=== PATIENT | female | born 1955 | race Caucasian/White ===

== ENCOUNTER 2017-07-08 12:52 | Inpatient (IN) | END 2017-07-20 14:38 | disposition home health service (06) | DRG 270 ==

== ENCOUNTER 2017-09-06 03:42 | Inpatient (IN) | END 2017-09-17 14:55 | disposition home health service (06) | DRG 981 ==

== ENCOUNTER 2017-10-08 02:29 | Inpatient (IN) | END 2017-10-17 16:20 | disposition home health service (06) | DRG 981 ==

== ENCOUNTER 2017-10-24 08:46 | Day surgery (SDC) | END 2017-10-24 15:50 | disposition home or self-care (01) ==

== ENCOUNTER 2017-11-09 16:53 | Inpatient (IN) | END 2017-11-16 14:40 | DRG 64 ==

== ENCOUNTER 2017-11-16 16:50 | Inpatient (IN) | END 2017-11-21 17:45 | DRG 56 ==

== ENCOUNTER 2018-02-03 01:41 | Inpatient (IN) | END 2018-02-22 16:10 | DRG 981 ==

== ENCOUNTER 2018-03-29 16:20 | Inpatient (IN) | payer MEDICARE, MEDICAID ==
[~2018-03-29] VITALS: Ht 154.9 cm; Wt 56.0 kg
[~2018-03-29 16:20] MED LIST: ISOT30CA PO; LANT3I SC; LOSA50TA2 PO; METO-336 PO; NOVO3I SC; SEVE0.8P PO; ZOLP5TAB PO
[2018-03-29] MEDS ORDERED: PIPER-TAZO 3.375 GM IV (PMX) 100 ML IVPB STA (16:53)
[2018-03-29] MEDS ORDERED: CLINDAMYCIN 900 MG/D5W (PMX) 50 ML IVPB STA (16:53)
--- NOTE | 2018-03-29 17:16 | ERD ---
ER Documentation Chief Complaint Chief Complaint BIB [facility]from [facility] for LLE cellulitis, ulceration HPI This is a 62-year-old female who resides at [facility] and has a known history of diabetes and hypertension. Patient is also on hemodialysis every Monday and Monday. She is a full run of dialysis yesterday. The patient presents to the emergency department after being seen and evaluated earlier by her primary care physician Dr. Henderson for an infected foot ulcer on her left heel. The patient indicates for several months she has been experiencing a painful ulcer on her left heel that has progressively worsened. She had no fevers or shaking or chills. She was seen today at the wound clinic and was instructed that she would require admission for IV antibiotics. The patient has an allergy to vancomycin. She denies any swelling of her lower extremities nor does she have any calf tenderness or shortness of breath. ROS All systems reviewed and are negative except as per history of present illness. Medications Home Meds Reported Medications Vits A & D/White Pet/Lanolin (Vitamin A & D Ointment) 56.7 Gm Oint...g., GM TP DAILY APPLY RIGHT HEEL TOPICALLY 03/29/18 Ondansetron Hcl* (Zofran*) 4 Mg Tab, 4 MG PO Q6H PRN for NAUSEA AND OR VOMITING, TAB 03/29/18 Metoprolol Succinate* (Toprol XL*) 200 Mg Tab.sr.24h, 200 MG PO BID, #60 TAB QTUE, ROCHELLE, SAT, SUN. HOLD FOR SBP<110 OR AR<60 03/29/18 Metoprolol Succinate* (Toprol XL*) 200 Mg Tab.sr.24h, 200 MG PO DAILY, #30 TAB Q MON, MON, MON.HOLD FOR SBP<110 OR AR<60 03/29/18 Pantoprazole* (Pantoprazole*) 40 Mg Tablet.dr, 40 MG PO AC BREAKFAST, TAB 03/29/18 Clopidogrel Bisulfate (Clopidogrel) 75 Mg Tablet, 75 MG PO DAILY, #30 TAB 03/29/18 Morphine Sulfate* (Morphine* Liq) 10 Mg/5 Ml Solution, 1 ML PO Q3H PRN for PAIN LEVEL 6-10, ML 03/29/18 Dronabinol* (Marinol*) 2.5 Mg Capsule, 2.5 MG PO DAILY, CAP 03/29/18 Atorvastatin* (Atorvastatin*) 40 Mg Tablet, 40 MG PO QHS, #30 TAB 03/29/18 Lactulose* (Lactulose*) 10 Gm/15 Ml Solution, 30 GM PO Q6, ML 03/29/18 Iodine/Potassium Iodide (Iodine Strong Solution) 100 Ml Solution, ML TP DAILY APPLY TO LEFT HEEL TOPICALLY 03/29/18 Heparin Sodium,Porcine/Pf (HEPARIN SOD 5,000 UNIT/ 0.5 ML) 5,000 Unit/0.5 Ml Vial, 5000 UNIT IJ BID, VIAL 03/29/18 Epoetin Olayinka (Epogen) 10,000 Units/Ml Soln, 07472 UNITS SC DAILY, VIAL Q MON, MON, MON FOR ESRD 03/29/18 Losartan Potassium* (Losartan Potassium*) 50 Mg Tablet, 50 MG PO DAILY, TAB Q MON, MON, MON. HOLD FOR SBP<110 OR AR<60 03/29/18 Losartan Potassium* (Losartan Potassium*) 50 Mg Tablet, 50 MG PO BID, TAB Q MON, ROCHELLE, SAT, SUN. HOLD FOR SBP<110 OR AR<60 03/29/18 Diphenhydramine Hcl* (Benadryl*) 50 Mg Cap, 50 MG PO Q3H PRN for ITCHING, CAP 03/29/18 Insulin Glargine,Hum.rec.anlog (Basaglar Kwikpen U-100) 100 Unit/1 Ml Insuln.pen , 5 UNIT SC QHS, EA 03/29/18 Acetaminophen* (Acetaminophen*) 325 Mg Tablet, 650 MG PO Q6H PRN for PAIN LEVEL 1-5, #30 TAB 03/29/18 Sevelamer Carbonate* (Renvela*) 0.8 Gm Powd.pack, 1.6 GM PO WITH MEALS, PACKET 07/08/17 Insulin Aspart* (Novolog Insulin Pen*) 100 Unit/Ml Soln, 2 UNIT SC WITH MEALS, EA HOLD IF BS<150 07/08/17 Discontinued Reported Medications Isotretinoin (Myorisan) 30 Mg Capsule, 30 MG PO BID, CAP 09/06/17 Insulin Glargine* (Lantus*) 100 Unit/Ml Soln, 5 UNIT SC QHS, #1 VIAL 08/22/17 Zolpidem Tartrate* (Ambien*) 5 Mg Tablet, 5 MG PO QHS PRN for INSOMNIA, #30 TAB 07/08/17 Discontinued Scripts Metoprolol Succinate* (Toprol XL*) 100 Mg Tab.sr.24h, 200 MG PO BID for 90 Days Prov:GAGE WOOTEN MD 09/16/17 Losartan Potassium* (Cozaar*) 50 Mg Tablet, 50 MG PO BID for 90 Days, TAB Prov:GAGE WOOTEN MD 09/16/17 Allergies Allergies: Coded Allergies: aspirin (Unverified Allergy, Severe, 03/29/18) codeine (Unverified Allergy, Severe, 03/29/18) vancomycin (Unverified Allergy, Severe, 03/29/18) PMhx/Soc History of Surgery: No Anesthesia Reaction: No Hx Neurological Disorder: Yes (01/20 stroke) Hx Respiratory Disorders: No Hx Cardiac Disorders: No Hx Psychiatric Problems: No Hx Miscellaneous Medical Probl: Yes (pls see EMR) Hx Alcohol Use: No Hx Substance Use: No Hx Tobacco Use: No Physical Exam Vitals Vital Signs Date Temp Pulse Resp B/P (MAP) Pulse Ox O2 O2 Flow FiO2 Time Delivery Rate 03/29/18 93 16 140/79 95 Nasal 4.0 18:36 (99) Cannula 03/29/18 98.1 97 20 133/76 100 16:41 (95) Physical Exam Constitutional:Well-developed. Well-nourished. HEENT:Normocephalic. Atraumatic.Pupils were equal round reactive to light. Moist mucous membranes.No tonsillar exudates. Neck: No nuchal rigidity. No lymphadenopathy. No posterior cervical spine tenderness or step-offs. Respiratory: Not using accessory muscles of respiration.Lungs were clear to auscultation bilaterally. No rhonchi. No rales. No wheezing. Cardiovascular: Regular rate regular rhythm.No murmurs. No rubs were appreciated.S1, S2 normal. Left lower extremity palpable femoral pulse but nonpalpable pedal pulse. GI: Abdomen was soft. Nontender. Non Distended. No pulsatile abdominal masses or bruits. No rebound. No guarding. Bowel sounds were present and normal. Muscle skeletal: Full range of motion of both the upper and lower extremities bilaterally.Normal muscle tone.No assymetrical calf tenderness or swelling. Positive thrill and bruit of the left upper extremity AV fistula Skin: No petechia, no purpura. No lesions on the palms or the soles of the feet. No maculopapular rash. Left heel ulcer with gangrene, granulation tissue and eschar formation. Left calf ulcer with subcutaneous tissue and granulation tissue present. Dressing was removed in order to perform physical exam and replaced by nursing staff. NEURO: Patient was alert, awake, orientated x3.No facial droop. Gait observed and normal with no ataxia.Speech had regular rate and rhythm. No focal neurological deficits. Result Diagram: 03/29/182 03/29/181811 Results 24 hrs Laboratory Tests Test 03/29/18 18:12 03/29/18 18:13 White Blood Count 6.4 10^3/ul Red Blood Count 3.21 10^6/ul Hemoglobin 11.0 g/dl Hematocrit 35.0 % Mean Corpuscular Volume 109.0 fl Mean Corpuscular Hemoglobin 34.3 pg Mean Corpuscular Hemoglobin Concent 31.4 g/dl Red Cell Distribution Width 16.5 % Platelet Count 204 10^3/UL Mean Platelet Volume 11.4 fl Immature Granulocytes % 0.500 % Neutrophils % 78.7 % Lymphocytes % 9.2 % Monocytes % 10.6 % Eosinophils % 0.5 % Basophils % 0.5 % Nucleated Red Blood Cells % 0.0 /100WBC Immature Granulocytes # 0.030 10^3/ul Neutrophils # 5.1 10^3/ul Lymphocytes # 0.6 10^3/ul Monocytes # 0.7 10^3/ul Eosinophils # 0.0 10^3/ul Basophils # 0.0 10^3/ul Nucleated Red Blood Cells # 0.0 10^3/ul Prothrombin Time 14.4 Sec Prothrombin Time Ratio 1.1 INR International Normalized Ratio 1.10 Activated Partial Thromboplast Time 30.4 Sec Sodium Level 138 mmol/L Potassium Level 5.1 mmol/L Chloride Level 94 mmol/L Carbon Dioxide Level 29 mmol/L Anion Gap 15 Blood Urea Nitrogen 30 mg/dl Creatinine 3.88 mg/dl Est Glomerular Filtrat Rate mL/min 14 mL/min Glucose Level 282 mg/dl Hemoglobin A1c 6.2 % Calcium Level 9.2 mg/dl Total Bilirubin 0.8 mg/dl Direct Bilirubin 0.30 mg/dl Indirect Bilirubin 0.5 mg/dl Aspartate Amino Transf (AST/SGOT) 30 IU/L Alanine Aminotransferase (ALT/SGPT) 9 IU/L Alkaline Phosphatase 228 IU/L Troponin I < 0.012 ng/ml C-Reactive Protein 5.1 mg/dl Total Protein 9.6 g/dl Albumin 3.7 g/dl Globulin 5.90 g/dl Albumin/Globulin Ratio 0.62 POC Venous Lactate 2.4 mmol/L Current Medications Medications Dose Sig/Mango Start Time Status Last (Trade) Ordered Route PRN Stop Time Admin Dose Reason Admin Clindamycin 50 ml @ 50 ONCE STAT 03/29/18 DC HCl/ mls/hr IVPB 16:53 Dextrose 03/29/18 17:52 Piperacillin 100 ml @ ONCE STAT 03/29/18 DC Sod/ 200 mls/hr IVPB 16:53 Tazobactam 03/29/18 Sod 17:22 Morphine 4 mg ONCE STAT 03/29/18 DC 03/29/18 Sulfate IV 17:18 19:12 (morphine) 03/29/18 17:19 Ondansetron 4 mg ONCE STAT 03/29/18 DC 03/29/18 HCl (Zofran IV 17:18 19:11 Inj) 03/29/18 17:19 Ondansetron 4 mg BRIDGE ORDER 03/29/18 HCl (Zofran PRN IV 18:00 Inj) NAUSEA AND/OR 03/30/18 VOMITING 17:59 650 mg ER BRIDGE 03/29/18 Acetaminophen PRN PO MILD 18:00 (Tylenol PAIN(1-3)OR 03/30/18 Tab) ELEVATED TEMP 17:59 Procedures/MDM The patient presented to the emergency department with a spreading erythematous superficial infection of the skin and subcutaneous tissues. My differential diagnosis included but was not limited to necrotizing fasciitis, lymphangitis, thrombophlebitis, deep vein thrombosis, allergic reaction, neoplasm, gout or abscess. Predisposing factors of the progressive spread of erythema, warmth, pain and tenderness was considered such as lymphedema, tinea pedis, open wounds, prior trauma or surgery, pre-existing skin lesion (furuncle), retained foreign body, injection drug use or vascular or immune compromise. The patient was placed on antibiotics to cover Staphylococcus aureus, including resistant strains such as community-acquired methicillin-resistant S. aureus. Radiographic imaging 3 views of the left foot and ankle reviewed by myself the radiologist indicated the following: Soft tissue wound/ulcer of the heel with possible early erosive changes of the calcaneal tuberosity which may represent early osteomyelitis. Interval development of tibiotalar joint effusion with erosive changes of the talus, navicular, and distal fibula concerning for possible infectious arthropathy. 12 Lead EKG tracing ordered and reviewed by myself showed: Normal sinus rhythm of 99 bpm and no arrhythmia. AR interval normal. QRS duration normal. No ST segment elevation No ST segment depression. No changes consistent with acute ischemia. Patient has allergy to vancomycin. Therefore she was given clindamycin and Zosyn. Dr. Henderson will be the admitting physician. Please note that the patient had been waiting a bed and continued to be monitored in the emergency department. Lactic acid which had not been ordered by myself at 1813 and back positive at 2.4. The patient initially arrived she did not have Sirs criteria. She did have blood cultures obtained and has been ordered Zosyn and clindamycin. However the patient was very reluctant to take any antibiotics and refused the antibiotic treatment in the emergency room. She stated she has allergies to every antibiotic except for 1 despite medical documentation that the patient has an allergy to vancomycin only. Therefore the patient kept refusing the antibiotics. We phoned dialysis Center [facility] for unable to get hold of them as she states they know the antibiotic she can take. We also placed a call to her daughter who she also stated is aware of the antibiotic she can take but we were unable to get hold of her. The patient did not receive a 30 cc/kg bolus of normal saline given that she is a dialysis patient and this would result in fluid overload. Again please note that there was a delay in antibiotics not due to nursing staff or myself them being ordered but that the patient was refusing the antibiotics. I felt the lactic acidosis was not a result of sepsis. Departure Diagnosis: Primary Impression: Osteomyelitis of foot, left, acute Additional Impression: Lactic acidosis Condition: Serious JORDYN HENDRICKS MD Mar 29, 2018 17:16
[2018-03-29] MEDS ORDERED: morphine 4 MG/ML VIAL IV STA (17:18)
[2018-03-29] MEDS ORDERED: ONDANSETRON 4 MG INJ IV STA (17:18)
[2018-03-29] MEDS ORDERED: ACET325T45 PO (17:41)
[2018-03-29] MEDS ORDERED: INSU100I33 SC (17:47)
[2018-03-29] MEDS ORDERED: BEN50 PO (17:48)
[2018-03-29] MEDS ORDERED: LOSA50TA14 PO ×2 (17:51)
[2018-03-29] MEDS ORDERED: EPO10ESRD SC (17:52)
[2018-03-29] MEDS ORDERED: HEPA500021 IJ (17:52)
[2018-03-29] MEDS ORDERED: [UNRECOGNIZED DRUG - CODE] TP (17:55)
[2018-03-29] MEDS ORDERED: LACT10SO5 PO (17:55)
[2018-03-29] MEDS ORDERED: ATOR40TA68 PO (17:56)
[2018-03-29] MEDS ORDERED: DRON2.5C10 PO (17:56)
[2018-03-29] MEDS ORDERED: MORP10SO PO (17:58)
[2018-03-29] MEDS ORDERED: CLOP75TA27 PO (17:58)
[2018-03-29] MEDS ORDERED: PANT40TA4 PO (17:59)
[2018-03-29] MEDS ORDERED: ACETAMINOPHEN 325 MG TAB PO PRN (18:00)
[2018-03-29] MEDS ORDERED: ONDANSETRON 4 MG INJ IV PRN (18:00)
[2018-03-29] MEDS ORDERED: METO200T49 PO ×2 (18:01)
[2018-03-29] MEDS ORDERED: ONDA4TAB13 PO (18:02)
[2018-03-29] MEDS ORDERED: VITA56.7 TP (18:04)
[2018-03-29] MEDS ORDERED: GENTAMICIN 120 MG/NS (PMX) 100 ML IVPB ONE (20:30)
[2018-03-30] VITALS (17 sets, daily range): BP systolic 127–167; BP diastolic 61–93; PULSE 88–105; RESP 19–20; Ht 154.9 cm; Wt 56.0 kg
[2018-03-30] MEDS ORDERED: ACETAMINOPHEN 325 MG TAB PO PRN (01:30)
[2018-03-30] MEDS ORDERED: DIPHENHYDRAMINE 50 MG CAP PO PRN (01:30)
[2018-03-30] MEDS: ACCU-CHEK XX SCH (02:00)
[2018-03-30] MEDS ORDERED: GLUCOSE GEL 15 GRAM TUBE BUCCAL PRN (02:00)
[2018-03-30] MEDS: LACTULOSE 30ML CUP PO SCH ×3 (05:34→17:50)
[2018-03-30] MEDS ORDERED: PIPER-TAZO 3.375 GM IV (PMX) 100 ML IVPB SCH (06:00)
[2018-03-30] MEDS ORDERED: PIPER-TAZO 2.25 GM (PMX) 50 ML IVPB SCH (06:00)
[2018-03-30] MEDS ORDERED: DIPHENHYDRAMINE 50 MG INJ IV ONE (07:00)
[2018-03-30] MEDS ORDERED: HEPARIN 5,000 UNIT/0.5 ML VIAL SC SCH (09:00)
[2018-03-30] MEDS ORDERED: METOPROLOL (XL) 100 MG TAB PO SCH (09:00)
[2018-03-30] MEDS ORDERED: CLINDAMYCIN 600 MG/D5W (PMX) 50 ML IVPB SCH (09:00)
[2018-03-30] MEDS: CLOPIDOGREL 75 MG TAB PO SCH (09:18)
[2018-03-30] MEDS: METOPROLOL (XL) 100 MG TAB PO SCH (09:19)
[2018-03-30] MEDS: LOSARTAN 50 MG TAB PO SCH (09:19)
[2018-03-30] MEDS: SEVELAMER CARBONATE 0.8 GM PKT PO SCH ×3 (09:20→17:51)
[2018-03-30] MEDS: PANTOPRAZOLE (EC) 40 MG TAB PO SCH (09:20)
[2018-03-30] MEDS: DRONABINOL 2.5 MG CAP PO SCH (09:23)
[2018-03-30] MEDS: INSULIN ASPART [NOVOLOG] 3 ML PEN SC SCH ×7 (09:27→20:45)
[2018-03-30] MEDS: morphine LIQ (10 MG/5 ML) CUP PO PRN ×2 (09:37→21:04)
[2018-03-30] MEDS: HEPARIN 5,000 UNIT/1 ML VIAL SC SCH ×2 (12:00→20:52)
[2018-03-30] MEDS ORDERED: LEVOFLOXACIN 500 MG TAB PO ONE (12:30)
[2018-03-30] MEDS: ONDANSETRON 4 MG TAB PO PRN ×2 (14:23→21:04)
[2018-03-30] MEDS: CLINDAMYCIN 900 MG/D5W (PMX) 50 ML IVPB SCH ×2 (15:12→22:29)
--- NOTE | 2018-03-30 15:48 | CONS ---
Date/Time of Note Date/Time of Note DATE: 03/30/18 TIME: 15:48 Assessment/Plan Assessment/Plan Additional Assessment/Plan 1) Left heel unstageable decubitus ulcer 2) Left heel dry gangrene 3) Left lateral leg diabetic ulcer 4) Cellulitis LLE 5) Suspicion for osteomyelitis 6) PAD 7) ESRD on HD 8) DM1 with peripheral neuropathy 9) Hx of CVA Plan: X-rays reviewed and showing signs of early osteomyelitis. No sign of soft tissue emphysena. MRI ordered. PAD being followed in outpatient setting with Dr. Valdovinos. Wound cultures obtained currently on IV abx. Patient will likely need IV PICC line abx. Recommend offloading with pillows and heel protectors. Recommend daily irrigation with dakins to wound sites. Left lateral leg with xeroform, left heel with 4x4 betadine gauze and kerlix wrap. Medical decisions, treatment, and plan coordinated with Dr. Gomez. Consultation Date/Type/Reason Admit Date/Time Mar 29, 2018 at 17:36 Hx of Present Illness 62 y/o F with hx of HLD, DM1 with PN, HTN, PAD, CVA, ESRD on HD presents to the floor with chronic left lower extremity ulceration. Patient was seen in wound care clinic and had reported increased swelling and pain to the left lower extremity ulcer sites. There was concern for worsening infection due the symptoms she exhibited during clinic. Patient was amenable for admission for closer monitoring. ROS: negative except for HPI Past Medical History HLD, DM1 with PN, osteomyelitis, HTN, PAD, CVA, ESRD on HD Medications Current Medications Acetaminophen (Tylenol Tab) 650 mg Q6H PRN PO PAIN LEVEL 1-5; Start 03/30/18 at 01:30 Atorvastatin Calcium (Lipitor) 40 mg QHS PO ; Start 03/30/18 at 21:00 Clopidogrel Bisulfate (plaVIX) 75 mg DAILY PO Last administered on 03/30/18at 09:18; Admin Dose 75 MG; Start 03/30/18 at 09:00 Dronabinol (Marinol) 2.5 mg DAILY PO Last administered on 03/30/18at 09:23; Admin Dose 2.5 MG; Start 03/30/18 at 09:00 Epoetin Olayinka (Epogen (Esrd)) 10,000 units DAILY@1700 SC ; Start 03/30/18 at 17:00 Insulin Aspart (Novolog Insulin Pen) 2 unit WITH MEALS SC Last administered on 03/30/18at 11:40; Admin Dose 2 UNIT; Start 03/30/18 at 07:50 Insulin Glargine (Lantus) 5 units QHS SC ; Start 03/30/18 at 21:00 Lactulose (Enulose) 30 gm Q6 PO ; Start 03/30/18 at 06:00 Losartan Potassium (Cozaar) 50 mg SuTuThSa@0900,2100 PO ; Start 03/31/18 at 09: 00 Losartan Potassium (Cozaar) 50 mg MoWeFr@0900 PO Last administered on 03/30/18at 09:19; Admin Dose 50 MG; Start 03/30/18 at 09:00 Morphine Sulfate (morphine) 2 mg Q3H PRN PO PAIN LEVEL 6-10 Last administered on 03/30/18at 09:37; Admin Dose 2 MG; Start 03/30/18 at 01:30 Ondansetron HCl (Zofran Tab) 4 mg Q6H PRN PO NAUSEA AND/OR VOMITING Last administered on 03/30/18at 14:23; Admin Dose 4 MG; Start 03/30/18 at 01:30 Pantoprazole (Protonix Tab) 40 mg AC BREAKFAST PO Last administered on 03/30/18at 09:20; Admin Dose 40 MG; Start 03/30/18 at 07:20 Sevelamer Carbonate (Renvela) 1.6 gm WITH MEALS PO Last administered on 03/30at 13:21; Admin Dose 1.6 GM; Start 03/30/18 at 07:50 Diagnostic Test (Pha) (Accu-Chek) 1 ea 02 XX ; Start 03/30/18 at 02:00 Insulin Aspart (Novolog Insulin Pen) NOVOLOG *MILD* ALGORITHM WITH MEALS BEDTIME SC Last administered on 03/30/18at 13:37; Admin Dose 3 UNIT; Start 03/30/18 at 07:50 Miscellaneous Information 1 ea NOTE XX ; Start 03/30/18 at 02:00 Glucose (Glutose) 15 gm Q15M PRN PO DECREASED GLUCOSE; Start 03/30/18 at 02:00 Glucose (Glutose) 22.5 gm Q15M PRN PO DECREASED GLUCOSE; Start 03/30/18 at 02:00 Dextrose (D50w Syringe) 25 ml Q15M PRN IV DECREASED GLUCOSE; Start 03/30/18 at 02:00 Dextrose (D50w Syringe) 50 ml Q15M PRN IV DECREASED GLUCOSE; Start 03/30/18 at 02:00 Glucagon (Glucagen) 1 mg Q15M PRN IM DECREASED GLUCOSE; Start 03/30/18 at 02:00 Glucose (Glutose) 15 gm Q15M PRN BUCCAL DECREASED GLUCOSE; Start 03/30/18 at 02:00 Metoprolol Succinate (Toprol Xl) 200 mg MoWeFr@0900 PO Last administered on 03/30/18at 09:19; Admin Dose 200 MG; Start 03/30/18 at 09:00 Metoprolol Succinate (Toprol Xl) 50 mg SuTuThSa@0900,2100 PO ; Start 03/31/18 at 09:00 Diphenhydramine HCl (Benadryl) 50 mg Q4H PRN IV pruritis; Start 03/30/18 at 09:00 Heparin Sodium (Porcine) (Heparin (5000 Units/1ml)) 5,000 unit BID SC Last administered on 03/30/18at 12:00; Admin Dose 5,000 UNIT; Start 03/30/18 at 12:00 Clindamycin HCl/ Dextrose 50 ml @ 50 mls/hr Q8 IVPB Last administered on 03/30/18at 15:12; Admin Dose 50 MLS/HR; Start 03/30/18 at 14:00 Levofloxacin (Levaquin) 250 mg Q2D@0600 PO ; Start 04/01/18 at 06:00 Allergies: Coded Allergies: aspirin (Unverified Allergy, Severe, 03/29/18) codeine (Unverified Allergy, Severe, 03/29/18) vancomycin (Unverified Allergy, Severe, 03/29/18) Past Surgical History AVF Past Surgical Hx: other Family History Significant Family History: no pertinent family hx Social History Alcohol Use: none Smoking Status: Never smoker Drug Use: none Exam/Review of Systems Vital Signs Vitals Vital Signs Date Temp Pulse Resp B/P (MAP) Pulse Ox O2 O2 Flow FiO2 Time Delivery Rate 03/30/18 97.8 105 19 130/81 99 Nasal 08:30 (97) Cannula 03/30/18 2.0 01:59 Exam Non palpable pedal pulses Muscle atrophy to the lower extremity Left heel ulcer 3.1 x 2.8cm indeterminate depth mild erythema to the surrounding aspect of the wound. No purulence expressed Left lateral leg ulcer 3.3 x 1.8 x 0.2cm dry fibrogranular wound base. No proximal streaking no purulence expressed. Absent protectives sensations to the feet There is pain to palpation of the heel wound site. X-ray Soft tissue wound/ulcer of the heel with possible early erosive changes of the calcaneal tuberosity which may represent early osteomyelitis. Interval development of tibiotalar joint effusion with erosive changes of the talus, navicular, and distal fibula concerning for possible infectious arthropathy. FELTON ACOSTA DPM Mar 30, 2018 15:48
[2018-03-30] MEDS ORDERED: DIPHENHYDRAMINE 50 MG CAP PO ONE (16:00)
--- NOTE | 2018-03-30 17:00 | HP ---
DATE OF ADMISSION: 03/29/2018 CHIEF COMPLAINT: Cellulitis, ulceration. HISTORY OF PRESENT ILLNESS: This is a 62-year-old female with a past medical history of end-stage re nal disease, history of anemia, history of mineral bone disorder, history of third-degree grijalva, stat us post skin graft, history of type 1 diabetes, history of pruritus, who was brought into [facility] from her [facility] facility due to infected left heel ulcer. The patient scott t to the [facility], was seen by her surgeon, Dr. Valdovinos, who recommended arminda romero to come to the emergency room for further evaluation of her left heel ulcer. The patient states th at she has been having pain in the ulcer of the left heel, which has progressively worsened. As a re sult, the patient was brought into the emergency room. The patient was started on IV antibiotics, mcpherson d laboratory data drawn, and was admitted to med/surg for further evaluation. Upon my evaluation of the patient at this time, she is complaining of pruritus, which she states has worsened over the last 24 hours. The patient is also complaining about pain in her left heel. She o therwise denies any fevers, chills, nausea, or vomiting. PAST MEDICAL HISTORY: History of end-stage renal disease, history of third-degree grijalva, history of CVA, history of diabetes type 1, history of peptic ulcer disease, history of GI bleed, history of min eral bone disorder. PAST SURGICAL HISTORY: Status post PermCath placement, status post AV fistula placement, status post hysterectomy, status post skin graft. ALLERGIES: MULTIPLE, PLEASE SEE LIST. FAMILY HISTORY: No family history of kidney disease. SOCIAL HISTORY: She does not drink, smoke, or do drugs. MEDICATIONS: The patient's medications have been reviewed. REVIEW OF SYSTEMS: Fourteen-point review of systems was conducted. Pertinent positives stated in HP I, otherwise, negative. PHYSICAL EXAMINATION: VITAL SIGNS: Blood pressure is 117/62, respirations 16, pulse 70, temperature 98.6. HEENT: Head is normocephalic. NECK: Supple. HEART: Regular rate. LUNGS: Show diminished breath sounds at the base. ABDOMEN: Soft, nontender to palpation, no rebound or guarding. EXTREMITIES: Negative for clubbing and cyanosis, no edema, positive wound noted on patient's heel. DERMATOLOGIC: The patient has noted skin graft. NEUROLOGIC: No change in exam, no focal deficits. MUSCULOSKELETAL: No joint effusions. LABORATORY DATA: Shows a white count of 5.5, hemoglobin 9.7, platelet count 176. Sodium 140, BUN 37 , creatinine 4.28, lactic acid level 2.2, calcium 8.7. ASSESSMENT AND PLAN: 1. Left foot diabetic foot ulcer with underlying cellulitis. Plan is to start the patient on antibi otic therapy. We will place an ID consult for antibiotic regimen. Imaging studies and x-rays of the ankle were reviewed. It shows evidence of erosive changes, possible early osteomyelitis. We will p lace a vascular surgery consult with Dr. Valdovinos for further recommendations and monitor closely. 2. End-stage renal disease. The patient is on dialysis Monday, Monday, Monday. Plan for hemodia lysis today. We will dialyze 3 hours on 3K bath, calcium 2.5, ultrafiltrate as tolerated. 3. Anemia. Monitor hemoglobin and hematocrit levels. We will give Epogen as needed. 4. Mineral bone disorder. Monitor calcium and phosphorus levels. 5. Chronic pruritus. Etiology is secondary to history of third-degree grijalva. We will continue yrn ent on Benadryl. We will attempt dermatology consult if available. 6. Diabetes. Continue current insulin regimen. 7. Peptic ulcer disease. Continue proton pump inhibitor. 8. History of CVA. Continue medical management. 9. Chronic pain syndrome. Continue current pain regimen. 10. Hypertension. Continue current blood pressure regimen. 11. Gastrointestinal and deep venous thrombosis prophylaxis. 12. Coronary artery disease. Continue current treatment plan. Dictated By: KG SANTANA/NASH Conf#: [id number] DID#: [id number]
[2018-03-30] MEDS: EPOETIN 10000 UNITS/1 ML INJ (ESRD) SC SCH (17:52)
--- NOTE | 2018-03-30 20:12 | CONS ---
DATE OF ADMISSION: 03/29/2018 DATE OF CONSULTATION: 03/30/2018 TYPE OF CONSULTATION: Infectious Disease REASON FOR CONSULTATION: Antibiotic management. HISTORY OF PRESENT ILLNESS: Henna Quinn is a 62-year-old female who was brought in from a skilled [facility] facility with left lower extremity cellulitis. Her past problems include: 1. Adult-onset diabetes. 2. Hypertension. 3. End-stage renal disease on hemodialysis Monday, Monday and Monday. The patient presented to the emergency room after being seen by Dr. Henderson for an infected foot ulce r on her left heel. The patient notes that she has had this for several months and has been experien cing a painful ulcer on the left heel that has progressively worsened. She denies fever or chills. The patient has an ALLERGY TO VANCOMYCIN. She denies any swelling of her lower extremities nor did s he have any calf tenderness or shortness of breath. On admission, her white count was 6.4, H and H o f 11 and 35, platelet count of 204,000. BUN and creatinine 30/3.88. Blood sugar of 282. PAST MEDICAL HISTORY: As outlined. The patient also is on insulin. She is on blood pressure medica tions and she is hyperlipidemic as well. ALLERGIES: 1. ASPIRIN. 2. CODEINE. 3. VANCOMYCIN. PAST SURGICAL HISTORY: She has a history of a stroke on 01/20/2018. SOCIAL HISTORY: She does not smoke, drink or abuse drugs. PHYSICAL EXAMINATION: GENERAL: The patient is well-developed, well-nourished female, alert and responsive. VITAL SIGNS: Afebrile, pulse of 97, blood pressure 135/75. SKIN: Without generalized rash. HEENT: Within normal limits. NECK: Supple. LYMPH NODES: None palpable. CHEST: Decreased breath sounds at the bases. HEART: Without murmur or gallop. ABDOMEN: Soft, nontender, without organosplenomegaly or masses. EXTREMITIES: Without cyanosis, clubbing, or edema. She has an AV fistula in the left upper extremit y with a positive thrill and bruit. She has a left heel ulcer which is gangrenous with granulation t issue and eschar formation. She has left calf ulcer with subcutaneous tissue and granulation tissue present. RECTAL AND GENITAL: Deferred. NEUROLOGIC: No focal neurological abnormalities. Patient was begun on Zosyn. She received clindamycin and she also received Zosyn, though the clindam ycin now has been stopped. I will continue clindamycin unless there is a reason why she should not b e on this. We could put her on daptomycin as well. Blood cultures are pending. I will dictate my f indings to the hospitalist. Dictated By: SUGAR GREENE MD, JD/NASH Conf#: [id number] DID#: [id number] CC: KG HENDERSON DO;*End*
[2018-03-30] MEDS: ATORVASTATIN 40 MG TAB PO SCH (20:48)
[2018-03-30] MEDS ORDERED: INSULIN GLARGINE [LANTus] (100 UNITS/ML) SYG SC SCH (21:00)
[2018-03-30] MEDS: DIPHENHYDRAMINE 50 MG INJ IV PRN (21:04)
[2018-03-31] MEDS: ACCU-CHEK XX SCH (02:00)
[2018-03-31 03:00] VITALS: BP 131/72; PULSE 90; RESP 18
[2018-03-31] MEDS: GLUCOSE GEL 15 GRAM TUBE PO PRN (06:00)
[2018-03-31] MEDS: DEXTROSE 50% 50 ML SYRINGE IV PRN (06:12)
[2018-03-31] MEDS: PANTOPRAZOLE (EC) 40 MG TAB PO SCH ×2 (06:17→09:00)
[2018-03-31] MEDS: LACTULOSE 30ML CUP PO SCH ×4 (06:18→18:00)
[2018-03-31 06:30] VITALS: BP 133/68
[2018-03-31] MEDS: CLINDAMYCIN 900 MG/D5W (PMX) 50 ML IVPB SCH ×3 (07:15→22:00)
[2018-03-31 07:25] VITALS: BP 138/68; PULSE 80; RESP 18
[2018-03-31] MEDS: SODIUM HYPOCHLORITE (1/40) 1 APPLIC BTL IRR SCH (08:59)
[2018-03-31] MEDS: CLOPIDOGREL 75 MG TAB PO SCH (09:00)
[2018-03-31] MEDS: DRONABINOL 2.5 MG CAP PO SCH (09:01)
[2018-03-31] MEDS: METOPROLOL (XL) 50 MG TAB PO SCH ×2 (09:01→20:05)
[2018-03-31] MEDS: SEVELAMER CARBONATE 0.8 GM PKT PO SCH ×3 (09:01→18:15)
[2018-03-31] MEDS: LOSARTAN 50 MG TAB PO SCH ×2 (09:01→20:05)
[2018-03-31] MEDS: HEPARIN 5,000 UNIT/1 ML VIAL SC SCH ×2 (09:02→20:22)
[2018-03-31] MEDS: INSULIN ASPART [NOVOLOG] 3 ML PEN SC SCH ×7 (09:03→20:26)
--- NOTE | 2018-03-31 13:14 | PN ---
DATE: 03/31/2018 SUBJECTIVE: This morning, the patient noted to be hypoglycemic with sugars in the 50s. The patient had hemodialysis yesterday, tolerated well. The patient was symptomatic, but was given D50 with impr ovement in glucose levels. No other events noted. OBJECTIVE: VITAL SIGNS: Blood pressure is 138/68, pulse is 60, respirations 18, temperature 97.2. HEENT: Head is normocephalic. NECK: Supple. HEART: Regular rate. LUNGS: Show diminished breath sounds at the base. ABDOMEN: Soft, nontender to palpation. No rebound or guarding. EXTREMITIES: Negative for clubbing, cyanosis. No edema. DERMATOLOGIC: No rashes. MUSCULOSKELETAL: No joint effusions. NEUROLOGIC: No change in exam. MEDICATIONS: Reviewed. LABORATORY DATA: Shows a white count 5.5, hemoglobin 9.9, platelet count is 185. Sodium 142, potass ium 3.4, chloride 98, BUN 26, creatinine 3.34, phosphorus 5.0. ASSESSMENT AND PLAN: 1. Left foot diabetic foot ulcer with underlying cellulitis. Continue current antibiotic regimen. Appreciate infectious disease's evaluation. Follow up with wound care. Follow up with podiatry. 2. End-stage renal disease. The patient had hemodialysis yesterday, tolerated well. Anticipate nex t dialysis on Monday. 3. Diabetes type 1 with episode of hypoglycemia. Will decrease the patient's long-acting Lantus. I f blood glucose level should continue to fluctuate, will place an endocrinology consult for evaluatio n. Continue mealtime insulin. 4. Anemia. Monitor hemoglobin and hematocrit levels. Will give Epogen as needed. 5. Mineral bone disorder. Monitor calcium and phosphorus levels. 6. 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 Continue Benadryl. 7. Peptic ulcer disease. Continue proton pump inhibitor. 8. History of cerebrovascular accident. Continue medical management. 9. Chronic pain syndrome. Continue current pain regimen. 10. Hypertension. Continue current blood pressure regimen. 11. Gastrointestinal and deep vein thrombosis prophylaxis. 12. Coronary artery disease. Continue current treatment plan. Dictated By: KG FELIX DO NR/NTS Conf#: [id number] DID#: [id number] CC: KG FELIX DO;*EndCC*
[2018-03-31 14:18] VITALS: BP 118/58; PULSE 93; RESP 18
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
--- NOTE | 2018-03-31 16:42 | CONS ---
Date/Time of Note Date/Time of Note DATE: 03/31/18 TIME: 16:41 Assessment/Plan Assessment/Plan Chief Complaint/Hosp Course SUBJECTIVE: Alert, looks comfortable, no fevers INDWELLINGS: She has AV fistula. Antimicrobials: Clindamycin, Levaquin PHYSICAL EXAMINATION: GENERAL: Chronically ill-appearing, wasted, elderly woman who is awake, in no distress. HEENT: Head is atraumatic, normocephalic. NECK: Supple. CHEST: Rise symmetrical. Breath sounds diminished to bases. HEART: S1, S2. ABDOMEN: Soft. Bowel tones are present. EXTREMITIES: With left lower extremity dressing intact. ASSESSMENT: 1. Left lower extremity nonhealing necrotic wound. 2. Severe peripheral arterial disease, status post balloon angioplasty 02/13/18. 3. End-stage renal disease, hemodialysis dependent. 4. ALLERGIES TO VANCOMYCIN. 5. Diabetes and anemia. PLAN: The patient remains stable. Continue present care, wound management per vascular surgery and podiatry Consultation Date/Type/Reason Admit Date/Time Mar 29, 2018 at 17:36 Initial Consult Date Type of Consult ID Exam/Review of Systems Vital Signs Vitals Vital Signs Date Temp Pulse Resp B/P (MAP) Pulse Ox O2 O2 Flow FiO2 Time Delivery Rate 03/31/18 97.4 93 18 118/58 100 Room Air 14:18 (78) 03/30/18 2.0 01:59 Intake and Output 03/30/18 03/30/18 03/31/18 1515:00 23:00 07:00 IntakeIntake Total 290 ml 600 ml OutputOutput Total 2700 ml BalanceBalance 290 ml -2100 ml KRISHNA BURTON NP Mar 31, 2018 16:42
[2018-03-31] MEDS: EPOETIN 10000 UNITS/1 ML INJ (ESRD) SC SCH (18:16)
[2018-03-31 19:59] VITALS: BP 133/65; PULSE 102; RESP 18
[2018-03-31] MEDS: DIPHENHYDRAMINE 50 MG INJ IV PRN (20:00)
[2018-03-31] MEDS: INSULIN GLARGINE [LANTus] (100 UNITS/ML) SYG SC SCH (20:26)
[2018-03-31] MEDS: ATORVASTATIN 40 MG TAB PO SCH (20:26)
[2018-03-31] MEDS: ONDANSETRON 4 MG TAB PO PRN (22:02)
[2018-03-31] MEDS: morphine LIQ (10 MG/5 ML) CUP PO PRN (22:03)
[2018-04-01] VITALS (18 sets, daily range): BP systolic 101–130; BP diastolic 55–79; PULSE 85–100; RESP 16–18
[2018-04-01] MEDS: DIPHENHYDRAMINE 50 MG INJ IV PRN ×2 (00:53→21:28)
[2018-04-01] MEDS: ACCU-CHEK XX SCH (02:00)
[2018-04-01] MEDS: morphine LIQ (10 MG/5 ML) CUP PO PRN ×2 (02:29→21:28)
[2018-04-01] MEDS: GLUCOSE GEL 15 GRAM TUBE PO PRN (04:33)
[2018-04-01] MEDS: DEXTROSE 50% 50 ML SYRINGE IV PRN (04:34)
[2018-04-01] MEDS ORDERED: VITAMIN A & D 5 GM OINT PACKET TOP ONE (04:44)
[2018-04-01] MEDS: LACTULOSE 30ML CUP PO SCH ×5 (06:00→23:45)
[2018-04-01] MEDS: CLINDAMYCIN 900 MG/D5W (PMX) 50 ML IVPB SCH ×3 (06:05→21:13)
[2018-04-01] MEDS: LEVOFLOXACIN 250 MG TAB PO SCH (06:06)
[2018-04-01] MEDS: PANTOPRAZOLE (EC) 40 MG TAB PO SCH (06:06)
[2018-04-01] MEDS: INSULIN ASPART [NOVOLOG] 3 ML PEN SC SCH ×8 (08:50→21:58)
[2018-04-01] MEDS: SEVELAMER CARBONATE 0.8 GM PKT PO SCH ×3 (09:01→17:50)
[2018-04-01] MEDS: CLOPIDOGREL 75 MG TAB PO SCH (09:01)
[2018-04-01] MEDS: ONDANSETRON 4 MG TAB PO PRN ×2 (09:02→21:28)
[2018-04-01] MEDS: LOSARTAN 50 MG TAB PO SCH ×2 (09:02→21:12)
[2018-04-01] MEDS: SODIUM HYPOCHLORITE (1/40) 1 APPLIC BTL IRR SCH (09:05)
[2018-04-01] MEDS: HEPARIN 5,000 UNIT/1 ML VIAL SC SCH ×2 (09:09→21:19)
[2018-04-01] MEDS: METOPROLOL (XL) 50 MG TAB PO SCH ×2 (09:12→21:12)
[2018-04-01] MEDS: DRONABINOL 2.5 MG CAP PO SCH (09:17)
--- NOTE | 2018-04-01 12:56 | PN ---
DATE: 04/01/2018 SUBJECTIVE: The patient overnight was stable. No other events noted. The patient continues to have pruritus. I described in detail with the patient about intensifying her hemodialysis which may be u nderlying cause of her pruritus. The patient is hesitant to increase and do more dialysis. No other events noted. OBJECTIVE: VITAL SIGNS: Blood pressure is 115/55, pulse is 100, temperature 98.1, respiration 18. HEENT: Head is normocephalic. NECK: Supple. HEART: Regular rate. LUNGS: Show diminished breath sounds at base. ABDOMEN: Soft, nontender to palpation. No rebound or guarding. EXTREMITIES: Negative for clubbing, cyanosis. No edema. DERMATOLOGIC: No rashes. MUSCULOSKELETAL: No joint effusions. NEUROLOGIC: No change in exam. MEDICATIONS: Have been reviewed. LABORATORY DATA: Show white count 5.4, hemoglobin 9.9, platelet count is 185. ASSESSMENT AND PLAN: 1. Left foot diabetic foot ulcer with underlying cellulitis. Continue current antibiotic therapy. I appreciate infectious disease evaluation. Continue wound care. Follow up with vascular surgery, p odiatry. The patient's MRI is reviewed. 2. End-stage renal disease. Plan for hemodialysis today. 3. Diabetes type 1. Continue current insulin regimen, adjust as needed. 4. Anemia. Monitor hemoglobin and hematocrit levels. Continue Epogen. 5. Mineral bone disorder. Monitor calcium and phosphorus levels. 6. Chronic pruritus. Etiology may be in part due to underlying uremia. I discussed in detail with the patient about intensifying her dialysis. The patient is reticent. We will attempt dialysis agai n today. 7. Peptic ulcer disease. Continue proton pump inhibitor. 8. Cerebrovascular accident. Continue medical management. 9. Chronic pain syndrome. Continue current pain regimen. 10. Hypertension. Continue current blood pressure regimen. 11. Gastrointestinal and deep venous thrombosis prophylaxis. 12. Coronary artery disease. Continue current treatment plan. Dictated By: KG SANTANA/NASH Conf#: [id number] DID#: [id number]
--- NOTE | 2018-04-01 14:09 | CONS ---
Date/Time of Note Date/Time of Note DATE: 04/01/18 TIME: 14:07 Assessment/Plan Assessment/Plan Chief Complaint/Hosp Course SUBJECTIVE:No acute changes overnight patient is awake looks comfortable no fevers overnight no labs this morning Microbiology: Cultures are negative MRI of the ankle revealed soft tissue ulceration of the posterior is calcaneusc, no findings to support osteomyelitis INDWELLINGS: She has AV fistula. Allergy: Vancomycin Antimicrobials: Clindamycin, Levaquin PHYSICAL EXAMINATION: GENERAL: Chronically ill-appearing, wasted, elderly woman who is awake, in no distress. HEENT: Head is atraumatic, normocephalic. NECK: Supple. CHEST: Rise symmetrical. Breath sounds diminished to bases. HEART: S1, S2. ABDOMEN: Soft. Bowel tones are present. EXTREMITIES: With left lower extremity dressing intact. ASSESSMENT: 1. Left lower extremity nonhealing necrotic wound. 2. Severe peripheral arterial disease, status post balloon angioplasty 02/13/18. 3. End-stage renal disease, hemodialysis dependent. 4. ALLERGIES TO VANCOMYCIN. 5. Diabetes and anemia. PLAN: The patient remains stable. Continue present care, wound management per podiatry, await for final wound culture, vascular surgery recommendations noted Consultation Date/Type/Reason Admit Date/Time Mar 29, 2018 at 17:36 Initial Consult Date Type of Consult ID Exam/Review of Systems Vital Signs Vitals Vital Signs Date Temp Pulse Resp B/P (MAP) Pulse Ox O2 O2 Flow FiO2 Time Delivery Rate 04/01/18 98.1 100 18 115/55 100 Room Air 08:28 (75) 03/30/18 2.0 01:59 Intake and Output 03/31/18 03/31/18 04/01/18 1515:00 23:00 07:00 IntakeIntake Total 100 ml 430 ml 50 ml OutputOutput Total 1 ml BalanceBalance 100 ml 429 ml 50 ml KRISHNA BURTON NP Apr 01, 2018 14:09
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
[2018-04-01] MEDS: EPOETIN 10000 UNITS/1 ML INJ (ESRD) SC SCH (18:04)
[2018-04-01] MEDS: ATORVASTATIN 40 MG TAB PO SCH (21:11)
[2018-04-01] MEDS: INSULIN GLARGINE [LANTus] (100 UNITS/ML) SYG SC SCH (21:17)
[2018-04-02 01:30] VITALS: BP 108/59; PULSE 83; RESP 16
[2018-04-02] MEDS: ACCU-CHEK XX SCH (02:13)
[2018-04-02] MEDS: CLINDAMYCIN 900 MG/D5W (PMX) 50 ML IVPB SCH ×3 (05:44→22:18)
[2018-04-02] MEDS: PANTOPRAZOLE (EC) 40 MG TAB PO SCH (05:44)
[2018-04-02] MEDS: LACTULOSE 30ML CUP PO SCH ×4 (05:44→18:00)
[2018-04-02 07:56] VITALS: BP 116/59; PULSE 79; RESP 18
[2018-04-02] MEDS: DRONABINOL 2.5 MG CAP PO SCH (09:00)
[2018-04-02] MEDS: INSULIN ASPART [NOVOLOG] 3 ML PEN SC SCH ×7 (09:21→21:00)
[2018-04-02] MEDS: CLOPIDOGREL 75 MG TAB PO SCH (09:22)
[2018-04-02] MEDS: SEVELAMER CARBONATE 0.8 GM PKT PO SCH ×3 (09:22→18:30)
[2018-04-02] MEDS: LOSARTAN 50 MG TAB PO SCH (09:35)
[2018-04-02] MEDS: HEPARIN 5,000 UNIT/1 ML VIAL SC SCH ×2 (09:38→21:55)
[2018-04-02] MEDS: SODIUM HYPOCHLORITE (1/40) 1 APPLIC BTL IRR SCH (12:46)
[2018-04-02] MEDS: METOPROLOL (XL) 100 MG TAB PO SCH (12:46)
--- NOTE | 2018-04-02 12:57 | PN ---
DATE: 04/02/2018 SUBJECTIVE: The patient had hemodialysis yesterday, tolerated well. No other events noted. The pat ient continues to have pruritus, no significant change. OBJECTIVE: VITAL SIGNS: Blood pressure is 116/59, pulse 79, respiration 18, temperature 99.1. HEENT: Head is normocephalic. NECK: Supple. HEART: Regular rate. LUNGS: Show diminished breath sounds at the base. ABDOMEN: Soft, nontender to palpation without rebound or guarding. EXTREMITIES: Negative for clubbing, cyanosis, no edema. Noted wound on patient's left lower extremi ty. DERMATOLOGIC: No rashes. MUSCULOSKELETAL: No joint effusions. NEUROLOGIC: No change in exam. MEDICATIONS: Reviewed. LABORATORY DATA: Pending. ASSESSMENT AND PLAN: 1. Left foot diabetic ulcer with underlying cellulitis. Continue current antibiotic therapy. Susi nue wound care. Appreciate podiatry and vascular surgery evaluation. 2. End stage renal disease. The patient had hemodialysis yesterday. Plan for dialysis tomorrow. 3. Diabetes type 1. Continue current insulin regimen, adjust as needed. 4. Anemia. Monitor hemoglobin and hematocrit levels. Continue Epogen. 5. Mineral bone disorder, monitor calcium and phosphorus levels. 6. Chronic pruritus. Etiology in part may be due to underlying uremia. Will intensify dialysis and monitor. Will attempt a dermatology consult if possible. 7. Peptic ulcer disease. Continue proton pump inhibitor. 8. Cerebrovascular accident. Continue medical management. 9. Chronic pain syndrome. Continue current pain regimen. 10. Hypertension. Continue current blood pressure regimen. 11. Gastrointestinal and deep vein thrombosis prophylaxis. 12. Coronary artery disease. DISPOSITION: Will place a Loza evaluation. Dictated By: KG SANTANA/NASH Conf#: [id number] DID#: [id number]
--- NOTE | 2018-04-02 15:06 | CONS ---
Date/Time of Note Date/Time of Note DATE: 04/02/18 TIME: 15:05 Assessment/Plan Assessment/Plan Chief Complaint/Hosp Course SUBJECTIVE: No acute changes overnight patient is sleeping, looks comfortable no fevers Microbiology: Cultures are negative MRI of the ankle revealed soft tissue ulceration of the posterior is calcaneusc, no findings to support osteomyelitis INDWELLINGS: AV fistula. Allergy: Vancomycin Antimicrobials: Clindamycin, Levaquin PHYSICAL EXAMINATION: GENERAL: Chronically ill-appearing, wasted, elderly woman who is awake, in no distress. HEENT: Head is atraumatic, normocephalic. NECK: Supple. CHEST: Rise symmetrical. Breath sounds diminished to bases. HEART: S1, S2. ABDOMEN: Soft. Bowel tones are present. EXTREMITIES: With left lower extremity dressing intact. ASSESSMENT: 1. Left lower extremity nonhealing necrotic wound. 2. Severe peripheral arterial disease, status post balloon angioplasty 02/13/18. 3. End-stage renal disease, hemodialysis dependent. 4. ALLERGIES TO VANCOMYCIN. 5. Diabetes and anemia. PLAN: The patient remains stable. Continue present care, wound management per podiatry Consultation Date/Type/Reason Admit Date/Time Mar 29, 2018 at 17:36 Initial Consult Date Type of Consult ID Exam/Review of Systems Vital Signs Vitals Vital Signs Date Temp Pulse Resp B/P (MAP) Pulse Ox O2 O2 Flow FiO2 Time Delivery Rate 04/02/18 99.1 79 18 116/59 99 Room Air 07:56 (78) 03/30/18 2.0 01:59 Intake and Output 04/01/18 04/01/18 04/02/18 1515:00 23:00 07:00 IntakeIntake Total 800 ml 580 ml 50 ml OutputOutput Total 1800 ml BalanceBalance 800 ml -1220 ml 50 ml Medications Medications Current Medications Acetaminophen (Tylenol Tab) 650 mg Q6H PRN PO PAIN LEVEL 1-5; Start 03/30/18 at 01:30 Atorvastatin Calcium (Lipitor) 40 mg QHS PO Last administered on 04/01/18at 21:11; Admin Dose 40 MG; Start 03/30/18 at 21:00 Clopidogrel Bisulfate (plaVIX) 75 mg DAILY PO Last administered on 04/02/18at 09:22; Admin Dose 75 MG; Start 03/30/18 at 09:00 Dronabinol (Marinol) 2.5 mg DAILY PO Last administered on 04/01/18 09:17; Admin Dose 2.5 MG; Start 03/30/18 at 09:00 Epoetin Olayinka (Epogen (Esrd)) 10,000 units DAILY@1700 SC Last administered on 04/01/18 18:04; Admin Dose 10,000 UNITS; Start 03/30/18 at 17:00 Insulin Aspart (Novolog Insulin Pen) 2 unit WITH MEALS SC Last administered on 04/02/18 12:48; Admin Dose 2 UNIT; Start 03/30/18 at 07:50 Lactulose (Enulose) 30 gm Q6 PO Last administered on 03/31/18 06:18; Admin Dose 30 GM; Start 03/30/18 at 06:00 Losartan Potassium (Cozaar) 50 mg SuTuThSa@0900,2100 PO Last administered on 04/01/18 21:12; Admin Dose 50 MG; Start 03/31/18 at 09:00 Losartan Potassium (Cozaar) 50 mg MoWeFr@0900 PO Last administered on 04/02/18 09:35; Admin Dose 50 MG; Start 03/30/18 at 09:00 Morphine Sulfate (morphine) 2 mg Q3H PRN PO PAIN LEVEL 6-10 Last administered on 04/01/18 21:28; Admin Dose 2 MG; Start 03/30/18 at 01:30 Ondansetron HCl (Zofran Tab) 4 mg Q6H PRN PO NAUSEA AND/OR VOMITING Last administered on 04/01/18 21:28; Admin Dose 4 MG; Start 03/30/18 at 01:30 Pantoprazole (Protonix Tab) 40 mg AC BREAKFAST PO Last administered on 04/02/18 05:44; Admin Dose 40 MG; Start 03/30/18 at 07:20 Sevelamer Carbonate (Renvela) 1.6 gm WITH MEALS PO Last administered on 04/02/18 12:43; Admin Dose 1.6 GM; Start 03/30/18 at 07:50 Diagnostic Test (Pha) (Accu-Chek) 1 ea 02 XX Last administered on 04/02/18 02:13; Admin Dose 1 EA; Start 03/30/18 at 02:00 Insulin Aspart (Novolog Insulin Pen) NOVOLOG *MILD* ALGORITHM WITH MEALS BEDTIME SC Last administered on 04/01/18 21:58; Admin Dose 1 UNIT; Start 03/30/18 at 07:50 Miscellaneous Information 1 ea NOTE XX ; Start 03/30/18 at 02:00 Glucose (Glutose) 15 gm Q15M PRN PO DECREASED GLUCOSE Last administered on 04/01/18 04:33; Admin Dose 15 GM; Start 03/30/18 at 02:00 Glucose (Glutose) 22.5 gm Q15M PRN PO DECREASED GLUCOSE Last administered on 03/31/18at 06:00; Admin Dose 22.5 GM; Start 03/30/18 at 02:00 Dextrose (D50w Syringe) 25 ml Q15M PRN IV DECREASED GLUCOSE Last administered on 04/01/18 04:34; Admin Dose 25 ML; Start 03/30/18 at 02:00 Dextrose (D50w Syringe) 50 ml Q15M PRN IV DECREASED GLUCOSE Last administered on 03/31/18at 06:12; Admin Dose 50 ML; Start 03/30/18 at 02:00 Glucagon (Glucagen) 1 mg Q15M PRN IM DECREASED GLUCOSE; Start 03/30/18 at 02:00 Glucose (Glutose) 15 gm Q15M PRN BUCCAL DECREASED GLUCOSE; Start 03/30/18 at 02:00 Metoprolol Succinate (Toprol Xl) 200 mg MoWeFr@0900 PO Last administered on 03/30/18at 09:19; Admin Dose 200 MG; Start 03/30/18 at 09:00 Metoprolol Succinate (Toprol Xl) 50 mg SuTuThSa@0900,2100 PO Last administered on 04/01/18at 21:12; Admin Dose 50 MG; Start 03/31/18 at 09:00 Diphenhydramine HCl (Benadryl) 50 mg Q4H PRN IV pruritis Last administered on 04/01/18 21:28; Admin Dose 50 MG; Start 03/30/18 at 09:00 Heparin Sodium (Porcine) (Heparin (5000 Units/1ml)) 5,000 unit BID SC Last administered on 04/02/18 09:38; Admin Dose 5,000 UNIT; Start 03/30/18 at 12:00 Clindamycin HCl/ Dextrose 50 ml @ 50 mls/hr Q8 IVPB Last administered on 04/02/18 14:56; Admin Dose 50 MLS/HR; Start 03/30/18 at 14:00 Levofloxacin (Levaquin) 250 mg Q2D@0600 PO Last administered on 04/01/18 06:06; Admin Dose 250 MG; Start 04/01/18 at 06:00 Sodium Hypochlorite (Dakin'S (Dilute )) 1 applic DAILY IRR Last administered on 04/02/18 12:46; Admin Dose 1 APPLIC; Start 03/31/18 at 09:00 Insulin Glargine (Lantus) 3 units QHS SC Last administered on 04/01/18 21:17; Admin Dose 3 UNITS; Start 03/31/18 at 21:00 KRISHNA BURTON NP Apr 02, 2018 15:06
[2018-04-02 15:15] VITALS: BP 108/58; PULSE 80; RESP 18
[2018-04-02] MEDS ORDERED: LIDOCAINE 1% (MPF) 30 ML INJ INJ PRN (16:00)
[2018-04-02] MEDS: morphine LIQ (10 MG/5 ML) CUP PO PRN ×2 (16:03→23:11)
--- NOTE | 2018-04-02 16:52 | PN ---
Date/Time of Note Date/Time of Note DATE: 04/02/18 TIME: 16:52 Assessment/Plan VTE Prophylaxis Risk score (from Nsg)>0 risk: 2 Pharmacological prophylaxis: heparin Lines/Catheters IV Catheter Type (from Nrsg): Saline Lock Assessment/Plan Hospital Course 62 y/o F with hx of HLD, DM1 with PN, HTN, PAD, CVA, ESRD on HD presents to the floor with chronic left lower extremity ulceration. Patient was seen in wound care clinic and had reported increased swelling and pain to the left lower extremity ulcer sites. There was concern for worsening infection due the symptoms she exhibited during clinic. Patient was amenable for admission for closer monitoring. Assessment/Plan 1) Left heel decubitus ulcer 2) Left heel dry gangrene 3) Left lateral leg diabetic ulcer 4) Cellulitis LLE 5) Suspicion for osteomyelitis 6) PAD 7) ESRD on HD 8) DM1 with peripheral neuropathy 9) Hx of CVA Plan: Consent obtained and performed excisional debridement of skin/subQ/fascia tissue. Adipose tissue and fascia still intact to the posterior heel wound and no purulence was expressed with no proximal streaking. Copious irrigation and dressed with betadine 4x4 gauze and kerlix. Less than 20cm2 of area debrided. X-rays reviewed and showing signs of early osteomyelitis. No sign of soft tissue emphysena. MRI reviewed and stated bone marrow edema more likely compared to active osteomyelitis with no connecting fistula to calcaneus. PAD being followed in outpatient setting with Dr. Valdovinos. Wound cultures obtained currently on IV abx. Recommend offloading with pillows and heel protectors. Recommend daily irrigation with dakins to wound sites. Left lateral leg with xeroform, left heel with 4x4 betadine gauze and kerlix wrap. Medical decisions, treatment, and plan coordinated with Dr. Gomez. Result Diagram: 03/31/18 0454 03/31/18 0454 Results 24hrs Laboratory Tests Test 04/01/18 17:45 04/01/18 18:27 04/01/18 21:11 04/02/18 01:47 Bedside Glucose 67 L 85 219 119 Test 04/02/18 08:49 04/02/18 09:34 04/02/18 12:35 Bedside Glucose 72 103 106 Subjective 24 Hr Interval Summary Free Text/Dictation No acute events overnight Exam/Review of Systems Vital Signs Vitals Vital Signs Date Temp Pulse Resp B/P (MAP) Pulse Ox O2 O2 Flow FiO2 Time Delivery Rate 04/02/18 98.0 80 18 108/58 96 Room Air 15:15 (75) 03/30/18 2.0 01:59 Intake and Output 04/01/18 04/01/18 04/02/18 1515:00 23:00 07:00 IntakeIntake Total 800 ml 580 ml 50 ml OutputOutput Total 1800 ml BalanceBalance 800 ml -1220 ml 50 ml Exam Non palpable pedal pulses Muscle atrophy to the lower extremity Left heel ulcer 3.1 x 2.8cm indeterminate depth mild erythema to the surrounding aspect of the wound. No purulence expressed. Left lateral leg ulcer 3.3 x 1.8 x 0.2cm dry fibrogranular wound base. No proximal streaking no purulence expressed. Showing signs of epithelialization Absent protectives sensations to the feet There is pain to palpation of the heel wound site. Medications Medications Current Medications Acetaminophen (Tylenol Tab) 650 mg Q6H PRN PO PAIN LEVEL 1-5; Start 03/30/18 at 01:30 Atorvastatin Calcium (Lipitor) 40 mg QHS PO Last administered on 04/01/18at 21:11; Admin Dose 40 MG; Start 03/30/18 at 21:00 Clopidogrel Bisulfate (plaVIX) 75 mg DAILY PO Last administered on 04/02/18at 09:22; Admin Dose 75 MG; Start 03/30/18 at 09:00 Dronabinol (Marinol) 2.5 mg DAILY PO Last administered on 04/01/18at 09:17; Admin Dose 2.5 MG; Start 03/30/18 at 09:00 Epoetin Olayinka (Epogen (Esrd)) 10,000 units DAILY@1700 SC Last administered on 04/01/18at 18:04; Admin Dose 10,000 UNITS; Start 03/30/18 at 17:00 Insulin Aspart (Novolog Insulin Pen) 2 unit WITH MEALS SC Last administered on 04/02/18at 12:48; Admin Dose 2 UNIT; Start 03/30/18 at 07:50 Lactulose (Enulose) 30 gm Q6 PO Last administered on 03/31/18at 06:18; Admin Dose 30 GM; Start 03/30/18 at 06:00 Losartan Potassium (Cozaar) 50 mg SuTuThSa@0900,2100 PO Last administered on 04/01/18 21:12; Admin Dose 50 MG; Start 03/31/18 at 09:00 Losartan Potassium (Cozaar) 50 mg MoWeFr@0900 PO Last administered on 04/02/18 09:35; Admin Dose 50 MG; Start 03/30/18 at 09:00 Morphine Sulfate (morphine) 2 mg Q3H PRN PO PAIN LEVEL 6-10 Last administered on 04/02/18 16:03; Admin Dose 2 MG; Start 03/30/18 at 01:30 Ondansetron HCl (Zofran Tab) 4 mg Q6H PRN PO NAUSEA AND/OR VOMITING Last administered on 04/01/18 21:28; Admin Dose 4 MG; Start 03/30/18 at 01:30 Pantoprazole (Protonix Tab) 40 mg AC BREAKFAST PO Last administered on 04/02/18 05:44; Admin Dose 40 MG; Start 03/30/18 at 07:20 Sevelamer Carbonate (Renvela) 1.6 gm WITH MEALS PO Last administered on 04/02/18 12:43; Admin Dose 1.6 GM; Start 03/30/18 at 07:50 Diagnostic Test (Pha) (Accu-Chek) 1 ea 02 XX Last administered on 04/02/18 02:13; Admin Dose 1 EA; Start 03/30/18 at 02:00 Insulin Aspart (Novolog Insulin Pen) NOVOLOG *MILD* ALGORITHM WITH MEALS BE DTIME SC Last administered on 04/01/18 21:58; Admin Dose 1 UNIT; Start 03/30/18 at 07:50 Miscellaneous Information 1 ea NOTE XX ; Start 03/30/18 at 02:00 Glucose (Glutose) 15 gm Q15M PRN PO DECREASED GLUCOSE Last administered on 04/01/18 04:33; Admin Dose 15 GM; Start 03/30/18 at 02:00 Glucose (Glutose) 22.5 gm Q15M PRN PO DECREASED GLUCOSE Last administered on 03/31/18 06:00; Admin Dose 22.5 GM; Start 03/30/18 at 02:00 Dextrose (D50w Syringe) 25 ml Q15M PRN IV DECREASED GLUCOSE Last administered on 12/23/18at 04:34; Admin Dose 25 ML; Start 03/30/18 at 02:00 Dextrose (D50w Syringe) 50 ml Q15M PRN IV DECREASED GLUCOSE Last administered on 03/31/18at 06:12; Admin Dose 50 ML; Start 03/30/18 at 02:00 Glucagon (Glucagen) 1 mg Q15M PRN IM DECREASED GLUCOSE; Start 03/30/18 at 0 2:00 Glucose (Glutose) 15 gm Q15M PRN BUCCAL DECREASED GLUCOSE; Start 03/30/18 at 02:00 Metoprolol Succinate (Toprol Xl) 200 mg MoWeFr@0900 PO Last administered on 03/30/18 09:19; Admin Dose 200 MG; Start 03/30/18 at 09:00 Metoprolol Succinate (Toprol Xl) 50 mg SuTuThSa@0900,2100 PO Last administered on 04/01/18at 21:12; Admin Dose 50 MG; Start 03/31/18 at 09:00 Diphenhydramine HCl (Benadryl) 50 mg Q4H PRN IV pruritis Last administered on 04/01/18 21:28; Admin Dose 50 MG; Start 03/30/18 at 09:00 Heparin Sodium (Porcine) (Heparin (5000 Units/1ml)) 5,000 unit BID SC Last administered on 04/02/18 09:38; Admin Dose 5,000 UNIT; Start 03/30/18 at 12:00 Clindamycin HCl/ Dextrose 50 ml @ 50 mls/hr Q8 IVPB Last administered on 04/02/18 14:56; Admin Dose 50 MLS/HR; Start 03/30/18 at 14:00 Levofloxacin (Levaquin) 250 mg Q2D@0600 PO Last administered on 04/01/18 06:06; Admin Dose 250 MG; Start 04/01/18 at 06:00 Sodium Hypochlorite (Dakin'S (Dilute 140)) 1 applic DAILY IRR Last administered on 04/02/18 12:46; Admin Dose 1 APPLIC; Start 03/31/18 at 09:00 Insulin Glargine (Lantus) 3 units QHS SC Last administered on 04/01/18 21:17; Admin Dose 3 UNITS; Start 03/31/18 at 21:00 Lidocaine (Xylocaine 1% (Mpf)) 30 ml ONCE PRN INJ PAIN; Start 04/02/18 at 16:00; Stop 04/02/18 at 23:00 Ondansetron HCl (Zofran Inj) 4 mg Q4H PRN IV NAUSEA AND/OR VOMITING; Start 04/02/18 at 16:30 FELTON ACOSTA DPM Apr 02, 2018 16:52
[2018-04-02] MEDS: EPOETIN 10000 UNITS/1 ML INJ (ESRD) SC SCH (17:53)
[2018-04-02] MEDS: HYDROmorphONE 0.5 MG/0.5 ML SYG IV STA ×2 (18:36→19:45)
[2018-04-02 20:51] VITALS: BP 110/55; PULSE 76; RESP 16
[2018-04-02] MEDS: ATORVASTATIN 40 MG TAB PO SCH (21:25)
[2018-04-02] MEDS: INSULIN GLARGINE [LANTus] (100 UNITS/ML) SYG SC SCH (21:55)
[2018-04-02] MEDS: DIPHENHYDRAMINE 50 MG INJ IV PRN (23:10)
[2018-04-02] MEDS ORDERED: LOPERAMIDE 2 MG CAP PO ONE (23:30)
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
[2018-04-02] MEDS: ONDANSETRON 4 MG TAB PO PRN (23:57)
[2018-04-03] VITALS (17 sets, daily range): BP systolic 105–139; BP diastolic 59–84; PULSE 80–92; RESP 18–19
[2018-04-03] MEDS: ACCU-CHEK XX SCH (02:00)
[2018-04-03] MEDS: LACTULOSE 30ML CUP PO SCH ×2 (05:46)
[2018-04-03] MEDS: LEVOFLOXACIN 250 MG TAB PO SCH (05:47)
[2018-04-03] MEDS: PANTOPRAZOLE (EC) 40 MG TAB PO SCH (05:47)
[2018-04-03] MEDS: CLINDAMYCIN 900 MG/D5W (PMX) 50 ML IVPB SCH ×3 (05:47→20:53)
[2018-04-03] MEDS: ONDANSETRON 4 MG TAB PO PRN (07:06)
[2018-04-03] MEDS: LOSARTAN 50 MG TAB PO SCH ×2 (09:00→20:33)
[2018-04-03] MEDS: METOPROLOL (XL) 50 MG TAB PO SCH ×2 (09:00→20:33)
[2018-04-03] MEDS: SEVELAMER CARBONATE 0.8 GM PKT PO SCH ×3 (09:16→18:00)
[2018-04-03] MEDS: INSULIN ASPART [NOVOLOG] 3 ML PEN SC SCH ×7 (09:17→20:37)
[2018-04-03] MEDS: CLOPIDOGREL 75 MG TAB PO SCH (09:18)
[2018-04-03] MEDS: HEPARIN 5,000 UNIT/1 ML VIAL SC SCH ×2 (09:19→20:36)
[2018-04-03] MEDS: SODIUM HYPOCHLORITE (1/40) 1 APPLIC BTL IRR SCH (09:20)
[2018-04-03] MEDS: DRONABINOL 2.5 MG CAP PO SCH (09:23)
[2018-04-03] MEDS: DIPHENHYDRAMINE 50 MG INJ IV PRN ×2 (12:09→20:48)
--- NOTE | 2018-04-03 12:19 | PN ---
DATE: 04/03/2018 SUBJECTIVE: The patient had no acute events overnight, is scheduled for dialysis today. OBJECTIVE: VITAL SIGNS: Blood pressure is 113/59, respiration 18, pulse 84, temperature 97.7. HEENT: Head is normocephalic. NECK: Supple. HEART: Regular rate. LUNGS: Show diminished at the base. ABDOMEN: Soft, nontender to palpation without rebound or guarding. EXTREMITIES: Negative for clubbing, cyanosis, no edema. DERMATOLOGIC: No new rashes. MUSCULOSKELETAL: No joint effusion. NEUROLOGIC: No change in exam. MEDICATIONS: Reviewed. LABORATORY DATA: Has been reviewed. ASSESSMENT AND PLAN: 1. Left foot diabetic ulcer with underlying cellulitis. Continue current antibiotic therapy. Susi nue wound care. Follow up with podiatry and vascular surgery. 2. End-stage renal disease. Plan for hemodialysis today. 3. Diabetes type 1. Continue current insulin regimen, adjust as needed. 4. Anemia. Monitor hemoglobin and hematocrit levels. Continue Epogen. 5. Mineral bone disorder. Monitor calcium and phosphatase. 6. Chronic pruritus, possibly due to underlying uremia. Continue to intensify hemodialysis. 7. Peptic ulcer disease. Continue proton pump inhibitor. 8. Cerebrovascular accident. Continue medical management. 9. Chronic pain syndrome. Continue current pain regimen. 10. Hypertension. Continue current blood pressure regimen. 11. GI and DVT prophylaxis. 12. Coronary artery disease. DISPOSITION: The patient is pending Loza evaluation. Dictated By: KG SANTANA/NASH Conf#: [id number] DID#: [id number]
--- NOTE | 2018-04-03 14:40 | CONS ---
Date/Time of Note Date/Time of Note DATE: 04/03/18 TIME: 14:38 Assessment/Plan Assessment/Plan Chief Complaint/Hosp Course SUBJECTIVE: lactic patient is alert and looks comfortable denies pain no fevers overnight no labs today Microbiology: Cultures are negative MRI of the ankle revealed soft tissue ulceration of the posterior is calcaneusc, no findings to support osteomyelitis INDWELLINGS: AV fistula. Allergy: Vancomycin Antimicrobials: Clindamycin, Levaquin PHYSICAL EXAMINATION: GENERAL: Chronically ill-appearing, wasted, elderly woman who is awake, in no distress. HEENT: Head is atraumatic, normocephalic. NECK: Supple. CHEST: Rise symmetrical. Breath sounds diminished to bases. HEART: S1, S2. ABDOMEN: Soft. Bowel tones are present. EXTREMITIES: With left lower extremity dressing intact. ASSESSMENT: 1. Left lower extremity nonhealing necrotic wound with suspicion for osteomyelitis per podiatry. 2. Severe peripheral arterial disease, status post balloon angioplasty 02/13/18. 3. End-stage renal disease, hemodialysis dependent. 4. ALLERGIES TO VANCOMYCIN. 5. Diabetes and anemia. PLAN: The patient remains stable. Continue present care, wound management per podiatry, she will require long-term IV antibiotics Consultation Date/Type/Reason Admit Date/Time Mar 29, 2018 at 17:36 Initial Consult Date Type of Consult ID Exam/Review of Systems Vital Signs Vitals Vital Signs Date Temp Pulse Resp B/P (MAP) Pulse Ox O2 O2 Flow FiO2 Time Delivery Rate 04/03/18 86 10:55 04/03/18 18 113/59 100 Room Air 07:55 (77) 04/03/18 97.7 07:40 Intake and Output 04/02/18 04/02/18 04/03/18 1414:59 22:59 06:59 IntakeIntake Total 290 ml 450 ml OutputOutput Total 200 ml BalanceBalance 290 ml 250 ml Medications Medications Current Medications Acetaminophen (Tylenol Tab) 650 mg Q6H PRN PO PAIN LEVEL 1-5; Start 03/30/18 at 01:30 Atorvastatin Calcium (Lipitor) 40 mg QHS PO Last administered on 04/02/18at 21:25; Admin Dose 40 MG; Start 03/30/18 at 21:00 Clopidogrel Bisulfate (plaVIX) 75 mg DAILY PO Last administered on 04/03/18at 09:18; Admin Dose 75 MG; Start 03/30/18 at 09:00 Dronabinol (Marinol) 2.5 mg DAILY PO Last administered on 04/03/18 09:23; Admin Dose 2.5 MG; Start 03/30/18 at 09:00 Epoetin Olayinka (Epogen (Esrd)) 10,000 units DAILY@1700 SC Last administered on 04/02/18 17:53; Admin Dose 10,000 UNITS; Start 03/30/18 at 17:00 Insulin Aspart (Novolog Insulin Pen) 2 unit WITH MEALS SC Last administered on 04/03/18 13:09; Admin Dose 2 UNIT; Start 03/30/18 at 07:50 Losartan Potassium (Cozaar) 50 mg SuTuThSa@0900,2100 PO Last administered on 04/01/18 21:12; Admin Dose 50 MG; Start 03/31/18 at 09:00 Losartan Potassium (Cozaar) 50 mg MoWeFr@0900 PO Last administered on 04/02/18 09:35; Admin Dose 50 MG; Start 03/30/18 at 09:00 Morphine Sulfate (morphine) 2 mg Q3H PRN PO PAIN LEVEL 6-10 Last administered on 04/02/18 23:11; Admin Dose 2 MG; Start 03/30/18 at 01:30 Ondansetron HCl (Zofran Tab) 4 mg Q6H PRN PO NAUSEA AND/OR VOMITING Last administered on 04/03/18 07:06; Admin Dose 4 MG; Start 03/30/18 at 01:30 Pantoprazole (Protonix Tab) 40 mg AC BREAKFAST PO Last administered on 04/03/18 05:47; Admin Dose 40 MG; Start 03/30/18 at 07:20 Sevelamer Carbonate (Renvela) 1.6 gm WITH MEALS PO Last administered on 04/03/18 13:09; Admin Dose 1.6 GM; Start 03/30/18 at 07:50 Diagnostic Test (Pha) (Accu-Chek) 1 ea 02 XX Last administered on 04/02/18 02:13; Admin Dose 1 EA; Start 03/30/18 at 02:00 Insulin Aspart (Novolog Insulin Pen) NOVOLOG *MILD* ALGORITHM WITH MEALS BEDTIME SC Last administered on 04/03/18 09:18; Admin Dose 1 UNIT; Start 03/30/18 at 07:50 Miscellaneous Information 1 ea NOTE XX ; Start 03/30/18 at 02:00 Glucose (Glutose) 15 gm Q15M PRN PO DECREASED GLUCOSE Last administered on 04/01/18at 04:33; Admin Dose 15 GM; Start 03/30/18 at 02:00 Glucose (Glutose) 22.5 gm Q15M PRN PO DECREASED GLUCOSE Last administered on 03/31/18at 06:00; Admin Dose 22.5 GM; Start 03/30/18 at 02:00 Dextrose (D50w Syringe) 25 ml Q15M PRN IV DECREASED GLUCOSE Last administered on 04/01/18at 04:34; Admin Dose 25 ML; Start 03/30/18 at 02:00 Dextrose (D50w Syringe) 50 ml Q15M PRN IV DECREASED GLUCOSE Last administered on 03/31/18at 06:12; Admin Dose 50 ML; Start 03/30/18 at 02:00 Glucagon (Glucagen) 1 mg Q15M PRN IM DECREASED GLUCOSE; Start 03/30/18 at 02:00 Glucose (Glutose) 15 gm Q15M PRN BUCCAL DECREASED GLUCOSE; Start 03/30/18 at 02:00 Metoprolol Succinate (Toprol Xl) 200 mg MoWeFr@0900 PO Last administered on 03/30/18at 09:19; Admin Dose 200 MG; Start 03/30/18 at 09:00 Metoprolol Succinate (Toprol Xl) 50 mg SuTuThSa@0900,2100 PO Last administered on 04/01/18at 21:12; Admin Dose 50 MG; Start 03/31/18 at 09:00 Diphenhydramine HCl (Benadryl) 50 mg Q4H PRN IV pruritis Last administered on 04/03/18at 12:09; Admin Dose 50 MG; Start 03/30/18 at 09:00 Heparin Sodium (Porcine) (Heparin (5000 Units/1ml)) 5,000 unit BID SC Last administered on 04/03/18at 09:19; Admin Dose 5,000 UNIT; Start 03/30/18 at 12:00 Clindamycin HCl/ Dextrose 50 ml @ 50 mls/hr Q8 IVPB Last administered on 04/03/18at 13:07; Admin Dose 50 MLS/HR; Start 03/30/18 at 14:00 Levofloxacin (Levaquin) 250 mg Q2D@0600 PO Last administered on 04/03/18at 05:47; Admin Dose 250 MG; Start 04/01/18 at 06:00 Sodium Hypochlorite (Dakin'S (Dilute )) 1 applic DAILY IRR Last administered on 04/03/18at 09:20; Admin Dose 1 APPLIC; Start 03/31/18 at 09:00 Insulin Glargine (Lantus) 3 units QHS SC Last administered on 04/02/18at 21:55; Admin Dose 3 UNITS; Start 03/31/18 at 21:00 Ondansetron HCl (Zofran Inj) 4 mg Q4H PRN IV NAUSEA AND/OR VOMITING; Start 04/02/18 at 16:30 KRISHNA BURTON NP Apr 03, 2018 14:40
[2018-04-03] MEDS: EPOETIN 10000 UNITS/1 ML INJ (ESRD) SC SCH (18:01)
[2018-04-03] MEDS: ATORVASTATIN 40 MG TAB PO SCH (20:32)
[2018-04-03] MEDS: INSULIN GLARGINE [LANTus] (100 UNITS/ML) SYG SC SCH (20:36)
[2018-04-04] MEDS: ACCU-CHEK XX SCH (02:00)
[2018-04-04 02:48] VITALS: BP 118/66; PULSE 83; RESP 20
[2018-04-04] MEDS: CLINDAMYCIN 900 MG/D5W (PMX) 50 ML IVPB SCH ×3 (05:39→21:58)
[2018-04-04] MEDS: PANTOPRAZOLE (EC) 40 MG TAB PO SCH (05:41)
[2018-04-04] MEDS: INSULIN ASPART [NOVOLOG] 3 ML PEN SC SCH ×7 (07:50→21:00)
[2018-04-04 07:56] VITALS: BP 118/71; PULSE 87; RESP 18
[2018-04-04] MEDS: DRONABINOL 2.5 MG CAP PO SCH (09:00)
[2018-04-04] MEDS: CLOPIDOGREL 75 MG TAB PO SCH (09:11)
[2018-04-04] MEDS: SEVELAMER CARBONATE 0.8 GM PKT PO SCH ×3 (09:11→17:55)
[2018-04-04] MEDS: SODIUM HYPOCHLORITE (1/40) 1 APPLIC BTL IRR SCH (09:14)
[2018-04-04] MEDS: HEPARIN 5,000 UNIT/1 ML VIAL SC SCH ×2 (09:15→21:51)
[2018-04-04] MEDS: METOPROLOL (XL) 100 MG TAB PO SCH (09:20)
[2018-04-04] MEDS: LOSARTAN 50 MG TAB PO SCH (09:20)
[2018-04-04] MEDS: ONDANSETRON 4 MG TAB PO PRN (09:21)
--- NOTE | 2018-04-04 12:02 | PN ---
DATE: 04/04/2018 SUBJECTIVE: The patient is stable, no events overnight. The patient had hemodialysis yesterday, hodan erated well. OBJECTIVE: VITAL SIGNS: Blood pressure is 118/71, pulse 87, respiration 18, temperature 98.7. HEENT: Head is normocephalic. NECK: Supple. HEART: Regular rate. LUNGS: Show diminished breath sounds at base. ABDOMEN: Soft, nontender to palpation without rebound or guarding. EXTREMITIES: Negative for clubbing, cyanosis, no edema. DERMATOLOGIC: No rashes. MUSCULOSKELETAL: No joint effusion. NEUROLOGIC: No change in exam. MEDICATIONS: The patient's medications have been reviewed. LABORATORY DATA: Shows sodium 140, potassium 4.7, chloride 100, BUN 20, creatinine 2.80, phosphorus 5.5. White count 5.2, hemoglobin 11.1, platelet count is 202. ASSESSMENT AND PLAN: 1. Left foot diabetic ulcer with underlying cellulitis. Continue current antibiotic regimen. Susi nue wound care. Follow podiatry and vascular surgery. 2. End-stage renal disease. The patient had hemodialysis yesterday, tolerated well. Plan for dialy sis tomorrow. 3. Diabetes type 1. Continue current insulin regimen, adjust as needed. 4. Anemia. Monitor hemoglobin and hematocrit levels. 5. Mineral bone disorder, monitor calcium and phosphatase levels. 6. Chronic pruritus, possibly due to underlying uremia. Continue to intensify hemodialysis. Contin ue Benadryl. Consider dermatologic evaluation. 7. History of peptic ulcer disease. Continue proton pump inhibitor. 8. Cerebrovascular accident. Continue medical management. 9. Chronic pain syndrome. Continue current pain regimen. 10. Hypertension. Continue current blood pressure regimen. 11. Gastrointestinal and deep venous thrombosis prophylaxis. 12. Coronary artery disease. DISPOSITION: The patient is pending [facility] evaluation. Dictated By: KG FELIX DO NR/NTS Conf#: [id number] DID#: [id number] CC: KG FELIX DO;*EndCC*
[2018-04-04] MEDS: DIPHENHYDRAMINE 50 MG INJ IV PRN ×2 (13:39→21:14)
--- NOTE | 2018-04-04 13:41 | CONS ---
Date/Time of Note Date/Time of Note DATE: 04/04/18 TIME: 13:41 Assessment/Plan Assessment/Plan Hospital Course SUBJECTIVE:No acute events, awake, looks comfortable, no fevers INDWELLINGS: AV fistula. Allergy: Vancomycin Antimicrobials: Clindamycin, Levaquin PHYSICAL EXAMINATION: GENERAL: Chronically ill-appearing, wasted, elderly woman who is awake, in no distress. HEENT: Head is atraumatic, normocephalic. NECK: Supple. CHEST: Rise symmetrical. Breath sounds diminished to bases. HEART: S1, S2. ABDOMEN: Soft. Bowel tones are present. EXTREMITIES: With left lower extremity dressing intact. ASSESSMENT: 1. Left lower extremity nonhealing necrotic wound with suspicion for osteomyeli tis per podiatry. 2. Severe peripheral arterial disease, status post balloon angioplasty 02/13/18. 3. End-stage renal disease, hemodialysis dependent. 4. ALLERGIES TO VANCOMYCIN. 5. Diabetes and anemia. PLAN: The patient remains stable. Continue present care, wound management per podiatry, she will require long-term IV antibiotics Result Diagram: 04/04/18 0443 04/04/18 0443 Results 24hrs Laboratory Tests Test 04/03/18 17:29 04/03/18 20:30 04/04/18 04:43 04/04/18 08:23 Bedside Glucose 80 93 84 White Blood 5.2 Count Red Blood Count 3.22 L Hemoglobin 11.1 L Hematocrit 34.8 L Mean Corpuscular 108.1 H Volume Mean Corpuscular 34.5 H Hemoglobin Mean Corpuscular 31.9 L Hemoglobin Heidi nt Red Cell 16.5 H Distribution Width Platelet Count 202 Mean Platelet 11.3 H Volume Immature 0.600 H Granulocytes % Neutrophils % 64.1 Lymphocytes % 13.1 L Monocytes % 20.2 H Eosinophils % 1.2 Basophils % 0.8 Nucleated Red 0.0 Blood Cells % Immature 0.030 Granulocytes # Neutrophils # 3.3 Lymphocytes # 0.7 L Monocytes # 1.1 H Eosinophils # 0.1 Basophils # 0.0 Nucleated Red 0.0 Blood Cells # Sodium Level 140 Potassium Level 4.7 Chloride Level 100 Carbon Dioxide 27 Level Anion Gap 13 Blood Urea 20 Nitrogen Creatinine 2.80 H Est Glomerular 21 L Filtrat Rate mL/min Glucose Level 97 Calcium Level 8.4 Phosphorus Level 5.5 H Magnesium Level 2.0 Test 04/04/18 12:52 Bedside Glucose 145 Consultation Date/Type/Reason Admit Date/Time Mar 29, 2018 at 17:36 Initial Consult Date Type of Consult ID Exam/Review of Systems Vital Signs Vitals Vital Signs Date Temp Pulse Resp B/P (MAP) Pulse Ox O2 O2 Flow FiO2 Time Delivery Rate 04/04/18 98.7 87 18 118/71 100 07:56 (87) 04/03/18 Room Air 14:00 Intake and Output 04/03/18 04/03/18 04/04/18 1515:00 23:00 07:00 IntakeIntake Total 300 ml 350 ml 50 ml OutputOutput Total 1400 ml BalanceBalance -1100 ml 350 ml 50 ml Medications Medications Current Medications Acetaminophen (Tylenol Tab) 650 mg Q6H PRN PO PAIN LEVEL 1-5; Start 03/30/18 at 01:30 Atorvastatin Calcium (Lipitor) 40 mg QHS PO Last administered on 04/03/18at 20:32; Admin Dose 40 MG; Start 03/30/18 at 21:00 Clopidogrel Bisulfate (plaVIX) 75 mg DAILY PO Last administered on 04/04/18at 09:11; Admin Dose 75 MG; Start 03/30/18 at 09:00 Dronabinol (Marinol) 2.5 mg DAILY PO Last administered on 04/03/18at 09:23; Admin Dose 2.5 MG; Start 03/30/18 at 09:00 Epoetin Olayinka (Epogen (Esrd)) 10,000 units DAILY@1700 SC Last administered on 04/03/18at 18:01; Admin Dose 10,000 UNITS; Start 03/30/18 at 17:00; Status Hold Insulin Aspart (Novolog Insulin Pen) 2 unit WITH MEALS SC Last administered on 04/04/18 13:16; Admin Dose 2 UNIT; Start 03/30/18 at 07:50 Losartan Potassium (Cozaar) 50 mg SuTuThSa@0900,2100 PO Last administered on 04/03/18at 20:33; Admin Dose 50 MG; Start 03/31/18 at 09:00 Losartan Potassium (Cozaar) 50 mg MoWeFr@0900 PO Last administered on 04/04/18 09:20; Admin Dose 50 MG; Start 03/30/18 at 09:00 Morphine Sulfate (morphine) 2 mg Q3H PRN PO PAIN LEVEL 6-10 Last administered on 04/02/18 23:11; Admin Dose 2 MG; Start 03/30/18 at 01:30 Ondansetron HCl (Zofran Tab) 4 mg Q6H PRN PO NAUSEA AND/OR VOMITING Last administered on 04/04/18 09:21; Admin Dose 4 MG; Start 03/30/18 at 01:30 Pantoprazole (Protonix Tab) 40 mg AC BREAKFAST PO Last administered on 04/04/18 05:41; Admin Dose 40 MG; Start 03/30/18 at 07:20 Sevelamer Carbonate (Renvela) 1.6 gm WITH MEALS PO Last administered on 04/04/18 13:13; Admin Dose 1.6 GM; Start 03/30/18 at 07:50 Diagnostic Test (Pha) (Accu-Chek) 1 ea 02 XX Last administered on 04/02/18 02:13; Admin Dose 1 EA; Start 03/30/18 at 02:00 Insulin Aspart (Novolog Insulin Pen) NOVOLOG *MILD* ALGORITHM WITH MEALS BEDTIME SC Last administered on 04/04/18 13:17; Admin Dose 1 UNIT; Start 03/30/18 at 07:50 Miscellaneous Information 1 ea NOTE XX ; Start 03/30/18 at 02:00 Glucose (Glutose) 15 gm Q15M PRN PO DECREASED GLUCOSE Last administered on 04/01/18 04:33; Admin Dose 15 GM; Start 03/30/18 at 02:00 Glucose (Glutose) 22.5 gm Q15M PRN PO DECREASED GLUCOSE Last administered on 03/31/18at 06:00; Admin Dose 22.5 GM; Start 03/30/18 at 02:00 Dextrose (D50w Syringe) 25 ml Q15M PRN IV DECREASED GLUCOSE Last administered on 04/01/18 04:34; Admin Dose 25 ML; Start 03/30/18 at 02:00 Dextrose (D50w Syringe) 50 ml Q15M PRN IV DECREASED GLUCOSE Last administered on 03/31/18at 06:12; Admin Dose 50 ML; Start 03/30/18 at 02:00 Glucagon (Glucagen) 1 mg Q15M PRN IM DECREASED GLUCOSE; Start 03/30/18 at 02:00 Glucose (Glutose) 15 gm Q15M PRN BUCCAL DECREASED GLUCOSE; Start 03/30/18 at 02:00 Metoprolol Succinate (Toprol Xl) 200 mg MoWeFr@0900 PO Last administered on 04/04/18 09:20; Admin Dose 200 MG; Start 03/30/18 at 09:00 Metoprolol Succinate (Toprol Xl) 50 mg SuTuThSa@0900,2100 PO Last administered on 04/03/18 20:33; Admin Dose 50 MG; Start 03/31/18 at 09:00 Diphenhydramine HCl (Benadryl) 50 mg Q4H PRN IV pruritis Last administered on 04/04/18 13:39; Admin Dose 50 MG; Start 03/30/18 at 09:00 Heparin Sodium (Porcine) (Heparin (5000 Units/1ml)) 5,000 unit BID SC Last administered on 04/04/18 09:15; Admin Dose 5,000 UNIT; Start 03/30/18 at 12:00 Clindamycin HCl/ Dextrose 50 ml @ 50 mls/hr Q8 IVPB Last administered on 04/04/18 13:13; Admin Dose 50 MLS/HR; Start 03/30/18 at 14:00 Levofloxacin (Levaquin) 250 mg Q2D@0600 PO Last administered on 04/03/18 05:47; Admin Dose 250 MG; Start 04/01/18 at 06:00 Sodium Hypochlorite (Dakin'S (Dilute 1/40)) 1 applic DAILY IRR Last administered on 04/04/18 09:14; Admin Dose 1 APPLIC; Start 03/31/18 at 09:00 Insulin Glargine (Lantus) 3 units QHS SC Last administered on 04/03/18 20:36; Admin Dose 3 UNITS; Start 03/31/18 at 21:00 Ondansetron HCl (Zofran Inj) 4 mg Q4H PRN IV NAUSEA AND/OR VOMITING; Start 04/02/18 at 16:30 KRISHNA BURTON NP Apr 04, 2018 13:41
[2018-04-04 14:36] VITALS: BP 117/77; PULSE 71; RESP 16
[2018-04-04] MEDS: DEXTROSE 50% 50 ML SYRINGE IV PRN (18:12)
[2018-04-04 19:50] VITALS: BP 119/67; PULSE 74; RESP 16
--- NOTE | 2018-04-04 20:53 | PN ---
Date/Time of Note Date/Time of Note DATE: 04/04/18 TIME: 20:53 Assessment/Plan VTE Prophylaxis Risk score (from Nsg)>0 risk: 3 SCD applied (from Nsg): Yes Pharmacological prophylaxis: heparin Lines/Catheters IV Catheter Type (from Nrsg): Mid Line Urinary Cath still in place: No Assessment/Plan Hospital Course 62 y/o F with hx of HLD, DM1 with PN, HTN, PAD, CVA, ESRD on HD presents to the floor with chronic left lower extremity ulceration. Patient was seen in wound care clinic and had reported increased swelling and pain to the left lower extremity ulcer sites. There was concern for worsening infection due the symptoms she exhibited during clinic. Patient was amenable for admission for closer monitoring. Assessment/Plan 1) Left heel decubitus ulcer 2) Left heel dry gangrene 3) Left lateral leg diabetic ulcer 4) Cellulitis LLE 5) Suspicion for osteomyelitis 6) PAD 7) ESRD on HD 8) DM1 with peripheral neuropathy 9) Hx of CVA Plan: Adipose tissue and fascia still intact to the posterior heel wound and no purulence was expressed with no proximal streaking. X-rays reviewed and showing signs of early osteomyelitis. No sign of soft tissue emphysena. MRI reviewed and stated bone marrow edema more likely compared to active osteomyelitis with no connecting fistula to calcaneus. PAD being followed in outpatient setting with Dr. Valdovinos. Wound cultures pending currently on IV abx. Recommend offloading with pillows and heel protectors. Recommend daily irrigation with dakins to wound sites. Left lateral leg with xeroform, left heel with 4x4 betadine gauze and kerlix wrap. Medical decisions, treatment, and plan coordinated with Dr. Gomze. Result Diagram: 04/04/18 0443 04/04/18 1810 Results 24hrs Laboratory Tests Test 04/04/18 04:43 04/04/18 08:23 04/04/18 12:52 04/04/18 17:44 White Blood 5.2 Count Red Blood Count 3.22 L Hemoglobin 11.1 L Hematocrit 34.8 L Mean Corpuscular 108.1 H Volume Mean Corpuscular 34.5 H Hemoglobin Mean Corpuscular 31.9 L Hemoglobin Heidi nt Red Cell 16.5 H Distribution Width Platelet Count 202 Mean Platelet 11.3 H Volume Immature 0.600 H Granulocytes % Neutrophils % 64.1 Lymphocytes % 13.1 L Monocytes % 20.2 H Eosinophils % 1.2 Basophils % 0.8 Nucleated Red 0.0 Blood Cells % Immature 0.030 Granulocytes # Neutrophils # 3.3 Lymphocytes # 0.7 L Monocytes # 1.1 H Eosinophils # 0.1 Basophils # 0.0 Nucleated Red 0.0 Blood Cells # Sodium Level 140 Potassium Level 4.7 Chloride Level 100 Carbon Dioxide 27 Level Anion Gap 13 Blood Urea 20 Nitrogen Creatinine 2.80 H Est Glomerular 21 L Filtrat Rate mL/min Glucose Level 97 Calcium Level 8.4 Phosphorus Level 5.5 H Magnesium Level 2.0 Bedside Glucose 84 145 69 L Test 04/04/18 18:04 04/04/18 18:10 04/04/18 18:18 04/04/18 18:35 Bedside Glucose 56 L 104 114 Glucose Level 66 #L Subjective 24 Hr Interval Summary Free Text/Dictation No acute events overnight. Exam/Review of Systems Vital Signs Vitals Vital Signs Date Temp Pulse Resp B/P (MAP) Pulse Ox O2 O2 Flow FiO2 Time Delivery Rate 04/04/18 98.0 74 16 119/67 93 Room Air 19:50 (84) Intake and Output 04/03/18 04/03/18 04/04/18 1515:00 23:00 07:00 IntakeIntake Total 300 ml 350 ml 50 ml OutputOutput Total 1400 ml BalanceBalance -1100 ml 350 ml 50 ml Exam Non palpable pedal pulses Muscle atrophy to the lower extremity Left heel ulcer 3.1 x 2.8cm x 0.3cm fibro granular wound bed with adipose tissue noted. No probing to bone, no purulence expressed, no proximal streaking. Left lateral leg ulcer 3.3 x 1.8 x 0.2cm dry fibrogranular wound base. No proximal streaking no purulence expressed. Showing signs of epithelialization Absent protectives sensations to the feet There is pain to palpation of the heel wound site. Medications Medications Current Medications Acetaminophen (Tylenol Tab) 650 mg Q6H PRN PO PAIN LEVEL 1-5; Start 03/30/18 at 01:30 Atorvastatin Calcium (Lipitor) 40 mg QHS PO Last administered on 04/03/18at 20:32; Admin Dose 40 MG; Start 03/30/18 at 21:00 Clopidogrel Bisulfate (plaVIX) 75 mg DAILY PO Last administered on 04/04/18 09:11; Admin Dose 75 MG; Start 03/30/18 at 09:00 Dronabinol (Marinol) 2.5 mg DAILY PO Last administered on 04/03/18 09:23; Admin Dose 2.5 MG; Start 03/30/18 at 09:00 Epoetin Olayinka (Epogen (Esrd)) 10,000 units DAILY@1700 SC Last administered on 04/03/18 18:01; Admin Dose 10,000 UNITS; Start 03/30/18 at 17:00; Status Hold Insulin Aspart (Novolog Insulin Pen) 2 unit WITH MEALS SC Last administered on 04/04/18 13:16; Admin Dose 2 UNIT; Start 03/30/18 at 07:50 Losartan Potassium (Cozaar) 50 mg SuTuThSa@0900,2100 PO Last administered on 04/03/18 20:33; Admin Dose 50 MG; Start 03/31/18 at 09:00 Losartan Potassium (Cozaar) 50 mg MoWeFr@0900 PO Last administered on 04/04/18 09:20; Admin Dose 50 MG; Start 03/30/18 at 09:00 Morphine Sulfate (morphine) 2 mg Q3H PRN PO PAIN LEVEL 6-10 Last administered on 04/02/18 23:11; Admin Dose 2 MG; Start 03/30/18 at 01:30 Ondansetron HCl (Zofran Tab) 4 mg Q6H PRN PO NAUSEA AND/OR VOMITING Last administered on 04/04/18 09:21; Admin Dose 4 MG; Start 03/30/18 at 01:30 Pantoprazole (Protonix Tab) 40 mg AC BREAKFAST PO Last administered on 04/04/18 05:41; Admin Dose 40 MG; Start 03/30/18 at 07:20 Sevelamer Carbonate (Renvela) 1.6 gm WITH MEALS PO Last administered on 04/04/18 13:13; Admin Dose 1.6 GM; Start 03/30/18 at 07:50 Diagnostic Test (Pha) (Accu-Chek) 1 ea 02 XX Last administered on 04/02/18 02:13; Admin Dose 1 EA; Start 03/30/18 at 02:00 Insulin Aspart (Novolog Insulin Pen) NOVOLOG *MILD* ALGORITHM WITH MEALS BEDTIME SC Last administered on 04/04/18 13:17; Admin Dose 1 UNIT; Start 03/30/18 at 07:50 Miscellaneous Information 1 ea NOTE XX ; Start 03/30/18 at 02:00 Glucose (Glutose) 15 gm Q15M PRN PO DECREASED GLUCOSE Last administered on 04/01/18at 04:33; Admin Dose 15 GM; Start 03/30/18 at 02:00 Glucose (Glutose) 22.5 gm Q15M PRN PO DECREASED GLUCOSE Last administered on 03/31/18at 06:00; Admin Dose 22.5 GM; Start 03/30/18 at 02:00 Dextrose (D50w Syringe) 25 ml Q15M PRN IV DECREASED GLUCOSE Last administered on 04/04/18at 18:12; Admin Dose 25 ML; Start 03/30/18 at 02:00 Dextrose (D50w Syringe) 50 ml Q15M PRN IV DECREASED GLUCOSE Last administered on 03/31/18at 06:12; Admin Dose 50 ML; Start 03/30/18 at 02:00 Glucagon (Glucagen) 1 mg Q15M PRN IM DECREASED GLUCOSE; Start 03/30/18 at 02:00 Glucose (Glutose) 15 gm Q15M PRN BUCCAL DECREASED GLUCOSE Last administered on 04/04/18at 17:57; Admin Dose 15 GM; Start 03/30/18 at 02:00 Metoprolol Succinate (Toprol Xl) 200 mg MoWeFr@0900 PO Last administered on 04/04/18 09:20; Admin Dose 200 MG; Start 03/30/18 at 09:00 Metoprolol Succinate (Toprol Xl) 50 mg SuTuThSa@0900,2100 PO Last administered on 04/03/18at 20:33; Admin Dose 50 MG; Start 03/31/18 at 09:00 Diphenhydramine HCl (Benadryl) 50 mg Q4H PRN IV pruritis Last administered on 04/04/18at 13:39; Admin Dose 50 MG; Start 03/30/18 at 09:00 Heparin Sodium (Porcine) (Heparin (5000 Units/1ml)) 5,000 unit BID SC Last administered on 04/04/18at 09:15; Admin Dose 5,000 UNIT; Start 03/30/18 at 12:00 Clindamycin HCl/ Dextrose 50 ml @ 50 mls/hr Q8 IVPB Last administered on 04/04/18 13:13; Admin Dose 50 MLS/HR; Start 03/30/18 at 14:00 Levofloxacin (Levaquin) 250 mg Q2D@0600 PO Last administered on 04/03/18 05:47; Admin Dose 250 MG; Start 04/01/18 at 06:00 Sodium Hypochlorite (Dakin'S (Dilute )) 1 applic DAILY IRR Last adminis tered on 04/04/18at 09:14; Admin Dose 1 APPLIC; Start 03/31/18 at 09:00 Insulin Glargine (Lantus) 3 units QHS SC Last administered on 04/03/18at 20:36; Admin Dose 3 UNITS; Start 03/31/18 at 21:00 Ondansetron HCl (Zofran Inj) 4 mg Q4H PRN IV NAUSEA AND/OR VOMITING; Start 04/02/18 at 16:30 FELTON ACOSTA DPM Apr 04, 2018 20:53
[2018-04-04] MEDS: ATORVASTATIN 40 MG TAB PO SCH (21:21)
[2018-04-04] MEDS: INSULIN GLARGINE [LANTus] (100 UNITS/ML) SYG SC SCH (21:51)
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
[2018-04-05 01:27] VITALS: BP 116/66; PULSE 73; RESP 14
[2018-04-05] MEDS: ACCU-CHEK XX SCH (02:00)
[2018-04-05] MEDS: PANTOPRAZOLE (EC) 40 MG TAB PO SCH (06:40)
[2018-04-05] MEDS: CLINDAMYCIN 900 MG/D5W (PMX) 50 ML IVPB SCH ×3 (06:40→21:59)
[2018-04-05] MEDS: INSULIN ASPART [NOVOLOG] 3 ML PEN SC SCH ×6 (07:50→21:00)
[2018-04-05 08:04] VITALS: BP 142/60; PULSE 60; RESP 18
[2018-04-05] MEDS: DEXTROSE 50% 50 ML SYRINGE IV PRN ×2 (08:26→19:49)
[2018-04-05] MEDS: CLOPIDOGREL 75 MG TAB PO SCH (08:55)
[2018-04-05] MEDS: SEVELAMER CARBONATE 0.8 GM PKT PO SCH ×3 (08:56→17:55)
[2018-04-05] MEDS: METOPROLOL (XL) 50 MG TAB PO SCH ×2 (08:56→21:00)
[2018-04-05] MEDS: LEVOFLOXACIN 250 MG TAB PO SCH (08:58)
[2018-04-05] MEDS: LOSARTAN 50 MG TAB PO SCH ×2 (08:58→21:00)
[2018-04-05] MEDS: DRONABINOL 2.5 MG CAP PO SCH (09:00)
[2018-04-05] MEDS: SODIUM HYPOCHLORITE (1/40) 1 APPLIC BTL IRR SCH (09:01)
[2018-04-05] MEDS: HEPARIN 5,000 UNIT/1 ML VIAL SC SCH ×2 (09:14→21:00)
--- NOTE | 2018-04-05 09:44 | PN ---
DATE: 04/05/2018 SUBJECTIVE: The patient is stable, no events overnight. OBJECTIVE: VITAL SIGNS: Blood pressure is 142/60, pulse 60, respiration 18, temperature 97.8. HEENT: Head is normocephalic. NECK: Supple. HEART: Regular rate. LUNGS: Show diminished breath sounds at the base. ABDOMEN: Soft, nontender to palpation without rebound or guarding. EXTREMITIES: Negative for clubbing, cyanosis, no edema. DERMATOLOGIC: No rashes. MUSCULOSKELETAL: No joint effusions. NEUROLOGIC: No change in exam. MEDICATIONS: The patient's medications have been reviewed. LABORATORY DATA: Shows a glucose level of 41. ASSESSMENT AND PLAN: 1. Left foot diabetic ulcer with underlying cellulitis. Continue current antibiotic regimen. Susi nue wound care. Follow up with podiatry and vascular surgery. 2. End-stage renal disease. The patient is scheduled for dialysis today. We will dialyze 3 hours 3 k bath, calcium 2.5. 3. Diabetes type 1. The patient is hypoglycemic. We will place an endocrinology consult to help wi insulin management. 4. Anemia. Continue to monitor hemoglobin and hematocrit levels. 5. Mineral bone disorder, monitor calcium and phosphatase levels. 6. Chronic pruritus, possibly due to underlying uremia. Continue more intensified hemodialysis. Pr uritus has been improving. Continue Benadryl. 7. History of peptic ulcer disease. Continue proton pump inhibitor. 8. Cerebrovascular accident. Continue medical management. 9. Chronic pain syndrome. Continue current pain regimen. 10. Hypertension. Blood pressure controlled. Continue current regimen. 11. Gastrointestinal and deep vein thrombosis prophylaxis. 12. Coronary artery disease. Continue medical management. DISPOSITION: The patient was unable to be accepted in [place]. Case management is working on [facility] nt to a senior care facility. Dictated By: KG FELIX DO NR/NTS Conf#: [id number] DID#: [id number] CC: KG FELIX DO;*EndCC*
[2018-04-05] MEDS ORDERED: INSULIN ASPART [NOVOLOG] 3 ML PEN SC SCH (11:40)
--- NOTE | 2018-04-05 13:08 | CONS ---
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 We will adjust the regimen to try and work within these constraints. Please note she is extremely sensitive to the action of insulin (2) Type 1 diabetes mellitus with end-stage renal disease (ESRD) Onset Date: ~ 07/1968 Status: Chronic Comment: As above. Nephrology will manage the dialysis (3) Essential hypertension Status: Chronic Comment: As per primary team (4) Secondary hyperparathyroidism (of renal origin) Status: Chronic Comment: Noted. (5) Anemia in chronic kidney disease (CKD) Status: Chronic Comment: As per primary team Qualifiers: Qualified Codes: N18.6 - End stage renal disease; D63.1 - Anemia in chronic kidney disease; Z99.2 - Dependence on renal dialysis (6) Hyperlipidemia Status: Chronic Comment: Recommend continuation of statin therapy Qualifiers: Qualified Codes: E78.00 - Pure hypercholesterolemia, unspecified Result Diagram: 04/04/18 0443 04/05/18 1043 Results 24hrs Laboratory Tests Test 04/04/18 17:44 04/04/18 18:04 04/04/18 18:10 04/04/18 18:18 Bedside Glucose 69 L 56 L 104 Glucose Level 66 #L Test 04/04/18 18:35 04/04/18 21:47 04/05/18 08:19 04/05/18 08:52 Bedside Glucose 114 95 41 *L 106 Test 04/05/18 09:13 04/05/18 10:43 04/05/18 12:36 Bedside Glucose 108 124 Glucose Level 160 Consultation Date/Type/Reason Admit Date/Time Mar 29, 2018 at 17:36 Date of Consultation: Apr 05, 2018 Type of Consult Endocrinology Reason for Consultation Diabetes mellitus type 1 with end-stage renal disease and exquisite insulin sensitivity as opposed to resistance Requesting Provider: KG FELIX DO Hx of Present Illness Charming 8-year-old -[place] female who I have seen twice before in consultation both of the times as an inpatient. She had moved here from [place] but has a history of complications of diabetes including end-stage renal disease. She has had some skin wound infections that have required hospitalization. She is extremely insulin sensitive and requires very small dosages of insulin. In addition she may have delayed gastric emptying which may alter how she absorbs the glucose from a meal. Constitutional: no complaints Eyes: no complaints (No acute changes) ENT: no complaints Respiratory: no complaints Cardiovascular: no complaints Gastrointestinal: no complaints Genitourinary: no complaints Endocrine: other (Hypoglycemic episodes in the hospital) Past Medical History Medical History: diabetes (Diabetes mellitus type 1 complicated by end-stage renal disease; peripheral vascular disease; peripheral neuropathy; autonomic neuropathy, proliferative diabetic retinopathy), high cholesterol, hypertension, peptic ulcer disease (History of peptic ulcer diseasegastric ulcer), renal disease (End-stage renal disease) Medications Current Medications Acetaminophen (Tylenol Tab) 650 mg Q6H PRN PO PAIN LEVEL 1-5; Start 03/30/18 at 01:30 Atorvastatin Calcium (Lipitor) 40 mg QHS PO Last administered on 04/04/18at 21:21; Admin Dose 40 MG; Start 03/30/18 at 21:00 Clopidogrel Bisulfate (plaVIX) 75 mg DAILY PO Last administered on 04/05/18at 08:55; Admin Dose 75 MG; Start 03/30/18 at 09:00 Dronabinol (Marinol) 2.5 mg DAILY PO Last administered on 04/03/18 09:23; Admin Dose 2.5 MG; Start 03/30/18 at 09:00 Epoetin Olayinka (Epogen (Esrd)) 10,000 units DAILY@1700 SC Last administered on 04/03/18at 18:01; Admin Dose 10,000 UNITS; Start 03/30/18 at 17:00; Status Hold Losartan Potassium (Cozaar) 50 mg SuTuThSa@0900,2100 PO Last administered on 04/05/18at 08:58; Admin Dose 50 MG; Start 03/31/18 at 09:00 Losartan Potassium (Cozaar) 50 mg MoWeFr@0900 PO Last administered on 04/04/18at 09:20; Admin Dose 50 MG; Start 03/30/18 at 09:00 Morphine Sulfate (morphine) 2 mg Q3H PRN PO PAIN LEVEL 6-10 Last administered on 04/02/18at 23:11; Admin Dose 2 MG; Start 03/30/18 at 01:30 Ondansetron HCl (Zofran Tab) 4 mg Q6H PRN PO NAUSEA AND/OR VOMITING Last administered on 04/04/18at 09:21; Admin Dose 4 MG; Start 03/30/18 at 01:30 Pantoprazole (Protonix Tab) 40 mg AC BREAKFAST PO Last administered on 04/05/18at 06:40; Admin Dose 40 MG; Start 03/30/18 at 07:20 Sevelamer Carbonate (Renvela) 1.6 gm WITH MEALS PO Last administered on 04/05/18at 08:56; Admin Dose 1.6 GM; Start 03/30/18 at 07:50 Diagnostic Test (Pha) (Accu-Chek) 1 ea 02 XX Last administered on 04/02/18at 02:13; Admin Dose 1 EA; Start 03/30/18 at 02:00 Insulin Aspart (Novolog Insulin Pen) NOVOLOG *MILD* ALGORITHM WITH MEALS BEDTIME SC Last administered on 04/04/18 13:17; Admin Dose 1 UNIT; Start 03/30/18 at 07:50 Miscellaneous Information 1 ea NOTE XX ; Start 03/30/18 at 02:00 Glucose (Glutose) 15 gm Q15M PRN PO DECREASED GLUCOSE Last administered on 04/01/18at 04:33; Admin Dose 15 GM; Start 03/30/18 at 02:00 Glucose (Glutose) 22.5 gm Q15M PRN PO DECREASED GLUCOSE Last administered on 03/31/18at 06:00; Admin Dose 22.5 GM; Start 03/30/18 at 02:00 Dextrose (D50w Syringe) 25 ml Q15M PRN IV DECREASED GLUCOSE Last administered on 04/04/18at 18:12; Admin Dose 25 ML; Start 03/30/18 at 02:00 Dextrose (D50w Syringe) 50 ml Q15M PRN IV DECREASED GLUCOSE Last administered on 04/05/18at 08:26; Admin Dose 50 ML; Start 03/30/18 at 02:00 Glucagon (Glucagen) 1 mg Q15M PRN IM DECREASED GLUCOSE; Start 03/30/18 at 02:00 Glucose (Glutose) 15 gm Q15M PRN BUCCAL DECREASED GLUCOSE Last administered on 04/04/18at 17:57; Admin Dose 15 GM; Start 03/30/18 at 02:00 Metoprolol Succinate (Toprol Xl) 200 mg MoWeFr@0900 PO Last administered on 04/04/18at 09:20; Admin Dose 200 MG; Start 03/30/18 at 09:00 Metoprolol Succinate (Toprol Xl) 50 mg SuTuThSa@0900,2100 PO Last administered on 04/05/18at 08:56; Admin Dose 50 MG; Start 03/31/18 at 09:00 Diphenhydramine HCl (Benadryl) 50 mg Q4H PRN IV pruritis Last administered on 04/04/18at 21:14; Admin Dose 50 MG; Start 03/30/18 at 09:00 Heparin Sodium (Porcine) (Heparin (5000 Units/1ml)) 5,000 unit BID SC Last administered on 04/05/18at 09:14; Admin Dose 5,000 UNIT; Start 03/30/18 at 12:00 Clindamycin HCl/ Dextrose 50 ml @ 50 mls/hr Q8 IVPB Last administered on 04/05/18at 06:40; Admin Dose 50 MLS/HR; Start 03/30/18 at 14:00 Levofloxacin (Levaquin) 250 mg Q2D@0600 PO Last administered on 04/05/18at 08:58; Admin Dose 250 MG; Start 04/01/18 at 06:00 Sodium Hypochlorite (Dakin'S (Dilute )) 1 applic DAILY IRR Last administered on 04/05/18at 09:01; Admin Dose 1 APPLIC; Start 03/31/18 at 09:00 Ondansetron HCl (Zofran Inj) 4 mg Q4H PRN IV NAUSEA AND/OR VOMITING; Start 04/02/18 at 16:30 Insulin Glargine (Lantus) 2 units QHS SC ; Start 04/05/18 at 21:00 Insulin Aspart (Novolog Insulin Pen) 1 unit WITH MEALS SC ; Start 04/05/18 at 11:40 Allergies: Coded Allergies: aspirin (Unverified Allergy, Severe, 03/29/18) codeine (Unverified Allergy, Severe, 03/29/18) vancomycin (Unverified Allergy, Severe, 03/29/18) Past Surgical History Past Surgical Hx: noncontributory, other Family History Significant Family History: no pertinent family hx Social History Alcohol Use: none Smoking Status: Never smoker Drug Use: none Exam/Review of Systems Vital Signs Vitals Vital Signs Date Temp Pulse Resp B/P (MAP) Pulse Ox O2 O2 Flow FiO2 Time Delivery Rate 04/05/18 97.8 60 18 142/60 92 Room Air 08:04 (87) Intake and Output 04/04/18 04/04/18 04/05/18 1414:59 22:59 06:59 IntakeIntake Total 410 ml 290 ml 480 ml BalanceBalance 410 ml 290 ml 480 ml Exam Constitutional: alert, oriented Respiratory: clear to auscultation, normal air movement Cardiovascular: regular rate and rhythm, nl pulses Gastrointestinal: soft, nl liver, spleen, non-tender Medications Medications Current Medications Acetaminophen (Tylenol Tab) 650 mg Q6H PRN PO PAIN LEVEL 1-5; Start 03/30/18 at 01:30 Atorvastatin Calcium (Lipitor) 40 mg QHS PO Last administered on 04/04/18at 21:21; Admin Dose 40 MG; Start 03/30/18 at 21:00 Clopidogrel Bisulfate (plaVIX) 75 mg DAILY PO Last administered on 04/05/18at 08:55; Admin Dose 75 MG; Start 03/30/18 at 09:00 Dronabinol (Marinol) 2.5 mg DAILY PO Last administered on 04/03/18at 09:23; Admin Dose 2.5 MG; Start 03/30/18 at 09:00 Epoetin Olayinka (Epogen (Esrd)) 10,000 units DAILY@1700 SC Last administered on 04/03/18at 18:01; Admin Dose 10,000 UNITS; Start 03/30/18 at 17:00; Status Hold Losartan Potassium (Cozaar) 50 mg SuTuThSa@0900,2100 PO Last administered on 04/05/18at 08:58; Admin Dose 50 MG; Start 03/31/18 at 09:00 Losartan Potassium (Cozaar) 50 mg MoWeFr@0900 PO Last administered on 04/04/18at 09:20; Admin Dose 50 MG; Start 03/30/18 at 09:00 Morphine Sulfate (morphine) 2 mg Q3H PRN PO PAIN LEVEL 6-10 Last administered on 04/02/18at 23:11; Admin Dose 2 MG; Start 03/30/18 at 01:30 Ondansetron HCl (Zofran Tab) 4 mg Q6H PRN PO NAUSEA AND/OR VOMITING Last administered on 04/04/18at 09:21; Admin Dose 4 MG; Start 03/30/18 at 01:30 Pantoprazole (Protonix Tab) 40 mg AC BREAKFAST PO Last administered on 04/05/18at 06:40; Admin Dose 40 MG; Start 03/30/18 at 07:20 Sevelamer Carbonate (Renvela) 1.6 gm WITH MEALS PO Last administered on 04/05/18at 08:56; Admin Dose 1.6 GM; Start 03/30/18 at 07:50 Diagnostic Test (Pha) (Accu-Chek) 1 ea 02 XX Last administered on 04/02/18at 02:13; Admin Dose 1 EA; Start 03/30/18 at 02:00 Insulin Aspart (Novolog Insulin Pen) NOVOLOG *MILD* ALGORITHM WITH MEALS BEDTIME SC Last administered on 04/04/18 13:17; Admin Dose 1 UNIT; Start 03/30/18 at 07:50 Miscellaneous Information 1 ea NOTE XX ; Start 03/30/18 at 02:00 Glucose (Glutose) 15 gm Q15M PRN PO DECREASED GLUCOSE Last administered on 04/01/18at 04:33; Admin Dose 15 GM; Start 03/30/18 at 02:00 Glucose (Glutose) 22.5 gm Q15M PRN PO DECREASED GLUCOSE Last administered on 03/31/18at 06:00; Admin Dose 22.5 GM; Start 03/30/18 at 02:00 Dextrose (D50w Syringe) 25 ml Q15M PRN IV DECREASED GLUCOSE Last administered on 04/04/18at 18:12; Admin Dose 25 ML; Start 03/30/18 at 02:00 Dextrose (D50w Syringe) 50 ml Q15M PRN IV DECREASED GLUCOSE Last administered on 04/05/18at 08:26; Admin Dose 50 ML; Start 03/30/18 at 02:00 Glucagon (Glucagen) 1 mg Q15M PRN IM DECREASED GLUCOSE; Start 03/30/18 at 02:00 Glucose (Glutose) 15 gm Q15M PRN BUCCAL DECREASED GLUCOSE Last administered on 04/04/18at 17:57; Admin Dose 15 GM; Start 03/30/18 at 02:00 Metoprolol Succinate (Toprol Xl) 200 mg MoWeFr@0900 PO Last administered on 04/04/18 09:20; Admin Dose 200 MG; Start 03/30/18 at 09:00 Metoprolol Succinate (Toprol Xl) 50 mg SuTuThSa@0900,2100 PO Last administered on 04/05/18 08:56; Admin Dose 50 MG; Start 03/31/18 at 09:00 Diphenhydramine HCl (Benadryl) 50 mg Q4H PRN IV pruritis Last administered on 04/04/18 21:14; Admin Dose 50 MG; Start 03/30/18 at 09:00 Heparin Sodium (Porcine) (Heparin (5000 Units/1ml)) 5,000 unit BID SC Last administered on 04/05/18 09:14; Admin Dose 5,000 UNIT; Start 03/30/18 at 12:00 Clindamycin HCl/ Dextrose 50 ml @ 50 mls/hr Q8 IVPB Last administered on 04/05/18 06:40; Admin Dose 50 MLS/HR; Start 03/30/18 at 14:00 Levofloxacin (Levaquin) 250 mg Q2D@0600 PO Last administered on 04/05/18 08:58; Admin Dose 250 MG; Start 04/01/18 at 06:00 Sodium Hypochlorite (Dakin'S (Dilute )) 1 applic DAILY IRR Last admini stered on 04/05/18 09:01; Admin Dose 1 APPLIC; Start 03/31/18 at 09:00 Ondansetron HCl (Zofran Inj) 4 mg Q4H PRN IV NAUSEA AND/OR VOMITING; Start 04/02/18 at 16:30 Insulin Glargine (Lantus) 2 units QHS SC ; Start 04/05/18 at 21:00 Insulin Aspart (Novolog Insulin Pen) 1 unit WITH MEALS SC ; Start 04/05/18 at 11:40 LILIAN IBRAHIM MD Apr 05, 2018 13:08
--- NOTE | 2018-04-05 14:15 | CONS ---
Date/Time of Note Date/Time of Note DATE: 04/05/18 TIME: 14:14 Assessment/Plan Assessment/Plan Hospital Course SUBJECTIVE: Awake, looks comfortable, no fevers INDWELLINGS: AV fistula. Allergy: Vancomycin Antimicrobials: Clindamycin, Levaquin PHYSICAL EXAMINATION: GENERAL: Chronically ill-appearing, wasted, elderly woman who is awake, in no distress. HEENT: Head is atraumatic, normocephalic. NECK: Supple. CHEST: Rise symmetrical. Breath sounds diminished to bases. HEART: S1, S2. ABDOMEN: Soft. Bowel tones are present. EXTREMITIES: With left lower extremity dressing intact. ASSESSMENT: 1. Left lower extremity nonhealing necrotic wound with suspicion for osteomyelitis per podiatry. 2. Severe peripheral arterial disease, status post balloon angioplasty 02/13/18. 3. End-stage renal disease, hemodialysis dependent. 4. ALLERGIES TO VANCOMYCIN. 5. Diabetes and anemia. PLAN: The patient remains stable. Continue present care, wound management per podiatry, discharge planning on long-term IV antibiotics Result Diagram: 04/04/18 0443 04/05/18 1043 Results 24hrs Laboratory Tests Test 04/04/18 17:44 04/04/18 18:04 04/04/18 18:10 04/04/18 18:18 Bedside Glucose 69 L 56 L 104 Glucose Level 66 #L Test 04/04/18 18:35 04/04/18 21:47 04/05/18 08:19 04/05/18 08:52 Bedside Glucose 114 95 41 *L 106 Test 04/05/18 09:13 04/05/18 10:43 04/05/18 12:36 Bedside Glucose 108 124 Glucose Level 160 Consultation Date/Type/Reason Admit Date/Time Mar 29, 2018 at 17:36 Initial Consult Date Type of Consult ID Requesting Provider: KG FELIX DO Exam/Review of Systems Vital Signs Vitals Vital Signs Date Temp Pulse Resp B/P (MAP) Pulse Ox O2 O2 Flow FiO2 Time Delivery Rate 04/05/18 97.8 60 18 142/60 92 Room Air 08:04 (87) Intake and Output 04/04/18 04/04/18 04/05/18 1515:00 23:00 07:00 IntakeIntake Total 410 ml 290 ml 530 ml BalanceBalance 410 ml 290 ml 530 ml Medications Medications Current Medications Acetaminophen (Tylenol Tab) 650 mg Q6H PRN PO PAIN LEVEL 1-5; Start 03/30/18 at 01:30 Atorvastatin Calcium (Lipitor) 40 mg QHS PO Last administered on 04/04/18 21:21; Admin Dose 40 MG; Start 03/30/18 at 21:00 Clopidogrel Bisulfate (plaVIX) 75 mg DAILY PO Last administered on 04/05/18 08:55; Admin Dose 75 MG; Start 03/30/18 at 09:00 Dronabinol (Marinol) 2.5 mg DAILY PO Last administered on 04/03/18 09:23; Adm in Dose 2.5 MG; Start 03/30/18 at 09:00 Epoetin Olayinka (Epogen (Esrd)) 10,000 units DAILY@1700 SC Last administered on 04/03/18 18:01; Admin Dose 10,000 UNITS; Start 03/30/18 at 17:00; Status Hold Losartan Potassium (Cozaar) 50 mg SuTuThSa@0900,2100 PO Last administered on 04/05/18 08:58; Admin Dose 50 MG; Start 03/31/18 at 09:00 Losartan Potassium (Cozaar) 50 mg MoWeFr@0900 PO Last administered on 04/04/18 09:20; Admin Dose 50 MG; Start 03/30/18 at 09:00 Morphine Sulfate (morphine) 2 mg Q3H PRN PO PAIN LEVEL 6-10 Last administered on 04/02/18 23:11; Admin Dose 2 MG; Start 03/30/18 at 01:30 Ondansetron HCl (Zofran Tab) 4 mg Q6H PRN PO NAUSEA AND/OR VOMITING Last administered on 04/04/18 09:21; Admin Dose 4 MG; Start 03/30/18 at 01:30 Pantoprazole (Protonix Tab) 40 mg AC BREAKFAST PO Last administered on 04/05/18 06:40; Admin Dose 40 MG; Start 03/30/18 at 07:20 Sevelamer Carbonate (Renvela) 1.6 gm WITH MEALS PO Last administered on 04/05/18 08:56; Admin Dose 1.6 GM; Start 03/30/18 at 07:50 Diagnostic Test (Pha) (Accu-Chek) 1 ea 02 XX Last administered on 12/24/18at 02:13; Admin Dose 1 EA; Start 03/30/18 at 02:00 Insulin Aspart (Novolog Insulin Pen) NOVOLOG *MILD* ALGORITHM WITH MEALS BEDTIME SC Last administered on 04/04/18at 13:17; Admin Dose 1 UNIT; Start 03/30/18 at 07:50 Miscellaneous Information 1 ea NOTE XX ; Start 03/30/18 at 02:00 Glucose (Glutose) 15 gm Q15M PRN PO DECREASED GLUCOSE Last administered on 04/01/18at 04:33; Admin Dose 15 GM; Start 03/30/18 at 02:00 Glucose (Glutose) 22.5 gm Q15M PRN PO DECREASED GLUCOSE Last administered on 03/31/18at 06:00; Admin Dose 22.5 GM; Start 03/30/18 at 02:00 Dextrose (D50w Syringe) 25 ml Q15M PRN IV DECREASED GLUCOSE Last administered on 04/04/18at 18:12; Admin Dose 25 ML; Start 03/30/18 at 02:00 Dextrose (D50w Syringe) 50 ml Q15M PRN IV DECREASED GLUCOSE Last administered on 04/05/18at 08:26; Admin Dose 50 ML; Start 03/30/18 at 02:00 Glucagon (Glucagen) 1 mg Q15M PRN IM DECREASED GLUCOSE; Start 03/30/18 at 02:00 Glucose (Glutose) 15 gm Q15M PRN BUCCAL DECREASED GLUCOSE Last administered on 04/04/18at 17:57; Admin Dose 15 GM; Start 03/30/18 at 02:00 Metoprolol Succinate (Toprol Xl) 200 mg MoWeFr@0900 PO Last administered on 04/04/18at 09:20; Admin Dose 200 MG; Start 03/30/18 at 09:00 Metoprolol Succinate (Toprol Xl) 50 mg SuTuThSa@0900,2100 PO Last administered on 04/05/18at 08:56; Admin Dose 50 MG; Start 03/31/18 at 09:00 Diphenhydramine HCl (Benadryl) 50 mg Q4H PRN IV pruritis Last administered on 04/04/18at 21:14; Admin Dose 50 MG; Start 03/30/18 at 09:00 Heparin Sodium (Porcine) (Heparin (5000 Units/1ml)) 5,000 unit BID SC Last administered on 04/05/18at 09:14; Admin Dose 5,000 UNIT; Start 03/30/18 at 12:00 Clindamycin HCl/ Dextrose 50 ml @ 50 mls/hr Q8 IVPB Last administered on 04/05/18at 06:40; Admin Dose 50 MLS/HR; Start 03/30/18 at 14:00 Levofloxacin (Levaquin) 250 mg Q2D@0600 PO Last administered on 04/05/18at 08:58; Admin Dose 250 MG; Start 04/01/18 at 06:00 Sodium Hypochlorite (Dakin'S (Dilute )) 1 applic DAILY IRR Last administered on 04/05/18at 09:01; Admin Dose 1 APPLIC; Start 03/31/18 at 09:00 Ondansetron HCl (Zofran Inj) 4 mg Q4H PRN IV NAUSEA AND/OR VOMITING; Start 04/02/18 at 16:30 Insulin Aspart (Novolog Insulin Pen) 2 unit PC MEALS SC ; Start 04/05/18 at 18:55 Insulin Glargine (Lantus) 3 units QAM SC ; Start 04/05/18 at 21:00 KRISHNA BURTON NP Apr 05, 2018 14:15
[2018-04-05] MEDS: DIPHENHYDRAMINE 50 MG INJ IV PRN ×2 (15:26→21:08)
[2018-04-05] MEDS: morphine LIQ (10 MG/5 ML) CUP PO PRN (15:26)
[2018-04-05 15:53] VITALS: BP 112/59; PULSE 64; RESP 18
[2018-04-05] MEDS: COLLAGENASE 5 GM (UD JAR) TOP SCH (18:28)
[2018-04-05] MEDS: GLUCOSE GEL 15 GRAM TUBE PO PRN (19:02)
[2018-04-05 19:55] VITALS: BP 101/55; PULSE 63; RESP 18
[2018-04-05] MEDS ORDERED: INSULIN GLARGINE [LANTus] (100 UNITS/ML) SYG SC SCH ×2 (21:00)
[2018-04-05] MEDS: ATORVASTATIN 40 MG TAB PO SCH (21:59)
[2018-04-06] VITALS (18 sets, daily range): BP systolic 100–158; BP diastolic 40–100; PULSE 66–79; RESP 17–18
[2018-04-06] MEDS: DIPHENHYDRAMINE 50 MG INJ IV PRN ×2 (01:03→21:49)
[2018-04-06] MEDS: DEXTROSE 50% 50 ML SYRINGE IV PRN ×2 (01:17→09:22)
[2018-04-06] MEDS: ACCU-CHEK XX SCH (01:24)
[2018-04-06] MEDS: CLINDAMYCIN 900 MG/D5W (PMX) 50 ML IVPB SCH ×3 (05:17→21:49)
[2018-04-06] MEDS: SEVELAMER CARBONATE 0.8 GM PKT PO SCH ×4 (07:50→17:55)
[2018-04-06] MEDS: INSULIN ASPART [NOVOLOG] 3 ML PEN SC SCH ×7 (07:50→21:00)
[2018-04-06] MEDS: DRONABINOL 2.5 MG CAP PO SCH (09:04)
[2018-04-06] MEDS: PANTOPRAZOLE (EC) 40 MG TAB PO SCH (09:04)
--- NOTE | 2018-04-06 11:20 | CONS ---
Date/Time of Note Date/Time of Note DATE: 04/06/18 TIME: 11:19 Assessment/Plan Assessment/Plan Hospital Course SUBJECTIVE: Awake, looks comfortable, no fevers INDWELLINGS: AV fistula. Allergy: Vancomycin Antimicrobials: Clindamycin, Levaquin PHYSICAL EXAMINATION: GENERAL: Chronically ill-appearing, wasted, elderly woman who is awake, in no distress. HEENT: Head is atraumatic, normocephalic. NECK: Supple. CHEST: Rise symmetrical. Breath sounds diminished to bases. HEART: S1, S2. ABDOMEN: Soft. Bowel tones are present. EXTREMITIES: With left lower extremity dressing intact. ASSESSMENT: 1. Left lower extremity nonhealing necrotic wound with suspicion for osteomyelitis per podiatry. 2. Severe peripheral arterial disease, status post balloon angioplasty 02/13/18. 3. End-stage renal disease, hemodialysis dependent. 4. ALLERGIES TO VANCOMYCIN. 5. Diabetes and anemia. PLAN: The patient remains stable. Continue present care, wound management per podiatry, discharge planning on long-term IV antibiotics, pending placement Result Diagram: 04/04/18 0443 04/05/18 1043 Results 24hrs Laboratory Tests Test 04/05/18 12:36 04/05/18 17:50 04/05/18 17:57 04/05/18 18:30 Bedside Glucose 124 61 L 65 L 54 L Test 04/05/18 18:57 04/05/18 19:38 04/05/18 20:14 04/05/18 20:33 Bedside Glucose 50 L 60 L 152 101 Test 04/05/18 22:03 04/06/18 01:42 04/06/18 02:04 04/06/18 08:40 Bedside Glucose 119 125 109 Erythrocyte 30 Sedimentation Rate C-Reactive 4.7 H Protein Test 04/06/18 08:52 04/06/18 09:20 04/06/18 09:45 04/06/18 10:12 Bedside Glucose 52 L 62 L 93 85 Consultation Date/Type/Reason Admit Date/Time Mar 29, 2018 at 17:36 Initial Consult Date Type of Consult ID Requesting Provider: KG FELIX DO Exam/Review of Systems Vital Signs Vitals Vital Signs Date Temp Pulse Resp B/P (MAP) Pulse Ox O2 O2 Flow FiO2 Time Delivery Rate 04/06/18 77 11:05 04/06/18 17 105/47 97 Room Air 10:02 (66) 04/06/18 98.3 08:22 Intake and Output 04/05/18 04/05/18 04/06/18 1515:00 23:00 07:00 IntakeIntake Total 300 ml 50 ml OutputOutput Total 1 ml BalanceBalance 299 ml 50 ml Medications Medications Current Medications Acetaminophen (Tylenol Tab) 650 mg Q6H PRN PO PAIN LEVEL 1-5; Start 03/30/18 at 01:30 Atorvastatin Calcium (Lipitor) 40 mg QHS PO Last administered on 04/05/18at 21:59; Admin Dose 40 MG; Start 03/30/18 at 21:00 Clopidogrel Bisulfate (plaVIX) 75 mg DAILY PO Last administered on 04/05/18at 0 8:55; Admin Dose 75 MG; Start 03/30/18 at 09:00 Dronabinol (Marinol) 2.5 mg DAILY PO Last administered on 04/06/18at 09:04; Admin Dose 2.5 MG; Start 03/30/18 at 09:00 Epoetin Olayinka (Epogen (Esrd)) 10,000 units DAILY@1700 SC Last administered on 04/03/18at 18:01; Admin Dose 10,000 UNITS; Start 03/30/18 at 17:00; Status Hold Losartan Potassium (Cozaar) 50 mg SuTuThSa@0900,2100 PO Last administered on 04/05/18 08:58; Admin Dose 50 MG; Start 03/31/18 at 09:00 Losartan Potassium (Cozaar) 50 mg MoWeFr@0900 PO Last administered on 04/04/18 09:20; Admin Dose 50 MG; Start 03/30/18 at 09:00 Morphine Sulfate (morphine) 2 mg Q3H PRN PO PAIN LEVEL 6-10 Last administered on 04/05/18 15:26; Admin Dose 2 MG; Start 03/30/18 at 01:30 Ondansetron HCl (Zofran Tab) 4 mg Q6H PRN PO NAUSEA AND/OR VOMITING Last administered on 04/04/18 09:21; Admin Dose 4 MG; Start 03/30/18 at 01:30 Pantoprazole (Protonix Tab) 40 mg AC BREAKFAST PO Last administered on 04/06/18 09:04; Admin Dose 40 MG; Start 03/30/18 at 07:20 Sevelamer Carbonate (Renvela) 1.6 gm WITH MEALS PO Last administered on 04/06/18at 09:05; Admin Dose 1.6 GM; Start 03/30/18 at 07:50 Diagnostic Test (Pha) (Accu-Chek) 1 ea 02 XX Last administered on 04/02/18at 02:13; Admin Dose 1 EA; Start 03/30/18 at 02:00 Insulin Aspart (Novolog Insulin Pen) NOVOLOG *MILD* ALGORITHM WITH MEALS BEDTIME SC Last administered on 04/04/18 13:17; Admin Dose 1 UNIT; Start 03/30/18 at 07:50 Miscellaneous Information 1 ea NOTE XX ; Start 03/30/18 at 02:00 Glucose (Glutose) 15 gm Q15M PRN PO DECREASED GLUCOSE Last administered on 04/01/18 04:33; Admin Dose 15 GM; Start 03/30/18 at 02:00 Glucose (Glutose) 22.5 gm Q15M PRN PO DECREASED GLUCOSE Last administered on 04/05/18 19:02; Admin Dose 22.5 GM; Start 03/30/18 at 02:00 Dextrose (D50w Syringe) 25 ml Q15M PRN IV DECREASED GLUCOSE Last administered on 04/06/18 09:22; Admin Dose 25 ML; Start 03/30/18 at 02:00 Dextrose (D50w Syringe) 50 ml Q15M PRN IV DECREASED GLUCOSE Last administered on 04/05/18 08:26; Admin Dose 50 ML; Start 03/30/18 at 02:00 Glucagon (Glucagen) 1 mg Q15M PRN IM DECREASED GLUCOSE; Start 03/30/18 at 02:00 Glucose (Glutose) 15 gm Q15M PRN BUCCAL DECREASED GLUCOSE Last administered on 04/04/18at 17:57; Admin Dose 15 GM; Start 03/30/18 at 02:00 Metoprolol Succinate (Toprol Xl) 200 mg MoWeFr@0900 PO Last administered on 04/04/18at 09:20; Admin Dose 200 MG; Start 03/30/18 at 09:00 Metoprolol Succinate (Toprol Xl) 50 mg SuTuThSa@0900,2100 PO Last administered on 04/05/18at 08:56; Admin Dose 50 MG; Start 03/31/18 at 09:00 Diphenhydramine HCl (Benadryl) 50 mg Q4H PRN IV pruritis Last administered on 04/06/18at 01:03; Admin Dose 50 MG; Start 03/30/18 at 09:00 Heparin Sodium (Porcine) (Heparin (5000 Units/1ml)) 5,000 unit BID SC Last administered on 04/05/18at 09:14; Admin Dose 5,000 UNIT; Start 03/30/18 at 12:00 Clindamycin HCl/ Dextrose 50 ml @ 50 mls/hr Q8 IVPB Last administered on 04/06/18 05:17; Admin Dose 50 MLS/HR; Start 03/30/18 at 14:00 Levofloxacin (Levaquin) 250 mg Q2D@0600 PO Last administered on 04/05/18 08:58; Admin Dose 250 MG; Start 04/01/18 at 06:00 Sodium Hypochlorite (Dakin'S (Dilute 140)) 1 applic DAILY IRR Last administered on 04/05/18at 09:01; Admin Dose 1 APPLIC; Start 03/31/18 at 09:00 Ondansetron HCl (Zofran Inj) 4 mg Q4H PRN IV NAUSEA AND/OR VOMITING; Start 04/02/18 at 16:30 Insulin Aspart (Novolog Insulin Pen) 2 unit PC MEALS SC ; Start 04/05/18 at 18:55 Collagenase (Santyl) 1 applic DAILY TOP Last administered on 04/05/18at 18:28; Admin Dose 1 APPLIC; Start 04/05/18 at 18:00 Insulin Glargine (Lantus) 3 units QAM SC ; Start 04/06/18 at 09:00 KRISHNA BURTON NP Apr 06, 2018 11:20
[2018-04-06] MEDS: METOPROLOL (XL) 100 MG TAB PO SCH (11:30)
[2018-04-06] MEDS: LOSARTAN 50 MG TAB PO SCH (11:30)
--- NOTE | 2018-04-06 11:47 | PN ---
DATE: 04/06/2018 SUBJECTIVE: The patient continued to have episodes of hypoglycemia. The patient is scheduled for di alysis today. No other events noted. OBJECTIVE: VITAL SIGNS: Blood pressure is 105/47, respiration 19, pulse 70, temperature 98.3. HEENT: Head is normocephalic. NECK: Supple. HEART: Regular rate. LUNGS: Show diminished breath sounds at base. ABDOMEN: Soft, nontender to palpation without rebound or guarding. EXTREMITIES: Negative for clubbing, cyanosis. No edema. DERMATOLOGIC: No rashes. MUSCULOSKELETAL: The patient has noted dressing over her left foot clean, dry, intact. DERMATOLOGIC: No rashes. MUSCULOSKELETAL: No joint effusion. NEUROLOGIC: No change in exam. MEDICATIONS: Have been reviewed. LABORATORY DATA: Have been reviewed. ASSESSMENT AND PLAN: 1. Left foot diabetic ulcer with underlying cellulitis, possible osteomyelitis. The patient is curr ently receiving IV antibiotics. Continue wound care with podiatry. I appreciate vascular surgery's evaluation. 2. End-stage renal disease. The patient is scheduled for dialysis today. We will dialyze 3 hours o f 2k bath and calcium 2.5. 3. Diabetes type 1 with episode of hypoglycemia. I greatly appreciate endocrinology's help with man agement. Continue to monitor. 4. Anemia. Monitor hemoglobin and hematocrit levels. We will give Epogen as needed. 5. Mineral bone disorder. Monitor calcium and phosphorus levels. 6. Chronic pruritus, possibly due to underlying uremia. The patient's dialysis has been intensified to every other day. Pruritus has been improving. Continue current treatment plan. Continue Benadr yl. 7. History of peptic ulcer disease. Continue PPI. 8. Cerebrovascular accident. Continue medical management. 9. Chronic pain syndrome. Continue current pain regimen. 10. Hypertension. Continue current blood pressure regimen. 11. Coronary artery disease. Continue current treatment plan. 12. Gastrointestinal and deep venous thrombosis prophylaxis. 13. Disposition: Case management is working on transfer to a skilled nurse facility. Dictated By: KG SANTANA/NASH Conf#: [id number] DID#: [id number]
[2018-04-06] MEDS: CLOPIDOGREL 75 MG TAB PO SCH (12:12)
[2018-04-06] MEDS: HEPARIN 5,000 UNIT/1 ML VIAL SC SCH ×2 (12:13→22:03)
--- NOTE | 2018-04-06 13:31 | CONS ---
Date/Time of Note Date/Time of Note DATE: 04/06/18 TIME: 13:29 Assessment/Plan Assessment/Plan Hospital Course Meena 62 year-old -[place] female who I have seen twice before in consultation both of the times as an inpatient. She had moved here from [place] but has a history of complications of diabetes including end-stage renal disease. She has had some skin wound infections that have required hospitalizat ion, and may have osteomyelitis. She is extremely insulin sensitive and requires very small dosages of insulin. In addition she may have delayed gastric emptying which may alter how she absorbs the glucose from a meal. Problems: (1) Type 1 diabetes mellitus with end-stage renal disease (ESRD) Onset Date: ~ 07/1968 Status: Chronic Comment: I am going to have her get her long-acting insulin and liberalize her diet. To be on the safe side and get a make sure were not dealing with adrenal insufficiency. (2) Type 1 diabetes mellitus with circulatory complication, with long-term c urrent use of insulin Status: Chronic Comment: Peripheral vascular disease as per primary care team. (3) Essential hypertension Status: Chronic Comment: Adequate control (4) Secondary hyperparathyroidism (of renal origin) Status: Chronic Comment: Noted. Result Diagram: 04/04/18 0443 04/05/18 1043 Results 24hrs Laboratory Tests Test 04/05/18 17:50 04/05/18 17:57 04/05/18 18:30 04/05/18 18:57 Bedside Glucose 61 L 65 L 54 L 50 L Test 04/05/18 19:38 04/05/18 20:14 04/05/18 20:33 04/05/18 22:03 Bedside Glucose 60 L 152 101 119 Test 04/06/18 01:42 04/06/18 02:04 04/06/18 08:40 04/06/18 08:52 Bedside Glucose 125 109 52 L Erythrocyte 30 Sedimentation Rate C-Reactive 4.7 H Protein Test 04/06/18 09:20 04/06/18 09:45 04/06/18 10:12 04/06/18 12:43 Bedside Glucose 62 L 93 85 137 Consultation Date/Type/Reason Admit Date/Time Mar 29, 2018 at 17:36 Initial Consult Date 04/05/18 Type of Consult Endocrinology Reason for Consultation Diabetes mellitus type 1 with extreme insulin sensitivity as opposed to resistance Requesting Provider: KG FELIX DO 24 HR Interval Summary Free Text/Dictation Patient is not likely a diet and has not eaten very much. She is had her sugar drift down. Her Lantus has been held and I am speaking to the staff about the Constitutional: no complaints Exam/Review of Systems Vital Signs Vitals Vital Signs Date Temp Pulse Resp B/P (MAP) Pulse Ox O2 O2 Flow FiO2 Time Delivery Rate 04/06/18 78 18 100/86 98 Room Air 12:51 (91) 04/06/18 98.3 08:22 Intake and Output 04/05/18 04/05/18 04/06/18 1515:00 23:00 07:00 IntakeIntake Total 300 ml 50 ml OutputOutput Total 1 ml BalanceBalance 299 ml 50 ml Exam Constitutional: alert Respiratory: clear to auscultation, normal air movement Cardiovascular: regular rate and rhythm, nl pulses Medications Medications Current Medications Acetaminophen (Tylenol Tab) 650 mg Q6H PRN PO PAIN LEVEL 1-5; Start 03/30/18 at 01:30 Atorvastatin Calcium (Lipitor) 40 mg QHS PO Last administered on 04/05/18at 21:59; Admin Dose 40 MG; Start 03/30/18 at 21:00 Clopidogrel Bisulfate (plaVIX) 75 mg DAILY PO Last administered on 04/06/18at 12:12; Admin Dose 75 MG; Start 03/30/18 at 09:00 Dronabinol (Marinol) 2.5 mg DAILY PO Last administered on 04/06/18at 09:04; Admin Dose 2.5 MG; Start 03/30/18 at 09:00 Epoetin Olayinka (Epogen (Esrd)) 10,000 units DAILY@1700 SC Last administered on 04/03/18at 18:01; Admin Dose 10,000 UNITS; Start 03/30/18 at 17:00; Status Hold Losartan Potassium (Cozaar) 50 mg SuTuThSa@0900,2100 PO Last administered on 04/05/18at 08:58; Admin Dose 50 MG; Start 03/31/18 at 09:00 Losartan Potassium (Cozaar) 50 mg MoWeFr@0900 PO Last administered on 04/04/18at 09:20; Admin Dose 50 MG; Start 03/30/18 at 09:00 Morphine Sulfate (morphine) 2 mg Q3H PRN PO PAIN LEVEL 6-10 Last administered on 04/05/18 15:26; Admin Dose 2 MG; Start 03/30/18 at 01:30 Ondansetron HCl (Zofran Tab) 4 mg Q6H PRN PO NAUSEA AND/OR VOMITING Last administered on 04/04/18 09:21; Admin Dose 4 MG; Start 03/30/18 at 01:30 Pantoprazole (Protonix Tab) 40 mg AC BREAKFAST PO Last administered on 04/06/18 09:04; Admin Dose 40 MG; Start 03/30/18 at 07:20 Sevelamer Carbonate (Renvela) 1.6 gm WITH MEALS PO Last administered on 04/05/18 08:56; Admin Dose 1.6 GM; Start 03/30/18 at 07:50 Diagnostic Test (Pha) (Accu-Chek) 1 ea 02 XX Last administered on 04/02/18 02:13; Admin Dose 1 EA; Start 03/30/18 at 02:00 Insulin Aspart (Novolog Insulin Pen) NOVOLOG *MILD* ALGORITHM WITH MEALS BEDTIME SC Last administered on 04/04/18 13:17; Admin Dose 1 UNIT; Start 03/30/18 at 07:50 Miscellaneous Information 1 ea NOTE XX ; Start 03/30/18 at 02:00 Glucose (Glutose) 15 gm Q15M PRN PO DECREASED GLUCOSE Last administered on 04/01/18 04:33; Admin Dose 15 GM; Start 03/30/18 at 02:00 Glucose (Glutose) 22.5 gm Q15M PRN PO DECREASED GLUCOSE Last administered on 04/05/18 19:02; Admin Dose 22.5 GM; Start 03/30/18 at 02:00 Dextrose (D50w Syringe) 25 ml Q15M PRN IV DECREASED GLUCOSE Last administered on 04/06/18 09:22; Admin Dose 25 ML; Start 03/30/18 at 02:00 Dextrose (D50w Syringe) 50 ml Q15M PRN IV DECREASED GLUCOSE Last administered on 04/05/18 08:26; Admin Dose 50 ML; Start 03/30/18 at 02:00 Glucagon (Glucagen) 1 mg Q15M PRN IM DECREASED GLUCOSE; Start 03/30/18 at 02:00 Glucose (Glutose) 15 gm Q15M PRN BUCCAL DECREASED GLUCOSE Last administered on 04/04/18at 17:57; Admin Dose 15 GM; Start 03/30/18 at 02:00 Metoprolol Succinate (Toprol Xl) 200 mg MoWeFr@0900 PO Last administered on 04/04/18at 09:20; Admin Dose 200 MG; Start 03/30/18 at 09:00 Metoprolol Succinate (Toprol Xl) 50 mg SuTuThSa@0900,2100 PO Last administered on 04/05/18at 08:56; Admin Dose 50 MG; Start 03/31/18 at 09:00 Diphenhydramine HCl (Benadryl) 50 mg Q4H PRN IV pruritis Last administered on 04/06/18at 01:03; Admin Dose 50 MG; Start 03/30/18 at 09:00 Heparin Sodium (Porcine) (Heparin (5000 Units/1ml)) 5,000 unit BID SC Last administered on 04/06/18at 12:13; Admin Dose 5,000 UNIT; Start 03/30/18 at 12:00 Clindamycin HCl/ Dextrose 50 ml @ 50 mls/hr Q8 IVPB Last administered on 04/06/18at 05:17; Admin Dose 50 MLS/HR; Start 03/30/18 at 14:00 Levofloxacin (Levaquin) 250 mg Q2D@0600 PO Last administered on 04/05/18at 08:58; Admin Dose 250 MG; Start 04/01/18 at 06:00 Sodium Hypochlorite (Dakin'S (Dilute 1/40)) 1 applic DAILY IRR Last administered on 04/05/18at 09:01; Admin Dose 1 APPLIC; Start 03/31/18 at 09:00 Ondansetron HCl (Zofran Inj) 4 mg Q4H PRN IV NAUSEA AND/OR VOMITING; Start 1 06/03/17 at 16:30 Insulin Aspart (Novolog Insulin Pen) 2 unit PC MEALS SC ; Start 04/05/18 at 18:55 Collagenase (Santyl) 1 applic DAILY TOP Last administered on 04/05/18at 18:28; Admin Dose 1 APPLIC; Start 04/05/18 at 18:00 Insulin Glargine (Lantus) 3 units QAM SC ; Start 12/28/18 at 09:00 LILIAN IBRAHIM MD Apr 06, 2018 13:31
[2018-04-06] MEDS ORDERED: HYDROCORTISONE 100 MG INJ IV ONE (14:00)
[2018-04-06] MEDS: INSULIN GLARGINE [LANTus] (100 UNITS/ML) SYG SC SCH (15:31)
[2018-04-06] MEDS: SODIUM HYPOCHLORITE (1/40) 1 APPLIC BTL IRR SCH (15:59)
[2018-04-06] MEDS: COLLAGENASE 5 GM (UD JAR) TOP SCH (16:00)
--- NOTE | 2018-04-06 17:07 | PN ---
Date/Time of Note Date/Time of Note DATE: 04/06/18 TIME: 17:07 Assessment/Plan VTE Prophylaxis Risk score (from Nsg)>0 risk: 5 Pharmacological prophylaxis: heparin Lines/Catheters IV Catheter Type (from Nrsg): Mid Line Urinary Cath still in place: No Assessment/Plan Hospital Course 62 y/o F with hx of HLD, DM1 with PN, HTN, PAD, CVA, ESRD on HD presents to the floor with chronic left lower extremity ulceration. Patient was seen in wound care clinic and had reported increased swelling and pain to the left lower extremity ulcer sites. There was concern for worsening infection due the symptoms she exhibited during clinic. Patient was amenable for admission for closer monitoring. Assessment/Plan 1) Left heel decubitus ulcer 2) Left heel dry gangrene - improved 3) Left lateral leg diabetic ulcer - resolved 4) Cellulitis LLE 5) Suspicion for osteomyelitis - negative on MRI 6) PAD 7) ESRD on HD 8) DM1 with peripheral neuropathy 9) Hx of CVA Plan: Adipose tissue and fascia still intact to the posterior heel wound and no purulence was expressed with no proximal streaking. X-rays reviewed and showing signs of early osteomyelitis. No sign of soft tissue emphysena. MRI reviewed and stated bone marrow edema more likely compared to active osteomyelitis with no connecting fistula to calcaneus. PAD being followed in outpatient setting with Dr. Valdovinos. Wound cultures pending currently on IV abx. Recommend offloading with pillows and heel protectors. Recommend daily irrigation with dakins to wound site, xeroform, santyl, left heel with 4x4 gauze and kerlix w rap. Medical decisions, treatment, and plan coordinated with Dr. Gomez. Result Diagram: 04/04/18 0443 04/05/18 1043 Results 24hrs Laboratory Tests Test 04/05/18 17:50 04/05/18 17:57 04/05/18 18:30 04/05/18 18:57 Bedside Glucose 61 L 65 L 54 L 50 L Test 04/05/18 19:38 04/05/18 20:14 04/05/18 20:33 04/05/18 22:03 Bedside Glucose 60 L 152 101 119 Test 04/06/18 01:42 04/06/18 02:04 04/06/18 08:40 04/06/18 08:52 Bedside Glucose 125 109 52 L Erythrocyte 30 Sedimentation Rate C-Reactive 4.7 H Protein Test 04/06/18 09:20 04/06/18 09:45 04/06/18 10:12 04/06/18 12:43 Bedside Glucose 62 L 93 85 137 Test 04/06/18 13:48 04/06/18 15:34 Random Cortisol 23.8 Bedside Glucose 79 Subjective 24 Hr Interval Summary Free Text/Dictation No acute events overnight. Exam/Review of Systems Vital Signs Vitals Vital Signs Date Temp Pulse Resp B/P (MAP) Pulse Ox O2 O2 Flow FiO2 Time Delivery Rate 04/06/18 78 18 100/86 98 Room Air 12:51 (91) 04/06/18 98.3 08:22 Intake and Output 04/05/18 04/05/18 04/06/18 1515:00 23:00 07:00 IntakeIntake Total 300 ml 50 ml OutputOutput Total 1 ml BalanceBalance 299 ml 50 ml Exam Non palpable pedal pulses Muscle atrophy to the lower extremity Left heel ulcer 3.1 x 2.8cm x 0.3cm fibrotic wound bed with adipose tissue noted. No probing to bone, no purulence expressed, no proximal streaking. Left lateral leg ulcer 3.3 x 1.8 x 0.2cm dry fibrogranular wound base. No proximal streaking no purulence expressed. Showing signs of epithelialization Absent protectives sensations to the feet There is pain to palpation of the heel wound site. Medications Medications Current Medications Acetaminophen (Tylenol Tab) 650 mg Q6H PRN PO PAIN LEVEL 1-5; Start 03/30/18 at 01:30 Atorvastatin Calcium (Lipitor) 40 mg QHS PO Last administered on 04/05/18at 21:59; Admin Dose 40 MG; Start 03/30/18 at 21:00 Clopidogrel Bisulfate (plaVIX) 75 mg DAILY PO Last administered on 04/06/18at 12:12; Admin Dose 75 MG; Start 03/30/18 at 09:00 Dronabinol (Marinol) 2.5 mg DAILY PO Last administered on 04/06/18at 09:04; Admin Dose 2.5 MG; Start 03/30/18 at 09:00 Epoetin Olayinka (Epogen (Esrd)) 10,000 units DAILY@1700 SC Last administered on 04/03/18at 18:01; Admin Dose 10,000 UNITS; Start 03/30/18 at 17:00; Status Hold Losartan Potassium (Cozaar) 50 mg SuTuThSa@0900,2100 PO Last administered on 04/05/18at 08:58; Admin Dose 50 MG; Start 03/31/18 at 09:00 Losartan Potassium (Cozaar) 50 mg MoWeFr@0900 PO Last administered on 04/04/18 09:20; Admin Dose 50 MG; Start 03/30/18 at 09:00 Morphine Sulfate (morphine) 2 mg Q3H PRN PO PAIN LEVEL 6-10 Last administered on 04/05/18 15:26; Admin Dose 2 MG; Start 03/30/18 at 01:30 Ondansetron HCl (Zofran Tab) 4 mg Q6H PRN PO NAUSEA AND/OR VOMITING Last administered on 04/04/18 09:21; Admin Dose 4 MG; Start 03/30/18 at 01:30 Pantoprazole (Protonix Tab) 40 mg AC BREAKFAST PO Last administered on 04/06/18at 09:04; Admin Dose 40 MG; Start 03/30/18 at 07:20 Sevelamer Carbonate (Renvela) 1.6 gm WITH MEALS PO Last administered on 04/05/18 08:56; Admin Dose 1.6 GM; Start 03/30/18 at 07:50 Diagnostic Test (Pha) (Accu-Chek) 1 ea 02 XX Last administered on 04/02/18at 02:13; Admin Dose 1 EA; Start 03/30/18 at 02:00 Insulin Aspart (Novolog Insulin Pen) NOVOLOG *MILD* ALGORITHM WITH MEALS BEDTIME SC Last administered on 04/04/18at 13:17; Admin Dose 1 UNIT; Start 03/30/18 at 07:50 Miscellaneous Information 1 ea NOTE XX ; Start 03/30/18 at 02:00 Glucose (Glutose) 15 gm Q15M PRN PO DECREASED GLUCOSE Last administered on 04/01/18 04:33; Admin Dose 15 GM; Start 03/30/18 at 02:00 Glucose (Glutose) 22.5 gm Q15M PRN PO DECREASED GLUCOSE Last administered on 04/05/18 19:02; Admin Dose 22.5 GM; Start 03/30/18 at 02:00 Dextrose (D50w Syringe) 25 ml Q15M PRN IV DECREASED GLUCOSE Last administered on 04/06/18 09:22; Admin Dose 25 ML; Start 03/30/18 at 02:00 Dextrose (D50w Syringe) 50 ml Q15M PRN IV DECREASED GLUCOSE Last administered on 04/05/18 08:26; Admin Dose 50 ML; Start 03/30/18 at 02:00 Glucagon (Glucagen) 1 mg Q15M PRN IM DECREASED GLUCOSE; Start 03/30/18 at 02:00 Glucose (Glutose) 15 gm Q15M PRN BUCCAL DECREASED GLUCOSE Last administered on 04/04/18 17:57; Admin Dose 15 GM; Start 03/30/18 at 02:00 Metoprolol Succinate (Toprol Xl) 200 mg MoWeFr@0900 PO Last administered on 04/04/18 09:20; Admin Dose 200 MG; Start 03/30/18 at 09:00 Metoprolol Succinate (Toprol Xl) 50 mg SuTuThSa@0900,2100 PO Last administered on 04/05/18 08:56; Admin Dose 50 MG; Start 03/31/18 at 09:00 Diphenhydramine HCl (Benadryl) 50 mg Q4H PRN IV pruritis Last administered on 04/06/18 01:03; Admin Dose 50 MG; Start 03/30/18 at 09:00 Heparin Sodium (Porcine) (Heparin (5000 Units/1ml)) 5,000 unit BID SC Last administered on 04/06/18at 12:13; Admin Dose 5,000 UNIT; Start 03/30/18 at 12:00 Clindamycin HCl/ Dextrose 50 ml @ 50 mls/hr Q8 IVPB Last administered on 04/06/18 14:02; Admin Dose 50 MLS/HR; Start 03/30/18 at 14:00 Levofloxacin (Levaquin) 250 mg Q2D@0600 PO Last administered on 04/05/18 08:58; Admin Dose 250 MG; Start 04/01/18 at 06:00 Sodium Hypochlorite (Dakin'S (Dilute 1/40)) 1 applic DAILY IRR Last administered on 04/05/18 09:01; Admin Dose 1 APPLIC; Start 03/31/18 at 09:00 Ondansetron HCl (Zofran Inj) 4 mg Q4H PRN IV NAUSEA AND/OR VOMITING; Start 04/02/18 at 16:30 Insulin Aspart (Novolog Insulin Pen) 2 unit PC MEALS SC ; Start 04/05/18 at 18:55 Collagenase (Santyl) 1 applic DAILY TOP Last administered on 04/06/18at 16:00; Admin Dose 1 APPLIC; Start 04/05/18 at 18:00 Insulin Glargine (Lantus) 3 units QAM SC Last administered on 04/06/18at 15:31; Admin Dose 3 UNITS; Start 04/06/18 at 09:00 FELTON ACOSTA DPM Apr 06, 2018 17:07
[2018-04-06] MEDS: ATORVASTATIN 40 MG TAB PO SCH (21:49)
[2018-04-07] MEDS: ACCU-CHEK XX SCH (02:00)
[2018-04-07 02:30] VITALS: BP 145/75; PULSE 71; RESP 18
[2018-04-07] MEDS: morphine LIQ (10 MG/5 ML) CUP PO PRN (03:16)
[2018-04-07] MEDS: ONDANSETRON 4 MG TAB PO PRN (03:16)
[2018-04-07] MEDS: DIPHENHYDRAMINE 50 MG INJ IV PRN ×2 (04:04→10:21)
[2018-04-07] MEDS: CLINDAMYCIN 900 MG/D5W (PMX) 50 ML IVPB SCH ×3 (06:19→22:45)
[2018-04-07] MEDS: PANTOPRAZOLE (EC) 40 MG TAB PO SCH (06:20)
[2018-04-07] MEDS: LEVOFLOXACIN 250 MG TAB PO SCH (06:40)
[2018-04-07] MEDS: SEVELAMER CARBONATE 0.8 GM PKT PO SCH ×3 (07:50→17:55)
[2018-04-07 08:07] VITALS: BP 127/67; PULSE 75; RESP 18
--- NOTE | 2018-04-07 09:02 | PN ---
Date/Time of Note Date/Time of Note DATE: 04/07/18 TIME: 09:01 Assessment/Plan VTE Prophylaxis Risk score (from Nsg)>0 risk: 2 SCD applied (from Nsg): No SCD contraindicated: other Pharmacological prophylaxis: other Lines/Catheters IV Catheter Type (from Nrsg): Mid Line Urinary Cath still in place: No Assessment/Plan Hospital Course SUBJECTIVE: events were reviewed. last hd was yesterday. No other events noted. OBJECTIVE: HEENT: Head is normocephalic. NECK: Supple. HEART: Regular rate. LUNGS: Show diminished breath sounds at base. ABDOMEN: Soft, nontender to palpation without rebound or guarding. EXTREMITIES: Negative for clubbing, cyanosis. No edema. DERMATOLOGIC: No rashes. MUSCULOSKELETAL: The patient has noted dressing over her left foot clean, dry, intact. DERMATOLOGIC: No rashes. MUSCULOSKELETAL: No joint effusion. NEUROLOGIC: No change in exam. MEDICATIONS: Have been reviewed. LABORATORY DATA: Have been reviewed. ASSESSMENT AND PLAN: 1. Left foot diabetic ulcer with underlying cellulitis, possible osteomyelitis. The patient is currently receiving IV antibiotics. Continue wound care with podiatry. 2. End-stage renal disease. will be evaluated for her dialytic needs in am 3. Diabetes type 1 with episodes of hypoglycemia. 4. Anemia. Monitor hemoglobin and hematocrit levels. We will give Epogen as needed. 5. Mineral bone disorder. Monitor calcium and phosphorus levels. 6. Chronic pruritus, possibly due to underlying uremia. Pruritus has been improving. Continue current treatment plan. Continue Benadryl. 7. History of peptic ulcer disease. Continue PPI. 8. Cerebrovascular accident. Continue medical management. 9. Chronic pain syndrome. Continue current pain regimen. 10. Hypertension. Continue current blood pressure regimen. 11. Coronary artery disease. Continue current treatment plan. 12. Gastrointestinal and deep venous thrombosis prophylaxis. 13. Disposition: Case management is working on transfer to a skilled nurse facility. Result Diagram: 04/07/18 0443 04/07/18 0443 Results 24hrs Laboratory Tests Test 04/06/18 09:20 04/06/18 09:45 04/06/18 10:12 04/06/18 12:43 Bedside Glucose 62 L 93 85 137 Test 04/06/18 13:48 04/06/18 15:34 04/06/18 17:54 04/06/18 21:37 Random Cortisol 23.8 Bedside Glucose 79 88 164 Test 04/07/18 02:34 04/07/18 04:43 Bedside Glucose 186 White Blood 5.6 Count Red Blood Count 3.45 L Hemoglobin 12.1 Hematocrit 35.7 L Mean Corpuscular 103.5 H Volume Mean Corpuscular 35.1 H Hemoglobin Mean Corpuscular 33.9 Hemoglobin Heidi nt Red Cell 17.2 H Distribution Width Platelet Count 210 Mean Platelet 11.4 H Volume Immature 0.700 H Granulocytes % Neutrophils % 76.1 Lymphocytes % 8.9 L Monocytes % 14.1 H Eosinophils % 0.0 Basophils % 0.2 Nucleated Red 1.8 H Blood Cells % Immature 0.040 H Granulocytes # Neutrophils # 4.3 Lymphocytes # 0.5 L Monocytes # 0.8 Eosinophils # 0.0 Basophils # 0.0 Nucleated Red 0.1 H Blood Cells # Sodium Level 143 Potassium Level 4.9 Chloride Level 100 Carbon Dioxide 22 Level Anion Gap 21 H Blood Urea 21 H Nitrogen Creatinine 3.69 H Est Glomerular 15 L Filtrat Rate mL/min Glucose Level 230 H Calcium Level 9.0 Phosphorus Level 7.1 H Total Bilirubin 1.4 H Direct Bilirubin 0.80 H Indirect 0.6 Bilirubin Aspartate Amino 41 Transf (AST/SGOT ) Alanine 12 L Aminotransferase (ALT/SGPT) Alkaline 197 H Phosphatase Total Protein 9.0 H Albumin 3.8 Globulin 5.20 H Albumin/Globulin 0.73 Ratio Exam/Review of Systems Vital Signs Vitals Vital Signs Date Temp Pulse Resp B/P (MAP) Pulse Ox O2 O2 Flow FiO2 Time Delivery Rate 04/07/18 98.3 75 18 127/67 96 Room Air 08:07 (87) Intake and Output 04/06/18 04/06/18 04/07/18 1515:00 23:00 07:00 IntakeIntake Total 460 ml OutputOutput Total 1900 ml BalanceBalance -1900 ml 460 ml Medications Medications Current Medications Acetaminophen (Tylenol Tab) 650 mg Q6H PRN PO PAIN LEVEL 1-5; Start 03/30/18 at 01:30 Atorvastatin Calcium (Lipitor) 40 mg QHS PO Last administered on 04/06/18at 21:49; Admin Dose 40 MG; Start 03/30/18 at 21:00 Clopidogrel Bisulfate (plaVIX) 75 mg DAILY PO Last administered on 04/06/18 12:12; Admin Dose 75 MG; Start 03/30/18 at 09:00 Dronabinol (Marinol) 2.5 mg DAILY PO Last administered on 04/06/18 09:04; Admin Dose 2.5 MG; Start 03/30/18 at 09:00 Epoetin Olayinka (Epogen (Esrd)) 10,000 units DAILY@1700 SC Last administered on 04/03/18 18:01; Admin Dose 10,000 UNITS; Start 03/30/18 at 17:00; Status Hold Losartan Potassium (Cozaar) 50 mg SuTuThSa@0900,2100 PO Last administered on 04/05/18 08:58; Admin Dose 50 MG; Start 03/31/18 at 09:00 Losartan Potassium (Cozaar) 50 mg MoWeFr@0900 PO Last administered on 04/04/18 09:20; Admin Dose 50 MG; Start 03/30/18 at 09:00 Morphine Sulfate (morphine) 2 mg Q3H PRN PO PAIN LEVEL 6-10 Last administered on 04/07/18 03:16; Admin Dose 2 MG; Start 03/30/18 at 01:30 Ondansetron HCl (Zofran Tab) 4 mg Q6H PRN PO NAUSEA AND/OR VOMITING Last administered on 04/07/18 03:16; Admin Dose 4 MG; Start 03/30/18 at 01:30 Pantoprazole (Protonix Tab) 40 mg AC BREAKFAST PO Last administered on 04/07/18 06:20; Admin Dose 40 MG; Start 03/30/18 at 07:20 Sevelamer Carbonate (Renvela) 1.6 gm WITH MEALS PO Last administered on 1 06/06/17 08:56; Admin Dose 1.6 GM; Start 03/30/18 at 07:50 Diagnostic Test (Pha) (Accu-Chek) 1 ea 02 XX Last administered on 04/02/18 02:13; Admin Dose 1 EA; Start 03/30/18 at 02:00 Insulin Aspart (Novolog Insulin Pen) NOVOLOG *MILD* ALGORITHM WITH MEALS BEDTIME SC Last administered on 04/04/18 13:17; Admin Dose 1 UNIT; Start 03/30/18 at 07:50 Miscellaneous Information 1 ea NOTE XX ; Start 03/30/18 at 02:00 Glucose (Glutose) 15 gm Q15M PRN PO DECREASED GLUCOSE Last administered on 1 06/02/17at 04:33; Admin Dose 15 GM; Start 03/30/18 at 02:00 Glucose (Glutose) 22.5 gm Q15M PRN PO DECREASED GLUCOSE Last administered on 04/05/18 19:02; Admin Dose 22.5 GM; Start 03/30/18 at 02:00 Dextrose (D50w Syringe) 25 ml Q15M PRN IV DECREASED GLUCOSE Last administered on 04/06/18 09:22; Admin Dose 25 ML; Start 03/30/18 at 02:00 Dextrose (D50w Syringe) 50 ml Q15M PRN IV DECREASED GLUCOSE Last administered on 04/05/18 08:26; Admin Dose 50 ML; Start 03/30/18 at 02:00 Glucagon (Glucagen) 1 mg Q15M PRN IM DECREASED GLUCOSE; Start 03/30/18 at 02:00 Glucose (Glutose) 15 gm Q15M PRN BUCCAL DECREASED GLUCOSE Last administered on 04/04/18 17:57; Admin Dose 15 GM; Start 03/30/18 at 02:00 Metoprolol Succinate (Toprol Xl) 200 mg MoWeFr@0900 PO Last administered on 04/04/18 09:20; Admin Dose 200 MG; Start 03/30/18 at 09:00 Metoprolol Succinate (Toprol Xl) 50 mg SuTuThSa@0900,2100 PO Last administered on 04/05/18 08:56; Admin Dose 50 MG; Start 03/31/18 at 09:00 Diphenhydramine HCl (Benadryl) 50 mg Q4H PRN IV pruritis Last administered on 04/07/18 04:04; Admin Dose 50 MG; Start 03/30/18 at 09:00 Heparin Sodium (Porcine) (Heparin (5000 Units/1ml)) 5,000 unit BID SC Last administered on 04/06/18 22:03; Admin Dose 5,000 UNIT; Start 03/30/18 at 12:00 Clindamycin HCl/ Dextrose 50 ml @ 50 mls/hr Q8 IVPB Last administered on 04/07/18 06:19; Admin Dose 50 MLS/HR; Start 03/30/18 at 14:00 Levofloxacin (Levaquin) 250 mg Q2D@0600 PO Last administered on 04/07/18at 06:40; Admin Dose 250 MG; Start 04/01/18 at 06:00 Sodium Hypochlorite (Dakin'S (Dilute )) 1 applic DAILY IRR Last administered on 04/05/18at 09:01; Admin Dose 1 APPLIC; Start 03/31/18 at 09:00 Ondansetron HCl (Zofran Inj) 4 mg Q4H PRN IV NAUSEA AND/OR VOMITING; Start 04/02/18 at 16:30 Insulin Aspart (Novolog Insulin Pen) 2 unit PC MEALS SC ; Start 04/05/18 at 18:55 Collagenase (Santyl) 1 applic DAILY TOP Last administered on 04/06/18at 16:00; Admin Dose 1 APPLIC; Start 04/05/18 at 18:00 Insulin Glargine (Lantus) 3 units QAM SC Last administered on 04/06/18at 15:31; Admin Dose 3 UNITS; Start 04/06/18 at 09:00 JIMMY QUINTANILLA DO Apr 07, 2018 09:02
[2018-04-07] MEDS: COLLAGENASE 5 GM (UD JAR) TOP SCH (09:32)
[2018-04-07] MEDS: INSULIN ASPART [NOVOLOG] 3 ML PEN SC SCH ×7 (09:39→21:00)
[2018-04-07] MEDS: DRONABINOL 2.5 MG CAP PO SCH (09:41)
[2018-04-07] MEDS: CLOPIDOGREL 75 MG TAB PO SCH (09:41)
[2018-04-07] MEDS: HEPARIN 5,000 UNIT/1 ML VIAL SC SCH ×2 (09:41→21:35)
[2018-04-07] MEDS: METOPROLOL (XL) 50 MG TAB PO SCH ×2 (10:22→21:00)
[2018-04-07] MEDS: SODIUM HYPOCHLORITE (1/40) 1 APPLIC BTL IRR SCH (10:23)
[2018-04-07] MEDS: LOSARTAN 50 MG TAB PO SCH ×2 (10:23→21:00)
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
[2018-04-07] MEDS: INSULIN GLARGINE [LANTus] (100 UNITS/ML) SYG SC SCH (11:56)
--- NOTE | 2018-04-07 12:33 | CONS ---
Date/Time of Note Date/Time of Note DATE: 04/07/18 TIME: 12:32 Assessment/Plan Assessment/Plan Hospital Course Meena 62 year-old -[place] female who I have seen twice before in consultation both of the times as an inpatient. She had moved here from [place] but has a history of complications of diabetes including end-stage renal disease. She has had some skin wound infections that have required hospitalizat ion, and may have osteomyelitis. She is extremely insulin sensitive and requires very small dosages of insulin. In addition she may have delayed gastric emptying which may alter how she absorbs the glucose from a meal. Problems: (1) Type 1 diabetes mellitus with end-stage renal disease (ESRD) Onset Date: ~ 07/1968 Status: Chronic Comment: Sugar control is come into line quite nicely. Continue same treatment Result Diagram: 04/07/18 0443 04/07/18 0443 Results 24hrs Laboratory Tests Test 04/06/18 12:43 04/06/18 13:48 04/06/18 15:34 04/06/18 17:54 Bedside Glucose 137 79 88 Random Cortisol 23.8 Test 04/06/18 21:37 04/07/18 02:34 04/07/18 04:43 Bedside Glucose 164 186 White Blood 5.6 Count Red Blood Count 3.45 L Hemoglobin 12.1 Hematocrit 35.7 L Mean Corpuscular 103.5 H Volume Mean Corpuscular 35.1 H Hemoglobin Mean Corpuscular 33.9 Hemoglobin Heidi nt Red Cell 17.2 H Distribution Width Platelet Count 210 Mean Platelet 11.4 H Volume Immature 0.700 H Granulocytes % Neutrophils % 76.1 Lymphocytes % 8.9 L Monocytes % 14.1 H Eosinophils % 0.0 Basophils % 0.2 Nucleated Red 1.8 H Blood Cells % Immature 0.040 H Granulocytes # Neutrophils # 4.3 Lymphocytes # 0.5 L Monocytes # 0.8 Eosinophils # 0.0 Basophils # 0.0 Nucleated Red 0.1 H Blood Cells # Sodium Level 143 Potassium Level 4.9 Chloride Level 100 Carbon Dioxide 22 Level Anion Gap 21 H Blood Urea 21 H Nitrogen Creatinine 3.69 H Est Glomerular 15 L Filtrat Rate mL/min Glucose Level 230 H Calcium Level 9.0 Phosphorus Level 7.1 H Total Bilirubin 1.4 H Direct Bilirubin 0.80 H Indirect 0.6 Bilirubin Aspartate Amino 41 Transf (AST/SGOT ) Alanine 12 L Aminotransferase (ALT/SGPT) Alkaline 197 H Phosphatase Total Protein 9.0 H Albumin 3.8 Globulin 5.20 H Albumin/Globulin 0.73 Ratio Consultation Date/Type/Reason Admit Date/Time Mar 29, 2018 at 17:36 Initial Consult Date 04/05/18 Type of Consult Endocrinology Reason for Consultation Diabetes mellitus type 1 Requesting Provider: KG FELIX DO 24 HR Interval Summary Free Text/Dictation Patient reports she is a little bit frustrated about how much time she has had to spend in hospitals and extended care facilities. Constitutional: no complaints (No fevers chills or sweats) Detailed Summary Endocrine: no complaints Exam/Review of Systems Vital Signs Vitals Vital Signs Date Temp Pulse Resp B/P (MAP) Pulse Ox O2 O2 Flow FiO2 Time Delivery Rate 04/07/18 98.3 75 18 127/67 96 Room Air 08:07 (87) Intake and Output 04/06/18 04/06/18 04/07/18 1515:00 23:00 07:00 IntakeIntake Total 460 ml OutputOutput Total 1900 ml BalanceBalance -1900 ml 460 ml Exam Constitutional: alert, oriented Respiratory: clear to auscultation, normal air movement Gastrointestinal: soft, nl liver, spleen, non-tender Medications Medications Current Medications Acetaminophen (Tylenol Tab) 650 mg Q6H PRN PO PAIN LEVEL 1-5; Start 03/30/18 at 01:30 Atorvastatin Calcium (Lipitor) 40 mg QHS PO Last administered on 04/06/18at 21:49; Admin Dose 40 MG; Start 03/30/18 at 21:00 Clopidogrel Bisulfate (plaVIX) 75 mg DAILY PO Last administered on 04/07/18at 09:41; Admin Dose 75 MG; Start 03/30/18 at 09:00 Dronabinol (Marinol) 2.5 mg DAILY PO Last administered on 04/07/18at 09:41; Admin Dose 2.5 MG; Start 03/30/18 at 09:00 Epoetin Olayinka (Epogen (Esrd)) 10,000 units DAILY@1700 SC Last administered on 04/03/18at 18:01; Admin Dose 10,000 UNITS; Start 03/30/18 at 17:00; Status Hold Losartan Potassium (Cozaar) 50 mg SuTuThSa@0900,2100 PO Last administered on 04/07/18 10:23; Admin Dose 50 MG; Start 03/31/18 at 09:00 Losartan Potassium (Cozaar) 50 mg MoWeFr@0900 PO Last administered on 04/04/18 09:20; Admin Dose 50 MG; Start 03/30/18 at 09:00 Morphine Sulfate (morphine) 2 mg Q3H PRN PO PAIN LEVEL 6-10 Last administered on 04/07/18 03:16; Admin Dose 2 MG; Start 03/30/18 at 01:30 Ondansetron HCl (Zofran Tab) 4 mg Q6H PRN PO NAUSEA AND/OR VOMITING Last administered on 04/07/18 03:16; Admin Dose 4 MG; Start 03/30/18 at 01:30 Pantoprazole (Protonix Tab) 40 mg AC BREAKFAST PO Last administered on 04/07/18 06:20; Admin Dose 40 MG; Start 03/30/18 at 07:20 Sevelamer Carbonate (Renvela) 1.6 gm WITH MEALS PO Last administered on 04/05/18 08:56; Admin Dose 1.6 GM; Start 03/30/18 at 07:50 Diagnostic Test (Pha) (Accu-Chek) 1 ea 02 XX Last administered on 04/02/18 02:13; Admin Dose 1 EA; Start 03/30/18 at 02:00 Insulin Aspart (Novolog Insulin Pen) NOVOLOG *MILD* ALGORITHM WITH MEALS BEDTIME SC Last administered on 04/07/18 09:39; Admin Dose 2 UNIT; Start 03/30/18 at 07:50 Miscellaneous Information 1 ea NOTE XX ; Start 03/30/18 at 02:00 Glucose (Glutose) 15 gm Q15M PRN PO DECREASED GLUCOSE Last administered on 04/01/18 04:33; Admin Dose 15 GM; Start 03/30/18 at 02:00 Glucose (Glutose) 22.5 gm Q15M PRN PO DECREASED GLUCOSE Last administered on 04/05/18 19:02; Admin Dose 22.5 GM; Start 03/30/18 at 02:00 Dextrose (D50w Syringe) 25 ml Q15M PRN IV DECREASED GLUCOSE Last administered on 04/06/18 09:22; Admin Dose 25 ML; Start 03/30/18 at 02:00 Dextrose (D50w Syringe) 50 ml Q15M PRN IV DECREASED GLUCOSE Last administered on 04/05/18 08:26; Admin Dose 50 ML; Start 03/30/18 at 02:00 Glucagon (Glucagen) 1 mg Q15M PRN IM DECREASED GLUCOSE; Start 03/30/18 at 02:00 Glucose (Glutose) 15 gm Q15M PRN BUCCAL DECREASED GLUCOSE Last administered on 04/04/18 17:57; Admin Dose 15 GM; Start 03/30/18 at 02:00 Metoprolol Succinate (Toprol Xl) 200 mg MoWeFr@0900 PO Last administered on 04/04/18 09:20; Admin Dose 200 MG; Start 03/30/18 at 09:00 Metoprolol Succinate (Toprol Xl) 50 mg SuTuThSa@0900,2100 PO Last administered on 04/07/18 10:22; Admin Dose 50 MG; Start 03/31/18 at 09:00 Diphenhydramine HCl (Benadryl) 50 mg Q4H PRN IV pruritis Last administered on 04/07/18 10:21; Admin Dose 50 MG; Start 03/30/18 at 09:00 Heparin Sodium (Porcine) (Heparin (5000 Units/1ml)) 5,000 unit BID SC Last a dministered on 04/07/18 09:41; Admin Dose 5,000 UNIT; Start 03/30/18 at 12:00 Clindamycin HCl/ Dextrose 50 ml @ 50 mls/hr Q8 IVPB Last administered on 04/07/18 06:19; Admin Dose 50 MLS/HR; Start 03/30/18 at 14:00 Levofloxacin (Levaquin) 250 mg Q2D@0600 PO Last administered on 04/07/18 06:4 0; Admin Dose 250 MG; Start 04/01/18 at 06:00 Sodium Hypochlorite (Dakin'S (Dilute )) 1 applic DAILY IRR Last administered on 04/07/18 10:23; Admin Dose 1 APPLIC; Start 03/31/18 at 09:00 Ondansetron HCl (Zofran Inj) 4 mg Q4H PRN IV NAUSEA AND/OR VOMITING; Start 04/02/18 at 16:30 Insulin Aspart (Novolog Insulin Pen) 2 unit PC MEALS SC Last administered on 04/07/18 09:40; Admin Dose 1 UNIT; Start 04/05/18 at 18:55 Collagenase (Santyl) 1 applic DAILY TOP Last administered on 04/07/18 09:32; Admin Dose 1 APPLIC; Start 04/05/18 at 18:00 Insulin Glargine (Lantus) 3 units QAM SC Last administered on 04/07/18 11:56; Admin Dose 3 UNITS; Start 04/06/18 at 09:00 LILIAN IBRAHIM MD Apr 07, 2018 12:33
[2018-04-07 15:02] VITALS: BP 115/92; PULSE 70; RESP 18
[2018-04-07 20:05] VITALS: BP 104/63; PULSE 67; RESP 18
[2018-04-07] MEDS: ATORVASTATIN 40 MG TAB PO SCH (21:00)
[2018-04-08] VITALS (17 sets, daily range): BP systolic 104–144; BP diastolic 50–73; PULSE 68–84; RESP 17–20
[2018-04-08] MEDS: ACCU-CHEK XX SCH (02:00)
[2018-04-08] MEDS: COLLAGENASE 5 GM (UD JAR) TOP SCH (04:22)
[2018-04-08] MEDS: PANTOPRAZOLE (EC) 40 MG TAB PO SCH (05:47)
[2018-04-08] MEDS: CLINDAMYCIN 900 MG/D5W (PMX) 50 ML IVPB SCH ×3 (05:48→21:59)
[2018-04-08] MEDS: INSULIN ASPART [NOVOLOG] 3 ML PEN SC SCH ×7 (07:50→21:00)
--- NOTE | 2018-04-08 07:58 | PN ---
Date/Time of Note Date/Time of Note DATE: 04/08/18 TIME: 07:55 Assessment/Plan VTE Prophylaxis Risk score (from Nsg)>0 risk: 4 SCD applied (from Nsg): No SCD contraindicated: other Pharmacological prophylaxis: other Lines/Catheters IV Catheter Type (from Nrsg): mid line Urinary Cath still in place: No Assessment/Plan Hospital Course SUBJECTIVE: events were reviewed. last hd was 2 days ago. No other events noted. no longer hypoglycemic OBJECTIVE: HEENT: Head is normocephalic. NECK: Supple. HEART: Regular rate. LUNGS: Show diminished breath sounds at base. ABDOMEN: Soft, nontender to palpation without rebound or guarding. EXTREMITIES: Negative for clubbing, cyanosis. No edema. DERMATOLOGIC: No rashes. MUSCULOSKELETAL: The patient has noted dressing over her left foot clean, dry, intact. DERMATOLOGIC: No rashes. MUSCULOSKELETAL: No joint effusion. NEUROLOGIC: No change in exam. MEDICATIONS: Have been reviewed. LABORATORY DATA: Have been reviewed. ASSESSMENT AND PLAN: 1. Left foot diabetic ulcer with underlying cellulitis, possible osteomyelitis. The patient is currently receiving IV antibiotics. Continue wound care with podiatry. 2. End-stage renal disease. continue hd today. will be evaluated for her dialytic needs in am 3. Diabetes type 1 with episodes of hypoglycemia. 4. Anemia. Monitor hemoglobin and hematocrit levels. We will give Epogen as needed. 5. Mineral bone disorder. Monitor calcium and phosphorus levels. 6. Chronic pruritus, possibly due to underlying uremia. Pruritus has been improving. Continue current treatment plan. Continue Benadryl. 7. History of peptic ulcer disease. Continue PPI. 8. Cerebrovascular accident. Continue medical management. 9. Chronic pain syndrome. Continue current pain regimen. 10. Hypertension. Continue current blood pressure regimen. 11. Coronary artery disease. Continue current treatment plan. 12. Gastrointestinal and deep venous thrombosis prophylaxis. 13. Disposition: Case management is working on transfer to a skilled nurse [facility]. Result Diagram: 04/07/18 0443 04/07/18442 Results 24hrs Laboratory Tests Test 04/07/18 12:32 04/07/18 17:45 04/07/18 21:41 04/08/18 05:52 Bedside Glucose 191 109 87 88 Exam/Review of Systems Vital Signs Vitals Vital Signs Date Temp Pulse Resp B/P (MAP) Pulse Ox O2 O2 Flow FiO2 Time Delivery Rate 04/08/18 98.0 71 17 122/65 98 Room Air 07:10 (84) Intake and Output 04/07/18 04/07/18 04/08/18 1515:00 23:00 07:00 IntakeIntake Total 250 ml 170 ml 350 ml BalanceBalance 250 ml 170 ml 350 ml Medications Medications Current Medications Acetaminophen (Tylenol Tab) 650 mg Q6H PRN PO PAIN LEVEL 1-5; Start 03/30/18 at 01:30 Atorvastatin Calcium (Lipitor) 40 mg QHS PO Last administered on 04/06/18 21:49; Admin Dose 40 MG; Start 03/30/18 at 21:00 Clopidogrel Bisulfate (plaVIX) 75 mg DAILY PO Last administered on 04/07/18 09:41; Admin Dose 75 MG; Start 03/30/18 at 09:00 Dronabinol (Marinol) 2.5 mg DAILY PO Last administered on 04/07/18 09:41; Admin Dose 2.5 MG; Start 03/30/18 at 09:00 Epoetin Olayinka (Epogen (Esrd)) 10,000 units DAILY@1700 SC Last administered on 04/03/18 18:01; Admin Dose 10,000 UNITS; Start 03/30/18 at 17:00; Status Hold Losartan Potassium (Cozaar) 50 mg SuTuThSa@0900,2100 PO Last administered on 04/07/18 10:23; Admin Dose 50 MG; Start 03/31/18 at 09:00 Losartan Potassium (Cozaar) 50 mg MoWeFr@0900 PO Last administered on 04/04/18 09:20; Admin Dose 50 MG; Start 03/30/18 at 09:00 Morphine Sulfate (morphine) 2 mg Q3H PRN PO PAIN LEVEL 6-10 Last administered on 04/07/18 03:16; Admin Dose 2 MG; Start 03/30/18 at 01:30 Ondansetron HCl (Zofran Tab) 4 mg Q6H PRN PO NAUSEA AND/OR VOMITING Last administered on 04/07/18 03:16; Admin Dose 4 MG; Start 03/30/18 at 01:30 Pantoprazole (Protonix Tab) 40 mg AC BREAKFAST PO Last administered on 12/30/18at 05:47; Admin Dose 40 MG; Start 03/30/18 at 07:20 Sevelamer Carbonate (Renvela) 1.6 gm WITH MEALS PO Last administered on 04/05/18at 08:56; Admin Dose 1.6 GM; Start 03/30/18 at 07:50 Diagnostic Test (Pha) (Accu-Chek) 1 ea 02 XX Last administered on 04/02/18at 02:13; Admin Dose 1 EA; Start 03/30/18 at 02:00 Insulin Aspart (Novolog Insulin Pen) NOVOLOG *MILD* ALGORITHM WITH MEALS BEDTIME SC Last administered on 04/07/18at 12:37; Admin Dose 2 UNIT; Start 03/30/18 at 07:50 Miscellaneous Information 1 ea NOTE XX ; Start 03/30/18 at 02:00 Glucose (Glutose) 15 gm Q15M PRN PO DECREASED GLUCOSE Last administered on 04/01/18at 04:33; Admin Dose 15 GM; Start 03/30/18 at 02:00 Glucose (Glutose) 22.5 gm Q15M PRN PO DECREASED GLUCOSE Last administered on 04/05/18at 19:02; Admin Dose 22.5 GM; Start 03/30/18 at 02:00 Dextrose (D50w Syringe) 25 ml Q15M PRN IV DECREASED GLUCOSE Last administered on 04/06/18at 09:22; Admin Dose 25 ML; Start 03/30/18 at 02:00 Dextrose (D50w Syringe) 50 ml Q15M PRN IV DECREASED GLUCOSE Last administered on 04/05/18at 08:26; Admin Dose 50 ML; Start 03/30/18 at 02:00 Glucagon (Glucagen) 1 mg Q15M PRN IM DECREASED GLUCOSE; Start 03/30/18 at 02:00 Glucose (Glutose) 15 gm Q15M PRN BUCCAL DECREASED GLUCOSE Last administered on 04/04/18at 17:57; Admin Dose 15 GM; Start 03/30/18 at 02:00 Metoprolol Succinate (Toprol Xl) 200 mg MoWeFr@0900 PO Last administered on 04/04/18at 09:20; Admin Dose 200 MG; Start 03/30/18 at 09:00 Metoprolol Succinate (Toprol Xl) 50 mg SuTuThSa@0900,2100 PO Last administered on 04/07/18at 10:22; Admin Dose 50 MG; Start 03/31/18 at 09:00 Diphenhydramine HCl (Benadryl) 50 mg Q4H PRN IV pruritis Last administered on 04/07/18 10:21; Admin Dose 50 MG; Start 03/30/18 at 09:00 Heparin Sodium (Porcine) (Heparin (5000 Units/1ml)) 5,000 unit BID SC Last administered on 04/07/18 21:35; Admin Dose 5,000 UNIT; Start 03/30/18 at 12:00 Clindamycin HCl/ Dextrose 50 ml @ 50 mls/hr Q8 IVPB Last administered on 04/08/18 05:48; Admin Dose 50 MLS/HR; Start 03/30/18 at 14:00 Levofloxacin (Levaquin) 250 mg Q2D@0600 PO Last administered on 04/07/18 06:40; Admin Dose 250 MG; Start 04/01/18 at 06:00 Sodium Hypochlorite (Dakin'S (Dilute )) 1 applic DAILY IRR Last administere d on 04/07/18 10:23; Admin Dose 1 APPLIC; Start 03/31/18 at 09:00 Ondansetron HCl (Zofran Inj) 4 mg Q4H PRN IV NAUSEA AND/OR VOMITING; Start 04/02/18 at 16:30 Insulin Aspart (Novolog Insulin Pen) 2 unit PC MEALS SC Last administered on 04/07/18 18:52; Admin Dose 1 UNIT; Start 04/05/18 at 18:55 Insulin Glargine (Lantus) 3 units QAM SC Last administered on 04/07/18at 11:56; Admin Dose 3 UNITS; Start 04/06/18 at 09:00 Collagenase (Santyl) 1 applic DAILY TOP Last administered on 04/08/18 04:22; Admin Dose 1 APPLIC; Start 04/08/18 at 02:53 JIMMY QUINTANILLA DO Apr 08, 2018 07:58
[2018-04-08] MEDS: DRONABINOL 2.5 MG CAP PO SCH ×2 (09:00→09:11)
[2018-04-08] MEDS: SEVELAMER CARBONATE 0.8 GM PKT PO SCH ×3 (09:11→17:55)
[2018-04-08] MEDS: CLOPIDOGREL 75 MG TAB PO SCH (09:11)
[2018-04-08] MEDS: HEPARIN 5,000 UNIT/1 ML VIAL SC SCH ×2 (09:12→21:54)
[2018-04-08] MEDS: INSULIN GLARGINE [LANTus] (100 UNITS/ML) SYG SC SCH (09:14)
[2018-04-08] MEDS: LOSARTAN 50 MG TAB PO SCH ×2 (09:19→21:58)
[2018-04-08] MEDS: METOPROLOL (XL) 50 MG TAB PO SCH ×2 (09:20→21:59)
[2018-04-08] MEDS: SODIUM HYPOCHLORITE (1/40) 1 APPLIC BTL IRR SCH (09:21)
--- NOTE | 2018-04-08 10:48 | CONS ---
Date/Time of Note Date/Time of Note DATE: 04/08/18 TIME: 10:46 Assessment/Plan Assessment/Plan Hospital Course Meena 62 year-old -[place] female who I have seen twice before in consultation both of the times as an inpatient. She had moved here from [place] but has a history of complications of diabetes including end-stage renal disease. She has had some skin wound infections that have required hospitalizat ion, and may have osteomyelitis. She is extremely insulin sensitive and requires very small dosages of insulin. In addition she may have delayed gastric emptying which may alter how she absorbs the glucose from a meal. Problems: (1) Type 1 diabetes mellitus with end-stage renal disease (ESRD) Onset Date: ~ 07/1968 Status: Chronic Comment: Positive response to current treatment. Regarding dialysis nephrology is managing. (2) Type 1 diabetes mellitus with circulatory complication, with long-term current use of insulin Status: Chronic Comment: No flare or worsening of peripheral vascular disease (3) Essential hypertension Status: Chronic Comment: Adequate control Result Diagram: 04/07/18 0443 04/07/18 0443 Results 24hrs Laboratory Tests Test 04/07/18 12:32 04/07/18 17:45 04/07/18 21:41 04/08/18 05:52 Bedside Glucose 191 109 87 88 Test 04/08/18 08:26 Bedside Glucose 77 Consultation Date/Type/Reason Admit Date/Time Mar 29, 2018 at 17:36 Initial Consult Date 04/05/18 Type of Consult Endocrinology Reason for Consultation Diabetes mellitus type 1 with extreme sensitivity to the action of insulin Requesting Provider: KG FELIX DO 24 HR Interval Summary Free Text/Dictation Patient reports no hypoglycemic reactions or hyperglycemia and she is happy with the regimen at this time Constitutional: no complaints Exam/Review of Systems Vital Signs Vitals Vital Signs Date Temp Pulse Resp B/P (MAP) Pulse Ox O2 O2 Flow FiO2 Time Delivery Rate 04/08/18 98.0 71 17 122/65 98 Room Air 07:10 (84) Intake and Output 04/07/18 04/07/18 04/08/18 1515:00 23:00 07:00 IntakeIntake Total 250 ml 170 ml 400 ml BalanceBalance 250 ml 170 ml 400 ml Exam No change in examination Medications Medications Current Medications Acetaminophen (Tylenol Tab) 650 mg Q6H PRN PO PAIN LEVEL 1-5; Start 12/21/18 at 01:30 Atorvastatin Calcium (Lipitor) 40 mg QHS PO Last administered on 04/06/18 21:49; Admin Dose 40 MG; Start 03/30/18 at 21:00 Clopidogrel Bisulfate (plaVIX) 75 mg DAILY PO Last administered on 04/08/18 09:11; Admin Dose 75 MG; Start 03/30/18 at 09:00 Dronabinol (Marinol) 2.5 mg DAILY PO Last administered on 04/07/18 09:41; Admin Dose 2.5 MG; Start 03/30/18 at 09:00 Epoetin Olayinka (Epogen (Esrd)) 10,000 units DAILY@1700 SC Last administered on 04/03/18 18:01; Admin Dose 10,000 UNITS; Start 03/30/18 at 17:00; Status Hold Losartan Potassium (Cozaar) 50 mg SuTuThSa@0900,2100 PO Last administered on 04/08/18 09:19; Admin Dose 50 MG; Start 03/31/18 at 09:00 Losartan Potassium (Cozaar) 50 mg MoWeFr@0900 PO Last administered on 04/04/18 09:20; Admin Dose 50 MG; Start 03/30/18 at 09:00 Morphine Sulfate (morphine) 2 mg Q3H PRN PO PAIN LEVEL 6-10 Last administered on 04/07/18 03:16; Admin Dose 2 MG; Start 03/30/18 at 01:30 Ondansetron HCl (Zofran Tab) 4 mg Q6H PRN PO NAUSEA AND/OR VOMITING Last administered on 04/07/18 03:16; Admin Dose 4 MG; Start 03/30/18 at 01:30 Pantoprazole (Protonix Tab) 40 mg AC BREAKFAST PO Last administered on 04/08/18 05:47; Admin Dose 40 MG; Start 03/30/18 at 07:20 Sevelamer Carbonate (Renvela) 1.6 gm WITH MEALS PO Last administered on 04/08/18 09:11; Admin Dose 1.6 GM; Start 03/30/18 at 07:50 Diagnostic Test (Pha) (Accu-Chek) 1 ea 02 XX Last administered on 04/02/18 02:13; Admin Dose 1 EA; Start 03/30/18 at 02:00 Insulin Aspart (Novolog Insulin Pen) NOVOLOG *MILD* ALGORITHM WITH MEALS BEDTIME SC Last administered on 04/07/18 12:37; Admin Dose 2 UNIT; Start 03/30/18 at 07:50 Miscellaneous Information 1 ea NOTE XX ; Start 03/30/18 at 02:00 Glucose (Glutose) 15 gm Q15M PRN PO DECREASED GLUCOSE Last administered on 04/01/18 04:33; Admin Dose 15 GM; Start 03/30/18 at 02:00 Glucose (Glutose) 22.5 gm Q15M PRN PO DECREASED GLUCOSE Last administered on 04/05/18 19:02; Admin Dose 22.5 GM; Start 03/30/18 at 02:00 Dextrose (D50w Syringe) 25 ml Q15M PRN IV DECREASED GLUCOSE Last administered on 04/06/18 09:22; Admin Dose 25 ML; Start 03/30/18 at 02:00 Dextrose (D50w Syringe) 50 ml Q15M PRN IV DECREASED GLUCOSE Last administered on 04/05/18 08:26; Admin Dose 50 ML; Start 03/30/18 at 02:00 Glucagon (Glucagen) 1 mg Q15M PRN IM DECREASED GLUCOSE; Start 03/30/18 at 02:00 Glucose (Glutose) 15 gm Q15M PRN BUCCAL DECREASED GLUCOSE Last administered on 04/04/18at 17:57; Admin Dose 15 GM; Start 03/30/18 at 02:00 Metoprolol Succinate (Toprol Xl) 200 mg MoWeFr@0900 PO Last administered on 04/04/18 09:20; Admin Dose 200 MG; Start 03/30/18 at 09:00 Metoprolol Succinate (Toprol Xl) 50 mg SuTuThSa@0900,2100 PO Last administered on 04/08/18 09:20; Admin Dose 50 MG; Start 03/31/18 at 09:00 Diphenhydramine HCl (Benadryl) 50 mg Q4H PRN IV pruritis Last administered on 04/07/18 10:21; Admin Dose 50 MG; Start 03/30/18 at 09:00 Heparin Sodium (Porcine) (Heparin (5000 Units/1ml)) 5,000 unit BID SC Last adm inistered on 04/08/18 09:12; Admin Dose 5,000 UNIT; Start 03/30/18 at 12:00 Clindamycin HCl/ Dextrose 50 ml @ 50 mls/hr Q8 IVPB Last administered on 04/08/18 05:48; Admin Dose 50 MLS/HR; Start 03/30/18 at 14:00 Levofloxacin (Levaquin) 250 mg Q2D@0600 PO Last administered on 04/07/18 06:40; Admin Dose 250 MG; Start 04/01/18 at 06:00 Sodium Hypochlorite (Dakin'S (Dilute )) 1 applic DAILY IRR Last administered on 04/08/18 09:21; Admin Dose 1 APPLIC; Start 03/31/18 at 09:00 Ondansetron HCl (Zofran Inj) 4 mg Q4H PRN IV NAUSEA AND/OR VOMITING; Start 04/02/18 at 16:30 Insulin Aspart (Novolog Insulin Pen) 2 unit PC MEALS SC Last administered on 04/08/18 09:13; Admin Dose 2 UNIT; Start 04/05/18 at 18:55 Insulin Glargine (Lantus) 3 units QAM SC Last administered on 04/08/18 09:14; Admin Dose 3 UNITS; Start 04/06/18 at 09:00 Collagenase (Santyl) 1 applic DAILY TOP Last administered on 04/08/18 04:22; Admin Dose 1 APPLIC; Start 04/08/18 at 02:53 LILIAN IBRAHIM MD Apr 08, 2018 10:48
[2018-04-08] MEDS: GLUCOSE GEL 15 GRAM TUBE PO PRN (12:56)
[2018-04-08] MEDS: GLUCAGON 1 MG INJ IM PRN ×3 (13:46→14:37)
[2018-04-08] MEDS: DEXTROSE 50% 50 ML SYRINGE IV PRN (14:54)
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
[2018-04-08] MEDS: ATORVASTATIN 40 MG TAB PO SCH (21:00)
[2018-04-08] MEDS: DIPHENHYDRAMINE 50 MG INJ IV PRN (23:48)
[2018-04-09] MEDS: ACCU-CHEK XX SCH (01:17)
[2018-04-09 02:14] VITALS: BP 117/67; PULSE 78; RESP 18
[2018-04-09] MEDS: CLINDAMYCIN 900 MG/D5W (PMX) 50 ML IVPB SCH ×2 (05:54→13:26)
[2018-04-09] MEDS: PANTOPRAZOLE (EC) 40 MG TAB PO SCH (06:37)
[2018-04-09] MEDS: LEVOFLOXACIN 250 MG TAB PO SCH (06:38)
[2018-04-09 07:25] VITALS: BP 121/62; PULSE 72; RESP 18
[2018-04-09] MEDS: INSULIN ASPART [NOVOLOG] 3 ML PEN SC SCH ×8 (07:50→22:00)
[2018-04-09] MEDS: SEVELAMER CARBONATE 0.8 GM PKT PO SCH ×3 (07:50→17:06)
[2018-04-09] MEDS: COLLAGENASE 5 GM (UD JAR) TOP SCH (08:37)
[2018-04-09] MEDS: SODIUM HYPOCHLORITE (1/40) 1 APPLIC BTL IRR SCH (08:40)
[2018-04-09] MEDS: DRONABINOL 2.5 MG CAP PO SCH (09:53)
[2018-04-09] MEDS: CLOPIDOGREL 75 MG TAB PO SCH (09:53)
[2018-04-09] MEDS: LOSARTAN 50 MG TAB PO SCH (09:54)
[2018-04-09] MEDS: METOPROLOL (XL) 100 MG TAB PO SCH (09:55)
[2018-04-09] MEDS: INSULIN GLARGINE [LANTus] (100 UNITS/ML) SYG SC SCH (09:57)
[2018-04-09] MEDS: HEPARIN 5,000 UNIT/1 ML VIAL SC SCH ×2 (09:57→21:18)
[2018-04-09] MEDS: DIPHENHYDRAMINE 50 MG INJ IV PRN ×2 (10:14→17:06)
--- NOTE | 2018-04-09 13:15 | PN ---
DATE: 04/09/2018 SUBJECTIVE: The patient is stable. No events overnight. No fevers, chills, nausea, vomiting. OBJECTIVE: VITAL SIGNS: Blood pressure is 121/62, respiration 19, pulse 72, temperature 98.2. HEENT: Head is normocephalic. NECK: Supple. HEART: Regular rate. LUNGS: Show diminished breath sounds at base. ABDOMEN: Soft, nontender to palpation. No rebound or guarding. EXTREMITIES: Negative for clubbing, cyanosis. No edema. DERMATOLOGIC: No rashes. MUSCULOSKELETAL: No joint effusions. NEUROLOGIC: No change in exam. MEDICATIONS: Have been reviewed. LABORATORY DATA: Have been reviewed. ASSESSMENT AND PLAN: 1. Left foot diabetic ulcer with underlying cellulitis, possible osteomyelitis. Continue current an tibiotic regimen. Continue wound care. Follow podiatry. 2. End-stage renal disease. The patient had hemodialysis yesterday, tolerated well. Plan for dialy sis tomorrow. 3. Type 1 diabetes with episodes of hypoglycemia. Continue current insulin regimen. Follow up with endocrinology. 4. Anemia. Monitor hemoglobin and hematocrit levels. We will continue Epogen as needed. 5. Mineral bone disorder. Monitor calcium and phosphorus levels. 6. Chronic pruritus, possibly due to underlying uremia. Pruritus has been improving. Continue curr ent treatment plan. Continue Benadryl. Continue more aggressive dialysis. 7. History of peptic ulcer disease. Continue PPI. 8. Cerebrovascular accident. Continue medical management. 9. Hypertension. Continue current blood pressure regimen. 10. Coronary artery disease. Continue current treatment plan. 11. Gastrointestinal and deep venous thrombosis prophylaxis. 12. Disposition. The patient is pending placement at [facility] facility. Dictated By: KG SANTANA/NASH Conf#: [id number] DID#: [id number]
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
--- NOTE | 2018-04-09 13:40 | CONS ---
Date/Time of Note Date/Time of Note DATE: 04/09/18 TIME: 13:39 Assessment/Plan Assessment/Plan Hospital Course Meena 62 year-old -Greek female who I have seen twice before in consultation both of the times as an inpatient. She had moved here from [place] but has a history of complications of diabetes including end-stage renal disease. She has had some skin wound infections that have required hospitalizat ion, and may have osteomyelitis. She is extremely insulin sensitive and requires very small dosages of insulin. In addition she may have delayed gastric emptying which may alter how she absorbs the glucose from a meal. Problems: (1) Type 1 diabetes mellitus with end-stage renal disease (ESRD) Onset Date: ~ 07/1968 Status: Chronic Comment: We had labeled her as a type I diabetic however her C-peptide is come back while her sugars are in a relatively normal range at 5.03. This indicates that her pancreas is manufacturing insulin quite nicely. This does not mean that we have to change her therapeutic regimen around but now we would have more options if we choose to. If you are so inclined to change her medications around one option in her case would be the usage of Tradjenta as a DPP 4 inhibit or drug once a day at 5 mg and stopping her insulin. Result Diagram: 04/07/18 0443 04/07/18 0443 Results 24hrs Laboratory Tests Test 04/08/18 13:51 04/08/18 14:08 04/08/18 14:33 04/08/18 14:49 Bedside Glucose 54 L 68 L 67 L 60 L Test 04/08/18 15:08 04/08/18 15:22 04/08/18 15:34 04/08/18 17:33 Bedside Glucose 168 165 182 187 Test 04/08/18 21:50 04/09/18 08:29 04/09/18 13:20 Bedside Glucose 128 126 114 Consultation Date/Type/Reason Admit Date/Time Mar 29, 2018 at 17:36 Initial Consult Date 04/05/18 Type of Consult Endocrinology Reason for Consultation Diabetes mellitus type 2 with insulin sensitivity. Requesting Provider: KG FELIX DO 24 HR Interval Summary Free Text/Dictation Patient reports her sugars are doing well and she is happy with her current diabetic management. Detailed Summary Cardiovascular: no complaints Gastrointestinal: diarrhea Genitourinary: no complaints Exam/Review of Systems Vital Signs Vitals Vital Signs Date Temp Pulse Resp B/P (MAP) Pulse Ox O2 O2 Flow FiO2 Time Delivery Rate 04/09/18 98.2 72 18 121/62 96 07:25 (81) 04/08/18 Nasal 20:50 Cannula Intake and Output 04/08/18 04/08/18 04/09/18 1414:59 22:59 06:59 IntakeIntake Total 700 ml 100 ml OutputOutput Total 1600 ml BalanceBalance 700 ml -1600 ml 100 ml Exam Constitutional: alert, oriented Respiratory: clear to auscultation, normal air movement Cardiovascular: regular rate and rhythm, nl pulses Medications Medications Current Medications Acetaminophen (Tylenol Tab) 650 mg Q6H PRN PO PAIN LEVEL 1-5; Start 03/30/18 at 01:30 Clopidogrel Bisulfate (plaVIX) 75 mg DAILY PO Last administered on 04/09/18 09:53; Admin Dose 75 MG; Start 03/30/18 at 09:00 Dronabinol (Marinol) 2.5 mg DAILY PO Last administered on 04/09/18 09:53; Admin Dose 2.5 MG; Start 03/30/18 at 09:00 Epoetin Olayinka (Epogen (Esrd)) 10,000 units DAILY@1700 SC Last administered on 04/03/18 18:01; Admin Dose 10,000 UNITS; Start 03/30/18 at 17:00; Status Hold Losartan Potassium (Cozaar) 50 mg SuTuThSa@0900,2100 PO Last administered on 04/08/18at 21:58; Admin Dose 50 MG; Start 03/31/18 at 09:00 Losartan Potassium (Cozaar) 50 mg MoWeFr@0900 PO Last administered on 04/09/18 09:54; Admin Dose 50 MG; Start 03/30/18 at 09:00 Morphine Sulfate (morphine) 2 mg Q3H PRN PO PAIN LEVEL 6-10 Last administered on 04/07/18 03:16; Admin Dose 2 MG; Start 03/30/18 at 01:30 Ondansetron HCl (Zofran Tab) 4 mg Q6H PRN PO NAUSEA AND/OR VOMITING Last admi nistered on 04/07/18 03:16; Admin Dose 4 MG; Start 03/30/18 at 01:30 Pantoprazole (Protonix Tab) 40 mg AC BREAKFAST PO Last administered on 04/09/18 06:37; Admin Dose 40 MG; Start 03/30/18 at 07:20 Sevelamer Carbonate (Renvela) 1.6 gm WITH MEALS PO Last administered on 04/08/18 12:57; Admin Dose 1.6 GM; Start 03/30/18 at 07:50 Diagnostic Test (Pha) (Accu-Chek) 1 ea 02 XX Last administered on 04/02/18at 02:13; Admin Dose 1 EA; Start 03/30/18 at 02:00 Insulin Aspart (Novolog Insulin Pen) NOVOLOG *MILD* ALGORITHM WITH MEALS BEDTIME SC Last administered on 04/07/18 12:37; Admin Dose 2 UNIT; Start 03/30/18 at 07:50 Miscellaneous Information 1 ea NOTE XX ; Start 03/30/18 at 02:00 Glucose (Glutose) 15 gm Q15M PRN PO DECREASED GLUCOSE Last administered on 04/08/18 12:56; Admin Dose 15 GM; Start 03/30/18 at 02:00 Glucose (Glutose) 22.5 gm Q15M PRN PO DECREASED GLUCOSE Last administered on 04/05/18at 19:02; Admin Dose 22.5 GM; Start 03/30/18 at 02:00 Dextrose (D50w Syringe) 25 ml Q15M PRN IV DECREASED GLUCOSE Last administered on 04/06/18 09:22; Admin Dose 25 ML; Start 03/30/18 at 02:00 Dextrose (D50w Syringe) 50 ml Q15M PRN IV DECREASED GLUCOSE Last administered on 04/08/18 14:54; Admin Dose 50 ML; Start 03/30/18 at 02:00 Glucagon (Glucagen) 1 mg Q15M PRN IM DECREASED GLUCOSE Last administered on 04/08/18 14:37; Admin Dose 1 MG; Start 03/30/18 at 02:00 Glucose (Glutose) 15 gm Q15M PRN BUCCAL DECREASED GLUCOSE Last administered on 04/04/18 17:57; Admin Dose 15 GM; Start 03/30/18 at 02:00 Metoprolol Succinate (Toprol Xl) 200 mg MoWeFr@0900 PO Last administered on 04/09/18 09:55; Admin Dose 200 MG; Start 03/30/18 at 09:00 Metoprolol Succinate (Toprol Xl) 50 mg SuTuThSa@0900,2100 PO Last administered on 04/08/18 21:59; Admin Dose 50 MG; Start 03/31/18 at 09:00 Diphenhydramine HCl (Benadryl) 50 mg Q4H PRN IV pruritis Last administered on 04/09/18 10:14; Admin Dose 50 MG; Start 03/30/18 at 09:00 Heparin Sodium (Porcine) (Heparin (5000 Units/1ml)) 5,000 unit BID SC Last administered on 04/09/18 09:57; Admin Dose 5,000 UNIT; Start 03/30/18 at 12:00 Levofloxacin (Levaquin) 250 mg Q2D@0600 PO Last administered on 04/09/18 06:38; Admin Dose 250 MG; Start 04/01/18 at 06:00 Sodium Hypochlorite (Dakin'S (Dilute )) 1 applic DAILY IRR Last administered on 04/09/18 08:40; Admin Dose 1 APPLIC; Start 03/31/18 at 09:00 Ondansetron HCl (Zofran Inj) 4 mg Q4H PRN IV NAUSEA AND/OR VOMITING; Start 04/02/18 at 16:30 Insulin Aspart (Novolog Insulin Pen) 2 unit PC MEALS SC Last administered on 04/09/18 09:58; Admin Dose 1 UNIT; Start 04/05/18 at 18:55 Insulin Glargine (Lantus) 3 units QAM SC Last administered on 04/09/18 09:57; Admin Dose 3 UNITS; Start 04/06/18 at 09:00 Collagenase (Santyl) 1 applic DAILY TOP Last administered on 04/09/18 08:37; Admin Dose 1 APPLIC; Start 04/08/18 at 02:53 Atorvastatin Calcium (Lipitor) 10 mg QHS PO ; Start 04/09/18 at 21:00; Status UNV Daptomycin 335 mg/ Sodium Chloride 100 ml @ 200 mls/hr Q24H IVPB ; Start 04/09/18 at 13:30; Status UNV LILIAN IBRAHIM MD Apr 09, 2018 13:40
[2018-04-09] MEDS ORDERED: DAPTOMYCIN 335 MG in SOD CHLORIDE 0.9% 100 ML IVPB SCH (15:30)
[2018-04-09 19:30] VITALS: BP 125/65; PULSE 75; RESP 16
[2018-04-09] MEDS ORDERED: ATORVASTATIN 10 MG TAB PO SCH (21:00)
[2018-04-10] VITALS (16 sets, daily range): BP systolic 114–148; BP diastolic 58–85; PULSE 70–80; RESP 16–20
[2018-04-10] MEDS: DIPHENHYDRAMINE 50 MG INJ IV PRN ×3 (00:07→23:42)
[2018-04-10] MEDS: ACCU-CHEK XX SCH (01:47)
[2018-04-10] MEDS ORDERED: VITAMIN A & D 5 GM OINT PACKET TOP ONE (04:35)
[2018-04-10] MEDS: INSULIN ASPART [NOVOLOG] 3 ML PEN SC SCH ×7 (07:50→20:32)
[2018-04-10] MEDS: PANTOPRAZOLE (EC) 40 MG TAB PO SCH (08:44)
[2018-04-10] MEDS: SODIUM HYPOCHLORITE (1/40) 1 APPLIC BTL IRR SCH (08:45)
[2018-04-10] MEDS: SEVELAMER CARBONATE 0.8 GM PKT PO SCH ×3 (08:45→18:34)
[2018-04-10] MEDS: LOSARTAN 50 MG TAB PO SCH ×2 (08:46→20:20)
[2018-04-10] MEDS: DRONABINOL 2.5 MG CAP PO SCH (08:46)
[2018-04-10] MEDS: METOPROLOL (XL) 50 MG TAB PO SCH ×2 (08:46→20:20)
[2018-04-10] MEDS: CLOPIDOGREL 75 MG TAB PO SCH (08:46)
[2018-04-10] MEDS: HEPARIN 5,000 UNIT/1 ML VIAL SC SCH ×2 (08:49→20:23)
[2018-04-10] MEDS: INSULIN GLARGINE [LANTus] (100 UNITS/ML) SYG SC SCH (08:50)
[2018-04-10] MEDS: COLLAGENASE 5 GM (UD JAR) TOP SCH (08:52)
[2018-04-10] MEDS ORDERED: EPOETIN 10000 UNITS/1 ML INJ (ESRD) SC ONE ×2 (09:00→17:00)
--- NOTE | 2018-04-10 09:58 | PN ---
DATE: 04/10/2018 SUBJECTIVE: The patient is stable. No events overnight. The patient is scheduled for dialysis toda y. No other events noted. OBJECTIVE: VITAL SIGNS: Blood pressure is 122/71, pulse 70, respirations 17, temperature 98.6. HEENT: Head is normocephalic. NECK: Supple. HEART: Regular rate. LUNGS: Show diminished breath sounds at base. ABDOMEN: Soft, nontender to palpation without rebound or guarding. EXTREMITIES: Negative for clubbing, cyanosis. No edema. DERMATOLOGIC: No rashes. MUSCULOSKELETAL: No joint effusion. NEUROLOGIC: No change in exam. MEDICATIONS: The patient's medications have been reviewed. LABORATORY DATA: From 04/10/2018 has been reviewed. ASSESSMENT AND PLAN: 1. Left foot diabetic ulcer with underlying cellulitis, possible osteomyelitis. The patient is curr ently on IV antibiotics, continue. Continue wound care. Follow up with podiatry, vascular surgery. 2. End-stage renal disease. Plan for hemodialysis today. We will dialyze 3 hours 2k bath, calcium 2.5, ultrafiltrate as tolerated. 3. Type 1 diabetes. Greatly appreciate endocrinology's evaluation. I agree with a trial of Tradmiya ta and possibly stopping her insulin given recent findings of elevated C-peptide which is consistent with pancreas producing insulin. I will defer to endocrinology for further management. 4. Anemia. Monitor H and H levels. Continue Epogen. 5. Mineral bone disorder, monitor calcium and phosphorus levels. 6. Chronic pruritus, likely due to underlying uremia. Continue current treatment plan. Continue Be nadryl. Continue dialysis. 7. Peptic ulcer disease. Continue proton pump inhibitor. 8. History of cerebrovascular accident. Continue current medical management. 9. Hypertension. Blood pressure well controlled. Continue current treatment plan. 10. Coronary artery disease. Continue current treatment plan. 11. Gastrointestinal and deep vein thrombosis prophylaxis. DISPOSITION: The patient is pending stent placement once a bed is available. Dictated By: KG SANTANA/NASH Conf#: [id number] DID#: [id number]
--- NOTE | 2018-04-10 11:48 | CONS ---
Date/Time of Note Date/Time of Note DATE: 04/10/18 TIME: 11:46 Assessment/Plan Assessment/Plan Problems: (1) Type 1 diabetes mellitus with end-stage renal disease (ESRD) Onset Date: ~ 07/1968 Status: Chronic Comment: Adequate glycemic control w/o lows on minimal insulin regimen. Getting "mealtime" insulin post-prandially and very small basal dose. Somehow in her ESRD state it seems to be sufficient for her. Will continue this regimen. Result Diagram: 04/10/18 0601 04/10/18 0711 Results 24hrs Laboratory Tests Test 04/09/18 13:20 04/09/18 17:58 04/09/18 21:09 04/09/18 21:54 Bedside Glucose 114 170 197 198 Test 04/10/18 01:13 04/10/18 06:01 04/10/18 07:11 04/10/18 08:42 Bedside Glucose 172 120 White Blood 4.7 L Count Red Blood Count 2.97 L Hemoglobin 10.6 L Hematocrit 32.4 L Mean Corpuscular 109.1 H Volume Mean Corpuscular 35.7 H Hemoglobin Mean Corpuscular 32.7 Hemoglobin Heidi nt Red Cell 18.7 H Distribution Width Platelet Count 156 # Mean Platelet 11.9 H Volume Immature 1.100 H Granulocytes % Neutrophils % 72.3 Lymphocytes % 13.7 L Monocytes % 11.2 H Eosinophils % 1.1 Basophils % 0.6 Nucleated Red 2.8 H Blood Cells % Immature 0.050 H Granulocytes # Neutrophils # 3.4 Lymphocytes # 0.6 L Monocytes # 0.5 Eosinophils # 0.1 Basophils # 0.0 Nucleated Red 0.1 H Blood Cells # Sodium Level 148 H Potassium Level 4.4 Chloride Level 105 Carbon Dioxide 25 Level Anion Gap 18 H Blood Urea 32 H Nitrogen Creatinine 4.13 H Est Glomerular 13 L Filtrat Rate mL/min Glucose Level 159 Calcium Level 8.8 Total Bilirubin 0.7 Direct Bilirubin 0.20 Indirect 0.5 Bilirubin Aspartate Amino 29 Transf (AST/SGOT ) Alanine 11 L Aminotransferase (ALT/SGPT) Alkaline 171 H Phosphatase Creatine Kinase 43 Creatine Kinase 3.3 Index Creatinine 1.42 Kinase MB (Mass) Troponin I < 0.012 Total Protein 8.2 H Albumin 3.3 Consultation Date/Type/Reason Admit Date/Time Mar 29, 2018 at 17:36 Initial Consult Date 04/05/18 Type of Consult Endocrinology Reason for Consultation T1DM management Requesting Provider: KG FELIX DO 24 HR Interval Summary Constitutional: no complaints Detailed Summary Respiratory: no complaints Cardiovascular: no complaints Gastrointestinal: no complaints Genitourinary: no complaints Musculoskeletal: no complaints Neurologic: no complaints Exam/Review of Systems Vital Signs Vitals VS - Last 72 Hours, by Label Date Temp Pulse Resp B/P (MAP) Pulse Ox O2 O2 Flow FiO2 Time Delivery Rate 04/10/18 98.6 70 17 122/71 96 Room Air 07:48 (88) 04/10/18 98.0 72 16 117/85 92 Room Air 02:00 (96) 04/09/18 97.6 75 16 125/65 90 Room Air 19:30 (85) 04/09/18 98.2 72 18 121/62 96 07:25 (81) 04/09/18 97.9 78 18 117/67 94 02:14 (84) 04/08/18 79 132/65 21:50 (87) 04/08/18 79 20:50 04/08/18 79 20 143/70 96 Nasal 20:50 (94) Cannula 04/08/18 74 20:35 04/08/18 79 20:20 04/08/18 96.9 72 18 131/64 90 20:12 (86) 04/08/18 84 20:05 04/08/18 78 19:50 04/08/18 77 19:35 04/08/18 74 19:20 04/08/18 72 19:05 04/08/18 72 18:50 04/08/18 73 18:35 04/08/18 72 18:20 04/08/18 70 18:05 04/08/18 69 20 112/60 96 Nasal 17:50 (77) Cannula 04/08/18 68 17:50 04/08/18 98.0 71 17 122/65 98 Room Air 07:10 (84) 04/08/18 97.9 68 18 106/73 95 Room Air 02:00 (84) 04/07/18 96 21:00 04/07/18 97.3 67 18 104/63 90 20:05 (77) 04/07/18 98.6 70 18 115/92 96 Room Air 15:02 (100) Vital Signs Date Temp Pulse Resp B/P (MAP) Pulse Ox O2 O2 Flow FiO2 Time Delivery Rate 04/10/18 98.6 70 17 122/71 96 Room Air 07:48 (88) Intake and Output 04/09/18 04/09/18 04/10/18 1515:00 23:00 07:00 IntakeIntake Total 620 ml 200 ml OutputOutput Total 1 ml BalanceBalance 619 ml 200 ml Exam Constitutional: alert, oriented, frail, other (profoundly debilitated lizbet earing) Psych: no complaints, nl mood/affect Respiratory: clear to auscultation, normal air movement Cardiovascular: regular rate and rhythm, nl pulses; No edema, No murmurs/extra sounds, No rub Gastrointestinal: soft, nl liver, spleen, non-tender, bowel sounds; No mass, No rebound or guarding Musculoskeletal: nl extremities to inspection Extremities: normal pulses; No cyanosis, No clubbing, No edema Neurological: TERMINAL GAUGER II-XII intact, nl mental status, nl speech, nl strength Additional Comments Bedside Glucose - 72 Hours Test 04/07/18 12:32 04/07/18 17:45 04/07/18 21:41 04/08/18 05:52 Bedside 191 109 87 88 Glucose mg/dL (70-220) mg/dL (70-220) mg/dL (70-220) mg/dL (70-220) Test 04/08/18 08:26 04/08/18 12:30 04/08/18 12:55 04/08/18 13:24 Bedside 77 58 54 69 Glucose mg/dL (70-220) mg/dL (70-220) mg/dL (70-220) mg/dL (70-220) L L L Test 04/08/18 13:51 04/08/18 14:08 04/08/18 14:33 04/08/18 14:49 Bedside 54 68 67 60 Glucose mg/dL (70-220) mg/dL (70-220) mg/dL (70-220) mg/dL (70-220) L L L L Test 04/08/18 15:08 04/08/18 15:22 04/08/18 15:34 04/08/18 17:33 Bedside 168 165 182 187 Glucose mg/dL (70-220) mg/dL (70-220) mg/dL (70-220) mg/dL (70-220) Test 04/08/18 21:50 04/09/18 08:29 04/09/18 13:20 04/09/18 17:58 Bedside 128 126 114 170 Glucose mg/dL (70-220) mg/dL (70-220) mg/dL (70-220) mg/dL (70-220) Test 04/09/18 21:09 04/09/18 21:54 04/10/18 01:13 04/10/18 08:42 Bedside 197 198 172 120 Glucose mg/dL (70-220) mg/dL (70-220) mg/dL (70-220) mg/dL (70-220) Medications Medications Current Medications Acetaminophen (Tylenol Tab) 650 mg Q6H PRN PO PAIN LEVEL 1-5; Start 03/30/18 at 01:30 Clopidogrel Bisulfate (plaVIX) 75 mg DAILY PO Last administered on 04/10/18 08:46; Admin Dose 75 MG; Start 03/30/18 at 09:00 Dronabinol (Marinol) 2.5 mg DAILY PO Last administered on 04/10/18 08:46; Admin Dose 2.5 MG; Start 03/30/18 at 09:00 Losartan Potassium (Cozaar) 50 mg SuTuThSa@0900,2100 PO Last administered on 04/10/18 08:46; Admin Dose 50 MG; Start 03/31/18 at 09:00 Losartan Potassium (Cozaar) 50 mg MoWeFr@0900 PO Last administered on 04/09/18at 09:54; Admin Dose 50 MG; Start 03/30/18 at 09:00 Morphine Sulfate (morphine) 2 mg Q3H PRN PO PAIN LEVEL 6-10 Last administered on 04/07/18 03:16; Admin Dose 2 MG; Start 03/30/18 at 01:30 Ondansetron HCl (Zofran Tab) 4 mg Q6H PRN PO NAUSEA AND/OR VOMITING Last administered on 04/07/18 03:16; Admin Dose 4 MG; Start 03/30/18 at 01:30 Pantoprazole (Protonix Tab) 40 mg AC BREAKFAST PO Last administered on 04/10/18 08:44; Admin Dose 40 MG; Start 03/30/18 at 07:20 Sevelamer Carbonate (Renvela) 1.6 gm WITH MEALS PO Last administered on 04/10/18 08:45; Admin Dose 1.6 GM; Start 03/30/18 at 07:50 Diagnostic Test (Pha) (Accu-Chek) 1 ea 02 XX Last administered on 04/10/18 01:47; Admin Dose 1 EA; Start 03/30/18 at 02:00 Insulin Aspart (Novolog Insulin Pen) NOVOLOG *MILD* ALGORITHM WITH MEALS BEDTIME SC Last administered on 04/09/18 22:00; Admin Dose 1 UNIT; Start 03/30/18 at 07:50 Miscellaneous Information 1 ea NOTE XX ; Start 03/30/18 at 02:00 Glucose (Glutose) 15 gm Q15M PRN PO DECREASED GLUCOSE Last administered on 04/08/18 12:56; Admin Dose 15 GM; Start 03/30/18 at 02:00 Glucose (Glutose) 22.5 gm Q15M PRN PO DECREASED GLUCOSE Last administered on 04/05/18 19:02; Admin Dose 22.5 GM; Start 03/30/18 at 02:00 Dextrose (D50w Syringe) 25 ml Q15M PRN IV DECREASED GLUCOSE Last administered on 04/06/18 09:22; Admin Dose 25 ML; Start 03/30/18 at 02:00 Dextrose (D50w Syringe) 50 ml Q15M PRN IV DECREASED GLUCOSE Last administered on 04/08/18 14:54; Admin Dose 50 ML; Start 03/30/18 at 02:00 Glucagon (Glucagen) 1 mg Q15M PRN IM DECREASED GLUCOSE Last administered on 04/08/18 14:37; Admin Dose 1 MG; Start 03/30/18 at 02:00 Glucose (Glutose) 15 gm Q15M PRN BUCCAL DECREASED GLUCOSE Last administered on 04/04/18 17:57; Admin Dose 15 GM; Start 03/30/18 at 02:00 Metoprolol Succinate (Toprol Xl) 200 mg MoWeFr@0900 PO Last administered on 04/09/18 09:55; Admin Dose 200 MG; Start 03/30/18 at 09:00 Metoprolol Succinate (Toprol Xl) 50 mg SuTuThSa@0900,2100 PO Last administered on 1/1/19at 08:46; Admin Dose 50 MG; Start 03/31/18 at 09:00 Diphenhydramine HCl (Benadryl) 50 mg Q4H PRN IV pruritis Last administered on 04/10/18 00:07; Admin Dose 50 MG; Start 03/30/18 at 09:00 Heparin Sodium (Porcine) (Heparin (5000 Units/1ml)) 5,000 unit BID SC Last administered on 04/10/18 08:49; Admin Dose 5,000 UNIT; Start 03/30/18 at 12:00 Levofloxacin (Levaquin) 250 mg Q2D@0600 PO Last administered on 04/09/18at 06:38; Admin Dose 250 MG; Start 04/01/18 at 06:00 Sodium Hypochlorite (Dakin'S (Dilute )) 1 applic DAILY IRR Last administered on 04/10/18 08:45; Admin Dose 1 APPLIC; Start 03/31/18 at 09:00 Ondansetron HCl (Zofran Inj) 4 mg Q4H PRN IV NAUSEA AND/OR VOMITING; Start 04/02/18 at 16:30 Insulin Aspart (Novolog Insulin Pen) 2 unit PC MEALS SC Last administered on 04/10/18 08:52; Admin Dose 2 UNIT; Start 04/05/18 at 18:55 Insulin Glargine (Lantus) 3 units QAM SC Last administered on 04/10/18 08:50; Admin Dose 3 UNITS; Start 04/06/18 at 09:00 Collagenase (Santyl) 1 applic DAILY TOP Last administered on 04/10/18 08:52; Admin Dose 1 APPLIC; Start 04/08/18 at 02:53 Atorvastatin Calcium (Lipitor) 10 mg QHS PO ; Start 04/09/18 at 21:00 Daptomycin 335 mg/ Sodium Chloride 100 ml @ 200 mls/hr Q48H IVPB ; Start 04/09/18 at 15:30 Triamcinolone Acetonide (Kenalog 0.5% Cr) 1 applic BID TOP ; Start 04/10/18 at 09:00 DARYA SARABIA MD Apr 10, 2018 11:48
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
[2018-04-10] MEDS: TRIAMCINOLONE ACET 0.5% 15 GM CR TOP SCH ×2 (15:32→20:28)
[2018-04-10] MEDS: ATORVASTATIN 40 MG TAB PO SCH (20:19)
[2018-04-10] MEDS: ONDANSETRON 4 MG TAB PO PRN (23:50)
[2018-04-11] MEDS: morphine LIQ (10 MG/5 ML) CUP PO PRN (00:12)
[2018-04-11 01:27] VITALS: BP 146/72; PULSE 80; RESP 16
[2018-04-11] MEDS: ACCU-CHEK XX SCH (01:53)
[2018-04-11] MEDS: PANTOPRAZOLE (EC) 40 MG TAB PO SCH (06:42)
[2018-04-11] MEDS: LEVOFLOXACIN 250 MG TAB PO SCH (06:42)
[2018-04-11 07:33] VITALS: BP 132/71; PULSE 78; RESP 18
--- NOTE | 2018-04-11 08:37 | PN ---
DATE: 04/11/2018 SUBJECTIVE: The patient is stable, no events overnight. The patient had hemodialysis yesterday, hodan erated well. OBJECTIVE: VITAL SIGNS: Blood pressure is 132/71, respirations 18, pulse 78, temperature 97.6. HEENT: Head is normocephalic. NECK: Supple. HEART: Regular rate. LUNGS: Show diminished breath sounds at the base. ABDOMEN: Soft, nontender to palpation without rebound or guarding. EXTREMITIES: Negative for clubbing, cyanosis, no edema. The patient has noted wound on the right fo ot, dressing is clean, dry, and intact. DERMATOLOGIC: No new rashes. NEUROLOGIC: No focal deficits. LABORATORY DATA: Shows white count 6.0, hemoglobin 9.5, platelet count 159. Sodium 140, potassium 3 .9, BUN 20, creatinine 2.78, glucose level 227. ASSESSMENT AND PLAN: 1. Left diabetic foot ulcer with possible osteomyelitis. The patient currently is receiving antibio tic therapy. Continue wound care. Follow up with podiatry and vascular surgery. 2. End-stage renal disease. The patient had hemodialysis yesterday, tolerated it well. Plan is for dialysis tomorrow. 3. Diabetes. I greatly appreciate endocrinology's evaluation. Per Dr. Ahn's note, the patient jamarcus y not be a type 1 diabetic. Therefore, she may not require insulin for glycemic control. We would a gree with a trial of Tradjenta. We will discuss further with Endocrinology. 4. Anemia. Continue to monitor hemoglobin and hematocrit levels. Continue Epogen as needed. 5. Mineral bone disorder, monitor calcium and phosphorus levels. Continue phosphate binders as need ed. We will check a vitamin D25 level. We will also give vitamin D analogs. 6. Chronic pruritus, likely due to uremia, improving. Continue Benadryl. 7. Peptic ulcer disease. Continue proton pump inhibitor. 8. History of cerebrovascular accident. Continue medical management. 9. Hypertension. Continue current blood pressure regimen. 10. Coronary artery disease. Continue treatment plan. 11. Gastrointestinal and deep vein thrombosis prophylaxis. DISPOSITION: The patient is pending bed placement as soon as is available. Dictated By: KG SANTANA/NASH Conf#: [id number] DID#: [id number] CC: KG FELIX DO;*End*
[2018-04-11] MEDS: CLOPIDOGREL 75 MG TAB PO SCH (09:11)
[2018-04-11] MEDS: SEVELAMER CARBONATE 0.8 GM PKT PO SCH ×3 (09:11→17:55)
[2018-04-11] MEDS: CHOLECALCIFEROL 1,000 UNIT TAB PO SCH (09:11)
[2018-04-11] MEDS: MULTIVIT/CA CARB/B CMPLX/FA TAB PO SCH (09:11)
[2018-04-11] MEDS: INSULIN GLARGINE [LANTus] (100 UNITS/ML) SYG SC SCH (09:13)
[2018-04-11] MEDS: HEPARIN 5,000 UNIT/1 ML VIAL SC SCH ×2 (09:13→21:44)
[2018-04-11] MEDS: INSULIN ASPART [NOVOLOG] 3 ML PEN SC SCH ×5 (09:14→21:00)
[2018-04-11] MEDS: LOSARTAN 50 MG TAB PO SCH (09:20)
[2018-04-11] MEDS: METOPROLOL (XL) 100 MG TAB PO SCH (09:21)
[2018-04-11] MEDS: DRONABINOL 2.5 MG CAP PO SCH (10:42)
[2018-04-11] MEDS: SODIUM HYPOCHLORITE (1/40) 1 APPLIC BTL IRR SCH (12:51)
--- NOTE | 2018-04-11 12:51 | CONS ---
Date/Time of Note Date/Time of Note DATE: 04/11/18 TIME: 12:50 Assessment/Plan Assessment/Plan Hospital Course Meena 62 year-old -[place] female who I have seen twice before in consultation both of the times as an inpatient. She had moved here from [place] but has a history of complications of diabetes including end-stage renal disease. She has had some skin wound infections that have required hospitalization, and may have osteomyelitis. She is extremely insulin sensitive and requires very small dosages of insulin. In addition she may have delayed gastric emptying which may alter how she absorbs the glucose from a meal. Problems: (1) Type 2 diabetes mellitus with hypertension and end stage renal disease on dialysis Status: Chronic Comment: As per discussion with nephrology we will go ahead and make the attempt to transition her from insulin shots over to an oral agent specifically Tradjenta 5 mg a day. Watch carefully for any evidence of the onset of acidosis or DKA. If this works this would simplify her life. This would then mean that her diet could be strictly a renal failure diet. Result Diagram: 04/11/18 0430 04/11/18 0429 Results 24hrs Laboratory Tests Test 04/10/18 18:29 04/10/18 20:24 04/11/18 01:51 04/11/18 04:23 Bedside Glucose 189 224 H 256 H Vitamin D 1,25-Dihydroxy 32.0 Test 04/11/18 04:29 04/11/18 04:30 04/11/18 08:45 04/11/18 12:41 Sodium Level 140 Potassium Level 3.9 Chloride Level 98 Carbon Dioxide Level 31 Anion Gap 11 # Blood Urea Nitrogen 20 # Creatinine 2.78 #H Est Glomerular Filtrat 21 L Rate mL/min Glucose Level 227 H Calcium Level 8.2 L Phosphorus Level 3.9 Magnesium Level 2.0 White Blood Count 6.0 # Red Blood Count 2.72 L Hemoglobin 9.5 L Hematocrit 29.0 L Mean Corpuscular Volume 106.6 H Mean Corpuscular 34.9 H Hemoglobin Mean Corpuscular 32.8 Hemoglobin Concent Red Cell Distribution 18.0 H Width Platelet Count 159 Mean Platelet Volume 11.8 H Immature Granulocytes % 0.700 H Neutrophils % 72.1 Lymphocytes % 12.0 L Monocytes % 14.2 H Eosinophils % 0.7 Basophils % 0.3 Nucleated Red Blood 0.5 H Cells % Immature Granulocytes # 0.040 H Neutrophils # 4.3 Lymphocytes # 0.7 L Monocytes # 0.9 Eosinophils # 0.0 Basophils # 0.0 Nucleated Red Blood 0.0 Cells # Bedside Glucose 182 129 Consultation Date/Type/Reason Admit Date/Time Mar 29, 2018 at 17:36 Initial Consult Date 04/05/18 Type of Consult Endocrinology Reason for Consultation Diabetes mellitus very sensitive to insulin on long-term insulin therapy with elevated C-peptide levels Requesting Provider: KG FELIX DO 24 HR Interval Summary Free Text/Dictation Patient wants to have her diet liberalized Detailed Summary Endocrine: no complaints Exam/Review of Systems Vital Signs Vitals Vital Signs Date Temp Pulse Resp B/P (MAP) Pulse Ox O2 O2 Flow FiO2 Time Delivery Rate 04/11/18 97.6 78 18 132/71 94 Room Air 07:33 (91) Intake and Output 04/10/18 04/10/18 04/11/18 1515:00 23:00 07:00 IntakeIntake Total 700 ml 440 ml OutputOutput Total 1600 ml BalanceBalance -900 ml 440 ml Exam No change in exam Medications Medications Current Medications Acetaminophen (Tylenol Tab) 650 mg Q6H PRN PO PAIN LEVEL 1-5; Start 03/30/18 at 01:30 Clopidogrel Bisulfate (plaVIX) 75 mg DAILY PO Last administered on 04/11/18 09:11; Admin Dose 75 MG; Start 03/30/18 at 09:00 Dronabinol (Marinol) 2.5 mg DAILY PO Last administered on 04/11/18 10:42; Admin Dose 2.5 MG; Start 03/30/18 at 09:00 Losartan Potassium (Cozaar) 50 mg SuTuThSa@0900,2100 PO Last administered on 20:20; Admin Dose 50 MG; Start 03/31/18 at 09:00 Losartan Potassium (Cozaar) 50 mg MoWeFr@0900 PO Last administered on 04/11/18 09:20; Admin Dose 50 MG; Start 03/30/18 at 09:00 Morphine Sulfate (morphine) 2 mg Q3H PRN PO PAIN LEVEL 6-10 Last administered on 04/11/18 00:12; Admin Dose 2 MG; Start 03/30/18 at 01:30 Ondansetron HCl (Zofran Tab) 4 mg Q6H PRN PO NAUSEA AND/OR VOMITING Last administered on 04/10/18 23:50; Admin Dose 4 MG; Start 03/30/18 at 01:30 Pantoprazole (Protonix Tab) 40 mg AC BREAKFAST PO Last administered on 04/11/18 06:42; Admin Dose 40 MG; Start 03/30/18 at 07:20 Sevelamer Carbonate (Renvela) 1.6 gm WITH MEALS PO Last administered on 04/11/18 09:11; Admin Dose 1.6 GM; Start 03/30/18 at 07:50 Diagnostic Test (Pha) (Accu-Chek) 1 ea 02 XX Last administered on 04/11/18 01:53; Admin Dose 1 EA; Start 03/30/18 at 02:00 Insulin Aspart (Novolog Insulin Pen) NOVOLOG *MILD* ALGORITHM WITH MEALS BEDTIME SC Last administered on 04/11/18 09:14; Admin Dose 2 UNIT; Start 03/30/18 at 07:50 Miscellaneous Information 1 ea NOTE XX ; Start 03/30/18 at 02:00 Glucose (Glutose) 15 gm Q15M PRN PO DECREASED GLUCOSE Last administered on 04/08/18 12:56; Admin Dose 15 GM; Start 03/30/18 at 02:00 Glucose (Glutose) 22.5 gm Q15M PRN PO DECREASED GLUCOSE Last administered on 04/05/18 19:02; Admin Dose 22.5 GM; Start 03/30/18 at 02:00 Dextrose (D50w Syringe) 25 ml Q15M PRN IV DECREASED GLUCOSE Last administered on 04/06/18 09:22; Admin Dose 25 ML; Start 03/30/18 at 02:00 Dextrose (D50w Syringe) 50 ml Q15M PRN IV DECREASED GLUCOSE Last administered on 04/08/18 14:54; Admin Dose 50 ML; Start 03/30/18 at 02:00 Glucagon (Glucagen) 1 mg Q15M PRN IM DECREASED GLUCOSE Last administered on 04/08/18 14:37; Admin Dose 1 MG; Start 03/30/18 at 02:00 Glucose (Glutose) 15 gm Q15M PRN BUCCAL DECREASED GLUCOSE Last administered on 04/04/18 17:57; Admin Dose 15 GM; Start 03/30/18 at 02:00 Metoprolol Succinate (Toprol Xl) 200 mg MoWeFr@0900 PO Last administered on 04/11/18 09:21; Admin Dose 200 MG; Start 03/30/18 at 09:00 Metoprolol Succinate (Toprol Xl) 50 mg SuTuThSa@0900,2100 PO Last administered on 04/10/18 20:20; Admin Dose 50 MG; Start 03/31/18 at 09:00 Diphenhydramine HCl (Benadryl) 50 mg Q4H PRN IV pruritis Last administered on 04/10/18 23:42; Admin Dose 50 MG; Start 03/30/18 at 09:00 Heparin Sodium (Porcine) (Heparin (5000 Units/1ml)) 5,000 unit BID SC Last administered on 04/11/18 09:13; Admin Dose 5,000 UNIT; Start 03/30/18 at 12:00 Levofloxacin (Levaquin) 250 mg Q2D@0600 PO Last administered on 04/11/18 06:42; Admin Dose 250 MG; Start 04/01/18 at 06:00 Sodium Hypochlorite (Dakin'S (Dilute )) 1 applic DAILY IRR Last administered on 04/10/18 08:45; Admin Dose 1 APPLIC; Start 03/31/18 at 09:00 Ondansetron HCl (Zofran Inj) 4 mg Q4H PRN IV NAUSEA AND/OR VOMITING; Start 04/02/18 at 16:30 Insulin Aspart (Novolog Insulin Pen) 2 unit PC MEALS SC Last administered on 04/11/18 09:15; Admin Dose 2 UNIT; Start 04/05/18 at 18:55 Insulin Glargine (Lantus) 3 units QAM SC Last administered on 04/11/18 09:13; Admin Dose 3 UNITS; Start 04/06/18 at 09:00 Collagenase (Santyl) 1 applic DAILY TOP Last administered on 04/10/18 08:52; Admin Dose 1 APPLIC; Start 04/08/18 at 02:53 Triamcinolone Acetonide (Kenalog 0.5% Cr) 1 applic BID TOP Last administered on 04/10/18 20:28; Admin Dose 1 APPLIC; Start 1/1/19 at 09:00 Atorvastatin Calcium (Lipitor) 40 mg QHS PO Last administered on 04/10/18at 20:19; Admin Dose 40 MG; Start 04/10/18 at 21:00 Multivit/Ca Carb/ B Cmplx/FA/Prenat (Yuridia-Charito) 1 tab DAILY PO Last administered on 04/11/18at 09:11; Admin Dose 1 TAB; Start 04/11/18 at 09:00 Cholecalciferol (Vitamin D) 1,000 unit DAILY PO Last administered on 04/11/18at 09:11; Admin Dose 1,000 UNIT; Start 04/11/18 at 09:00 LILIAN IBRAHIM MD Apr 11, 2018 12:51
[2018-04-11] MEDS: TRIAMCINOLONE ACET 0.5% 15 GM CR TOP SCH ×2 (12:52→21:42)
[2018-04-11] MEDS: COLLAGENASE 5 GM (UD JAR) TOP SCH (12:52)
[2018-04-11] MEDS: DIPHENHYDRAMINE 50 MG INJ IV PRN (12:53)
--- NOTE | 2018-04-11 13:01 | CONS ---
Date/Time of Note Date/Time of Note DATE: 04/11/18 TIME: 13:00 Assessment/Plan Assessment/Plan Hospital Course SUBJECTIVE: Awake, looks comfortable, no fevers INDWELLINGS: AV fistula. Allergy: Vancomycin Wound culture growing Corynebacterium group JK and Proteus mirabilis intermittently sensitive to gentamicin Antimicrobials: Levofloxacin, status post daptomycin dose yesterday PHYSICAL EXAMINATION: GENERAL: Chronically ill-appearing, wasted, elderly woman who is awake, in no distress. HEENT: Head is atraumatic, normocephalic. NECK: Supple. CHEST: Rise symmetrical. Breath sounds diminished to bases. HEART: S1, S2. ABDOMEN: Soft. Bowel tones are present. EXTREMITIES: With left lower extremity dressing intact. ASSESSMENT: 1. Left lower extremity nonhealing necrotic wound with suspicion for osteomyelitis per podiatry. 2. Severe peripheral arterial disease, status post balloon angioplasty 02/13/18. 3. End-stage renal disease, hemodialysis dependent. 4. ALLERGIES TO VANCOMYCIN. 5. Diabetes and anemia. PLAN: The patient remains stable, she is noncompliant with antibiotics, I explained to her that she needs either daptomycin or oral Zyvox for coverage of Corynebacterium group JK. I will ask nurses to premedicate her with Zofran prior to giving daptomycin Result Diagram: 04/11/18 0430 04/11/18 0429 Results 24hrs Laboratory Tests Test 04/10/18 18:29 04/10/18 20:24 04/11/18 01:51 04/11/18 04:23 Bedside Glucose 189 224 H 256 H Vitamin D 1,25-Dihydroxy 32.0 Test 04/11/18 04:29 04/11/18 04:30 04/11/18 08:45 04/11/18 12:41 Sodium Level 140 Potassium Level 3.9 Chloride Level 98 Carbon Dioxide Level 31 Anion Gap 11 # Blood Urea Nitrogen 20 # Creatinine 2.78 #H Est Glomerular Filtrat 21 L Rate mL/min Glucose Level 227 H Calcium Level 8.2 L Phosphorus Level 3.9 Magnesium Level 2.0 White Blood Count 6.0 # Red Blood Count 2.72 L Hemoglobin 9.5 L Hematocrit 29.0 L Mean Corpuscular Volume 106.6 H Mean Corpuscular 34.9 H Hemoglobin Mean Corpuscular 32.8 Hemoglobin Concent Red Cell Distribution 18.0 H Width Platelet Count 159 Mean Platelet Volume 11.8 H Immature Granulocytes % 0.700 H Neutrophils % 72.1 Lymphocytes % 12.0 L Monocytes % 14.2 H Eosinophils % 0.7 Basophils % 0.3 Nucleated Red Blood 0.5 H Cells % Immature Granulocytes # 0.040 H Neutrophils # 4.3 Lymphocytes # 0.7 L Monocytes # 0.9 Eosinophils # 0.0 Basophils # 0.0 Nucleated Red Blood 0.0 Cells # Bedside Glucose 182 129 Consultation Date/Type/Reason Admit Date/Time Mar 29, 2018 at 17:36 Initial Consult Date Type of Consult ID Requesting Provider: KG FELIX DO Exam/Review of Systems Vital Signs Vitals Vital Signs Date Temp Pulse Resp B/P (MAP) Pulse Ox O2 O2 Flow FiO2 Time Delivery Rate 04/11/18 97.6 78 18 132/71 94 Room Air 07:33 (91) Intake and Output 04/10/18 04/10/18 04/11/18 1515:00 23:00 07:00 IntakeIntake Total 700 ml 440 ml OutputOutput Total 1600 ml BalanceBalance -900 ml 440 ml Medications Medications Current Medications Acetaminophen (Tylenol Tab) 650 mg Q6H PRN PO PAIN LEVEL 1-5; Start 03/30/18 at 01:30 Clopidogrel Bisulfate (plaVIX) 75 mg DAILY PO Last administered on 04/11/18 09:11; Admin Dose 75 MG; Start 03/30/18 at 09:00 Dronabinol (Marinol) 2.5 mg DAILY PO Last administered on 04/11/18 10:42; Admin Dose 2.5 MG; Start 03/30/18 at 09:00 Losartan Potassium (Cozaar) 50 mg SuTuThSa@0900,2100 PO Last administered on 04/10/18 20:20; Admin Dose 50 MG; Start 03/31/18 at 09:00 Losartan Potassium (Cozaar) 50 mg MoWeFr@0900 PO Last administered on 04/11/18 09:20; Admin Dose 50 MG; Start 03/30/18 at 09:00 Morphine Sulfate (morphine) 2 mg Q3H PRN PO PAIN LEVEL 6-10 Last administered on 04/11/18 00:12; Admin Dose 2 MG; Start 03/30/18 at 01:30 Ondansetron HCl (Zofran Tab) 4 mg Q6H PRN PO NAUSEA AND/OR VOMITING Last administered on 04/10/18 23:50; Admin Dose 4 MG; Start 03/30/18 at 01:30 Pantoprazole (Protonix Tab) 40 mg AC BREAKFAST PO Last administered on 04/11/18 06:42; Admin Dose 40 MG; Start 03/30/18 at 07:20 Sevelamer Carbonate (Renvela) 1.6 gm WITH MEALS PO Last administered on 04/11/18 09:11; Admin Dose 1.6 GM; Start 03/30/18 at 07:50 Diagnostic Test (Pha) (Accu-Chek) 1 ea 02 XX Last administered on 04/11/18 01:53; Admin Dose 1 EA; Start 03/30/18 at 02:00 Insulin Aspart (Novolog Insulin Pen) NOVOLOG *MILD* ALGORITHM WITH MEALS BEDTIME SC Last administered on 04/11/18 09:14; Admin Dose 2 UNIT; Start 03/30/18 at 07:50 Miscellaneous Information 1 ea NOTE XX ; Start 03/30/18 at 02:00 Glucose (Glutose) 15 gm Q15M PRN PO DECREASED GLUCOSE Last administered on 04/08/18 12:56; Admin Dose 15 GM; Start 03/30/18 at 02:00 Glucose (Glutose) 22.5 gm Q15M PRN PO DECREASED GLUCOSE Last administered on 04/05/18 19:02; Admin Dose 22.5 GM; Start 03/30/18 at 02:00 Dextrose (D50w Syringe) 25 ml Q15M PRN IV DECREASED GLUCOSE Last administered on 04/06/18 09:22; Admin Dose 25 ML; Start 03/30/18 at 02:00 Dextrose (D50w Syringe) 50 ml Q15M PRN IV DECREASED GLUCOSE Last administered on 04/08/18 14:54; Admin Dose 50 ML; Start 03/30/18 at 02:00 Glucagon (Glucagen) 1 mg Q15M PRN IM DECREASED GLUCOSE Last administered on 04/08/18 14:37; Admin Dose 1 MG; Start 03/30/18 at 02:00 Glucose (Glutose) 15 gm Q15M PRN BUCCAL DECREASED GLUCOSE Last administered on 04/04/18 17:57; Admin Dose 15 GM; Start 03/30/18 at 02:00 Metoprolol Succinate (Toprol Xl) 200 mg MoWeFr@0900 PO Last administered on 04/11/18 09:21; Admin Dose 200 MG; Start 03/30/18 at 09:00 Metoprolol Succinate (Toprol Xl) 50 mg SuTuThSa@0900,2100 PO Last administered on 04/10/18 20:20; Admin Dose 50 MG; Start 03/31/18 at 09:00 Diphenhydramine HCl (Benadryl) 50 mg Q4H PRN IV pruritis Last administered on 04/11/18 12:53; Admin Dose 50 MG; Start 03/30/18 at 09:00 Heparin Sodium (Porcine) (Heparin (5000 Units/1ml)) 5,000 unit BID SC Last administered on 04/11/18 09:13; Admin Dose 5,000 UNIT; Start 03/30/18 at 12:00 Levofloxacin (Levaquin) 250 mg Q2D@0600 PO Last administered on 04/11/18 06:42; Admin Dose 250 MG; Start 04/01/18 at 06:00 Sodium Hypochlorite (Dakin'S (Dilute )) 1 applic DAILY IRR Last administered on 04/11/18 12:51; Admin Dose 1 APPLIC; Start 03/31/18 at 09:00 Ondansetron HCl (Zofran Inj) 4 mg Q4H PRN IV NAUSEA AND/OR VOMITING; Start 04/02/18 at 16:30 Insulin Aspart (Novolog Insulin Pen) 2 unit PC MEALS SC Last administered on 04/11/18 09:15; Admin Dose 2 UNIT; Start 04/05/18 at 18:55; Status Hold Insulin Glargine (Lantus) 3 units QAM SC Last administered on 04/11/18 09:13; Admin Dose 3 UNITS; Start 04/06/18 at 09:00; Status Hold Collagenase (Santyl) 1 applic DAILY TOP Last administered on 04/11/18 12:52; Admin Dose 1 APPLIC; Start 04/08/18 at 02:53 Triamcinolone Acetonide (Kenalog 0.5% Cr) 1 applic BID TOP Last administered on 04/11/18 12:52; Admin Dose 1 APPLIC; Start 04/10/18 at 09:00 Atorvastatin Calcium (Lipitor) 40 mg QHS PO Last administered on 04/10/18at 20:19; Admin Dose 40 MG; Start 04/10/18 at 21:00 Multivit/Ca Carb/ B Cmplx/FA/Prenat (Yuridia-Charito) 1 tab DAILY PO Last administered on 04/11/18at 09:11; Admin Dose 1 TAB; Start 04/11/18 at 09:00 Cholecalciferol (Vitamin D) 1,000 unit DAILY PO Last administered on 04/11/18at 09:11; Admin Dose 1,000 UNIT; Start 04/11/18 at 09:00 Linagliptin (Tradjenta) 5 mg DAILY PO ; Start 04/11/18 at 13:00 KRISHNA BURTON NP Apr 11, 2018 13:01
[2018-04-11 14:00] VITALS: BP 126/70; PULSE 74; RESP 18
--- NOTE | 2018-04-11 14:11 | PN ---
Date/Time of Note Date/Time of Note DATE: 04/11/18 TIME: 14:11 Assessment/Plan VTE Prophylaxis Risk score (from Nsg)>0 risk: 2 Pharmacological prophylaxis: heparin Lines/Catheters IV Catheter Type (from Nrsg): Saline Lock Urinary Cath still in place: No Assessment/Plan Hospital Course 62 y/o F with hx of HLD, DM1 with PN, HTN, PAD, CVA, ESRD on HD presents to the floor with chronic left lower extremity ulceration. Patient was seen in wound care clinic and had reported increased swelling and pain to the left lower extremity ulcer sites. There was concern for worsening infection due the symptoms she exhibited during clinic. Patient was amenable for admission for closer monitoring. Assessment/Plan 1) Left heel decubitus ulcer 2) Left heel dry gangrene - improved 3) Left lateral leg diabetic ulcer - resolved 4) Cellulitis LLE 5) Suspicion for osteomyelitis - negative on MRI 6) PAD 7) ESRD on HD 8) DM1 with peripheral neuropathy 9) Hx of CVA Plan: Adipose tissue and fascia still intact to the posterior heel wound and no purulence was expressed with no proximal streaking. X-rays reviewed and showing signs of early osteomyelitis. No sign of soft tissue emphysena. MRI reviewed and stated bone marrow edema more likely compared to active osteomyelitis with no connecting fistula to calcaneus. PAD being followed in outpatient setting with Dr. Valdovinos. Wound cultures showing corynebacterium jekeium and proteus mirabilis on IV abx. Recommend offloading with pillows and heel protectors. Recommend daily irrigation with dakins to wound site, santyl, left heel with 4x4 betadine gauze and kerlix wrap. Medical decisions, treatment, and plan coordinated with Dr. Gomez. Result Diagram: 04/11/18 0430 04/11/18 0429 Results 24hrs Laboratory Tests Test 04/10/18 18:29 04/10/18 20:24 04/11/18 01:51 04/11/18 04:23 Bedside Glucose 189 224 H 256 H Vitamin D 1,25-Dihydroxy 32.0 Test 04/11/18 04:29 04/11/18 04:30 04/11/18 08:45 04/11/18 12:41 Sodium Level 140 Potassium Level 3.9 Chloride Level 98 Carbon Dioxide Level 31 Anion Gap 11 # Blood Urea Nitrogen 20 # Creatinine 2.78 #H Est Glomerular Filtrat 21 L Rate mL/min Glucose Level 227 H Calcium Level 8.2 L Phosphorus Level 3.9 Magnesium Level 2.0 White Blood Count 6.0 # Red Blood Count 2.72 L Hemoglobin 9.5 L Hematocrit 29.0 L Mean Corpuscular Volume 106.6 H Mean Corpuscular 34.9 H Hemoglobin Mean Corpuscular 32.8 Hemoglobin Concent Red Cell Distribution 18.0 H Width Platelet Count 159 Mean Platelet Volume 11.8 H Immature Granulocytes % 0.700 H Neutrophils % 72.1 Lymphocytes % 12.0 L Monocytes % 14.2 H Eosinophils % 0.7 Basophils % 0.3 Nucleated Red Blood 0.5 H Cells % Immature Granulocytes # 0.040 H Neutrophils # 4.3 Lymphocytes # 0.7 L Monocytes # 0.9 Eosinophils # 0.0 Basophils # 0.0 Nucleated Red Blood 0.0 Cells # Bedside Glucose 182 129 Subjective 24 Hr Interval Summary Free Text/Dictation No acute events overnight. Exam/Review of Systems Vital Signs Vitals Vital Signs Date Temp Pulse Resp B/P (MAP) Pulse Ox O2 O2 Flow FiO2 Time Delivery Rate 04/11/18 97.6 78 18 132/71 94 Room Air 07:33 (91) Intake and Output 04/10/18 04/10/18 04/11/18 1515:00 23:00 07:00 IntakeIntake Total 700 ml 440 ml OutputOutput Total 1600 ml BalanceBalance -900 ml 440 ml Exam Non palpable pedal pulses Muscle atrophy to the lower extremity Left heel ulcer 3.1 x 2.8cm x 0.3cm fibrotic wound bed with adipose tissue noted. No probing to bone, no purulence expressed, no proximal streaking. Left lateral leg ulcer showing signs of epithelialization Absent protectives sensations to the feet There is pain to palpation of the heel wound site. Medications Medications Current Medications Acetaminophen (Tylenol Tab) 650 mg Q6H PRN PO PAIN LEVEL 1-5; Start 03/30/18 at 01:30 Clopidogrel Bisulfate (plaVIX) 75 mg DAILY PO Last administered on 04/11/18at 09:11; Admin Dose 75 MG; Start 03/30/18 at 09:00 Dronabinol (Marinol) 2.5 mg DAILY PO Last administered on 04/11/18at 10:42; Admin Dose 2.5 MG; Start 03/30/18 at 09:00 Losartan Potassium (Cozaar) 50 mg SuTuThSa@0900,2100 PO Last administered on 04/10/18 20:20; Admin Dose 50 MG; Start 03/31/18 at 09:00 Losartan Potassium (Cozaar) 50 mg MoWeFr@0900 PO Last administered on 04/11/18 09:20; Admin Dose 50 MG; Start 03/30/18 at 09:00 Morphine Sulfate (morphine) 2 mg Q3H PRN PO PAIN LEVEL 6-10 Last administered on 04/11/18 00:12; Admin Dose 2 MG; Start 03/30/18 at 01:30 Ondansetron HCl (Zofran Tab) 4 mg Q6H PRN PO NAUSEA AND/OR VOMITING Last administered on 04/10/18 23:50; Admin Dose 4 MG; Start 03/30/18 at 01:30 Pantoprazole (Protonix Tab) 40 mg AC BREAKFAST PO Last administered on 04/11/18 06:42; Admin Dose 40 MG; Start 03/30/18 at 07:20 Sevelamer Carbonate (Renvela) 1.6 gm WITH MEALS PO Last administered on 04/11/18 at 09:11; Admin Dose 1.6 GM; Start 03/30/18 at 07:50 Diagnostic Test (Pha) (Accu-Chek) 1 ea 02 XX Last administered on 04/11/18 01:53; Admin Dose 1 EA; Start 03/30/18 at 02:00 Insulin Aspart (Novolog Insulin Pen) NOVOLOG *MILD* ALGORITHM WITH MEALS BEDTIME SC Last administered on 04/11/18 09:14; Admin Dose 2 UNIT; Start 03/30/18 at 07:50 Miscellaneous Information 1 ea NOTE XX ; Start 03/30/18 at 02:00 Glucose (Glutose) 15 gm Q15M PRN PO DECREASED GLUCOSE Last administered on 04/08/18 12:56; Admin Dose 15 GM; Start 03/30/18 at 02:00 Glucose (Glutose) 22.5 gm Q15M PRN PO DECREASED GLUCOSE Last administered on 04/05/18at 19:02; Admin Dose 22.5 GM; Start 03/30/18 at 02:00 Dextrose (D50w Syringe) 25 ml Q15M PRN IV DECREASED GLUCOSE Last administered on 04/06/18 09:22; Admin Dose 25 ML; Start 03/30/18 at 02:00 Dextrose (D50w Syringe) 50 ml Q15M PRN IV DECREASED GLUCOSE Last administered on 04/08/18 14:54; Admin Dose 50 ML; Start 03/30/18 at 02:00 Glucagon (Glucagen) 1 mg Q15M PRN IM DECREASED GLUCOSE Last administered on 04/08/18 14:37; Admin Dose 1 MG; Start 03/30/18 at 02:00 Glucose (Glutose) 15 gm Q15M PRN BUCCAL DECREASED GLUCOSE Last administered on 04/04/18 17:57; Admin Dose 15 GM; Start 03/30/18 at 02:00 Metoprolol Succinate (Toprol Xl) 200 mg MoWeFr@0900 PO Last administered on 04/11/18 09:21; Admin Dose 200 MG; Start 03/30/18 at 09:00 Metoprolol Succinate (Toprol Xl) 50 mg SuTuThSa@0900,2100 PO Last administered on 04/10/18 20:20; Admin Dose 50 MG; Start 03/31/18 at 09:00 Diphenhydramine HCl (Benadryl) 50 mg Q4H PRN IV pruritis Last administered on 04/11/18 12:53; Admin Dose 50 MG; Start 03/30/18 at 09:00 Heparin Sodium (Porcine) (Heparin (5000 Units/1ml)) 5,000 unit BID SC Last administered on 04/11/18 09:13; Admin Dose 5,000 UNIT; Start 03/30/18 at 12:00 Levofloxacin (Levaquin) 250 mg Q2D@0600 PO Last administered on 04/11/18 06:42; Admin Dose 250 MG; Start 04/01/18 at 06:00 Sodium Hypochlorite (Dakin'S (Dilute )) 1 applic DAILY IRR Last administered on 04/11/18 12:51; Admin Dose 1 APPLIC; Start 03/31/18 at 09:00 Ondansetron HCl (Zofran Inj) 4 mg Q4H PRN IV NAUSEA AND/OR VOMITING; Start 04/02/18 at 16:30 Insulin Aspart (Novolog Insulin Pen) 2 unit PC MEALS SC Last administered on 04/11/18 09:15; Admin Dose 2 UNIT; Start 04/05/18 at 18:55; Status Hold Insulin Glargine (Lantus) 3 units QAM SC Last administered on 04/11/18 09:13; Admin Dose 3 UNITS; Start 04/06/18 at 09:00; Status Hold Collagenase (Santyl) 1 applic DAILY TOP Last administered on 04/11/18 12:52; Admin Dose 1 APPLIC; Start 04/08/18 at 02:53 Triamcinolone Acetonide (Kenalog 0.5% Cr) 1 applic BID TOP Last administered on 04/11/18 12:52; Admin Dose 1 APPLIC; Start 04/10/18 at 09:00 Atorvastatin Calcium (Lipitor) 40 mg QHS PO Last administered on 04/10/18 20:19; Admin Dose 40 MG; Start 04/10/18 at 21:00 Multivit/Ca Carb/ B Cmplx/FA/Prenat (Yuridia-Charito) 1 tab DAILY PO Last administered on 04/11/18 09:11; Admin Dose 1 TAB; Start 04/11/18 at 09:00 Cholecalciferol (Vitamin D) 1,000 unit DAILY PO Last administered on 04/11/18 09:11; Admin Dose 1,000 UNIT; Start 04/11/18 at 09:00 Linagliptin (Tradjenta) 5 mg DAILY PO ; Start 04/11/18 at 13:00 Daptomycin 225 mg/ Sodium Chloride 100 ml @ 200 mls/hr Q48H IVPB ; Start 04/11/18 at 14:30 FELTON ACOSTA DPRazia Apr 11, 2018 14:11
[2018-04-11] MEDS: LINAGLIPTIN 5 MG TABLET PO SCH (14:43)
[2018-04-11] MEDS: ONDANSETRON 4 MG TAB PO PRN (16:42)
[2018-04-11] MEDS: SOD CHLORIDE 0.9% IVPB SCH (16:42)
[2018-04-11] MEDS: DAPTOMYCIN IVPB SCH (16:42)
[2018-04-11 19:56] VITALS: BP 139/67; PULSE 82; RESP 18
[2018-04-11] MEDS: ATORVASTATIN 40 MG TAB PO SCH (21:24)
[2018-04-12] VITALS (17 sets, daily range): BP systolic 106–197; BP diastolic 55–97; PULSE 75–87; RESP 16–20
[2018-04-12] MEDS: ONDANSETRON 4 MG INJ IV PRN (00:19)
[2018-04-12] MEDS: DIPHENHYDRAMINE 50 MG INJ IV PRN ×3 (00:19→14:04)
[2018-04-12] MEDS: morphine LIQ (10 MG/5 ML) CUP PO PRN (00:20)
[2018-04-12] MEDS: ACCU-CHEK XX SCH (02:00)
[2018-04-12] MEDS: PANTOPRAZOLE (EC) 40 MG TAB PO SCH (07:22)
[2018-04-12] MEDS: SEVELAMER CARBONATE 0.8 GM PKT PO SCH ×3 (07:50→18:39)
[2018-04-12] MEDS: CHOLECALCIFEROL 1,000 UNIT TAB PO SCH (08:47)
[2018-04-12] MEDS: LINAGLIPTIN 5 MG TABLET PO SCH (08:47)
[2018-04-12] MEDS: LOSARTAN 50 MG TAB PO SCH ×3 (08:48→20:29)
[2018-04-12] MEDS: MULTIVIT/CA CARB/B CMPLX/FA TAB PO SCH (08:48)
[2018-04-12] MEDS: CLOPIDOGREL 75 MG TAB PO SCH (08:49)
[2018-04-12] MEDS: DRONABINOL 2.5 MG CAP PO SCH (08:49)
[2018-04-12] MEDS: METOPROLOL (XL) 50 MG TAB PO SCH ×3 (08:49→20:29)
[2018-04-12] MEDS: HEPARIN 5,000 UNIT/1 ML VIAL SC SCH ×2 (08:50→20:36)
[2018-04-12] MEDS: INSULIN ASPART [NOVOLOG] 3 ML PEN SC SCH ×4 (08:51→20:36)
--- NOTE | 2018-04-12 08:51 | PN ---
DATE: 04/12/2018 SUBJECTIVE: The patient is stable, no events overnight. No fevers, chills, nausea, vomiting. OBJECTIVE: VITAL SIGNS: Blood pressure is 122/65, pulse 79, respiration 18, temperature 98.3. HEENT: Head is normocephalic. NECK: Supple. HEART: Regular rate. LUNGS: Show diminished breath sounds at the base. ABDOMEN: Soft, nontender to palpation. No rebound or guarding. EXTREMITIES: Negative for clubbing, cyanosis, no edema. DERMATOLOGIC: No rashes. MUSCULOSKELETAL: No joint effusion. NEUROLOGIC: No change in exam. MEDICATIONS: Have been reviewed. LABORATORY DATA: Has been reviewed. Glucose levels have been stable. ASSESSMENT AND PLAN: 1. Left diabetic foot ulcer with possible osteomyelitis. The patient is currently receiving antibio tic therapy. Continue wound care. Appreciate podiatry and vascular surgery. 2. End-stage renal disease. Plan is for hemodialysis today. 3. Diabetes. Greatly appreciate endocrinology's evaluation. Per Dr. Gastelum note, patient may not b e type 1 diabetic. Therefore, may not require insulin for glycemic control. The patient has been pl aced on Tradjenta, will continue to monitor glucose levels closely. Will follow up further recommend ations per endocrinology. 4. Anemia. Continue to monitor hemoglobin and hematocrit levels. Continue Epogen as needed. 6. Mineral bone disorder, monitor calcium and phosphorus levels. Continue phos binders. Continue v itamin D analogs. Follow up vitamin D level. We will follow up the PTH level. 7. 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 Continue Benadryl. Continue dialysis. 8. Peptic ulcer disease. Continue proton pump inhibitor. 9. History of cerebrovascular accident. Continue medical management. 10. Hypertension. Continue current blood pressure regimen. 11. Coronary artery disease. Continue treatment plan. 12. GI and DVT prophylaxis. DISPOSITION: The patient is pending discharge to SNF once a bed is available. Dictated By: KG FELIX DO NR/NTS Conf#: [id number] DID#: [id number] CC: KG FELIX DO;*EndCC*
[2018-04-12] MEDS: TRIAMCINOLONE ACET 0.1% 15 GM OINT TOP SCH ×2 (09:00→20:30)
[2018-04-12] MEDS ORDERED: EPOETIN 10000 UNITS/1 ML INJ (ESRD) SC SCH (10:00)
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
[2018-04-12] MEDS: SODIUM HYPOCHLORITE (1/40) 1 APPLIC BTL IRR SCH (11:39)
[2018-04-12] MEDS: COLLAGENASE 5 GM (UD JAR) TOP SCH (11:40)
--- NOTE | 2018-04-12 12:42 | CONS ---
Date/Time of Note Date/Time of Note DATE: 04/12/18 TIME: 12:41 Assessment/Plan Assessment/Plan Hospital Course Meena 62 year-old -[place] female who I have seen twice before in consultation both of the times as an inpatient. She had moved here from [place] but has a history of complications of diabetes including end-stage renal disease. She has had some skin wound infections that have required hospitalization, and may have osteomyelitis. She is extremely insulin sensitive and requires very small dosages of insulin. In addition she may have delayed gastric emptying which may alter how she absorbs the glucose from a meal. Problems: (1) Type 2 diabetes mellitus with hypertension and end stage renal disease on dialysis Status: Chronic Comment: Incision care over to treating her as a type II diabetic. We will see how she does using a DPP 4 inhibitor drug a single agent therapy. Result Diagram: 04/11/18 0430 04/11/18 0429 Results 24hrs Laboratory Tests Test 04/11/18 14:42 04/11/18 17:37 04/11/18 21:22 04/12/18 08:31 Bedside Glucose 111 115 172 161 Consultation Date/Type/Reason Admit Date/Time Mar 29, 2018 at 17:36 Initial Consult Date 04/05/18 Type of Consult Endocrinology Reason for Consultation Diabetes mellitus with high degree insulin sensitivity; measurable C-peptide Requesting Provider: KG FELIX DO 24 HR Interval Summary Free Text/Dictation Reports she is doing the same somewhat more awake and alert Exam/Review of Systems Vital Signs Vitals Vital Signs Date Temp Pulse Resp B/P (MAP) Pulse Ox O2 O2 Flow FiO2 Time Delivery Rate 04/12/18 98.3 79 18 122/65 98 Room Air 07:46 (84) Intake and Output 04/11/18 04/11/18 04/12/18 1515:00 23:00 07:00 IntakeIntake Total 300 ml 300 ml 300 ml OutputOutput Total 0 ml 0 ml BalanceBalance 300 ml 300 ml 300 ml Exam Constitutional: alert, oriented Respiratory: clear to auscultation, normal air movement Medications Medications Current Medications Acetaminophen (Tylenol Tab) 650 mg Q6H PRN PO PAIN LEVEL 1-5; Start 03/30/18 at 01:30 Clopidogrel Bisulfate (plaVIX) 75 mg DAILY PO Last administered on 04/12/18at 08:49; Admin Dose 75 MG; Start 03/30/18 at 09:00 Dronabinol (Marinol) 2.5 mg DAILY PO Last administered on 04/12/18 08:49; Admin Dose 2.5 MG; Start 03/30/18 at 09:00 Losartan Potassium (Cozaar) 50 mg SuTuThSa@0900,2100 PO Last administered on 04/10/18 20:20; Admin Dose 50 MG; Start 03/31/18 at 09:00 Losartan Potassium (Cozaar) 50 mg MoWeFr@0900 PO Last administered on 04/11/18 09:20; Admin Dose 50 MG; Start 03/30/18 at 09:00 Morphine Sulfate (morphine) 2 mg Q3H PRN PO PAIN LEVEL 6-10 Last administered on 04/12/18 00:20; Admin Dose 2 MG; Start 03/30/18 at 01:30 Ondansetron HCl (Zofran Tab) 4 mg Q6H PRN PO NAUSEA AND/OR VOMITING Last administered on 04/11/18 16:42; Admin Dose 4 MG; Start 03/30/18 at 01:30 Pantoprazole (Protonix Tab) 40 mg AC BREAKFAST PO Last administered on 04/12/18 07:22; Admin Dose 40 MG; Start 03/30/18 at 07:20 Sevelamer Carbonate (Renvela) 1.6 gm WITH MEALS PO Last administered on 04/11/18 09:11; Admin Dose 1.6 GM; Start 03/30/18 at 07:50 Diagnostic Test (Pha) (Accu-Chek) 1 ea 02 XX Last administered on 04/11/18 01:53; Admin Dose 1 EA; Start 03/30/18 at 02:00 Insulin Aspart (Novolog Insulin Pen) NOVOLOG *MILD* ALGORITHM WITH MEALS BEDTIME SC Last administered on 04/12/18 08:51; Admin Dose 1 UNIT; Start 03/30/18 at 07:50 Miscellaneous Information 1 ea NOTE XX ; Start 03/30/18 at 02:00 Glucose (Glutose) 15 gm Q15M PRN PO DECREASED GLUCOSE Last administered on 04/08/18at 12:56; Admin Dose 15 GM; Start 03/30/18 at 02:00 Glucose (Glutose) 22.5 gm Q15M PRN PO DECREASED GLUCOSE Last administered on 04/05/18 19:02; Admin Dose 22.5 GM; Start 03/30/18 at 02:00 Dextrose (D50w Syringe) 25 ml Q15M PRN IV DECREASED GLUCOSE Last administered on 04/06/18 09:22; Admin Dose 25 ML; Start 03/30/18 at 02:00 Dextrose (D50w Syringe) 50 ml Q15M PRN IV DECREASED GLUCOSE Last administered on 04/08/18 14:54; Admin Dose 50 ML; Start 03/30/18 at 02:00 Glucagon (Glucagen) 1 mg Q15M PRN IM DECREASED GLUCOSE Last administered on 04/08/18 14:37; Admin Dose 1 MG; Start 03/30/18 at 02:00 Glucose (Glutose) 15 gm Q15M PRN BUCCAL DECREASED GLUCOSE Last administered on 04/04/18 17:57; Admin Dose 15 GM; Start 03/30/18 at 02:00 Metoprolol Succinate (Toprol Xl) 200 mg MoWeFr@0900 PO Last administered on 04/11/18 09:21; Admin Dose 200 MG; Start 03/30/18 at 09:00 Metoprolol Succinate (Toprol Xl) 50 mg SuTuThSa@0900,2100 PO Last administered on 04/10/18 20:20; Admin Dose 50 MG; Start 03/31/18 at 09:00 Diphenhydramine HCl (Benadryl) 50 mg Q4H PRN IV pruritis Last administered on 04/12/18 07:22; Admin Dose 50 MG; Start 03/30/18 at 09:00 Heparin Sodium (Porcine) (Heparin (5000 Units/1ml)) 5,000 unit BID SC Last administered on 04/12/18 08:50; Admin Dose 5,000 UNIT; Start 03/30/18 at 12:00 Levofloxacin (Levaquin) 250 mg Q2D@0600 PO Last administered on 04/11/18 06:42; Admin Dose 250 MG; Start 04/01/18 at 06:00 Sodium Hypochlorite (Dakin'S (Dilute )) 1 applic DAILY IRR Last administered on 04/12/18 11:39; Admin Dose 1 APPLIC; Start 03/31/18 at 09:00 Ondansetron HCl (Zofran Inj) 4 mg Q4H PRN IV NAUSEA AND/OR VOMITING Last administered on 04/12/18 00:19; Admin Dose 4 MG; Start 04/02/18 at 16:30 Insulin Aspart (Novolog Insulin Pen) 2 unit PC MEALS SC Last administered on 04/11/18 09:15; Admin Dose 2 UNIT; Start 04/05/18 at 18:55; Status Hold Insulin Glargine (Lantus) 3 units QAM SC Last administered on 04/11/18 09:13; Admin Dose 3 UNITS; Start 04/06/18 at 09:00; Status Hold Collagenase (Santyl) 1 applic DAILY TOP Last administered on 04/12/18 11:40; Admin Dose 1 APPLIC; Start 04/08/18 at 02:53 Atorvastatin Calcium (Lipitor) 40 mg QHS PO Last administered on 04/11/18 21:24; Admin Dose 40 MG; Start 04/10/18 at 21:00 Multivit/Ca Carb/ B Cmplx/FA/Prenat (Yuridia-Charito) 1 tab DAILY PO Last administered on 04/12/18 08:48; Admin Dose 1 TAB; Start 04/11/18 at 09:00 Cholecalciferol (Vitamin D) 1,000 unit DAILY PO Last administered on 04/12/18 08:47; Admin Dose 1,000 UNIT; Start 04/11/18 at 09:00 Linagliptin (Tradjenta) 5 mg DAILY PO Last administered on 04/12/18 08:47; Admin Dose 5 MG; Start 04/11/18 at 13:00 Daptomycin 225 mg/ Sodium Chloride 100 ml @ 200 mls/hr Q48H IVPB Last administered on 04/11/18 16:42; Admin Dose 200 MLS/HR; Start 04/11/18 at 14:30 Triamcinolone Acetonide (Kenalog 0.1% Oint) 1 applic BID TOP Last administered on 04/12/18 09:00; Admin Dose 1 APPLIC; Start 04/12/18 at 09:00 LILIAN IBRAHIM MD Apr 12, 2018 12:41
--- NOTE | 2018-04-12 17:03 | CONS ---
Date/Time of Note Date/Time of Note DATE: 04/12/18 TIME: 17:02 Assessment/Plan Assessment/Plan Hospital Course SUBJECTIVE: Awake, looks comfortable, no fevers INDWELLINGS: AV fistula. Allergy: Vancomycin Wound culture growing Corynebacterium group JK and Proteus mirabilis intermittently sensitive to gentamicin Antimicrobials: Levofloxacin, Daptomycin PHYSICAL EXAMINATION: GENERAL: Chronically ill-appearing, wasted, elderly woman who is awake, in no distress. HEENT: Head is atraumatic, normocephalic. NECK: Supple. CHEST: Rise symmetrical. Breath sounds diminished to bases. HEART: S1, S2. ABDOMEN: Soft. Bowel tones are present. EXTREMITIES: With left lower extremity dressing intact. ASSESSMENT: 1. Left lower extremity nonhealing necrotic wound with suspicion for osteomyelitis per podiatry. 2. Severe peripheral arterial disease, status post balloon angioplasty 02/13/18. 3. End-stage renal disease, hemodialysis dependent. 4. ALLERGIES TO VANCOMYCIN. 5. Diabetes and anemia. PLAN: The patient remains stable, on appropriate antibiotics, follow podiatry recommendations Result Diagram: 04/11/18 0430 04/11/18 0429 Results 24hrs Laboratory Tests Test 04/11/18 17:37 04/11/18 21:22 04/12/18 08:31 04/12/18 12:45 Bedside Glucose 115 172 161 232 H Consultation Date/Type/Reason Admit Date/Time Mar 29, 2018 at 17:36 Initial Consult Date Type of Consult ID Requesting Provider: KG FELIX DO Exam/Review of Systems Vital Signs Vitals Vital Signs Date Temp Pulse Resp B/P (MAP) Pulse Ox O2 O2 Flow FiO2 Time Delivery Rate 04/12/18 78 16:45 04/12/18 16 139/67 99 Room Air 14:30 (91) 04/12/18 98.3 07:46 Intake and Output 04/11/18 04/11/18 04/12/18 1515:00 23:00 07:00 IntakeIntake Total 300 ml 300 ml 300 ml OutputOutput Total 0 ml 0 ml BalanceBalance 300 ml 300 ml 300 ml Medications Medications Current Medications Acetaminophen (Tylenol Tab) 650 mg Q6H PRN PO PAIN LEVEL 1-5; Start 03/30/18 at 01:30 Clopidogrel Bisulfate (plaVIX) 75 mg DAILY PO Last administered on 04/12/18 08:49; Admin Dose 75 MG; Start 03/30/18 at 09:00 Dronabinol (Marinol) 2.5 mg DAILY PO Last administered on 04/12/18 08:49; Admin Dose 2.5 MG; Start 03/30/18 at 09:00 Losartan Potassium (Cozaar) 50 mg SuTuThSa@0900,2100 PO Last administered on 04/10/18 20:20; Admin Dose 50 MG; Start 03/31/18 at 09:00 Losartan Potassium (Cozaar) 50 mg MoWeFr@0900 PO Last administered on 04/11/18 09:20; Admin Dose 50 MG; Start 03/30/18 at 09:00 Morphine Sulfate (morphine) 2 mg Q3H PRN PO PAIN LEVEL 6-10 Last administered on 04/12/18 00:20; Admin Dose 2 MG; Start 03/30/18 at 01:30 Ondansetron HCl (Zofran Tab) 4 mg Q6H PRN PO NAUSEA AND/OR VOMITING Last administered on 04/11/18 16:42; Admin Dose 4 MG; Start 03/30/18 at 01:30 Pantoprazole (Protonix Tab) 40 mg AC BREAKFAST PO Last administered on 04/12/18 07:22; Admin Dose 40 MG; Start 03/30/18 at 07:20 Sevelamer Carbonate (Renvela) 1.6 gm WITH MEALS PO Last administered on 04/11/18 09:11; Admin Dose 1.6 GM; Start 03/30/18 at 07:50 Diagnostic Test (Pha) (Accu-Chek) 1 ea 02 XX Last administered on 04/11/18 01:53; Admin Dose 1 EA; Start 03/30/18 at 02:00 Insulin Aspart (Novolog Insulin Pen) NOVOLOG *MILD* ALGORITHM WITH MEALS BEDTIME SC Last administered on 04/12/18 12:47; Admin Dose 3 UNIT; Start 03/30/18 at 07:50 Miscellaneous Information 1 ea NOTE XX ; Start 03/30/18 at 02:00 Glucose (Glutose) 15 gm Q15M PRN PO DECREASED GLUCOSE Last administered on 04/08/18 12:56; Admin Dose 15 GM; Start 03/30/18 at 02:00 Glucose (Glutose) 22.5 gm Q15M PRN PO DECREASED GLUCOSE Last administered on 04/05/18 19:02; Admin Dose 22.5 GM; Start 03/30/18 at 02:00 Dextrose (D50w Syringe) 25 ml Q15M PRN IV DECREASED GLUCOSE Last administered on 04/06/18 09:22; Admin Dose 25 ML; Start 03/30/18 at 02:00 Dextrose (D50w Syringe) 50 ml Q15M PRN IV DECREASED GLUCOSE Last administered on 04/08/18 14:54; Admin Dose 50 ML; Start 03/30/18 at 02:00 Glucagon (Glucagen) 1 mg Q15M PRN IM DECREASED GLUCOSE Last administered on 04/08/18 14:37; Admin Dose 1 MG; Start 03/30/18 at 02:00 Glucose (Glutose) 15 gm Q15M PRN BUCCAL DECREASED GLUCOSE Last administered on 04/04/18 17:57; Admin Dose 15 GM; Start 03/30/18 at 02:00 Metoprolol Succinate (Toprol Xl) 200 mg MoWeFr@0900 PO Last administered on 04/11/18 09:21; Admin Dose 200 MG; Start 03/30/18 at 09:00 Metoprolol Succinate (Toprol Xl) 50 mg SuTuThSa@0900,2100 PO Last administered on 04/10/18 20:20; Admin Dose 50 MG; Start 03/31/18 at 09:00 Diphenhydramine HCl (Benadryl) 50 mg Q4H PRN IV pruritis Last administered on 04/12/18 14:04; Admin Dose 50 MG; Start 03/30/18 at 09:00 Heparin Sodium (Porcine) (Heparin (5000 Units/1ml)) 5,000 unit BID SC Last administered on 04/12/18 08:50; Admin Dose 5,000 UNIT; Start 03/30/18 at 12:00 Levofloxacin (Levaquin) 250 mg Q2D@0600 PO Last administered on 04/11/18 06:42; Admin Dose 250 MG; Start 04/01/18 at 06:00 Sodium Hypochlorite (Dakin'S (Dilute )) 1 applic DAILY IRR Last administered on 04/12/18 11:39; Admin Dose 1 APPLIC; Start 03/31/18 at 09:00 Ondansetron HCl (Zofran Inj) 4 mg Q4H PRN IV NAUSEA AND/OR VOMITING Last administered on 04/12/18 00:19; Admin Dose 4 MG; Start 04/02/18 at 16:30 Insulin Aspart (Novolog Insulin Pen) 2 unit PC MEALS SC Last administered on 04/11/18 09:15; Admin Dose 2 UNIT; Start 04/05/18 at 18:55; Status Hold Insulin Glargine (Lantus) 3 units QAM SC Last administered on 04/11/18 09:13; Admin Dose 3 UNITS; Start 04/06/18 at 09:00; Status Hold Collagenase (Santyl) 1 applic DAILY TOP Last administered on 04/12/18 11:40; Admin Dose 1 APPLIC; Start 04/08/18 at 02:53 Atorvastatin Calcium (Lipitor) 40 mg QHS PO Last administered on 04/11/18 21:24; Admin Dose 40 MG; Start 04/10/18 at 21:00 Multivit/Ca Carb/ B Cmplx/FA/Prenat (Yuridia-Charito) 1 tab DAILY PO Last administered on 04/12/18 08:48; Admin Dose 1 TAB; Start 04/11/18 at 09:00 Cholecalciferol (Vitamin D) 1,000 unit DAILY PO Last administered on 04/12/18 08:47; Admin Dose 1,000 UNIT; Start 04/11/18 at 09:00 Linagliptin (Tradjenta) 5 mg DAILY PO Last administered on 04/12/18 08:47; Admin Dose 5 MG; Start 04/11/18 at 13:00 Daptomycin 225 mg/ Sodium Chloride 100 ml @ 200 mls/hr Q48H IVPB Last administered on 04/11/18 16:42; Admin Dose 200 MLS/HR; Start 04/11/18 at 14:30 Triamcinolone Acetonide (Kenalog 0.1% Oint) 1 applic BID TOP Last administered on 04/12/18 09:00; Admin Dose 1 APPLIC; Start 04/12/18 at 09:00 KRISHNA BURTON NP Apr 12, 2018 17:03
[2018-04-12] MEDS: ATORVASTATIN 40 MG TAB PO SCH (20:29)
[2018-04-13] MEDS: DIPHENHYDRAMINE 50 MG INJ IV PRN ×2 (00:29→20:50)
[2018-04-13] MEDS: morphine LIQ (10 MG/5 ML) CUP PO PRN (00:29)
[2018-04-13] MEDS: ONDANSETRON 4 MG INJ IV PRN ×2 (00:29→20:49)
[2018-04-13] MEDS: ACCU-CHEK XX SCH (01:29)
[2018-04-13] MEDS ORDERED: VITAMIN A & D 5 GM OINT PACKET TOP ONE (02:56)
[2018-04-13 02:57] VITALS: BP 136/62; PULSE 77; RESP 18
[2018-04-13] MEDS: PANTOPRAZOLE (EC) 40 MG TAB PO SCH (07:26)
[2018-04-13] MEDS: SEVELAMER CARBONATE 0.8 GM PKT PO SCH ×3 (08:53→17:53)
[2018-04-13] MEDS: MULTIVIT/CA CARB/B CMPLX/FA TAB PO SCH (08:53)
[2018-04-13] MEDS: CLOPIDOGREL 75 MG TAB PO SCH (08:54)
[2018-04-13] MEDS: CHOLECALCIFEROL 1,000 UNIT TAB PO SCH (08:54)
[2018-04-13] MEDS: LINAGLIPTIN 5 MG TABLET PO SCH (08:54)
[2018-04-13] MEDS: DRONABINOL 2.5 MG CAP PO SCH (08:55)
[2018-04-13] MEDS: INSULIN ASPART [NOVOLOG] 3 ML PEN SC SCH ×4 (08:56→20:44)
[2018-04-13] MEDS: HEPARIN 5,000 UNIT/1 ML VIAL SC SCH ×2 (08:56→20:45)
[2018-04-13] MEDS: COLLAGENASE 5 GM (UD JAR) TOP SCH (08:57)
[2018-04-13] MEDS: TRIAMCINOLONE ACET 0.1% 15 GM OINT TOP SCH ×2 (08:57→20:47)
[2018-04-13] MEDS: SODIUM HYPOCHLORITE (1/40) 1 APPLIC BTL IRR SCH (08:57)
--- NOTE | 2018-04-13 10:41 | PN ---
Date/Time of Note Date/Time of Note DATE: 04/13/18 TIME: 10:41 Assessment/Plan VTE Prophylaxis Risk score (from Nsg)>0 risk: 2 SCD applied (from Nsg): No SCD contraindicated: other Pharmacological prophylaxis: other Lines/Catheters IV Catheter Type (from Nrs): Saline Lock Urinary Cath still in place: No Assessment/Plan Hospital Course SUBJECTIVE: The patient is stable, no events overnight. No fevers, chills, nausea, vomiting. last hd was yesterday OBJECTIVE: HEENT: Head is normocephalic. NECK: Supple. HEART: Regular rate. LUNGS: Show diminished breath sounds at the base. ABDOMEN: Soft, nontender to palpation. No rebound or guarding. EXTREMITIES: Negative for clubbing, cyanosis, no edema. DERMATOLOGIC: No rashes. MUSCULOSKELETAL: No joint effusion. NEUROLOGIC: No change in exam. MEDICATIONS: Have been reviewed. LABORATORY DATA: Has been reviewed. Glucose levels have been stable. ASSESSMENT AND PLAN: 1. Left diabetic foot ulcer with possible osteomyelitis. The patient is currently receiving antibiotic therapy. Continue wound care. Appreciate podiatry and vascular surgery. 2. End-stage renal disease. Plan is for hemodialysis in 1-2 days 3. Diabetes. Greatly appreciate endocrinology's evaluation. Per Dr. Gastelum note, patient may not be type 1 diabetic. Therefore, may not require insulin for glycemic control. The patient has been placed on Tradjenta, will continue to monitor glucose levels closely. Will follow up further recommendations per endocrinology. 4. Anemia. Continue to monitor hemoglobin and hematocrit levels. Continue Epogen as needed. 6. Mineral bone disorder, monitor calcium and phosphorus levels. Continue phos binders. Continue vitamin D analogs. Follow up vitamin D level. We will fo llow up the PTH level. 7. 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 Continue Benadryl. Continue mauricio lysis. 8. Peptic ulcer disease. Continue proton pump inhibitor. 9. History of cerebrovascular accident. Continue medical management. 10. Hypertension. Continue current blood pressure regimen. 11. Coronary artery disease. Continue treatment plan. 12. GI and DVT prophylaxis. DISPOSITION: The patient is pending discharge to SNF once a bed is available. Result Diagram: 04/11/18 5570 04/13/18 0451 Results 24hrs Laboratory Tests Test 04/12/18 12:45 04/12/18 17:49 04/12/18 20:33 04/13/18 01:25 Bedside Glucose 232 H 135 185 231 H Test 04/13/18 04:51 04/13/18 08:49 Sodium Level 142 Potassium Level 4.4 Chloride Level 99 Carbon Dioxide Level 29 Anion Gap 14 H Blood Urea Nitrogen 23 H Creatinine 3.15 H Est Glomerular Filtrat 18 L Rate mL/min Glucose Level 272 H Calcium Level 8.6 Total Bilirubin 0.6 Direct Bilirubin 0.10 Indirect Bilirubin 0.5 Aspartate Amino 28 Transf (AST/SGOT) Alanine 7 L Aminotransferase (ALT/SG PT) Alkaline Phosphatase 214 H Total Protein 9.0 H Albumin 3.5 Globulin 5.50 H Albumin/Globulin Ratio 0.63 Bedside Glucose 187 Exam/Review of Systems Vital Signs Vitals Vital Signs Date Temp Pulse Resp B/P (MAP) Pulse Ox O2 O2 Flow FiO2 Time Delivery Rate 04/13/18 98.2 77 18 136/62 96 Room Air 02:57 (86) Intake and Output 04/12/18 04/12/18 04/13/18 1515:00 23:00 07:00 IntakeIntake Total 200 ml 300 ml 630 ml OutputOutput Total 1400 ml 75 ml BalanceBalance 200 ml -1100 ml 555 ml Medications Medications Current Medications Acetaminophen (Tylenol Tab) 650 mg Q6H PRN PO PAIN LEVEL 1-5; Start 03/30/18 at 01:30 Clopidogrel Bisulfate (plaVIX) 75 mg DAILY PO Last administered on 04/13/18 08:54; Admin Dose 75 MG; Start 03/30/18 at 09:00 Dronabinol (Marinol) 2.5 mg DAILY PO Last administered on 04/13/18 08:55; Admin Dose 2.5 MG; Start 03/30/18 at 09:00 Losartan Potassium (Cozaar) 50 mg SuTuThSa@0900,2100 PO Last administered on 04/12/18 20:29; Admin Dose 50 MG; Start 03/31/18 at 09:00 Losartan Potassium (Cozaar) 50 mg MoWeFr@0900 PO Last administered on 04/11/18 09:20; Admin Dose 50 MG; Start 03/30/18 at 09:00 Morphine Sulfate (morphine) 2 mg Q3H PRN PO PAIN LEVEL 6-10 Last administered on 04/13/18 00:29; Admin Dose 2 MG; Start 03/30/18 at 01:30 Ondansetron HCl (Zofran Tab) 4 mg Q6H PRN PO NAUSEA AND/OR VOMITING Last administered on 04/11/18 16:42; Admin Dose 4 MG; Start 03/30/18 at 01:30 Pantoprazole (Protonix Tab) 40 mg AC BREAKFAST PO Last administered on 04/13/18 07:26; Admin Dose 40 MG; Start 03/30/18 at 07:20 Sevelamer Carbonate (Renvela) 1.6 gm WITH MEALS PO Last administered on 04/13/18 08:53; Admin Dose 1.6 GM; Start 03/30/18 at 07:50 Diagnostic Test (Pha) (Accu-Chek) 1 ea 02 XX Last administered on 04/11/18 01:53; Admin Dose 1 EA; Start 03/30/18 at 02:00 Insulin Aspart (Novolog Insulin Pen) NOVOLOG *MILD* ALGORITHM WITH MEALS BEDTIME SC Last administered on 04/13/18 08:56; Admin Dose 2 UNIT; Start 03/30/18 at 07:50 Miscellaneous Information 1 ea NOTE XX ; Start 03/30/18 at 02:00 Glucose (Glutose) 15 gm Q15M PRN PO DECREASED GLUCOSE Last administered on 04/08/18 12:56; Admin Dose 15 GM; Start 03/30/18 at 02:00 Glucose (Glutose) 22.5 gm Q15M PRN PO DECREASED GLUCOSE Last administered on 04/05/18 19:02; Admin Dose 22.5 GM; Start 03/30/18 at 02:00 Dextrose (D50w Syringe) 25 ml Q15M PRN IV DECREASED GLUCOSE Last administered on 04/06/18 09:22; Admin Dose 25 ML; Start 03/30/18 at 02:00 Dextrose (D50w Syringe) 50 ml Q15M PRN IV DECREASED GLUCOSE Last administered on 04/08/18 14:54; Admin Dose 50 ML; Start 03/30/18 at 02:00 Glucagon (Glucagen) 1 mg Q15M PRN IM DECREASED GLUCOSE Last administered on 04/08/18 14:37; Admin Dose 1 MG; Start 03/30/18 at 02:00 Glucose (Glutose) 15 gm Q15M PRN BUCCAL DECREASED GLUCOSE Last administered on 04/04/18 17:57; Admin Dose 15 GM; Start 03/30/18 at 02:00 Metoprolol Succinate (Toprol Xl) 200 mg MoWeFr@0900 PO Last administered on 04/11/18 09:21; Admin Dose 200 MG; Start 03/30/18 at 09:00 Metoprolol Succinate (Toprol Xl) 50 mg SuTuThSa@0900,2100 PO Last administered on 04/12/18 20:29; Admin Dose 50 MG; Start 03/31/18 at 09:00 Diphenhydramine HCl (Benadryl) 50 mg Q4H PRN IV pruritis Last administered on 04/13/18 00:29; Admin Dose 50 MG; Start 03/30/18 at 09:00 Heparin Sodium (Porcine) (Heparin (5000 Units/1ml)) 5,000 unit BID SC Last administered on 04/13/18 08:56; Admin Dose 5,000 UNIT; Start 03/30/18 at 12:00 Levofloxacin (Levaquin) 250 mg Q2D@0600 PO Last administered on 04/11/18 06:42; Admin Dose 250 MG; Start 04/01/18 at 06:00 Sodium Hypochlorite (Dakin'S (Dilute )) 1 applic DAILY IRR Last administered on 04/13/18 08:57; Admin Dose 1 APPLIC; Start 03/31/18 at 09:00 Ondansetron HCl (Zofran Inj) 4 mg Q4H PRN IV NAUSEA AND/OR VOMITING Last administered on 04/13/18 00:29; Admin Dose 4 MG; Start 04/02/18 at 16:30 Insulin Aspart (Novolog Insulin Pen) 2 unit PC MEALS SC Last administered on 04/11/18 09:15; Admin Dose 2 UNIT; Start 04/05/18 at 18:55; Status Hold Insulin Glargine (Lantus) 3 units QAM SC Last administered on 04/11/18 09:13; Admin Dose 3 UNITS; Start 04/06/18 at 09:00; Status Hold Collagenase (Santyl) 1 applic DAILY TOP Last administered on 04/13/18 08:57; Admin Dose 1 APPLIC; Start 04/08/18 at 02:53 Atorvastatin Calcium (Lipitor) 40 mg QHS PO Last administered on 04/12/18 20:29; Admin Dose 40 MG; Start 04/10/18 at 21:00 Multivit/Ca Carb/ B Cmplx/FA/Prenat (Yuridia-Charito) 1 tab DAILY PO Last administered on 04/13/18 08:53; Admin Dose 1 TAB; Start 04/11/18 at 09:00 Cholecalciferol (Vitamin D) 1,000 unit DAILY PO Last administered on 04/13/18 08:54; Admin Dose 1,000 UNIT; Start 04/11/18 at 09:00 Linagliptin (Tradjenta) 5 mg DAILY PO Last administered on 04/13/18 08:54; Admin Dose 5 MG; Start 04/11/18 at 13:00 Daptomycin 225 mg/ Sodium Chloride 100 ml @ 200 mls/hr Q48H IVPB Last administered on 04/11/18 16:42; Admin Dose 200 MLS/HR; Start 04/11/18 at 14:30 Triamcinolone Acetonide (Kenalog 0.1% Oint) 1 applic BID TOP Last administered on 04/13/18 08:57; Admin Dose 1 APPLIC; Start 04/12/18 at 09:00 JIMMY QUINTANILLA DO Apr 13, 2018 10:41
[2018-04-13 11:25] VITALS: BP 136/67; PULSE 79
[2018-04-13] MEDS: LEVOFLOXACIN 250 MG TAB PO SCH (13:06)
[2018-04-13] MEDS: LOSARTAN 50 MG TAB PO SCH (13:09)
[2018-04-13] MEDS: METOPROLOL (XL) 100 MG TAB PO SCH (13:11)
[2018-04-13 14:00] VITALS: BP 135/78; PULSE 92; RESP 19
--- NOTE | 2018-04-13 14:27 | CONS ---
Date/Time of Note Date/Time of Note DATE: 04/13/18 TIME: 14:20 Assessment/Plan Assessment/Plan Hospital Course Meena 62 year-old -[place] female who I have seen twice before in consultation both of the times as an inpatient. She had moved here from [place] but has a history of complications of diabetes including end-stage renal disease. She has had some skin wound infections that have required hospitalization, and may have osteomyelitis. She is extremely insulin sensitive and requires very small dosages of insulin. In addition she may have delayed gastric emptying which may alter how she absorbs the glucose from a meal. 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 I will add in low-dose bromocriptine to help with the insulin resistance. Please note bromocriptine which is a drug for Parkinson's disease as well as prolactinoma is also marketed under the brand name Cycloset for diabetes Result Diagram: 04/11/18 0430 04/13/18 0451 Results 24hrs Laboratory Tests Test 04/12/18 17:49 04/12/18 20:33 04/13/18 01:25 04/13/18 04:51 Bedside Glucose 135 185 231 H Sodium Level 142 Potassium Level 4.4 Chloride Level 99 Carbon Dioxide Level 29 Anion Gap 14 H Blood Urea Nitrogen 23 H Creatinine 3.15 H Est Glomerular Filtrat 18 L Rate mL/min Glucose Level 272 H Calcium Level 8.6 Total Bilirubin 0.6 Direct Bilirubin 0.10 Indirect Bilirubin 0.5 Aspartate Amino 28 Transf (AST/SGOT) Alanine 7 L Aminotransferase (ALT/SG PT) Alkaline Phosphatase 214 H Total Protein 9.0 H Albumin 3.5 Globulin 5.50 H Albumin/Globulin Ratio 0.63 Test 04/13/18 08:49 04/13/18 13:03 Bedside Glucose 187 165 Consultation Date/Type/Reason Admit Date/Time Mar 29, 2018 at 17:36 Initial Consult Date 04/05/18 Type of Consult Endocrinology Reason for Consultation Diabetes mellitus type 2 with end-stage renal disease; insulin sensitivity; peripheral vascular disease; peripheral neuropathy Requesting Provider: KG FELIX DO 24 HR Interval Summary Free Text/Dictation She reports no negative side effects to the oral agents for diabetes Constitutional: no complaints Detailed Summary Gastrointestinal: no complaints Endocrine: no complaints Exam/Review of Systems Vital Signs Vitals Vital Signs Date Temp Pulse Resp B/P (MAP) Pulse Ox O2 O2 Flow FiO2 Time Delivery Rate 04/13/18 79 136/67 11:25 (90) 04/13/18 98.2 18 96 Room Air 02:57 Intake and Output 04/12/18 04/12/18 04/13/18 1515:00 23:00 07:00 IntakeIntake Total 200 ml 300 ml 630 ml OutputOutput Total 1400 ml 75 ml BalanceBalance 200 ml -1100 ml 555 ml Exam Constitutional: alert, oriented Respiratory: clear to auscultation, normal air movement Cardiovascular: regular rate and rhythm, nl pulses Gastrointestinal: soft, nl liver, spleen, non-tender Medications Medications Current Medications Acetaminophen (Tylenol Tab) 650 mg Q6H PRN PO PAIN LEVEL 1-5; Start 03/30/18 at 01:30 Clopidogrel Bisulfate (plaVIX) 75 mg DAILY PO Last administered on 04/13/18 08:54; Admin Dose 75 MG; Start 03/30/18 at 09:00 Dronabinol (Marinol) 2.5 mg DAILY PO Last administered on 04/13/18 08:55; Admin Dose 2.5 MG; Start 03/30/18 at 09:00 Losartan Potassium (Cozaar) 50 mg SuTuThSa@0900,2100 PO Last administered on 04/12/18 20:29; Admin Dose 50 MG; Start 03/31/18 at 09:00 Losartan Potassium (Cozaar) 50 mg MoWeFr@0900 PO Last administered on 04/11/18 09:20; Admin Dose 50 MG; Start 03/30/18 at 09:00 Morphine Sulfate (morphine) 2 mg Q3H PRN PO PAIN LEVEL 6-10 Last administered on 04/13/18 00:29; Admin Dose 2 MG; Start 03/30/18 at 01:30 Ondansetron HCl (Zofran Tab) 4 mg Q6H PRN PO NAUSEA AND/OR VOMITING Last administered on 04/11/18 16:42; Admin Dose 4 MG; Start 03/30/18 at 01:30 Pantoprazole (Protonix Tab) 40 mg AC BREAKFAST PO Last administered on 07:26; Admin Dose 40 MG; Start 03/30/18 at 07:20 Sevelamer Carbonate (Renvela) 1.6 gm WITH MEALS PO Last administered on 04/13/18 13:07; Admin Dose 1.6 GM; Start 03/30/18 at 07:50 Diagnostic Test (Pha) (Accu-Chek) 1 ea 02 XX Last administered on 04/11/18 01:53; Admin Dose 1 EA; Start 03/30/18 at 02:00 Insulin Aspart (Novolog Insulin Pen) NOVOLOG *MILD* ALGORITHM WITH MEALS BEDTIME SC Last administered on 04/13/18 13:08; Admin Dose 1 UNIT; Start 03/30/18 at 07:50 Miscellaneous Information 1 ea NOTE XX ; Start 03/30/18 at 02:00 Glucose (Glutose) 15 gm Q15M PRN PO DECREASED GLUCOSE Last administered on 04/08/18 12:56; Admin Dose 15 GM; Start 03/30/18 at 02:00 Glucose (Glutose) 22.5 gm Q15M PRN PO DECREASED GLUCOSE Last administered on 04/05/18 19:02; Admin Dose 22.5 GM; Start 03/30/18 at 02:00 Dextrose (D50w Syringe) 25 ml Q15M PRN IV DECREASED GLUCOSE Last administered on 04/06/18 09:22; Admin Dose 25 ML; Start 03/30/18 at 02:00 Dextrose (D50w Syringe) 50 ml Q15M PRN IV DECREASED GLUCOSE Last administered on 04/08/18 14:54; Admin Dose 50 ML; Start 03/30/18 at 02:00 Glucagon (Glucagen) 1 mg Q15M PRN IM DECREASED GLUCOSE Last administered on 04/08/18 14:37; Admin Dose 1 MG; Start 03/30/18 at 02:00 Glucose (Glutose) 15 gm Q15M PRN BUCCAL DECREASED GLUCOSE Last administered on 04/04/18 17:57; Admin Dose 15 GM; Start 03/30/18 at 02:00 Metoprolol Succinate (Toprol Xl) 200 mg MoWeFr@0900 PO Last administered on 04/11/18 09:21; Admin Dose 200 MG; Start 03/30/18 at 09:00 Metoprolol Succinate (Toprol Xl) 50 mg SuTuThSa@0900,2100 PO Last administered on 04/12/18 20:29; Admin Dose 50 MG; Start 03/31/18 at 09:00 Diphenhydramine HCl (Benadryl) 50 mg Q4H PRN IV pruritis Last administered on 04/13/18 00:29; Admin Dose 50 MG; Start 03/30/18 at 09:00 Heparin Sodium (Porcine) (Heparin (5000 Units/1ml)) 5,000 unit BID SC Last administered on 04/13/18 08:56; Admin Dose 5,000 UNIT; Start 03/30/18 at 12:00 Levofloxacin (Levaquin) 250 mg Q2D@0600 PO Last administered on 04/13/18 13:06; Admin Dose 250 MG; Start 04/01/18 at 06:00 Sodium Hypochlorite (Dakin'S (Dilute )) 1 applic DAILY IRR Last administered on 04/13/18 08:57; Admin Dose 1 APPLIC; Start 03/31/18 at 09:00 Ondansetron HCl (Zofran Inj) 4 mg Q4H PRN IV NAUSEA AND/OR VOMITING Last administered on 04/13/18 00:29; Admin Dose 4 MG; Start 04/02/18 at 16:30 Collagenase (Santyl) 1 applic DAILY TOP Last administered on 04/13/18 08:57; Admin Dose 1 APPLIC; Start 04/08/18 at 02:53 Atorvastatin Calcium (Lipitor) 40 mg QHS PO Last administered on 04/12/18 20:29; Admin Dose 40 MG; Start 04/10/18 at 21:00 Multivit/Ca Carb/ B Cmplx/FA/Prenat (Yuridia-Charito) 1 tab DAILY PO Last administered on 04/13/18 08:53; Admin Dose 1 TAB; Start 04/11/18 at 09:00 Cholecalciferol (Vitamin D) 1,000 unit DAILY PO Last administered on 04/13/18 08:54; Admin Dose 1,000 UNIT; Start 04/11/18 at 09:00 Linagliptin (Tradjenta) 5 mg DAILY PO Last administered on 04/13/18 08:54; Admin Dose 5 MG; Start 04/11/18 at 13:00 Daptomycin 225 mg/ Sodium Chloride 100 ml @ 200 mls/hr Q48H IVPB Last admin istered on 04/11/18at 16:42; Admin Dose 200 MLS/HR; Start 04/11/18 at 14:30 Triamcinolone Acetonide (Kenalog 0.1% Oint) 1 applic BID TOP Last administered on 04/13/18at 08:57; Admin Dose 1 APPLIC; Start 04/12/18 at 09:00 LILIAN IBRAHIM MD Apr 13, 2018 14:27
--- NOTE | 2018-04-13 14:38 | CONS ---
Date/Time of Note Date/Time of Note DATE: 04/13/18 TIME: 14:38 Assessment/Plan Assessment/Plan Hospital Course SUBJECTIVE: No acute events overnight patient looks comfortable, sitting in bed and eating, no fevers no labs this morning INDWELLINGS: AV fistula. Allergy: Vancomycin Wound culture growing Corynebacterium group JK and Proteus mirabilis intermittently sensitive to gentamicin Antimicrobials: Levofloxacin, Daptomycin PHYSICAL EXAMINATION: GENERAL: Chronically ill-appearing, wasted, elderly woman who is awake, in no distress. HEENT: Head is atraumatic, normocephalic. NECK: Supple. CHEST: Rise symmetrical. Breath sounds diminished to bases. HEART: S1, S2. ABDOMEN: Soft. Bowel tones are present. EXTREMITIES: With left lower extremity dressing intact. ASSESSMENT: 1. Left lower extremity nonhealing necrotic wound with suspicion for osteomyelitis per podiatry. 2. Severe peripheral arterial disease, status post balloon angioplasty 02/13/18. 3. End-stage renal disease, hemodialysis dependent. 4. ALLERGIES TO VANCOMYCIN. 5. Diabetes and anemia. PLAN: The patient remains stable, on appropriate antibiotics, continue wound care per podiatry Result Diagram: 04/11/18 0430 04/13/18 0451 Results 24hrs Laboratory Tests Test 04/12/18 17:49 04/12/18 20:33 04/13/18 01:25 04/13/18 04:51 Bedside Glucose 135 185 231 H Sodium Level 142 Potassium Level 4.4 Chloride Level 99 Carbon Dioxide Level 29 Anion Gap 14 H Blood Urea Nitrogen 23 H Creatinine 3.15 H Est Glomerular Filtrat 18 L Rate mL/min Glucose Level 272 H Calcium Level 8.6 Total Bilirubin 0.6 Direct Bilirubin 0.10 Indirect Bilirubin 0.5 Aspartate Amino 28 Transf (AST/SGOT) Alanine 7 L Aminotransferase (ALT/SG PT) Alkaline Phosphatase 214 H Total Protein 9.0 H Albumin 3.5 Globulin 5.50 H Albumin/Globulin Ratio 0.63 Test 04/13/18 08:49 04/13/18 13:03 Bedside Glucose 187 165 Consultation Date/Type/Reason Admit Date/Time Mar 29, 2018 at 17:36 Initial Consult Date Type of Consult ID Requesting Provider: KG FELIX DO Exam/Review of Systems Vital Signs Vitals Vital Signs Date Temp Pulse Resp B/P (MAP) Pulse Ox O2 O2 Flow FiO2 Time Delivery Rate 1/4/19 79 136/67 11:25 (90) 04/13/18 98.2 18 96 Room Air 02:57 Intake and Output 04/12/18 04/12/18 04/13/18 1515:00 23:00 07:00 IntakeIntake Total 200 ml 300 ml 630 ml OutputOutput Total 1400 ml 75 ml BalanceBalance 200 ml -1100 ml 555 ml Medications Medications Current Medications Acetaminophen (Tylenol Tab) 650 mg Q6H PRN PO PAIN LEVEL 1-5; Start 03/30/18 at 01:30 Clopidogrel Bisulfate (plaVIX) 75 mg DAILY PO Last administered on 04/13/18 08:54; Admin Dose 75 MG; Start 03/30/18 at 09:00 Dronabinol (Marinol) 2.5 mg DAILY PO Last administered on 04/13/18 08:55; Admin Dose 2.5 MG; Start 03/30/18 at 09:00 Losartan Potassium (Cozaar) 50 mg SuTuThSa@0900,2100 PO Last administered on 04/12/18 20:29; Admin Dose 50 MG; Start 03/31/18 at 09:00 Losartan Potassium (Cozaar) 50 mg MoWeFr@0900 PO Last administered on 04/11/18 09:20; Admin Dose 50 MG; Start 03/30/18 at 09:00 Morphine Sulfate (morphine) 2 mg Q3H PRN PO PAIN LEVEL 6-10 Last administered on 04/13/18 00:29; Admin Dose 2 MG; Start 03/30/18 at 01:30 Ondansetron HCl (Zofran Tab) 4 mg Q6H PRN PO NAUSEA AND/OR VOMITING Last adm inistered on 04/11/18 16:42; Admin Dose 4 MG; Start 03/30/18 at 01:30 Pantoprazole (Protonix Tab) 40 mg AC BREAKFAST PO Last administered on 04/13/18 07:26; Admin Dose 40 MG; Start 03/30/18 at 07:20 Sevelamer Carbonate (Renvela) 1.6 gm WITH MEALS PO Last administered on 04/13/18 13:07; Admin Dose 1.6 GM; Start 03/30/18 at 07:50 Diagnostic Test (Pha) (Accu-Chek) 1 ea 02 XX Last administered on 04/11/18 01:53; Admin Dose 1 EA; Start 03/30/18 at 02:00 Insulin Aspart (Novolog Insulin Pen) NOVOLOG *MILD* ALGORITHM WITH MEALS BEDTIME SC Last administered on 04/13/18 13:08; Admin Dose 1 UNIT; Start 03/30/18 at 07:50 Miscellaneous Information 1 ea NOTE XX ; Start 03/30/18 at 02:00 Glucose (Glutose) 15 gm Q15M PRN PO DECREASED GLUCOSE Last administered on 04/08/18 12:56; Admin Dose 15 GM; Start 03/30/18 at 02:00 Glucose (Glutose) 22.5 gm Q15M PRN PO DECREASED GLUCOSE Last administered on 04/05/18 19:02; Admin Dose 22.5 GM; Start 03/30/18 at 02:00 Dextrose (D50w Syringe) 25 ml Q15M PRN IV DECREASED GLUCOSE Last administered on 04/06/18 09:22; Admin Dose 25 ML; Start 03/30/18 at 02:00 Dextrose (D50w Syringe) 50 ml Q15M PRN IV DECREASED GLUCOSE Last administered on 04/08/18 14:54; Admin Dose 50 ML; Start 03/30/18 at 02:00 Glucagon (Glucagen) 1 mg Q15M PRN IM DECREASED GLUCOSE Last administered on 04/08/18 14:37; Admin Dose 1 MG; Start 03/30/18 at 02:00 Glucose (Glutose) 15 gm Q15M PRN BUCCAL DECREASED GLUCOSE Last administered on 04/04/18 17:57; Admin Dose 15 GM; Start 03/30/18 at 02:00 Metoprolol Succinate (Toprol Xl) 200 mg MoWeFr@0900 PO Last administered on 04/11/18 09:21; Admin Dose 200 MG; Start 03/30/18 at 09:00 Metoprolol Succinate (Toprol Xl) 50 mg SuTuThSa@0900,2100 PO Last administered on 04/12/18 20:29; Admin Dose 50 MG; Start 03/31/18 at 09:00 Diphenhydramine HCl (Benadryl) 50 mg Q4H PRN IV pruritis Last administered on 04/13/18 00:29; Admin Dose 50 MG; Start 03/30/18 at 09:00 Heparin Sodium (Porcine) (Heparin (5000 Units/1ml)) 5,000 unit BID SC Last administered on 04/13/18 08:56; Admin Dose 5,000 UNIT; Start 03/30/18 at 12:00 Levofloxacin (Levaquin) 250 mg Q2D@0600 PO Last administered on 04/13/18 13:06; Admin Dose 250 MG; Start 04/01/18 at 06:00 Sodium Hypochlorite (Dakin'S (Dilute )) 1 applic DAILY IRR Last administered on 04/13/18 08:57; Admin Dose 1 APPLIC; Start 03/31/18 at 09:00 Ondansetron HCl (Zofran Inj) 4 mg Q4H PRN IV NAUSEA AND/OR VOMITING Last administered on 04/13/18 00:29; Admin Dose 4 MG; Start 04/02/18 at 16:30 Collagenase (Santyl) 1 applic DAILY TOP Last administered on 04/13/18 08:57; Admin Dose 1 APPLIC; Start 04/08/18 at 02:53 Atorvastatin Calcium (Lipitor) 40 mg QHS PO Last administered on 04/12/18 20:29; Admin Dose 40 MG; Start 04/10/18 at 21:00 Multivit/Ca Carb/ B Cmplx/FA/Prenat (Yuridia-Charito) 1 tab DAILY PO Last administered on 04/13/18 08:53; Admin Dose 1 TAB; Start 04/11/18 at 09:00 Cholecalciferol (Vitamin D) 1,000 unit DAILY PO Last administered on 04/13/18 0 8:54; Admin Dose 1,000 UNIT; Start 04/11/18 at 09:00 Linagliptin (Tradjenta) 5 mg DAILY PO Last administered on 04/13/18 08:54; Admin Dose 5 MG; Start 04/11/18 at 13:00 Daptomycin 225 mg/ Sodium Chloride 100 ml @ 200 mls/hr Q48H IVPB Last administered on 04/11/18 16:42; Admin Dose 200 MLS/HR; Start 04/11/18 at 14:30 Triamcinolone Acetonide (Kenalog 0.1% Oint) 1 applic BID TOP Last administered on 04/13/18 08:57; Admin Dose 1 APPLIC; Start 04/12/18 at 09:00 Bromocriptine Mesylate (Parlodel) 1.25 mg DAILY PO ; Start 04/13/18 at 14:30 KRISHNA BURTON NP Apr 13, 2018 14:38
[2018-04-13] MEDS: DAPTOMYCIN IVPB SCH (15:16)
[2018-04-13] MEDS: SOD CHLORIDE 0.9% IVPB SCH (15:16)
[2018-04-13] MEDS: BROMOCRIPTINE 2.5 MG TAB PO SCH (16:42)
[2018-04-13 20:04] VITALS: BP 110/62; PULSE 88; RESP 20
[2018-04-13] MEDS: ATORVASTATIN 40 MG TAB PO SCH (20:43)
[2018-04-14] VITALS (18 sets, daily range): BP systolic 108–148; BP diastolic 60–88; PULSE 73–98; RESP 16–18
[2018-04-14] MEDS: ONDANSETRON 4 MG INJ IV PRN (01:49)
[2018-04-14] MEDS: DIPHENHYDRAMINE 50 MG INJ IV PRN ×3 (01:49→17:43)
[2018-04-14] MEDS: ACCU-CHEK XX SCH ×2 (02:00→22:34)
[2018-04-14] MEDS: PANTOPRAZOLE (EC) 40 MG TAB PO SCH (06:24)
[2018-04-14] MEDS: CLOPIDOGREL 75 MG TAB PO SCH (08:24)
[2018-04-14] MEDS: DRONABINOL 2.5 MG CAP PO SCH (08:25)
[2018-04-14] MEDS: BROMOCRIPTINE 2.5 MG TAB PO SCH (08:25)
[2018-04-14] MEDS: LOSARTAN 50 MG TAB PO SCH ×2 (08:26→22:21)
[2018-04-14] MEDS: CHOLECALCIFEROL 1,000 UNIT TAB PO SCH (08:26)
[2018-04-14] MEDS: INSULIN ASPART [NOVOLOG] 3 ML PEN SC SCH ×4 (09:00→21:00)
[2018-04-14] MEDS: SEVELAMER CARBONATE 0.8 GM PKT PO SCH ×3 (09:12→17:46)
[2018-04-14] MEDS: SODIUM HYPOCHLORITE (1/40) 1 APPLIC BTL IRR SCH (09:13)
[2018-04-14] MEDS: LINAGLIPTIN 5 MG TABLET PO SCH (09:14)
[2018-04-14] MEDS: HEPARIN 5,000 UNIT/1 ML VIAL SC SCH ×2 (09:16→22:18)
[2018-04-14] MEDS: TRIAMCINOLONE ACET 0.1% 15 GM OINT TOP SCH ×2 (09:19→21:00)
[2018-04-14] MEDS: COLLAGENASE 5 GM (UD JAR) TOP SCH (09:19)
[2018-04-14] MEDS: METOPROLOL (XL) 50 MG TAB PO SCH ×2 (09:21→22:22)
[2018-04-14] MEDS: MULTIVIT/CA CARB/B CMPLX/FA TAB PO SCH (09:21)
--- NOTE | 2018-04-14 10:12 | CONS ---
Date/Time of Note Date/Time of Note DATE: 04/14/18 TIME: 10:11 Consult Date/Type/Reason Admit Date/Time Mar 29, 2018 at 17:36 Initial Consult Date 04/05/18 Requesting Provider: KG FELIX DO Objective Vital Signs Date Temp Pulse Resp B/P (MAP) Pulse Ox O2 O2 Flow FiO2 Time Delivery Rate 04/14/18 98.0 73 18 133/75 92 Room Air 08:31 (94) Intake and Output 04/13/18 04/13/18 04/14/18 1515:00 23:00 07:00 IntakeIntake Total 400 ml 420 ml 280 ml OutputOutput Total 60 ml BalanceBalance 400 ml 420 ml 220 ml Results/Medications Result Diagram: 04/11/18 0430 04/13/18 0451 Results 24 hrs Laboratory Tests Test 04/13/18 13:03 04/13/18 17:45 04/13/18 20:39 04/14/18 01:58 Bedside Glucose 165 203 189 101 Test 04/14/18 08:54 Bedside Glucose 133 Medications Current Medications Acetaminophen (Tylenol Tab) 650 mg Q6H PRN PO PAIN LEVEL 1-5; Start 03/30/18 at 01:30 Clopidogrel Bisulfate (plaVIX) 75 mg DAILY PO Last administered on 04/14/18 08:24; Admin Dose 75 MG; Start 03/30/18 at 09:00 Dronabinol (Marinol) 2.5 mg DAILY PO Last administered on 04/14/18 08:25; Admin Dose 2.5 MG; Start 03/30/18 at 09:00 Losartan Potassium (Cozaar) 50 mg SuTuThSa@0900,2100 PO Last administered on 04/14/18 08:26; Admin Dose 50 MG; Start 03/31/18 at 09:00 Losartan Potassium (Cozaar) 50 mg MoWeFr@0900 PO Last administered on 04/11/18 09:20; Admin Dose 50 MG; Start 03/30/18 at 09:00 Morphine Sulfate (morphine) 2 mg Q3H PRN PO PAIN LEVEL 6-10 Last administered on 04/13/18 00:29; Admin Dose 2 MG; Start 03/30/18 at 01:30 Ondansetron HCl (Zofran Tab) 4 mg Q6H PRN PO NAUSEA AND/OR VOMITING Last administered on 04/11/18 16:42; Admin Dose 4 MG; Start 03/30/18 at 01:30 Pantoprazole (Protonix Tab) 40 mg AC BREAKFAST PO Last administered on 04/14/18 06:24; Admin Dose 40 MG; Start 03/30/18 at 07:20 Sevelamer Carbonate (Renvela) 1.6 gm WITH MEALS PO Last administered on 04/14/18 09:12; Admin Dose 1.6 GM; Start 03/30/18 at 07:50 Diagnostic Test (Pha) (Accu-Chek) 1 ea 02 XX Last administered on 04/11/18 01:53; Admin Dose 1 EA; Start 03/30/18 at 02:00 Insulin Aspart (Novolog Insulin Pen) NOVOLOG *MILD* ALGORITHM WITH MEALS BEDTIME SC Last administered on 04/13/18 20:44; Admin Dose 1 UNIT; Start 03/30/18 at 07:50 Miscellaneous Information 1 ea NOTE XX ; Start 03/30/18 at 02:00 Glucose (Glutose) 15 gm Q15M PRN PO DECREASED GLUCOSE Last administered on 04/08/18 12:56; Admin Dose 15 GM; Start 03/30/18 at 02:00 Glucose (Glutose) 22.5 gm Q15M PRN PO DECREASED GLUCOSE Last administered on 04/05/18 19:02; Admin Dose 22.5 GM; Start 03/30/18 at 02:00 Dextrose (D50w Syringe) 25 ml Q15M PRN IV DECREASED GLUCOSE Last administered on 04/06/18 09:22; Admin Dose 25 ML; Start 03/30/18 at 02:00 Dextrose (D50w Syringe) 50 ml Q15M PRN IV DECREASED GLUCOSE Last administered on 04/08/18 14:54; Admin Dose 50 ML; Start 03/30/18 at 02:00 Glucagon (Glucagen) 1 mg Q15M PRN IM DECREASED GLUCOSE Last administered on 04/08/18 14:37; Admin Dose 1 MG; Start 03/30/18 at 02:00 Glucose (Glutose) 15 gm Q15M PRN BUCCAL DECREASED GLUCOSE Last administered on 04/04/18 17:57; Admin Dose 15 GM; Start 03/30/18 at 02:00 Metoprolol Succinate (Toprol Xl) 200 mg MoWeFr@0900 PO Last administered on 04/11/18 09:21; Admin Dose 200 MG; Start 03/30/18 at 09:00 Metoprolol Succinate (Toprol Xl) 50 mg SuTuThSa@0900,2100 PO Last administered on 04/14/18 09:21; Admin Dose 50 MG; Start 03/31/18 at 09:00 Diphenhydramine HCl (Benadryl) 50 mg Q4H PRN IV pruritis Last administered on 04/14/18 08:18; Admin Dose 50 MG; Start 03/30/18 at 09:00 Heparin Sodium (Porcine) (Heparin (5000 Units/1ml)) 5,000 unit BID SC Last administered on 04/14/18 09:16; Admin Dose 5,000 UNIT; Start 03/30/18 at 12:00 Levofloxacin (Levaquin) 250 mg Q2D@0600 PO Last administered on 04/13/18 13:06; Admin Dose 250 MG; Start 04/01/18 at 06:00 Sodium Hypochlorite (Dakin'S (Dilute )) 1 applic DAILY IRR Last adm inistered on 04/14/18 09:13; Admin Dose 1 APPLIC; Start 03/31/18 at 09:00 Ondansetron HCl (Zofran Inj) 4 mg Q4H PRN IV NAUSEA AND/OR VOMITING Last administered on 04/14/18 01:49; Admin Dose 4 MG; Start 04/02/18 at 16:30 Collagenase (Santyl) 1 applic DAILY TOP Last administered on 04/14/18 09:19; Admin Dose 1 APPLIC; Start 04/08/18 at 02:53 Atorvastatin Calcium (Lipitor) 40 mg QHS PO Last administered on 04/13/18 20:43; Admin Dose 40 MG; Start 04/10/18 at 21:00 Multivit/Ca Carb/ B Cmplx/FA/Prenat (Yuridia-Charito) 1 tab DAILY PO Last administered on 04/14/18 09:21; Admin Dose 1 TAB; Start 04/11/18 at 09:00 Cholecalciferol (Vitamin D) 1,000 unit DAILY PO Last administered on 04/14/18 08:26; Admin Dose 1,000 UNIT; Start 04/11/18 at 09:00 Linagliptin (Tradjenta) 5 mg DAILY PO Last administered on 04/14/18at 09:14; Admin Dose 5 MG; Start 04/11/18 at 13:00 Daptomycin 225 mg/ Sodium Chloride 100 ml @ 200 mls/hr Q48H IVPB Last administered on 04/13/18at 15:16; Admin Dose 200 MLS/HR; Start 04/11/18 at 14:30 Triamcinolone Acetonide (Kenalog 0.1% Oint) 1 applic BID TOP Last administered on 04/14/18at 09:19; Admin Dose 1 APPLIC; Start 04/12/18 at 09:00 Bromocriptine Mesylate (Parlodel) 1.25 mg DAILY PO Last administered on 04/14/18at 08:25; Admin Dose 1.25 MG; Start 04/13/18 at 14:30 Assessment/Plan Chief Complaint/Hosp Course SUBJECTIVE: The patient is stable, no events overnight. No fevers, chills, nausea, vomiting. planned hd today OBJECTIVE: HEENT: Head is normocephalic. NECK: Supple. HEART: Regular rate. LUNGS: Show diminished breath sounds at the base. ABDOMEN: Soft, nontender to palpation. No rebound or guarding. EXTREMITIES: Negative for clubbing, cyanosis, no edema. DERMATOLOGIC: No rashes. MUSCULOSKELETAL: No joint effusion. NEUROLOGIC: No change in exam. MEDICATIONS: Have been reviewed. LABORATORY DATA: Has been reviewed. Glucose levels have been stable. ASSESSMENT AND PLAN: 1. Left diabetic foot ulcer with possible osteomyelitis. The patient is currently receiving antibiotic therapy. Continue wound care. Appreciate podiatry and vascular surgery. 2. End-stage renal disease. Plan is for hemodialysis today, adjust meds, watch volume status and lytes. 3. Diabetes. Greatly appreciate endocrinology's evaluation. Per Dr. Gastelum note, patient may not be type 1 diabetic. Therefore, may not require insulin for glycemic control. The patient has been placed on Tradjenta, will continue to monitor glucose levels closely. Will follow up further recommendations per endocrinology. 4. Anemia. Continue to monitor hemoglobin and hematocrit levels. Continue Epogen as needed. 6. Mineral bone disorder, monitor calcium and phosphorus levels. Continue phos binders. Continue vitamin D analogs. Follow up vitamin D level. We will follow up the PTH level. 7. 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 Continue Benadryl. Continue dialysis. 8. Peptic ulcer disease. Continue proton pump inhibitor. 9. History of cerebrovascular accident. Continue medical management. 10. Hypertension. Continue current blood pressure regimen. 11. Coronary artery disease. Continue treatment plan. 12. GI and DVT prophylaxis. DISPOSITION: The patient is pending discharge to SNF once a bed is available GAGE WOOTEN MD Apr 14, 2018 10:12
--- NOTE | 2018-04-14 13:40 | CONS ---
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 previously thought to be T1DM. However, this has been proven untrue by c-peptide value. Pt. started on linagliptin 5 mg/d per Dr. Ahn. This was inadequate so pt. had bromocriptine added. Now hallucinating. Likely due to bromocriptine. Will d/c this. Will add nateglinide 60 mg qac to improve mealtime control. Monitor BG values. Result Diagram: 04/11/18 0430 04/13/18 0451 Results 24hrs Laboratory Tests Test 04/13/18 17:45 04/13/18 20:39 04/14/18 01:58 04/14/18 08:54 Bedside Glucose 203 189 101 133 Test 04/14/18 12:54 Bedside Glucose 185 Consultation Date/Type/Reason Admit Date/Time Mar 29, 2018 at 17:36 Initial Consult Date 04/05/18 Type of Consult Endocrinology Reason for Consultation DM management Requesting Provider: KG FELIX DO 24 HR Interval Summary Constitutional: no complaints (feels about the same) Detailed Summary Respiratory: no complaints Cardiovascular: no complaints Gastrointestinal: no complaints Genitourinary: no complaints Musculoskeletal: bone/joint pain (BLE feet and ankles) Neurologic: no complaints Psychological: confusion (hallucinating per RN's) Exam/Review of Systems Vital Signs Vitals VS - Last 72 Hours, by Label Date Temp Pulse Resp B/P (MAP) Pulse Ox O2 O2 Flow FiO2 Time Delivery Rate 04/14/18 98.0 73 18 133/75 92 Room Air 08:31 (94) 04/14/18 98.0 82 18 108/60 95 Room Air 02:56 (76) 04/13/18 98.3 88 20 110/62 96 Room Air 20:04 (78) 04/13/18 97.7 92 19 135/78 99 14:00 (97) 04/13/18 79 136/67 11:25 (90) 04/13/18 98.2 77 18 136/62 96 Room Air 02:57 (86) 04/12/18 98.5 78 20 138/62 96 Room Air 20:07 (87) 04/12/18 79 16 167/69 99 Room Air 17:53 (101) 04/12/18 77 17:30 04/12/18 78 17:15 04/12/18 78 17:00 04/12/18 78 16:45 04/12/18 79 16:30 04/12/18 78 16:15 04/12/18 79 16:00 04/12/18 79 15:45 04/12/18 81 15:30 04/12/18 80 15:15 04/12/18 80 15:00 04/12/18 77 14:45 04/12/18 87 16 139/67 99 Room Air 14:30 (91) 04/12/18 79 14:30 04/12/18 98.3 79 18 122/65 98 Room Air 07:46 (84) 04/12/18 98.5 75 18 106/76 94 02:05 (86) 04/11/18 98.1 82 18 139/67 94 19:56 (91) 04/11/18 97.6 74 18 126/70 96 Room Air 14:00 (88) Vital Signs Date Temp Pulse Resp B/P (MAP) Pulse Ox O2 O2 Flow FiO2 Time Delivery Rate 04/14/18 98.0 73 18 133/75 92 Room Air 08:31 (94) Intake and Output 04/13/18 04/13/18 04/14/18 1515:00 23:00 07:00 IntakeIntake Total 400 ml 420 ml 280 ml OutputOutput Total 60 ml BalanceBalance 400 ml 420 ml 220 ml Exam Constitutional: alert, frail; No oriented Psych: confusion Respiratory: clear to auscultation, normal air movement Cardiovascular: regular rate and rhythm, nl pulses, edema (1+ BLE) Gastrointestinal: soft, nl liver, spleen, non-tender, bowel sounds; No mass, No rebound or guarding Musculoskeletal: nl extremities to inspection Extremities: normal pulses, edema (1+ BLE); No cyanosis, No clubbing 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, nl mental status, nl speech, nl strength Additional Comments Bedside Glucose - 72 Hours Test 04/11/18 14:42 04/11/18 17:37 04/11/18 21:22 04/12/18 08:31 Bedside 111 115 172 161 Glucose mg/dL (70-220) mg/dL (70-220) mg/dL (70-220) mg/dL (70-220) Test 04/12/18 12:45 04/12/18 17:49 04/12/18 20:33 04/13/18 01:25 Bedside 232 135 185 231 Glucose mg/dL (70-220) mg/dL (70-220) mg/dL (70-220) mg/dL (70-220) H H Test 04/13/18 08:49 04/13/18 13:03 04/13/18 17:45 04/13/18 20:39 Bedside 187 165 203 189 Glucose mg/dL (70-220) mg/dL (70-220) mg/dL (70-220) mg/dL (70-220) Test 04/14/18 01:58 04/14/18 08:54 04/14/18 12:54 Bedside 101 133 185 Glucose mg/dL (70-220) mg/dL (70-220) mg/dL (70-220) Medications Medications Current Medications Acetaminophen (Tylenol Tab) 650 mg Q6H PRN PO PAIN LEVEL 1-5; Start 03/30/18 at 01:30 Clopidogrel Bisulfate (plaVIX) 75 mg DAILY PO Last administered on 04/14/18 08:24; Admin Dose 75 MG; Start 03/30/18 at 09:00 Dronabinol (Marinol) 2.5 mg DAILY PO Last administered on 04/14/18 08:25; Admin Dose 2.5 MG; Start 03/30/18 at 09:00 Losartan Potassium (Cozaar) 50 mg SuTuThSa@0900,2100 PO Last administered on 04/14/18 08:26; Admin Dose 50 MG; Start 03/31/18 at 09:00 Losartan Potassium (Cozaar) 50 mg MoWeFr@0900 PO Last administered on 04/11/18 09:20; Admin Dose 50 MG; Start 03/30/18 at 09:00 Morphine Sulfate (morphine) 2 mg Q3H PRN PO PAIN LEVEL 6-10 Last administered on 04/13/18 00:29; Admin Dose 2 MG; Start 03/30/18 at 01:30 Ondansetron HCl (Zofran Tab) 4 mg Q6H PRN PO NAUSEA AND/OR VOMITING Last administered on 04/11/18 16:42; Admin Dose 4 MG; Start 03/30/18 at 01:30 Pantoprazole (Protonix Tab) 40 mg AC BREAKFAST PO Last administered on 04/14/18 06:24; Admin Dose 40 MG; Start 03/30/18 at 07:20 Sevelamer Carbonate (Renvela) 1.6 gm WITH MEALS PO Last administered on 04/14/18 12:57; Admin Dose 1.6 GM; Start 03/30/18 at 07:50 Diagnostic Test (Pha) (Accu-Chek) 1 ea 02 XX Last administered on 04/11/18 01:53; Admin Dose 1 EA; Start 03/30/18 at 02:00 Insulin Aspart (Novolog Insulin Pen) NOVOLOG *MILD* ALGORITHM WITH MEALS BEDTIME SC Last administered on 04/14/18 12:58; Admin Dose 2 UNIT; Start 03/30/18 at 07:50 Miscellaneous Information 1 ea NOTE XX ; Start 03/30/18 at 02:00 Glucose (Glutose) 15 gm Q15M PRN PO DECREASED GLUCOSE Last administered on 04/08/18 12:56; Admin Dose 15 GM; Start 03/30/18 at 02:00 Glucose (Glutose) 22.5 gm Q15M PRN PO DECREASED GLUCOSE Last administered on 04/05/18 19:02; Admin Dose 22.5 GM; Start 03/30/18 at 02:00 Dextrose (D50w Syringe) 25 ml Q15M PRN IV DECREASED GLUCOSE Last administered on 04/06/18 09:22; Admin Dose 25 ML; Start 03/30/18 at 02:00 Dextrose (D50w Syringe) 50 ml Q15M PRN IV DECREASED GLUCOSE Last administered on 04/08/18 14:54; Admin Dose 50 ML; Start 03/30/18 at 02:00 Glucagon (Glucagen) 1 mg Q15M PRN IM DECREASED GLUCOSE Last administered on 04/08/18 14:37; Admin Dose 1 MG; Start 03/30/18 at 02:00 Glucose (Glutose) 15 gm Q15M PRN BUCCAL DECREASED GLUCOSE Last administered on 04/04/18 17:57; Admin Dose 15 GM; Start 03/30/18 at 02:00 Metoprolol Succinate (Toprol Xl) 200 mg MoWeFr@0900 PO Last administered on 04/11/18 09:21; Admin Dose 200 MG; Start 03/30/18 at 09:00 Metoprolol Succinate (Toprol Xl) 50 mg SuTuThSa@0900,2100 PO Last administered on 04/14/18 09:21; Admin Dose 50 MG; Start 03/31/18 at 09:00 Diphenhydramine HCl (Benadryl) 50 mg Q4H PRN IV pruritis Last administered on 04/14/18 08:18; Admin Dose 50 MG; Start 03/30/18 at 09:00 Heparin Sodium (Porcine) (Heparin (5000 Units/1ml)) 5,000 unit BID SC Last administered on 04/14/18 09:16; Admin Dose 5,000 UNIT; Start 03/30/18 at 12:00 Levofloxacin (Levaquin) 250 mg Q2D@0600 PO Last administered on 04/13/18 13:06; Admin Dose 250 MG; Start 04/01/18 at 06:00 Sodium Hypochlorite (Dakin'S (Dilute 40)) 1 applic DAILY IRR Last administered on 04/14/18 09:13; Admin Dose 1 APPLIC; Start 03/31/18 at 09:00 Ondansetron HCl (Zofran Inj) 4 mg Q4H PRN IV NAUSEA AND/OR VOMITING Last administered on 04/14/18 01:49; Admin Dose 4 MG; Start 04/02/18 at 16:30 Collagenase (Santyl) 1 applic DAILY TOP Last administered on 04/14/18 09:19; Admin Dose 1 APPLIC; Start 04/08/18 at 02:53 Atorvastatin Calcium (Lipitor) 40 mg QHS PO Last administered on 04/13/18 20:43; Admin Dose 40 MG; Start 04/10/18 at 21:00 Multivit/Ca Carb/ B Cmplx/FA/Prenat (Yuridia-Charito) 1 tab DAILY PO Last administe red on 04/14/18 09:21; Admin Dose 1 TAB; Start 04/11/18 at 09:00 Cholecalciferol (Vitamin D) 1,000 unit DAILY PO Last administered on 04/14/18 08:26; Admin Dose 1,000 UNIT; Start 04/11/18 at 09:00 Linagliptin (Tradjenta) 5 mg DAILY PO Last administered on 04/14/18 09:14; Admin Dose 5 MG; Start 04/11/18 at 13:00 Daptomycin 225 mg/ Sodium Chloride 100 ml @ 200 mls/hr Q48H IVPB Last administered on 04/13/18at 15:16; Admin Dose 200 MLS/HR; Start 04/11/18 at 14:30 Triamcinolone Acetonide (Kenalog 0.1% Oint) 1 applic BID TOP Last administered on 04/14/18at 09:19; Admin Dose 1 APPLIC; Start 04/12/18 at 09:00 Bromocriptine Mesylate (Parlodel) 1.25 mg DAILY PO Last administered on 04/14/18 08:25; Admin Dose 1.25 MG; Start 04/13/18 at 14:30 DARYA SARABIA MD Apr 14, 2018 13:40
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
[2018-04-14] MEDS: CAPSAICIN 0.025% 60 GM CR TOP SCH ×2 (17:00→22:16)
[2018-04-14] MEDS: NATEGLINIDE 60 MG TAB PO SCH ×2 (17:25→22:17)
--- NOTE | 2018-04-14 20:24 | CONS ---
Date/Time of Note Date/Time of Note DATE: 04/14/18 TIME: 20:23 Assessment/Plan Assessment/Plan Hospital Course 1215 SUBJECTIVE: No acute events overnight, afebrile, ambulating with walker accompanied by RN INDWELLINGS: AV fistula. Allergy: Vancomycin Wound culture growing Corynebacterium group JK and Proteus mirabilis intermittently sensitive to gentamicin Antimicrobials: Levofloxacin, Daptomycin PHYSICAL EXAMINATION: GENERAL: Chronically ill-appearing, wasted, elderly woman who is awake, in no distress. HEENT: Head is atraumatic, normocephalic. NECK: Supple. CHEST: Rise symmetrical. Breath sounds diminished to bases. HEART: S1, S2. ABDOMEN: Soft. Bowel tones are present. EXTREMITIES: With left lower extremity dressing intact. ASSESSMENT: 1. Left lower extremity nonhealing necrotic wound with suspicion for osteomyelitis per podiatry. 2. Severe peripheral arterial disease, status post balloon angioplasty 02/13/18. 3. End-stage renal disease, hemodialysis dependent. 4. ALLERGIES TO VANCOMYCIN. 5. Diabetes and anemia. PLAN: The patient remains stable, on appropriate antibiotics, continue wound care per podiatry, needs alf abx Result Diagram: 04/14/18 1519 04/14/18 1519 Results 24hrs Laboratory Tests Test 04/13/18 20:39 04/14/18 01:58 04/14/18 08:54 04/14/18 12:54 Bedside Glucose 189 101 133 185 Test 04/14/18 15:19 04/14/18 17:33 White Blood Count 5.5 Red Blood Count 2.89 L Hemoglobin 10.2 L Hematocrit 32.1 L Mean Corpuscular Volume 111.1 H Mean Corpuscular 35.3 H Hemoglobin Mean Corpuscular 31.8 L Hemoglobin Concent Red Cell Distribution 18.3 H Width Platelet Count 153 Mean Platelet Volume 11.6 H Immature Granulocytes % 0.400 Neutrophils % 73.4 Lymphocytes % 9.4 L Monocytes % 14.3 H Eosinophils % 2.0 Basophils % 0.5 Nucleated Red Blood 0.0 Cells % Immature Granulocytes # 0.020 Neutrophils # 4.0 Lymphocytes # 0.5 L Monocytes # 0.8 Eosinophils # 0.1 Basophils # 0.0 Nucleated Red Blood 0.0 Cells # Sodium Level 141 Potassium Level 4.8 Chloride Level 101 Carbon Dioxide Level 26 Anion Gap 14 H Blood Urea Nitrogen 42 #H Creatinine 4.55 #H Est Glomerular Filtrat 12 L Rate mL/min Glucose Level 214 Calcium Level 9.0 Phosphorus Level 6.7 H Magnesium Level 2.1 Bedside Glucose 163 Consultation Date/Type/Reason Admit Date/Time Mar 29, 2018 at 17:36 Initial Consult Date Type of Consult ID Requesting Provider: KG FELIX DO Exam/Review of Systems Vital Signs Vitals Vital Signs Date Temp Pulse Resp B/P (MAP) Pulse Ox O2 O2 Flow FiO2 Time Delivery Rate 04/14/18 96.5 92 18 138/83 98 19:18 (101) 04/14/18 Room Air 08:31 Intake and Output 04/13/18 04/13/18 04/14/18 1515:00 23:00 07:00 IntakeIntake Total 400 ml 420 ml 280 ml OutputOutput Total 60 ml BalanceBalance 400 ml 420 ml 220 ml Medications Medications Current Medications Acetaminophen (Tylenol Tab) 650 mg Q6H PRN PO PAIN LEVEL 1-5; Start 03/30/18 at 01:30 Clopidogrel Bisulfate (plaVIX) 75 mg DAILY PO Last administered on 04/14/18 08:24; Admin Dose 75 MG; Start 03/30/18 at 09:00 Dronabinol (Marinol) 2.5 mg DAILY PO Last administered on 04/14/18 08:25; Admin Dose 2.5 MG; Start 03/30/18 at 09:00 Losartan Potassium (Cozaar) 50 mg SuTuThSa@0900,2100 PO Last administered on 04/14/18 08:26; Admin Dose 50 MG; Start 03/31/18 at 09:00 Losartan Potassium (Cozaar) 50 mg MoWeFr@0900 PO Last administered on 04/11/18 09:20; Admin Dose 50 MG; Start 03/30/18 at 09:00 Morphine Sulfate (morphine) 2 mg Q3H PRN PO PAIN LEVEL 6-10 Last administered on 04/13/18 00:29; Admin Dose 2 MG; Start 03/30/18 at 01:30 Ondansetron HCl (Zofran Tab) 4 mg Q6H PRN PO NAUSEA AND/OR VOMITING Last administered on 04/11/18 16:42; Admin Dose 4 MG; Start 03/30/18 at 01:30 Pantoprazole (Protonix Tab) 40 mg AC BREAKFAST PO Last administered on 04/14/18 06:24; Admin Dose 40 MG; Start 03/30/18 at 07:20 Sevelamer Carbonate (Renvela) 1.6 gm WITH MEALS PO Last administered on 04/14/18 12:57; Admin Dose 1.6 GM; Start 03/30/18 at 07:50 Diagnostic Test (Pha) (Accu-Chek) 1 ea 02 XX Last administered on 04/11/18 01:53; Admin Dose 1 EA; Start 03/30/18 at 02:00 Insulin Aspart (Novolog Insulin Pen) NOVOLOG *MILD* ALGORITHM WITH MEALS BED TIME SC Last administered on 04/14/18 17:36; Admin Dose 1 UNIT; Start 03/30/18 at 07:50 Miscellaneous Information 1 ea NOTE XX ; Start 03/30/18 at 02:00 Glucose (Glutose) 15 gm Q15M PRN PO DECREASED GLUCOSE Last administered on 04/08/18 12:56; Admin Dose 15 GM; Start 03/30/18 at 02:00 Glucose (Glutose) 22.5 gm Q15M PRN PO DECREASED GLUCOSE Last administered on 04/05/18 19:02; Admin Dose 22.5 GM; Start 03/30/18 at 02:00 Dextrose (D50w Syringe) 25 ml Q15M PRN IV DECREASED GLUCOSE Last administered on 04/06/18 09:22; Admin Dose 25 ML; Start 03/30/18 at 02:00 Dextrose (D50w Syringe) 50 ml Q15M PRN IV DECREASED GLUCOSE Last administered on 04/08/18 14:54; Admin Dose 50 ML; Start 03/30/18 at 02:00 Glucagon (Glucagen) 1 mg Q15M PRN IM DECREASED GLUCOSE Last administered on 14:37; Admin Dose 1 MG; Start 03/30/18 at 02:00 Glucose (Glutose) 15 gm Q15M PRN BUCCAL DECREASED GLUCOSE Last administered on 04/04/18 17:57; Admin Dose 15 GM; Start 03/30/18 at 02:00 Metoprolol Succinate (Toprol Xl) 200 mg MoWeFr@0900 PO Last administered on 04/11/18 09:21; Admin Dose 200 MG; Start 03/30/18 at 09:00 Metoprolol Succinate (Toprol Xl) 50 mg SuTuThSa@0900,2100 PO Last administered on 04/14/18 09:21; Admin Dose 50 MG; Start 03/31/18 at 09:00 Diphenhydramine HCl (Benadryl) 50 mg Q4H PRN IV pruritis Last administered on 04/14/18 17:43; Admin Dose 50 MG; Start 03/30/18 at 09:00 Heparin Sodium (Porcine) (Heparin (5000 Units/1ml)) 5,000 unit BID SC Last administered on 04/14/18 09:16; Admin Dose 5,000 UNIT; Start 03/30/18 at 12:00 Levofloxacin (Levaquin) 250 mg Q2D@0600 PO Last administered on 04/13/18 13:06; Admin Dose 250 MG; Start 04/01/18 at 06:00 Sodium Hypochlorite (Dakin'S (Dilute )) 1 applic DAILY IRR Last administered on 04/14/18 09:13; Admin Dose 1 APPLIC; Start 03/31/18 at 09:00 Ondansetron HCl (Zofran Inj) 4 mg Q4H PRN IV NAUSEA AND/OR VOMITING Last administered on 04/14/18 01:49; Admin Dose 4 MG; Start 04/02/18 at 16:30 Collagenase (Santyl) 1 applic DAILY TOP Last administered on 04/14/18 09:19; Admin Dose 1 APPLIC; Start 04/08/18 at 02:53 Atorvastatin Calcium (Lipitor) 40 mg QHS PO Last administered on 04/13/18 20:43; Admin Dose 40 MG; Start 04/10/18 at 21:00 Multivit/Ca Carb/ B Cmplx/FA/Prenat (Yuridia-Charito) 1 tab DAILY PO Last administered on 04/14/18 09:21; Admin Dose 1 TAB; Start 04/11/18 at 09:00 Cholecalciferol (Vitamin D) 1,000 unit DAILY PO Last administered on 04/14/18 08:26; Admin Dose 1,000 UNIT; Start 04/11/18 at 09:00 Linagliptin (Tradjenta) 5 mg DAILY PO Last administered on 1/5/19at 09:14; Admin Dose 5 MG; Start 04/11/18 at 13:00 Daptomycin 225 mg/ Sodium Chloride 100 ml @ 200 mls/hr Q48H IVPB Last administered on 04/13/18at 15:16; Admin Dose 200 MLS/HR; Start 04/11/18 at 14:30 Triamcinolone Acetonide (Kenalog 0.1% Oint) 1 applic BID TOP Last administered on 04/14/18at 09:19; Admin Dose 1 APPLIC; Start 04/12/18 at 09:00 Capsaicin (Theragen) 1 applic QID TOP ; Start 04/14/18 at 17:00 Nateglinide (Starlix) 60 mg AC MEALS PO ; Start 04/14/18 at 17:25 KRISHNA BURTON NP Apr 14, 2018 20:24
[2018-04-14] MEDS: ATORVASTATIN 40 MG TAB PO SCH (22:16)
[2018-04-15 02:00] VITALS: BP 131/66; PULSE 86; RESP 18
[2018-04-15] MEDS: DIPHENHYDRAMINE 50 MG INJ IV PRN ×2 (05:06→23:41)
[2018-04-15] MEDS: LEVOFLOXACIN 250 MG TAB PO SCH (06:09)
[2018-04-15] MEDS: PANTOPRAZOLE (EC) 40 MG TAB PO SCH (06:09)
[2018-04-15 07:30] VITALS: BP 129/68; PULSE 83; RESP 18
[2018-04-15] MEDS: SEVELAMER CARBONATE 0.8 GM PKT PO SCH ×3 (08:15→17:55)
[2018-04-15] MEDS: INSULIN ASPART [NOVOLOG] 3 ML PEN SC SCH ×4 (08:15→20:38)
[2018-04-15] MEDS: LINAGLIPTIN 5 MG TABLET PO SCH (09:00)
[2018-04-15] MEDS: SODIUM HYPOCHLORITE (1/40) 1 APPLIC BTL IRR SCH (09:07)
[2018-04-15] MEDS: TRIAMCINOLONE ACET 0.1% 15 GM OINT TOP SCH ×2 (09:07→20:41)
[2018-04-15] MEDS: CAPSAICIN 0.025% 60 GM CR TOP SCH ×4 (09:07→20:41)
[2018-04-15] MEDS: MULTIVIT/CA CARB/B CMPLX/FA TAB PO SCH (09:08)
[2018-04-15] MEDS: COLLAGENASE 5 GM (UD JAR) TOP SCH (09:08)
[2018-04-15] MEDS: CLOPIDOGREL 75 MG TAB PO SCH (09:08)
[2018-04-15] MEDS: CHOLECALCIFEROL 1,000 UNIT TAB PO SCH (09:08)
[2018-04-15] MEDS: HEPARIN 5,000 UNIT/1 ML VIAL SC SCH ×2 (09:10→20:30)
[2018-04-15] MEDS: DRONABINOL 2.5 MG CAP PO SCH (09:16)
[2018-04-15] MEDS: LOSARTAN 50 MG TAB PO SCH ×2 (09:16→20:37)
[2018-04-15] MEDS: METOPROLOL (XL) 50 MG TAB PO SCH ×2 (09:17→23:01)
--- NOTE | 2018-04-15 10:57 | CONS ---
Date/Time of Note Date/Time of Note DATE: 04/15/18 TIME: 10:56 Consult Date/Type/Reason Admit Date/Time Mar 29, 2018 at 17:36 Initial Consult Date 04/05/18 Requesting Provider: KG FELIX DO Objective Vital Signs Date Temp Pulse Resp B/P (MAP) Pulse Ox O2 O2 Flow FiO2 Time Delivery Rate 04/15/18 98.2 83 18 129/68 98 Room Air 07:30 (88) 04/14/18 4.0 21:34 Intake and Output 04/14/18 04/14/18 04/15/18 1515:00 23:00 07:00 IntakeIntake Total 280 ml 360 ml OutputOutput Total 2000 ml BalanceBalance 280 ml -1640 ml Results/Medications Result Diagram: 04/14/18 1519 04/15/18 0837 Results 24 hrs Laboratory Tests Test 04/14/18 12:54 04/14/18 15:19 04/14/18 17:33 04/14/18 22:10 Bedside Glucose 185 163 97 White Blood Count 5.5 Red Blood Count 2.89 L Hemoglobin 10.2 L Hematocrit 32.1 L Mean Corpuscular Volume 111.1 H Mean Corpuscular 35.3 H Hemoglobin Mean Corpuscular 31.8 L Hemoglobin Concent Red Cell Distribution 18.3 H Width Platelet Count 153 Mean Platelet Volume 11.6 H Immature Granulocytes % 0.400 Neutrophils % 73.4 Lymphocytes % 9.4 L Monocytes % 14.3 H Eosinophils % 2.0 Basophils % 0.5 Nucleated Red Blood 0.0 Cells % Immature Granulocytes # 0.020 Neutrophils # 4.0 Lymphocytes # 0.5 L Monocytes # 0.8 Eosinophils # 0.1 Basophils # 0.0 Nucleated Red Blood 0.0 Cells # Sodium Level 141 Potassium Level 4.8 Chloride Level 101 Carbon Dioxide Level 26 Anion Gap 14 H Blood Urea Nitrogen 42 #H Creatinine 4.55 #H Est Glomerular Filtrat 12 L Rate mL/min Glucose Level 214 Calcium Level 9.0 Phosphorus Level 6.7 H Magnesium Level 2.1 Test 04/15/18 08:18 04/15/18 08:31 04/15/18 08:37 04/15/18 08:53 Bedside Glucose 45 *L 56 L 84 Glucose Level 67 #L Test 04/15/18 09:23 Bedside Glucose 81 Medications Current Medications Acetaminophen (Tylenol Tab) 650 mg Q6H PRN PO PAIN LEVEL 1-5; Start 03/30/18 at 01:30 Clopidogrel Bisulfate (plaVIX) 75 mg DAILY PO Last administered on 04/15/18 09:08; Admin Dose 75 MG; Start 03/30/18 at 09:00 Dronabinol (Marinol) 2.5 mg DAILY PO Last administered on 04/15/18 09:16; Admin Dose 2.5 MG; Start 03/30/18 at 09:00 Losartan Potassium (Cozaar) 50 mg SuTuThSa@0900,2100 PO Last administered on 04/15/18 09:16; Admin Dose 50 MG; Start 03/31/18 at 09:00 Losartan Potassium (Cozaar) 50 mg MoWeFr@0900 PO Last administered on 04/11/18 09:20; Admin Dose 50 MG; Start 03/30/18 at 09:00 Morphine Sulfate (morphine) 2 mg Q3H PRN PO PAIN LEVEL 6-10 Last administered on 04/13/18 00:29; Admin Dose 2 MG; Start 03/30/18 at 01:30 Ondansetron HCl (Zofran Tab) 4 mg Q6H PRN PO NAUSEA AND/OR VOMITING Last administered on 04/11/18 16:42; Admin Dose 4 MG; Start 03/30/18 at 01:30 Pantoprazole (Protonix Tab) 40 mg AC BREAKFAST PO Last administered on 04/15/18 06:09; Admin Dose 40 MG; Start 03/30/18 at 07:20 Sevelamer Carbonate (Renvela) 1.6 gm WITH MEALS PO Last administered on 04/14/18 12:57; Admin Dose 1.6 GM; Start 03/30/18 at 07:50 Diagnostic Test (Pha) (Accu-Chek) 1 ea 02 XX Last administered on 04/11/18 01:53; Admin Dose 1 EA; Start 03/30/18 at 02:00 Insulin Aspart (Novolog Insulin Pen) NOVOLOG *MILD* ALGORITHM WITH MEALS BEDTIME SC Last administered on 04/14/18 17:36; Admin Dose 1 UNIT; Start 03/30/18 at 07:50 Miscellaneous Information 1 ea NOTE XX ; Start 03/30/18 at 02:00 Glucose (Glutose) 15 gm Q15M PRN PO DECREASED GLUCOSE Last administered on 04/08/18 12:56; Admin Dose 15 GM; Start 03/30/18 at 02:00 Glucose (Glutose) 22.5 gm Q15M PRN PO DECREASED GLUCOSE Last administered on 04/05/18 19:02; Admin Dose 22.5 GM; Start 03/30/18 at 02:00 Dextrose (D50w Syringe) 25 ml Q15M PRN IV DECREASED GLUCOSE Last administered on 04/06/18 09:22; Admin Dose 25 ML; Start 03/30/18 at 02:00 Dextrose (D50w Syringe) 50 ml Q15M PRN IV DECREASED GLUCOSE Last administered on 04/08/18 14:54; Admin Dose 50 ML; Start 03/30/18 at 02:00 Glucagon (Glucagen) 1 mg Q15M PRN IM DECREASED GLUCOSE Last administered on 04/08/18 14:37; Admin Dose 1 MG; Start 03/30/18 at 02:00 Glucose (Glutose) 15 gm Q15M PRN BUCCAL DECREASED GLUCOSE Last administered on 04/04/18 17:57; Admin Dose 15 GM; Start 03/30/18 at 02:00 Metoprolol Succinate (Toprol Xl) 200 mg MoWeFr@0900 PO Last administered on 04/11/18 09:21; Admin Dose 200 MG; Start 03/30/18 at 09:00 Metoprolol Succinate (Toprol Xl) 50 mg SuTuThSa@0900,2100 PO Last administered on 04/15/18 09:17; Admin Dose 50 MG; Start 03/31/18 at 09:00 Diphenhydramine HCl (Benadryl) 50 mg Q4H PRN IV pruritis Last administered on 04/15/18 05:06; Admin Dose 50 MG; Start 03/30/18 at 09:00 Heparin Sodium (Porcine) (Heparin (5000 Units/1ml)) 5,000 unit BID SC Last administered on 04/15/18 09:10; Admin Dose 5,000 UNIT; Start 03/30/18 at 12:00 Levofloxacin (Levaquin) 250 mg Q2D@0600 PO Last administered on 04/15/18 06:09; Admin Dose 250 MG; Start 04/01/18 at 06:00 Sodium Hypochlorite (Dakin'S (Dilute )) 1 applic DAILY IRR Last administered on 04/15/18 09:07; Admin Dose 1 APPLIC; Start 03/31/18 at 09:00 Ondansetron HCl (Zofran Inj) 4 mg Q4H PRN IV NAUSEA AND/OR VOMITING Last administered on 04/14/18 01:49; Admin Dose 4 MG; Start 04/02/18 at 16:30 Collagenase (Santyl) 1 applic DAILY TOP Last administered on 04/15/18 09:08; Admin Dose 1 APPLIC; Start 04/08/18 at 02:53 Atorvastatin Calcium (Lipitor) 40 mg QHS PO Last administered on 04/14/18 22:16; Admin Dose 40 MG; Start 04/10/18 at 21:00 Multivit/Ca Carb/ B Cmplx/FA/Prenat (Yuridia-Charito) 1 tab DAILY PO Last administered on 04/15/18 09:08; Admin Dose 1 TAB; Start 04/11/18 at 09:00 Cholecalciferol (Vitamin D) 1,000 unit DAILY PO Last administered on 04/15/18 09:08; Admin Dose 1,000 UNIT; Start 04/11/18 at 09:00 Linagliptin (Tradjenta) 5 mg DAILY PO Last administered on 04/14/18 09:14; Admin Dose 5 MG; Start 04/11/18 at 13:00 Daptomycin 225 mg/ Sodium Chloride 100 ml @ 200 mls/hr Q48H IVPB Last administered on 04/13/18 15:16; Admin Dose 200 MLS/HR; Start 04/11/18 at 14:30 Triamcinolone Acetonide (Kenalog 0.1% Oint) 1 applic BID TOP Last administered on 04/15/18 09:07; Admin Dose 1 APPLIC; Start 04/12/18 at 09:00 Capsaicin (Theragen) 1 applic QID TOP Last administered on 04/15/18 09:07; Admin Dose 1 APPLIC; Start 04/14/18 at 17:00 Nateglinide (Starlix) 60 mg AC MEALS PO Last administered on 04/14/18 22:17; Admin Dose 60 MG; Start 04/14/18 at 17:25 Assessment/Plan Chief Complaint/Hosp Course The patient is stable, no events overnight. No fevers, chills, nausea, vomiting. s/p hd OBJECTIVE: HEENT: Head is normocephalic. NECK: Supple. HEART: Regular rate. LUNGS: Show diminished breath sounds at the base. ABDOMEN: Soft, nontender to palpation. No rebound or guarding. EXTREMITIES: Negative for clubbing, cyanosis, no edema. DERMATOLOGIC: No rashes. MUSCULOSKELETAL: No joint effusion. NEUROLOGIC: No change in exam. MEDICATIONS: Have been reviewed. LABORATORY DATA: Has been reviewed. Glucose levels have been stable. ASSESSMENT AND PLAN: 1. Left diabetic foot ulcer with possible osteomyelitis. The patient is currently receiving antibiotic therapy. Continue wound care. Appreciate podiatry and vascular surgery. 2. End-stage renal disease. Plan is for hemodialysis today, adjust meds, watch volume status and lytes. 3. Diabetes. Greatly appreciate endocrinology's evaluation. Per Dr. Gastelum note, patient may not be type 1 diabetic. Therefore, may not require insulin for glycemic control. The patient has been placed on Tradjenta, will continue to monitor glucose levels closely. Will follow up further recommendations per endocrinology. 4. Anemia. Continue to monitor hemoglobin and hematocrit levels. Continue Epogen as needed. 6. Mineral bone disorder, monitor calcium and phosphorus levels. Continue phos binders. Continue vitamin D analogs. Follow up vitamin D level. We will follow up the PTH level. 7. 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 Continue Benadryl. Continue dialysis. 8. Peptic ulcer disease. Continue proton pump inhibitor. 9. History of cerebrovascular accident. Continue medical management. 10. Hypertension. Continue current blood pressure regimen. 11. Coronary artery disease. Continue treatment plan. 12. GI and DVT prophylaxis. DISPOSITION: The patient is pending discharge to SNF once a bed is available GAGE WOOTEN MD Apr 15, 2018 10:57
--- NOTE | 2018-04-15 12:10 | CONS ---
Date/Time of Note Date/Time of Note DATE: 04/15/18 TIME: 12:07 Assessment/Plan Assessment/Plan Problems: (1) Type 2 diabetes mellitus with hypertension and end stage renal disease on dialysis Status: Chronic Comment: For unclear reasons, nateglinide was given at hs last night resulting in josy hypoglycemia this am. Linagliptin has been held so next BG values remain to be seen. Hallucinations resolved w/ discontinuation of bromocriptine. Would resume linagliptin and nateglinide should only be pre-meals. Consider giving nateglinide half tab of only 30 mg if hypoglycemia occurs again. Result Diagram: 04/14/18 1519 04/15/18 0837 Results 24hrs Laboratory Tests Test 04/14/18 12:54 04/14/18 15:19 04/14/18 17:33 04/14/18 22:10 Bedside Glucose 185 163 97 White Blood Count 5.5 Red Blood Count 2.89 L Hemoglobin 10.2 L Hematocrit 32.1 L Mean Corpuscular Volume 111.1 H Mean Corpuscular 35.3 H Hemoglobin Mean Corpuscular 31.8 L Hemoglobin Concent Red Cell Distribution 18.3 H Width Platelet Count 153 Mean Platelet Volume 11.6 H Immature Granulocytes % 0.400 Neutrophils % 73.4 Lymphocytes % 9.4 L Monocytes % 14.3 H Eosinophils % 2.0 Basophils % 0.5 Nucleated Red Blood 0.0 Cells % Immature Granulocytes # 0.020 Neutrophils # 4.0 Lymphocytes # 0.5 L Monocytes # 0.8 Eosinophils # 0.1 Basophils # 0.0 Nucleated Red Blood 0.0 Cells # Sodium Level 141 Potassium Level 4.8 Chloride Level 101 Carbon Dioxide Level 26 Anion Gap 14 H Blood Urea Nitrogen 42 #H Creatinine 4.55 #H Est Glomerular Filtrat 12 L Rate mL/min Glucose Level 214 Calcium Level 9.0 Phosphorus Level 6.7 H Magnesium Level 2.1 Test 04/15/18 08:18 04/15/18 08:31 04/15/18 08:37 04/15/18 08:53 Bedside Glucose 45 *L 56 L 84 Glucose Level 67 #L Test 04/15/18 09:23 Bedside Glucose 81 Consultation Date/Type/Reason Admit Date/Time Mar 29, 2018 at 17:36 Initial Consult Date 04/05/18 Type of Consult Endocrinology Reason for Consultation DM management Requesting Provider: ISIDRO,KG DO 24 HR Interval Summary Subjective hx not possible: pt non-verbal (asleep but per RN, hallucinations have resolved. ) Exam/Review of Systems Vital Signs Vitals VS - Last 72 Hours, by Label Date Temp Pulse Resp B/P (MAP) Pulse Ox O2 O2 Flow FiO2 Time Delivery Rate 04/15/18 98.2 83 18 129/68 98 Room Air 07:30 (88) 04/15/18 98.7 86 18 131/66 98 02:00 (87) 04/14/18 97.2 93 18 142/73 95 22:59 (96) 04/14/18 95 21:34 04/14/18 94 16 131/81 97 Nasal 4.0 21:34 (98) Cannula 04/14/18 96 21:30 04/14/18 98 21:15 04/14/18 95 21:00 04/14/18 92 20:45 04/14/18 91 20:30 04/14/18 91 20:15 04/14/18 93 20:00 04/14/18 92 19:45 04/14/18 93 19:30 04/14/18 96.5 92 18 138/83 98 19:18 (101) 04/14/18 92 19:15 04/14/18 92 19:00 04/14/18 90 18:45 04/14/18 91 18:28 04/14/18 84 18 111/75 96 Nasal 4.0 18:28 (87) Cannula 04/14/18 98.0 73 18 133/75 92 Room Air 08:31 (94) 04/14/18 98.0 82 18 108/60 95 Room Air 02:56 (76) 04/13/18 98.3 88 20 110/62 96 Room Air 20:04 (78) 04/13/18 97.7 92 19 135/78 99 14:00 (97) 04/13/18 79 136/67 11:25 (90) 04/13/18 98.2 77 18 136/62 96 Room Air 02:57 (86) 04/12/18 98.5 78 20 138/62 96 Room Air 20:07 (87) 04/12/18 79 16 167/69 99 Room Air 17:53 (101) 04/12/18 77 17:30 04/12/18 78 17:15 04/12/18 78 17:00 04/12/18 78 16:45 04/12/18 79 16:30 04/12/18 78 16:15 04/12/18 79 16:00 04/12/18 79 15:45 04/12/18 81 15:30 04/12/18 80 15:15 04/12/18 80 15:00 04/12/18 77 14:45 04/12/18 87 16 139/67 99 Room Air 14:30 (91) 04/12/18 79 14:30 Vital Signs Date Temp Pulse Resp B/P (MAP) Pulse Ox O2 O2 Flow FiO2 Time Delivery Rate 04/15/18 98.2 83 18 129/68 98 Room Air 07:30 (88) 04/14/18 4.0 21:34 Intake and Output 04/14/18 04/14/18 04/15/18 1515:00 23:00 07:00 IntakeIntake Total 280 ml 360 ml OutputOutput Total 2000 ml BalanceBalance 280 ml -1640 ml Exam Constitutional: frail; No alert (asleep) Respiratory: clear to auscultation, normal air movement Cardiovascular: regular rate and rhythm, edema (1+ BLE); No murmurs/extra sounds, No rub Gastrointestinal: soft, nl liver, spleen, non-tender, bowel sounds; No mass, No rebound or guarding Musculoskeletal: nl extremities to inspection Extremities: edema (1+ BLE); No cyanosis, No clubbing Neurological: other (asleep) Additional Comments Bedside Glucose - 72 Hours Test 04/12/18 12:45 04/12/18 17:49 04/12/18 20:33 04/13/18 01:25 Bedside 232 135 185 231 Glucose mg/dL (70-220) mg/dL (70-220) mg/dL (70-220) mg/dL (70-220) H H Test 04/13/18 08:49 04/13/18 13:03 04/13/18 17:45 04/13/18 20:39 Bedside 187 165 203 189 Glucose mg/dL (70-220) mg/dL (70-220) mg/dL (70-220) mg/dL (70-220) Test 04/14/18 01:58 04/14/18 08:54 04/14/18 12:54 1/5/19 17:33 Bedside 101 133 185 163 Glucose mg/dL (70-220) mg/dL (70-220) mg/dL (70-220) mg/dL (70-220) Test 04/14/18 22:10 04/15/18 08:18 04/15/18 08:31 04/15/18 08:53 Bedside 97 45 56 84 Glucose mg/dL (70-220) mg/dL (70-220) mg/dL (70-220) mg/dL (70-220) *L L Test 04/15/18 09:23 Bedside 81 Glucose mg/dL (70-220) Medications Medications Current Medications Acetaminophen (Tylenol Tab) 650 mg Q6H PRN PO PAIN LEVEL 1-5; Start 03/30/18 at 01:30 Clopidogrel Bisulfate (plaVIX) 75 mg DAILY PO Last administered on 04/15/18 09:08; Admin Dose 75 MG; Start 03/30/18 at 09:00 Dronabinol (Marinol) 2.5 mg DAILY PO Last administered on 04/15/18 09:16; Admin Dose 2.5 MG; Start 03/30/18 at 09:00 Losartan Potassium (Cozaar) 50 mg SuTuThSa@0900,2100 PO Last administered on 04/15/18 09:16; Admin Dose 50 MG; Start 03/31/18 at 09:00 Losartan Potassium (Cozaar) 50 mg MoWeFr@0900 PO Last administered on 04/11/18 09:20; Admin Dose 50 MG; Start 03/30/18 at 09:00 Morphine Sulfate (morphine) 2 mg Q3H PRN PO PAIN LEVEL 6-10 Last administered on 04/13/18 00:29; Admin Dose 2 MG; Start 03/30/18 at 01:30 Ondansetron HCl (Zofran Tab) 4 mg Q6H PRN PO NAUSEA AND/OR VOMITING Last administered on 04/11/18 16:42; Admin Dose 4 MG; Start 03/30/18 at 01:30 Pantoprazole (Protonix Tab) 40 mg AC BREAKFAST PO Last administered on 04/15/18 06:09; Admin Dose 40 MG; Start 03/30/18 at 07:20 Sevelamer Carbonate (Renvela) 1.6 gm WITH MEALS PO Last administered on 04/14/18 12:57; Admin Dose 1.6 GM; Start 03/30/18 at 07:50 Diagnostic Test (Pha) (Accu-Chek) 1 ea 02 XX Last administered on 04/11/18 01:53; Admin Dose 1 EA; Start 03/30/18 at 02:00 Insulin Aspart (Novolog Insulin Pen) NOVOLOG *MILD* ALGORITHM WITH MEALS BEDTIME SC Last administered on 04/14/18 17:36; Admin Dose 1 UNIT; Start 03/30/18 at 07:50 Miscellaneous Information 1 ea NOTE XX ; Start 03/30/18 at 02:00 Glucose (Glutose) 15 gm Q15M PRN PO DECREASED GLUCOSE Last administered on 04/08/18 12:56; Admin Dose 15 GM; Start 03/30/18 at 02:00 Glucose (Glutose) 22.5 gm Q15M PRN PO DECREASED GLUCOSE Last administered on 04/05/18 19:02; Admin Dose 22.5 GM; Start 03/30/18 at 02:00 Dextrose (D50w Syringe) 25 ml Q15M PRN IV DECREASED GLUCOSE Last administered on 04/06/18 09:22; Admin Dose 25 ML; Start 03/30/18 at 02:00 Dextrose (D50w Syringe) 50 ml Q15M PRN IV DECREASED GLUCOSE Last administered on 04/08/18 14:54; Admin Dose 50 ML; Start 03/30/18 at 02:00 Glucagon (Glucagen) 1 mg Q15M PRN IM DECREASED GLUCOSE Last administered on 04/08/18 14:37; Admin Dose 1 MG; Start 03/30/18 at 02:00 Glucose (Glutose) 15 gm Q15M PRN BUCCAL DECREASED GLUCOSE Last administered on 04/04/18 17:57; Admin Dose 15 GM; Start 03/30/18 at 02:00 Metoprolol Succinate (Toprol Xl) 200 mg MoWeFr@0900 PO Last administered on 04/11/18 09:21; Admin Dose 200 MG; Start 03/30/18 at 09:00 Metoprolol Succinate (Toprol Xl) 50 mg SuTuThSa@0900,2100 PO Last administered on 04/15/18 09:17; Admin Dose 50 MG; Start 03/31/18 at 09:00 Diphenhydramine HCl (Benadryl) 50 mg Q4H PRN IV pruritis Last administered on 04/15/18 05:06; Admin Dose 50 MG; Start 03/30/18 at 09:00 Heparin Sodium (Porcine) (Heparin (5000 Units/1ml)) 5,000 unit BID SC Last administered on 04/15/18 09:10; Admin Dose 5,000 UNIT; Start 03/30/18 at 12:00 Levofloxacin (Levaquin) 250 mg Q2D@0600 PO Last administered on 04/15/18 06:09; Admin Dose 250 MG; Start 04/01/18 at 06:00 Sodium Hypochlorite (Dakin'S (Dilute )) 1 applic DAILY IRR Last administered on 04/15/18 09:07; Admin Dose 1 APPLIC; Start 03/31/18 at 09:00 Ondansetron HCl (Zofran Inj) 4 mg Q4H PRN IV NAUSEA AND/OR VOMITING Last administered on 04/14/18 01:49; Admin Dose 4 MG; Start 04/02/18 at 16:30 Collagenase (Santyl) 1 applic DAILY TOP Last administered on 04/15/18 09:08; Admin Dose 1 APPLIC; Start 04/08/18 at 02:53 Atorvastatin Calcium (Lipitor) 40 mg QHS PO Last administered on 04/14/18 22:16; Admin Dose 40 MG; Start 04/10/18 at 21:00 Multivit/Ca Carb/ B Cmplx/FA/Prenat (Yuridia-Charito) 1 tab DAILY PO Last administered on 04/15/18 09:08; Admin Dose 1 TAB; Start 04/11/18 at 09:00 Cholecalciferol (Vitamin D) 1,000 unit DAILY PO Last administered on 04/15/18 09:08; Admin Dose 1,000 UNIT; Start 04/11/18 at 09:00 Linagliptin (Tradjenta) 5 mg DAILY PO Last administered on 04/14/18 09:14; Admin Dose 5 MG; Start 04/11/18 at 13:00 Daptomycin 225 mg/ Sodium Chloride 100 ml @ 200 mls/hr Q48H IVPB Last administered on 04/13/18 15:16; Admin Dose 200 MLS/HR; Start 04/11/18 at 14:30 Triamcinolone Acetonide (Kenalog 0.1% Oint) 1 applic BID TOP Last administered on 04/15/18at 09:07; Admin Dose 1 APPLIC; Start 04/12/18 at 09:00 Capsaicin (Theragen) 1 applic QID TOP Last administered on 04/15/18at 09:07; Admin Dose 1 APPLIC; Start 04/14/18 at 17:00 Nateglinide (Starlix) 60 mg AC MEALS PO Last administered on 04/14/18at 22:17; Admin Dose 60 MG; Start 04/14/18 at 17:25 DARYA SARABIA MD Apr 15, 2018 12:10
[2018-04-15] MEDS: NATEGLINIDE 60 MG TAB PO SCH ×2 (12:30→17:54)
--- NOTE | 2018-04-15 12:52 | CONS ---
Date/Time of Note Date/Time of Note DATE: 04/15/18 TIME: 12:51 Assessment/Plan Assessment/Plan Result Diagram: 04/14/18 1519 04/15/18 0837 Results 24hrs Laboratory Tests Test 04/14/18 12:54 04/14/18 15:19 04/14/18 17:33 04/14/18 22:10 Bedside Glucose 185 163 97 White Blood Count 5.5 Red Blood Count 2.89 L Hemoglobin 10.2 L Hematocrit 32.1 L Mean Corpuscular Volume 111.1 H Mean Corpuscular 35.3 H Hemoglobin Mean Corpuscular 31.8 L Hemoglobin Concent Red Cell Distribution 18.3 H Width Platelet Count 153 Mean Platelet Volume 11.6 H Immature Granulocytes % 0.400 Neutrophils % 73.4 Lymphocytes % 9.4 L Monocytes % 14.3 H Eosinophils % 2.0 Basophils % 0.5 Nucleated Red Blood 0.0 Cells % Immature Granulocytes # 0.020 Neutrophils # 4.0 Lymphocytes # 0.5 L Monocytes # 0.8 Eosinophils # 0.1 Basophils # 0.0 Nucleated Red Blood 0.0 Cells # Sodium Level 141 Potassium Level 4.8 Chloride Level 101 Carbon Dioxide Level 26 Anion Gap 14 H Blood Urea Nitrogen 42 #H Creatinine 4.55 #H Est Glomerular Filtrat 12 L Rate mL/min Glucose Level 214 Calcium Level 9.0 Phosphorus Level 6.7 H Magnesium Level 2.1 Test 04/15/18 08:18 04/15/18 08:31 04/15/18 08:37 04/15/18 08:53 Bedside Glucose 45 *L 56 L 84 Glucose Level 67 #L Test 04/15/18 09:23 04/15/18 12:41 Bedside Glucose 81 149 Consultation Date/Type/Reason Admit Date/Time Mar 29, 2018 at 17:36 Initial Consult Date SUBJECTIVE: No acute events overnight, afebrile, ambulating with walker accompanied by RN INDWELLINGS: AV fistula. Allergy: Vancomycin Wound culture growing Corynebacterium group JK and Proteus mirabilis inte rmittently sensitive to gentamicin Antimicrobials: Levofloxacin, Daptomycin PHYSICAL EXAMINATION: GENERAL: Chronically ill-appearing, wasted, elderly woman who is awake, in no distress. HEENT: Head is atraumatic, normocephalic. NECK: Supple. CHEST: Rise symmetrical. Breath sounds diminished to bases. HEART: S1, S2. ABDOMEN: Soft. Bowel tones are present. EXTREMITIES: With left lower extremity dressing intact. ASSESSMENT: 1. Left lower extremity nonhealing necrotic wound with suspicion for osteomyelitis per podiatry. 2. Severe peripheral arterial disease, status post balloon angioplasty 02/13/18. 3. End-stage renal disease, hemodialysis dependent. 4. ALLERGIES TO VANCOMYCIN. 5. Diabetes and anemia. PLAN: The patient is stable. Continue current antbx and wound care per podiatry. Will need terminal system operator abx Requesting Provider: KG FELIX DO Exam/Review of Systems Vital Signs Vitals Vital Signs Date Temp Pulse Resp B/P (MAP) Pulse Ox O2 O2 Flow FiO2 Time Delivery Rate 04/15/18 98.2 83 18 129/68 98 Room Air 07:30 (88) 04/14/18 4.0 21:34 Intake and Output 04/14/18 04/14/18 04/15/18 1515:00 23:00 07:00 IntakeIntake Total 280 ml 360 ml OutputOutput Total 2000 ml BalanceBalance 280 ml -1640 ml Medications Medications Current Medications Acetaminophen (Tylenol Tab) 650 mg Q6H PRN PO PAIN LEVEL 1-5; Start 03/30/18 at 01:30 Clopidogrel Bisulfate (plaVIX) 75 mg DAILY PO Last administered on 04/15/18 09:08; Admin Dose 75 MG; Start 03/30/18 at 09:00 Dronabinol (Marinol) 2.5 mg DAILY PO Last administered on 04/15/18 09:16; Admin Dose 2.5 MG; Start 03/30/18 at 09:00 Losartan Potassium (Cozaar) 50 mg SuTuThSa@0900,2100 PO Last administered on 04/15/18 09:16; Admin Dose 50 MG; Start 03/31/18 at 09:00 Losartan Potassium (Cozaar) 50 mg MoWeFr@0900 PO Last administered on 04/11/18 09:20; Admin Dose 50 MG; Start 03/30/18 at 09:00 Morphine Sulfate (morphine) 2 mg Q3H PRN PO PAIN LEVEL 6-10 Last administered on 04/13/18 00:29; Admin Dose 2 MG; Start 03/30/18 at 01:30 Ondansetron HCl (Zofran Tab) 4 mg Q6H PRN PO NAUSEA AND/OR VOMITING Last administered on 04/11/18 16:42; Admin Dose 4 MG; Start 03/30/18 at 01:30 Pantoprazole (Protonix Tab) 40 mg AC BREAKFAST PO Last administered on 04/15/18 06:09; Admin Dose 40 MG; Start 03/30/18 at 07:20 Sevelamer Carbonate (Renvela) 1.6 gm WITH MEALS PO Last administered on 04/14/18 12:57; Admin Dose 1.6 GM; Start 03/30/18 at 07:50 Diagnostic Test (Pha) (Accu-Chek) 1 ea 02 XX Last administered on 04/11/18 01:53; Admin Dose 1 EA; Start 03/30/18 at 02:00 Insulin Aspart (Novolog Insulin Pen) NOVOLOG *MILD* ALGORITHM WITH MEALS BEDTIME SC Last administered on 04/14/18 17:36; Admin Dose 1 UNIT; Start 03/30/18 at 07:50 Miscellaneous Information 1 ea NOTE XX ; Start 03/30/18 at 02:00 Glucose (Glutose) 15 gm Q15M PRN PO DECREASED GLUCOSE Last administered on 04/08/18 12:56; Admin Dose 15 GM; Start 03/30/18 at 02:00 Glucose (Glutose) 22.5 gm Q15M PRN PO DECREASED GLUCOSE Last administered on 04/05/18 19:02; Admin Dose 22.5 GM; Start 03/30/18 at 02:00 Dextrose (D50w Syringe) 25 ml Q15M PRN IV DECREASED GLUCOSE Last administered on 04/06/18 09:22; Admin Dose 25 ML; Start 03/30/18 at 02:00 Dextrose (D50w Syringe) 50 ml Q15M PRN IV DECREASED GLUCOSE Last administered on 04/08/18 14:54; Admin Dose 50 ML; Start 03/30/18 at 02:00 Glucagon (Glucagen) 1 mg Q15M PRN IM DECREASED GLUCOSE Last administered on 04/08/18 14:37; Admin Dose 1 MG; Start 03/30/18 at 02:00 Glucose (Glutose) 15 gm Q15M PRN BUCCAL DECREASED GLUCOSE Last administered on 04/04/18 17:57; Admin Dose 15 GM; Start 03/30/18 at 02:00 Metoprolol Succinate (Toprol Xl) 200 mg MoWeFr@0900 PO Last administered on 04/11/18 09:21; Admin Dose 200 MG; Start 03/30/18 at 09:00 Metoprolol Succinate (Toprol Xl) 50 mg SuTuThSa@0900,2100 PO Last administered on 04/15/18 09:17; Admin Dose 50 MG; Start 03/31/18 at 09:00 Diphenhydramine HCl (Benadryl) 50 mg Q4H PRN IV pruritis Last administered on 04/15/18 05:06; Admin Dose 50 MG; Start 03/30/18 at 09:00 Heparin Sodium (Porcine) (Heparin (5000 Units/1ml)) 5,000 unit BID SC Last administered on 04/15/18 09:10; Admin Dose 5,000 UNIT; Start 03/30/18 at 12:00 Levofloxacin (Levaquin) 250 mg Q2D@0600 PO Last administered on 04/15/18 06:09; Admin Dose 250 MG; Start 04/01/18 at 06:00 Sodium Hypochlorite (Dakin'S (Dilute 40)) 1 applic DAILY IRR Last administered on 04/15/18 09:07; Admin Dose 1 APPLIC; Start 03/31/18 at 09:00 Ondansetron HCl (Zofran Inj) 4 mg Q4H PRN IV NAUSEA AND/OR VOMITING Last administered on 04/14/18 01:49; Admin Dose 4 MG; Start 04/02/18 at 16:30 Collagenase (Santyl) 1 applic DAILY TOP Last administered on 04/15/18 09:08; Admin Dose 1 APPLIC; Start 04/08/18 at 02:53 Atorvastatin Calcium (Lipitor) 40 mg QHS PO Last administered on 04/14/18 22:16; Admin Dose 40 MG; Start 04/10/18 at 21:00 Multivit/Ca Carb/ B Cmplx/FA/Prenat (Yuridia-Charito) 1 tab DAILY PO Last administered on 04/15/18 09:08; Admin Dose 1 TAB; Start 04/11/18 at 09:00 Cholecalciferol (Vitamin D) 1,000 unit DAILY PO Last administered on 04/15/18 09:08; Admin Dose 1,000 UNIT; Start 04/11/18 at 09:00 Linagliptin (Tradjenta) 5 mg DAILY PO Last administered on 04/14/18 09:14; Admin Dose 5 MG; Start 04/11/18 at 13:00 Daptomycin 225 mg/ Sodium Chloride 100 ml @ 200 mls/hr Q48H IVPB Last administered on 04/13/18 15:16; Admin Dose 200 MLS/HR; Start 04/11/18 at 14:30 Triamcinolone Acetonide (Kenalog 0.1% Oint) 1 applic BID TOP Last administered on 04/15/18 09:07; Admin Dose 1 APPLIC; Start 04/12/18 at 09:00 Capsaicin (Theragen) 1 applic QID TOP Last administered on 04/15/18 09:07; Admin Dose 1 APPLIC; Start 04/14/18 at 17:00 Nateglinide (Starlix) 60 mg AC MEALS PO Last administered on 04/14/18 22:17; Admin Dose 60 MG; Start 04/14/18 at 17:25 ENMANUEL MARSHALL Apr 15, 2018 12:52
[2018-04-15 14:00] VITALS: BP 122/60; PULSE 80; RESP 20
[2018-04-15] MEDS: DAPTOMYCIN IVPB SCH (15:17)
[2018-04-15] MEDS: SOD CHLORIDE 0.9% IVPB SCH (15:17)
[2018-04-15] MEDS: ONDANSETRON 4 MG INJ IV PRN (15:17)
[2018-04-15 19:35] VITALS: BP 127/60; PULSE 93; RESP 18
[2018-04-15] MEDS: ATORVASTATIN 40 MG TAB PO SCH (20:28)
[2018-04-16 01:30] VITALS: BP 132/61; PULSE 76; RESP 18
[2018-04-16] MEDS: ACCU-CHEK XX SCH (02:00)
[2018-04-16] MEDS: PANTOPRAZOLE (EC) 40 MG TAB PO SCH (06:11)
[2018-04-16 07:56] VITALS: BP 117/58; PULSE 82; RESP 18
--- NOTE | 2018-04-16 08:22 | PN ---
DATE: 04/16/2018 SUBJECTIVE: The patient was alert and oriented x4 this morning. No agitation or confusion was noted overnight. The patient's blood glucose levels have improved. OBJECTIVE: VITAL SIGNS: Blood pressure is 132/61, respiration 18, pulse 76, temperature 98.4. HEENT: Head is normocephalic. NECK: Supple. HEART: Regular rate. LUNGS: Show diminished breath sounds at the base. ABDOMEN: Soft, nontender to palpation without rebound or guarding. EXTREMITIES: Negative for clubbing, cyanosis, no edema. DERMATOLOGIC: No rashes. MUSCULOSKELETAL: No joint effusion. The patient has dressing over the left heel that is clean, dry, intact. NEUROLOGIC: No change in exam. MEDICATIONS: Have been reviewed. LABORATORY DATA: Has been reviewed. ASSESSMENT AND PLAN: 1. Left diabetic foot ulcer, possible osteomyelitis. The patient has been seen by podiatry and [facility] ular surgery. Receiving IV antibiotics. Will continue. Continue wound care. 2. End-stage renal disease. Patient scheduled for hemodialysis today. We will dialyze 3 hours 3k b ath, calcium 2.5. 3. Diabetes. Continue current insulin regimen per endocrinology. 4. Anemia. Continue to monitor hemoglobin and hematocrit levels. Continue Epogen as needed. 5. Mineral bone disorder, monitor calcium and phosphorus levels. Patient's vitamin D levels are pen ding. PTH level are pending. Continue vitamin D analogs as needed. 6. Chronic pruritus improving. Continue current medical management. Continue Benadryl. 7. Peptic ulcer disease. Continue proton pump inhibitor. 8. History of cerebrovascular accident. Continue medical management. 9. Hypertension. Continue blood pressure regimen. 10. Coronary artery disease. Continue current treatment plan. 11. Gastrointestinal and deep venous thrombosis prophylaxis. DISPOSITION: The patient is pending discharge to SNF once bed is available. Dictated By: KG FELIX DO NR/NTS Conf#: [id number] DID#: [id number] CC: KG FELIX DO;*EndCC*
[2018-04-16] MEDS: NATEGLINIDE 60 MG TAB PO SCH ×3 (08:39→17:25)
[2018-04-16] MEDS: MULTIVIT/CA CARB/B CMPLX/FA TAB PO SCH (08:39)
[2018-04-16] MEDS: CLOPIDOGREL 75 MG TAB PO SCH (08:39)
[2018-04-16] MEDS: SEVELAMER CARBONATE 0.8 GM PKT PO SCH ×3 (08:40→17:40)
[2018-04-16] MEDS: HEPARIN 5,000 UNIT/1 ML VIAL SC SCH ×2 (08:40→21:00)
[2018-04-16] MEDS: INSULIN ASPART [NOVOLOG] 3 ML PEN SC SCH ×4 (08:41→21:00)
[2018-04-16] MEDS: SODIUM HYPOCHLORITE (1/40) 1 APPLIC BTL IRR SCH (08:42)
[2018-04-16] MEDS: METOPROLOL (XL) 100 MG TAB PO SCH (09:00)
[2018-04-16] MEDS: LOSARTAN 50 MG TAB PO SCH (09:00)
[2018-04-16] MEDS: DRONABINOL 2.5 MG CAP PO SCH (09:00)
[2018-04-16] MEDS: TRIAMCINOLONE ACET 0.1% 15 GM OINT TOP SCH ×2 (09:20→21:00)
[2018-04-16] MEDS: COLLAGENASE 5 GM (UD JAR) TOP SCH (09:21)
[2018-04-16] MEDS: CAPSAICIN 0.025% 60 GM CR TOP SCH ×4 (09:21→21:00)
[2018-04-16] MEDS: CHOLECALCIFEROL 1,000 UNIT TAB PO SCH (09:21)
[2018-04-16] MEDS: LINAGLIPTIN 5 MG TABLET PO SCH (09:21)
--- NOTE | 2018-04-16 13:06 | CONS ---
Date/Time of Note Date/Time of Note DATE: 04/16/18 TIME: 13:03 Assessment/Plan Assessment/Plan Hospital Course Meena 62 year-old -[place] female who I have seen twice before in consultation both of the times as an inpatient. She had moved here from [place] but has a history of complications of diabetes including end-stage renal disease. She has had some skin wound infections that have required hospitalization, and may have osteomyelitis. She is extremely insulin sensitive and requires very small dosages of insulin. In addition she may have delayed gastric emptying which may alter how she absorbs the glucose from a meal. Problems: (1) Type 2 diabetes mellitus with hypertension and end stage renal disease on dialysis Status: Chronic Comment: Adequate drug control off of insulin. Arranging views combination linagliptin with low-dose to take glenoid for managing sugars (2) Intolerance of drug Status: Acute Comment: Intolerant of bromocriptine which induced hallucinations (3) Secondary hyperparathyroidism (of renal origin) Status: Chronic Comment: Noted. (4) Peripheral vascular disease Status: Chronic Comment: Noted. As per primary team Result Diagram: 04/14/18 1519 04/15/18 0837 Results 24hrs Laboratory Tests Test 04/15/18 17:52 04/15/18 20:23 04/16/18 02:44 04/16/18 08:38 Bedside Glucose 138 127 169 179 Test 04/16/18 12:46 Bedside Glucose 195 Consultation Date/Type/Reason Admit Date/Time Mar 29, 2018 at 17:36 Initial Consult Date 04/05/18 Type of Consult Endocrinology Reason for Consultation Diabetes mellitus type 2 complicated by end-stage renal disease, peripheral vascular disease, diabetic peripheral neuropathy; atypical reaction to bromocriptine; hepatic foot ulcer Requesting Provider: KG FELIX DO 24 HR Interval Summary Free Text/Dictation Patient is back to her normal baseline still for clarity Constitutional: no complaints Detailed Summary Endocrine: no complaints (Reports she feels better off of the insulin with the oral agents) Exam/Review of Systems Vital Signs Vitals Vital Signs Date Temp Pulse Resp B/P (MAP) Pulse Ox O2 O2 Flow FiO2 Time Delivery Rate 04/16/18 98.3 82 18 117/58 96 Room Air 07:56 (77) 04/14/18 4.0 21:34 Intake and Output 04/15/18 04/15/18 04/16/18 1515:00 23:00 07:00 IntakeIntake Total 1070 ml 120 ml BalanceBalance 1070 ml 120 ml Exam Constitutional: alert, oriented Respiratory: clear to auscultation, normal air movement Cardiovascular: regular rate and rhythm, nl pulses Gastrointestinal: soft, nl liver, spleen Medications Medications Current Medications Acetaminophen (Tylenol Tab) 650 mg Q6H PRN PO PAIN LEVEL 1-5; Start 03/30/18 at 01:30 Clopidogrel Bisulfate (plaVIX) 75 mg DAILY PO Last administered on 04/16/18 08:39; Admin Dose 75 MG; Start 03/30/18 at 09:00 Dronabinol (Marinol) 2.5 mg DAILY PO Last administered on 04/15/18 09:16; Admin Dose 2.5 MG; Start 03/30/18 at 09:00 Losartan Potassium (Cozaar) 50 mg SuTuThSa@0900,2100 PO Last administered on 04/15/18 20:37; Admin Dose 50 MG; Start 03/31/18 at 09:00 Losartan Potassium (Cozaar) 50 mg MoWeFr@0900 PO Last administered on 04/11/18 09:20; Admin Dose 50 MG; Start 03/30/18 at 09:00 Morphine Sulfate (morphine) 2 mg Q3H PRN PO PAIN LEVEL 6-10 Last administered on 04/13/18 00:29; Admin Dose 2 MG; Start 03/30/18 at 01:30 Ondansetron HCl (Zofran Tab) 4 mg Q6H PRN PO NAUSEA AND/OR VOMITING Last administered on 04/11/18 16:42; Admin Dose 4 MG; Start 03/30/18 at 01:30 Pantoprazole (Protonix Tab) 40 mg AC BREAKFAST PO Last administered on 04/16/18 t 06:11; Admin Dose 40 MG; Start 03/30/18 at 07:20 Sevelamer Carbonate (Renvela) 1.6 gm WITH MEALS PO Last administered on 04/16/18 12:49; Admin Dose 1.6 GM; Start 03/30/18 at 07:50 Diagnostic Test (Pha) (Accu-Chek) 1 ea 02 XX Last administered on 04/11/18 01:53; Admin Dose 1 EA; Start 03/30/18 at 02:00 Insulin Aspart (Novolog Insulin Pen) NOVOLOG *MILD* ALGORITHM WITH MEALS BEDTIME SC Last administered on 04/16/18 12:50; Admin Dose 2 UNIT; Start 03/30/18 at 07:50 Miscellaneous Information 1 ea NOTE XX ; Start 03/30/18 at 02:00 Glucose (Glutose) 15 gm Q15M PRN PO DECREASED GLUCOSE Last administered on 04/08/18 12:56; Admin Dose 15 GM; Start 03/30/18 at 02:00 Glucose (Glutose) 22.5 gm Q15M PRN PO DECREASED GLUCOSE Last administered on 04/05/18 19:02; Admin Dose 22.5 GM; Start 03/30/18 at 02:00 Dextrose (D50w Syringe) 25 ml Q15M PRN IV DECREASED GLUCOSE Last administered on 04/06/18 09:22; Admin Dose 25 ML; Start 03/30/18 at 02:00 Dextrose (D50w Syringe) 50 ml Q15M PRN IV DECREASED GLUCOSE Last administered on 04/08/18 14:54; Admin Dose 50 ML; Start 03/30/18 at 02:00 Glucagon (Glucagen) 1 mg Q15M PRN IM DECREASED GLUCOSE Last administered on 04/08/18 14:37; Admin Dose 1 MG; Start 03/30/18 at 02:00 Glucose (Glutose) 15 gm Q15M PRN BUCCAL DECREASED GLUCOSE Last administered on 04/04/18 17:57; Admin Dose 15 GM; Start 03/30/18 at 02:00 Metoprolol Succinate (Toprol Xl) 200 mg MoWeFr@0900 PO Last administered on 04/11/18 09:21; Admin Dose 200 MG; Start 03/30/18 at 09:00 Metoprolol Succinate (Toprol Xl) 50 mg SuTuThSa@0900,2100 PO Last administered on 04/15/18 23:01; Admin Dose 50 MG; Start 03/31/18 at 09:00 Diphenhydramine HCl (Benadryl) 50 mg Q4H PRN IV pruritis Last administered on 04/15/18 23:41; Admin Dose 50 MG; Start 03/30/18 at 09:00 Heparin Sodium (Porcine) (Heparin (5000 Units/1ml)) 5,000 unit BID SC Last administered on 04/16/18 08:40; Admin Dose 5,000 UNIT; Start 03/30/18 at 12:00 Levofloxacin (Levaquin) 250 mg Q2D@0600 PO Last administered on 04/15/18 06:09; Admin Dose 250 MG; Start 04/01/18 at 06:00 Sodium Hypochlorite (Dakin'S (Dilute )) 1 applic DAILY IRR Last administered on 04/16/18 08:42; Admin Dose 1 APPLIC; Start 03/31/18 at 09:00 Ondansetron HCl (Zofran Inj) 4 mg Q4H PRN IV NAUSEA AND/OR VOMITING Last administered on 04/15/18 15:17; Admin Dose 4 MG; Start 04/02/18 at 16:30 Collagenase (Santyl) 1 applic DAILY TOP Last administered on 04/16/18 09:21; Admin Dose 1 APPLIC; Start 04/08/18 at 02:53 Atorvastatin Calcium (Lipitor) 40 mg QHS PO Last administered on 04/15/18 20:28; Admin Dose 40 MG; Start 04/10/18 at 21:00 Multivit/Ca Carb/ B Cmplx/FA/Prenat (Yuridia-Charito) 1 tab DAILY PO Last admi nistered on 04/16/18 08:39; Admin Dose 1 TAB; Start 04/11/18 at 09:00 Cholecalciferol (Vitamin D) 1,000 unit DAILY PO Last administered on 04/16/18 09:21; Admin Dose 1,000 UNIT; Start 04/11/18 at 09:00 Linagliptin (Tradjenta) 5 mg DAILY PO Last administered on 04/16/18 09:21; Admin Dose 5 MG; Start 04/11/18 at 13:00 Daptomycin 225 mg/ Sodium Chloride 100 ml @ 200 mls/hr Q48H IVPB Last administered on 04/15/18 15:17; Admin Dose 200 MLS/HR; Start 04/11/18 at 14:30 Triamcinolone Acetonide (Kenalog 0.1% Oint) 1 applic BID TOP Last administered on 04/16/18 09:20; Admin Dose 1 APPLIC; Start 04/12/18 at 09:00 Capsaicin (Theragen) 1 applic QID TOP Last administered on 1/7/19at 09:21; Admin Dose 1 APPLIC; Start 04/14/18 at 17:00 Nateglinide (Starlix) 60 mg AC MEALS PO Last administered on 04/16/18at 12:49; Admin Dose 60 MG; Start 04/14/18 at 17:25 LILIAN IBRAHIM MD Apr 16, 2018 13:06
[2018-04-16 15:03] VITALS: BP 128/69; PULSE 82; RESP 18
--- NOTE | 2018-04-16 15:15 | CONS ---
Date/Time of Note Date/Time of Note DATE: 04/16/18 TIME: 15:15 Assessment/Plan Assessment/Plan Hospital Course 1215 SUBJECTIVE: No acute events overnight, sleeping, looks comfortable, no fevers INDWELLINGS: AV fistula. Allergy: Vancomycin Wound culture growing Corynebacterium group JK and Proteus mirabilis inte rmittently sensitive to gentamicin Antimicrobials: Levofloxacin, Daptomycin PHYSICAL EXAMINATION: GENERAL: Chronically ill-appearing, wasted, elderly woman who is awake, in no distress. HEENT: Head is atraumatic, normocephalic. NECK: Supple. CHEST: Rise symmetrical. Breath sounds diminished to bases. HEART: S1, S2. ABDOMEN: Soft. Bowel tones are present. EXTREMITIES: With left lower extremity dressing intact. ASSESSMENT: 1. Left lower extremity nonhealing necrotic wound with suspicion for osteomyelitis per podiatry. 2. Severe peripheral arterial disease, status post balloon angioplasty 02/13/18. 3. End-stage renal disease, hemodialysis dependent. 4. ALLERGIES TO VANCOMYCIN. 5. Diabetes and anemia. 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 Result Diagram: 04/14/18 1519 04/15/18 0837 Results 24hrs Laboratory Tests Test 04/15/18 17:52 04/15/18 20:23 04/16/18 02:44 04/16/18 08:38 Bedside Glucose 138 127 169 179 Test 04/16/18 12:46 Bedside Glucose 195 Consultation Date/Type/Reason Admit Date/Time Mar 29, 2018 at 17:36 Initial Consult Date Type of Consult ID Requesting Provider: KG FELIX DO Exam/Review of Systems Vital Signs Vitals Vital Signs Date Temp Pulse Resp B/P (MAP) Pulse Ox O2 O2 Flow FiO2 Time Delivery Rate 04/16/18 98.3 82 18 128/69 96 Room Air 15:03 (88) 04/14/18 4.0 21:34 Intake and Output 04/15/18 04/15/18 04/16/18 1515:00 23:00 07:00 IntakeIntake Total 1070 ml 120 ml BalanceBalance 1070 ml 120 ml Medications Medications Current Medications Acetaminophen (Tylenol Tab) 650 mg Q6H PRN PO PAIN LEVEL 1-5; Start 03/30/18 at 01:30 Clopidogrel Bisulfate (plaVIX) 75 mg DAILY PO Last administered on 04/16/18 08:39; Admin Dose 75 MG; Start 03/30/18 at 09:00 Dronabinol (Marinol) 2.5 mg DAILY PO Last administered on 04/15/18 09:16; Admin Dose 2.5 MG; Start 03/30/18 at 09:00 Losartan Potassium (Cozaar) 50 mg SuTuThSa@0900,2100 PO Last administered on 04/15/18 20:37; Admin Dose 50 MG; Start 03/31/18 at 09:00 Losartan Potassium (Cozaar) 50 mg MoWeFr@0900 PO Last administered on 04/11/18 09:20; Admin Dose 50 MG; Start 03/30/18 at 09:00 Morphine Sulfate (morphine) 2 mg Q3H PRN PO PAIN LEVEL 6-10 Last administered on 04/13/18 00:29; Admin Dose 2 MG; Start 03/30/18 at 01:30 Ondansetron HCl (Zofran Tab) 4 mg Q6H PRN PO NAUSEA AND/OR VOMITING Last administered on 04/11/18 16:42; Admin Dose 4 MG; Start 03/30/18 at 01:30 Pantoprazole (Protonix Tab) 40 mg AC BREAKFAST PO Last administered on 04/16/18 06:11; Admin Dose 40 MG; Start 03/30/18 at 07:20 Sevelamer Carbonate (Renvela) 1.6 gm WITH MEALS PO Last administered on 04/16/18 12:49; Admin Dose 1.6 GM; Start 03/30/18 at 07:50 Diagnostic Test (Pha) (Accu-Chek) 1 ea 02 XX Last administered on 04/11/18 01:53; Admin Dose 1 EA; Start 03/30/18 at 02:00 Insulin Aspart (Novolog Insulin Pen) NOVOLOG *MILD* ALGORITHM WITH MEALS BEDTIME SC Last administered on 04/16/18 12:50; Admin Dose 2 UNIT; Start 03/30/18 at 07:50 Miscellaneous Information 1 ea NOTE XX ; Start 03/30/18 at 02:00 Glucose (Glutose) 15 gm Q15M PRN PO DECREASED GLUCOSE Last administered on at 12:56; Admin Dose 15 GM; Start 03/30/18 at 02:00 Glucose (Glutose) 22.5 gm Q15M PRN PO DECREASED GLUCOSE Last administered on 04/05/18 19:02; Admin Dose 22.5 GM; Start 03/30/18 at 02:00 Dextrose (D50w Syringe) 25 ml Q15M PRN IV DECREASED GLUCOSE Last administered on 04/06/18 09:22; Admin Dose 25 ML; Start 03/30/18 at 02:00 Dextrose (D50w Syringe) 50 ml Q15M PRN IV DECREASED GLUCOSE Last administered on 04/08/18 14:54; Admin Dose 50 ML; Start 03/30/18 at 02:00 Glucagon (Glucagen) 1 mg Q15M PRN IM DECREASED GLUCOSE Last administered on 04/08/18 14:37; Admin Dose 1 MG; Start 03/30/18 at 02:00 Glucose (Glutose) 15 gm Q15M PRN BUCCAL DECREASED GLUCOSE Last administered on 04/04/18 17:57; Admin Dose 15 GM; Start 03/30/18 at 02:00 Metoprolol Succinate (Toprol Xl) 200 mg MoWeFr@0900 PO Last administered on 04/11/18 09:21; Admin Dose 200 MG; Start 03/30/18 at 09:00 Metoprolol Succinate (Toprol Xl) 50 mg SuTuThSa@0900,2100 PO Last administered on 04/15/18 23:01; Admin Dose 50 MG; Start 03/31/18 at 09:00 Diphenhydramine HCl (Benadryl) 50 mg Q4H PRN IV pruritis Last administered on 04/15/18 23:41; Admin Dose 50 MG; Start 03/30/18 at 09:00 Heparin Sodium (Porcine) (Heparin (5000 Units/1ml)) 5,000 unit BID SC Last administered on 04/16/18 08:40; Admin Dose 5,000 UNIT; Start 03/30/18 at 12:00 Levofloxacin (Levaquin) 250 mg Q2D@0600 PO Last administered on 04/15/18 06:09; Admin Dose 250 MG; Start 04/01/18 at 06:00 Sodium Hypochlorite (Dakin'S (Dilute )) 1 applic DAILY IRR Last administered on 04/16/18 08:42; Admin Dose 1 APPLIC; Start 03/31/18 at 09:00 Ondansetron HCl (Zofran Inj) 4 mg Q4H PRN IV NAUSEA AND/OR VOMITING Last administered on 04/15/18 15:17; Admin Dose 4 MG; Start 04/02/18 at 16:30 Collagenase (Santyl) 1 applic DAILY TOP Last administered on 04/16/18 09:21; Admin Dose 1 APPLIC; Start 04/08/18 at 02:53 Atorvastatin Calcium (Lipitor) 40 mg QHS PO Last administered on 04/15/18 20:28; Admin Dose 40 MG; Start 04/10/18 at 21:00 Multivit/Ca Carb/ B Cmplx/FA/Prenat (Yuridia-Charito) 1 tab DAILY PO Last administered on 04/16/18 08:39; Admin Dose 1 TAB; Start 04/11/18 at 09:00 Cholecalciferol (Vitamin D) 1,000 unit DAILY PO Last administered on 04/16/18 09:21; Admin Dose 1,000 UNIT; Start 04/11/18 at 09:00 Linagliptin (Tradjenta) 5 mg DAILY PO Last administered on 04/16/18 09:21; Admin Dose 5 MG; Start 04/11/18 at 13:00 Daptomycin 225 mg/ Sodium Chloride 100 ml @ 200 mls/hr Q48H IVPB Last administered on 04/15/18 15:17; Admin Dose 200 MLS/HR; Start 04/11/18 at 14:30 Triamcinolone Acetonide (Kenalog 0.1% Oint) 1 applic BID TOP Last administered on 04/16/18 09:20; Admin Dose 1 APPLIC; Start 04/12/18 at 09:00 Capsaicin (Theragen) 1 applic QID TOP Last administered on 04/16/18 09:21; Admin Dose 1 APPLIC; Start 04/14/18 at 17:00 Nateglinide (Starlix) 60 mg AC MEALS PO Last administered on 04/16/18 12:49; Admin Dose 60 MG; Start 04/14/18 at 17:25 KRISHNA BURTON NP Apr 16, 2018 15:15
[2018-04-16] MEDS: DIPHENHYDRAMINE 50 MG INJ IV PRN (16:06)
[2018-04-16 19:47] VITALS: BP 126/77; PULSE 86; RESP 16
[2018-04-16 20:12] VITALS: BP 127/66; PULSE 80
[2018-04-16 20:14] VITALS: BP 128/69; PULSE 79; RESP 20
[2018-04-16] MEDS: ATORVASTATIN 40 MG TAB PO SCH (21:00)
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
[2018-04-17] MEDS: HEPARIN 5,000 UNIT/1 ML VIAL SC SCH ×3 (00:32→22:06)
[2018-04-17 01:09] VITALS: BP 132/70; PULSE 86; RESP 16
[2018-04-17] MEDS: DIPHENHYDRAMINE 50 MG INJ IV PRN ×3 (01:40→22:05)
[2018-04-17] MEDS: ACCU-CHEK XX SCH (02:00)
[2018-04-17] MEDS: LEVOFLOXACIN 250 MG TAB PO SCH (06:00)
[2018-04-17 07:19] VITALS: BP 122/67; PULSE 84; RESP 18
--- NOTE | 2018-04-17 08:27 | PN ---
DATE: 04/17/2018 SUBJECTIVE: The patient had dialysis yesterday, tolerated well. No other events noted. The patient is still pending placement at outside facility. OBJECTIVE: VITAL SIGNS: Blood pressure is 122/67, pulse 84, respiration 18, temperature 98.3. HEENT: Head is normocephalic. NECK: Supple. HEART: Regular rate. LUNGS: Show diminished breath sounds at the base. ABDOMEN: Soft, nontender to palpation. No rebound or guarding. EXTREMITIES: Negative for clubbing, cyanosis, no edema. DERMATOLOGIC: No rashes. MUSCULOSKELETAL: No joint effusion. NEUROLOGIC: No change in exam. MEDICATIONS: The patient's medications have been reviewed. LABORATORY DATA: Currently pending. ASSESSMENT AND PLAN: 1. Left foot diabetic ulcer, possible osteomyelitis. The patient is status post debridement. Susi nue current medical management. Continue antibiotics, continue recommendations per podiatry and [facility] ular surgery. Continue wound care. 2. End-stage renal disease. The patient had hemodialysis yesterday and tolerated well. Plan for di alysis tomorrow. 3. Diabetes. Continue current insulin regimen per endocrinology. 4. Anemia. Continue to monitor hemoglobin and hematocrit levels. Continue Epogen as needed. 5. Mineral bone disorder, monitor calcium and phosphorus levels. Patient's vitamin D levels were re viewed. Continue supplementation. 6. Chronic pruritus improving. Continue medical management. 7. Peptic ulcer disease. Continue proton pump inhibitor. 8. History of cerebrovascular accident. Continue medical management. 9. Hypertension. Continue current blood pressure regimen. 10. Coronary artery disease. Continue treatment plan. 11. Gastrointestinal and deep vein thrombosis prophylaxis. 12. Status post delirium felt to be secondary to bromocriptine, which has since been discontinued. Continue to monitor. DISPOSITION: The patient is pending placement in SNF once bed is available. Dictated By: KG FELIX DO NR/NTS Conf#: [id number] DID#: [id number] CC: KG FELIX DO;*EndCC*
[2018-04-17] MEDS: LOSARTAN 50 MG TAB PO SCH ×2 (09:00→22:11)
[2018-04-17] MEDS ORDERED: GENTAMICIN 0.1% 15 GM OINT TOP SCH (09:00)
[2018-04-17] MEDS: PANTOPRAZOLE (EC) 40 MG TAB PO SCH (09:02)
[2018-04-17] MEDS: CLOPIDOGREL 75 MG TAB PO SCH (09:02)
[2018-04-17] MEDS: NATEGLINIDE 60 MG TAB PO SCH ×3 (09:02→17:57)
[2018-04-17] MEDS: LINAGLIPTIN 5 MG TABLET PO SCH (09:02)
[2018-04-17] MEDS: CHOLECALCIFEROL 1,000 UNIT TAB PO SCH (09:02)
[2018-04-17] MEDS: MULTIVIT/CA CARB/B CMPLX/FA TAB PO SCH (09:02)
[2018-04-17] MEDS: SEVELAMER CARBONATE 0.8 GM PKT PO SCH ×3 (09:03→17:55)
[2018-04-17] MEDS: COLLAGENASE 5 GM (UD JAR) TOP SCH (09:04)
[2018-04-17] MEDS: SODIUM HYPOCHLORITE (1/40) 1 APPLIC BTL IRR SCH (09:04)
[2018-04-17] MEDS: INSULIN ASPART [NOVOLOG] 3 ML PEN SC SCH ×4 (09:05→21:00)
[2018-04-17] MEDS: TRIAMCINOLONE ACET 0.1% 15 GM OINT TOP SCH ×2 (09:06→21:00)
[2018-04-17] MEDS: CAPSAICIN 0.025% 60 GM CR TOP SCH ×4 (09:06→21:00)
[2018-04-17] MEDS: METOPROLOL (XL) 50 MG TAB PO SCH ×2 (09:59→22:12)
[2018-04-17] MEDS: DRONABINOL 2.5 MG CAP PO SCH (09:59)
--- NOTE | 2018-04-17 13:42 | CONS ---
Date/Time of Note Date/Time of Note DATE: 04/17/18 TIME: 13:40 Assessment/Plan Assessment/Plan Hospital Course Meena 62 year-old -[place] female who I have seen twice before in consultation both of the times as an inpatient. She had moved here from [place] but has a history of complications of diabetes including end-stage renal disease. She has had some skin wound infections that have required hospitalization, and may have osteomyelitis. She is extremely insulin sensitive and requires very small dosages of insulin. In addition she may have delayed gastric emptying which may alter how she absorbs the glucose from a meal. Problems: (1) Type 2 diabetes mellitus with hypertension and end stage renal disease on dialysis Status: Chronic Comment: Good blood sugar control on the current regimen using a combination DPP 4 inhibitor with short acting nateglinide secretagogue therapy. The same (2) Hyperlipidemia Status: Chronic Comment: On appropriate treatment Qualifiers: Hyperlipidemia type: pure hypercholesterolemia Qualified Codes: E78.00 - Pure hypercholesterolemia, unspecified (3) Peripheral vascular disease Status: Chronic Comment: Noted. Please see vascular surgery consult (4) Secondary hyperparathyroidism (of renal origin) Status: Chronic Comment: Noted. Result Diagram: 04/17/18 0439 04/17/18 0439 Results 24hrs Laboratory Tests Test 04/16/18 17:38 04/16/18 21:16 04/17/18 04:39 04/17/18 08:38 Bedside Glucose 183 172 166 White Blood Count 6.3 Red Blood Count 2.82 L Hemoglobin 10.0 L Hematocrit 31.6 L Mean Corpuscular Volume 112.1 H Mean Corpuscular 35.5 H Hemoglobin Mean Corpuscular 31.6 L Hemoglobin Concent Red Cell Distribution 18.4 H Width Platelet Count 156 Mean Platelet Volume 11.6 H Immature Granulocytes % 0.300 Neutrophils % 74.5 Lymphocytes % 8.8 L Monocytes % 14.7 H Eosinophils % 1.4 Basophils % 0.3 Nucleated Red Blood 0.0 Cells % Immature Granulocytes # 0.020 Neutrophils # 4.7 Lymphocytes # 0.6 L Monocytes # 0.9 Eosinophils # 0.1 Basophils # 0.0 Nucleated Red Blood 0.0 Cells # Sodium Level 142 Potassium Level 4.6 Chloride Level 98 Carbon Dioxide Level 29 Anion Gap 15 H Blood Urea Nitrogen 32 H Creatinine 3.58 H Est Glomerular Filtrat 16 L Rate mL/min Glucose Level 197 # Calcium Level 8.5 Phosphorus Level 4.1 Magnesium Level 2.1 Creatine Kinase 42 Consultation Date/Type/Reason Admit Date/Time Mar 29, 2018 at 17:36 Initial Consult Date 04/05/18 Type of Consult Endocrinology Reason for Consultation Diabetes mellitus type 2 complicated by end-stage renal disease; peripheral vascular disease; diabetic peripheral neuropathy; diabetic foot ulcer Requesting Provider: KG FLEIX DO 24 HR Interval Summary Free Text/Dictation Patient reports doing same. Constitutional: no complaints Detailed Summary Endocrine: no complaints Exam/Review of Systems Vital Signs Vitals Vital Signs Date Temp Pulse Resp B/P (MAP) Pulse Ox O2 O2 Flow FiO2 Time Delivery Rate 04/17/18 98.3 84 18 122/67 100 Room Air 07:19 (85) 04/14/18 4.0 21:34 Intake and Output 04/16/18 04/16/18 04/17/18 1515:00 23:00 07:00 IntakeIntake Total 150 ml 200 ml OutputOutput Total 1000 ml BalanceBalance 150 ml -800 ml Exam No change in examination Medications Medications Current Medications Acetaminophen (Tylenol Tab) 650 mg Q6H PRN PO PAIN LEVEL 1-5; Start 03/30/18 at 01:30 Clopidogrel Bisulfate (plaVIX) 75 mg DAILY PO Last administered on 04/17/18 09:02; Admin Dose 75 MG; Start 03/30/18 at 09:00 Dronabinol (Marinol) 2.5 mg DAILY PO Last administered on 04/17/18 09:59; Admin Dose 2.5 MG; Start 03/30/18 at 09:00 Losartan Potassium (Cozaar) 50 mg SuTuThSa@0900,2100 PO Last administered on 04/15/18 20:37; Admin Dose 50 MG; Start 03/31/18 at 09:00 Losartan Potassium (Cozaar) 50 mg MoWeFr@0900 PO Last administered on 04/11/18 09:20; Admin Dose 50 MG; Start 03/30/18 at 09:00 Morphine Sulfate (morphine) 2 mg Q3H PRN PO PAIN LEVEL 6-10 Last administered on 04/13/18 00:29; Admin Dose 2 MG; Start 03/30/18 at 01:30 Ondansetron HCl (Zofran Tab) 4 mg Q6H PRN PO NAUSEA AND/OR VOMITING Last administered on 04/11/18 16:42; Admin Dose 4 MG; Start 03/30/18 at 01:30 Pantoprazole (Protonix Tab) 40 mg AC BREAKFAST PO Last administered on 04/17/18 09:02; Admin Dose 40 MG; Start 03/30/18 at 07:20 Sevelamer Carbonate (Renvela) 1.6 gm WITH MEALS PO Last administered on 04/17/18 12:52; Admin Dose 1.6 GM; Start 03/30/18 at 07:50 Diagnostic Test (Pha) (Accu-Chek) 1 ea 02 XX Last administered on 04/11/18 01:53; Admin Dose 1 EA; Start 03/30/18 at 02:00 Insulin Aspart (Novolog Insulin Pen) NOVOLOG *MILD* ALGORITHM WITH MEALS BEDTIME SC Last administered on 04/17/18 12:53; Admin Dose 3 UNIT; Start 03/30/18 at 07:50 Miscellaneous Information 1 ea NOTE XX ; Start 03/30/18 at 02:00 Glucose (Glutose) 15 gm Q15M PRN PO DECREASED GLUCOSE Last administered on 04/08/18 12:56; Admin Dose 15 GM; Start 03/30/18 at 02:00 Glucose (Glutose) 22.5 gm Q15M PRN PO DECREASED GLUCOSE Last administered on 04/05/18 19:02; Admin Dose 22.5 GM; Start 03/30/18 at 02:00 Dextrose (D50w Syringe) 25 ml Q15M PRN IV DECREASED GLUCOSE Last administered on 04/06/18 09:22; Admin Dose 25 ML; Start 03/30/18 at 02:00 Dextrose (D50w Syringe) 50 ml Q15M PRN IV DECREASED GLUCOSE Last administered on 04/08/18 14:54; Admin Dose 50 ML; Start 03/30/18 at 02:00 Glucagon (Glucagen) 1 mg Q15M PRN IM DECREASED GLUCOSE Last administered on 04/08/18 14:37; Admin Dose 1 MG; Start 03/30/18 at 02:00 Glucose (Glutose) 15 gm Q15M PRN BUCCAL DECREASED GLUCOSE Last administered on 04/04/18 17:57; Admin Dose 15 GM; Start 03/30/18 at 02:00 Metoprolol Succinate (Toprol Xl) 200 mg MoWeFr@0900 PO Last administered on 04/11/18 09:21; Admin Dose 200 MG; Start 03/30/18 at 09:00 Metoprolol Succinate (Toprol Xl) 50 mg SuTuThSa@0900,2100 PO Last administered on 04/17/18 09:59; Admin Dose 50 MG; Start 03/31/18 at 09:00 Diphenhydramine HCl (Benadryl) 50 mg Q4H PRN IV pruritis Last administered on 04/17/18 01:40; Admin Dose 50 MG; Start 03/30/18 at 09:00 Heparin Sodium (Porcine) (Heparin (5000 Units/1ml)) 5,000 unit BID SC Last administered on 04/17/18 09:05; Admin Dose 5,000 UNIT; Start 03/30/18 at 12:00 Levofloxacin (Levaquin) 250 mg Q2D@0600 PO Last administered on 04/15/18 06:09; Admin Dose 250 MG; Start 04/01/18 at 06:00 Sodium Hypochlorite (Dakin'S (Dilute )) 1 applic DAILY IRR Last administered on 04/17/18 09:04; Admin Dose 1 APPLIC; Start 03/31/18 at 09:00 Ondansetron HCl (Zofran Inj) 4 mg Q4H PRN IV NAUSEA AND/OR VOMITING Last administered on 04/15/18 15:17; Admin Dose 4 MG; Start 04/02/18 at 16:30 Collagenase (Santyl) 1 applic DAILY TOP Last administered on 04/17/18 09:04; Admin Dose 1 APPLIC; Start 04/08/18 at 02:53 Atorvastatin Calcium (Lipitor) 40 mg QHS PO Last administered on 04/15/18 20:28; Admin Dose 40 MG; Start 04/10/18 at 21:00 Multivit/Ca Carb/ B Cmplx/FA/Prenat (Yuridia-Charito) 1 tab DAILY PO Last administered on 04/17/18 09:02; Admin Dose 1 TAB; Start 04/11/18 at 09:00 Cholecalciferol (Vitamin D) 1,000 unit DAILY PO Last administered on 04/17/18 09:02; Admin Dose 1,000 UNIT; Start 04/11/18 at 09:00 Linagliptin (Tradjenta) 5 mg DAILY PO Last administered on 04/17/18at 09:02; Admin Dose 5 MG; Start 04/11/18 at 13:00 Triamcinolone Acetonide (Kenalog 0.1% Oint) 1 applic BID TOP Last administered on 04/17/18at 09:06; Admin Dose 1 APPLIC; Start 04/12/18 at 09:00 Capsaicin (Theragen) 1 applic QID TOP Last administered on 04/17/18at 09:06; Admin Dose 1 APPLIC; Start 04/14/18 at 17:00 Nateglinide (Starlix) 60 mg AC MEALS PO Last administered on 04/17/18at 12:52; Admin Dose 60 MG; Start 04/14/18 at 17:25 Daptomycin 335 mg/ Sodium Chloride 100 ml @ 200 mls/hr Q48H IVPB ; Start 04/17/18 at 15:00 LILIAN IBRAHIM MD Apr 17, 2018 13:42
[2018-04-17 14:32] VITALS: BP 134/75; PULSE 88; RESP 18
[2018-04-17] MEDS ORDERED: DAPTOMYCIN 335 MG in SOD CHLORIDE 0.9% 100 ML IVPB SCH (15:00)
--- NOTE | 2018-04-17 15:31 | CONS ---
Date/Time of Note Date/Time of Note DATE: 04/17/18 TIME: 15:31 Assessment/Plan Assessment/Plan Hospital Course SUBJECTIVE: No acute events overnight, no fevers INDWELLINGS: AV fistula. Allergy: Vancomycin Wound culture growing Corynebacterium group JK and Proteus mirabilis intermittently sensitive to gentamicin Antimicrobials: Levofloxacin, Daptomycin PHYSICAL EXAMINATION: GENERAL: Chronically ill-appearing, wasted, elderly woman who is awake, in no distress. HEENT: Head is atraumatic, normocephalic. NECK: Supple. CHEST: Rise symmetrical. Breath sounds diminished to bases. HEART: S1, S2. ABDOMEN: Soft. Bowel tones are present. EXTREMITIES: With left lower extremity dressing intact. ASSESSMENT: 1. Left lower extremity nonhealing necrotic wound with suspicion for osteomyelitis per podiatry. 2. Severe peripheral arterial disease, status post balloon angioplasty 02/13/18. 3. End-stage renal disease, hemodialysis dependent. 4. ALLERGIES TO VANCOMYCIN. 5. Diabetes and anemia. PLAN: The patient remains stable, pending discharge arrangements, continue wound care per podiatry, needs detention abx Result Diagram: 04/17/18 0439 04/17/18 0439 Results 24hrs Laboratory Tests Test 04/16/18 17:38 04/16/18 21:16 04/17/18 04:39 04/17/18 08:38 Bedside Glucose 183 172 166 White Blood Count 6.3 Red Blood Count 2.82 L Hemoglobin 10.0 L Hematocrit 31.6 L Mean Corpuscular Volume 112.1 H Mean Corpuscular 35.5 H Hemoglobin Mean Corpuscular 31.6 L Hemoglobin Concent Red Cell Distribution 18.4 H Width Platelet Count 156 Mean Platelet Volume 11.6 H Immature Granulocytes % 0.300 Neutrophils % 74.5 Lymphocytes % 8.8 L Monocytes % 14.7 H Eosinophils % 1.4 Basophils % 0.3 Nucleated Red Blood 0.0 Cells % Immature Granulocytes # 0.020 Neutrophils # 4.7 Lymphocytes # 0.6 L Monocytes # 0.9 Eosinophils # 0.1 Basophils # 0.0 Nucleated Red Blood 0.0 Cells # Sodium Level 142 Potassium Level 4.6 Chloride Level 98 Carbon Dioxide Level 29 Anion Gap 15 H Blood Urea Nitrogen 32 H Creatinine 3.58 H Est Glomerular Filtrat 16 L Rate mL/min Glucose Level 197 # Calcium Level 8.5 Phosphorus Level 4.1 Magnesium Level 2.1 Creatine Kinase 42 Consultation Date/Type/Reason Admit Date/Time Mar 29, 2018 at 17:36 Initial Consult Date Type of Consult ID Requesting Provider: KG FELIX DO Exam/Review of Systems Vital Signs Vitals Vital Signs Date Temp Pulse Resp B/P (MAP) Pulse Ox O2 O2 Flow FiO2 Time Delivery Rate 04/17/18 98.0 88 18 134/75 96 Room Air 14:32 (94) 04/14/18 4.0 21:34 Intake and Output 04/16/18 04/16/18 04/17/18 1515:00 23:00 07:00 IntakeIntake Total 150 ml 200 ml OutputOutput Total 1000 ml BalanceBalance 150 ml -800 ml Medications Medications Current Medications Acetaminophen (Tylenol Tab) 650 mg Q6H PRN PO PAIN LEVEL 1-5; Start 03/30/18 at 01:30 Clopidogrel Bisulfate (plaVIX) 75 mg DAILY PO Last administered on 04/17/18 09:02; Admin Dose 75 MG; Start 03/30/18 at 09:00 Dronabinol (Marinol) 2.5 mg DAILY PO Last administered on 04/17/18 09:59; Admin Dose 2.5 MG; Start 03/30/18 at 09:00 Losartan Potassium (Cozaar) 50 mg SuTuThSa@0900,2100 PO Last administered on 04/15/18 20:37; Admin Dose 50 MG; Start 03/31/18 at 09:00 Losartan Potassium (Cozaar) 50 mg MoWeFr@0900 PO Last administered on 04/11/18 09:20; Admin Dose 50 MG; Start 03/30/18 at 09:00 Morphine Sulfate (morphine) 2 mg Q3H PRN PO PAIN LEVEL 6-10 Last administered on 04/13/18 00:29; Admin Dose 2 MG; Start 03/30/18 at 01:30 Ondansetron HCl (Zofran Tab) 4 mg Q6H PRN PO NAUSEA AND/OR VOMITING Last administered on 04/11/18 16:42; Admin Dose 4 MG; Start 03/30/18 at 01:30 Pantoprazole (Protonix Tab) 40 mg AC BREAKFAST PO Last administered on 04/17/18 09:02; Admin Dose 40 MG; Start 03/30/18 at 07:20 Sevelamer Carbonate (Renvela) 1.6 gm WITH MEALS PO Last administered on 04/17/18 12:52; Admin Dose 1.6 GM; Start 03/30/18 at 07:50 Diagnostic Test (Pha) (Accu-Chek) 1 ea 02 XX Last administered on 04/11/18 01:53; Admin Dose 1 EA; Start 03/30/18 at 02:00 Insulin Aspart (Novolog Insulin Pen) NOVOLOG *MILD* ALGORITHM WITH MEALS BEDTIME SC Last administered on 04/17/18 12:53; Admin Dose 3 UNIT; Start 03/30/18 at 07:50 Miscellaneous Information 1 ea NOTE XX ; Start 03/30/18 at 02:00 Glucose (Glutose) 15 gm Q15M PRN PO DECREASED GLUCOSE Last administered on 04/08/18 12:56; Admin Dose 15 GM; Start 03/30/18 at 02:00 Glucose (Glutose) 22.5 gm Q15M PRN PO DECREASED GLUCOSE Last administered on 04/05/18 19:02; Admin Dose 22.5 GM; Start 03/30/18 at 02:00 Dextrose (D50w Syringe) 25 ml Q15M PRN IV DECREASED GLUCOSE Last administered on 04/06/18 09:22; Admin Dose 25 ML; Start 03/30/18 at 02:00 Dextrose (D50w Syringe) 50 ml Q15M PRN IV DECREASED GLUCOSE Last administered on 04/08/18 14:54; Admin Dose 50 ML; Start 03/30/18 at 02:00 Glucagon (Glucagen) 1 mg Q15M PRN IM DECREASED GLUCOSE Last administered on 04/08/18 14:37; Admin Dose 1 MG; Start 03/30/18 at 02:00 Glucose (Glutose) 15 gm Q15M PRN BUCCAL DECREASED GLUCOSE Last administered on 04/04/18 17:57; Admin Dose 15 GM; Start 03/30/18 at 02:00 Metoprolol Succinate (Toprol Xl) 200 mg MoWeFr@0900 PO Last administered on 04/11/18 09:21; Admin Dose 200 MG; Start 03/30/18 at 09:00 Metoprolol Succinate (Toprol Xl) 50 mg SuTuThSa@0900,2100 PO Last administered on 04/17/18 09:59; Admin Dose 50 MG; Start 03/31/18 at 09:00 Diphenhydramine HCl (Benadryl) 50 mg Q4H PRN IV pruritis Last administered on 04/17/18 14:04; Admin Dose 50 MG; Start 03/30/18 at 09:00 Heparin Sodium (Porcine) (Heparin (5000 Units/1ml)) 5,000 unit BID SC Last adm inistered on 04/17/18 09:05; Admin Dose 5,000 UNIT; Start 03/30/18 at 12:00 Levofloxacin (Levaquin) 250 mg Q2D@0600 PO Last administered on 04/15/18 06:09; Admin Dose 250 MG; Start 04/01/18 at 06:00 Sodium Hypochlorite (Dakin'S (Dilute )) 1 applic DAILY IRR Last administered on 04/17/18 09:04; Admin Dose 1 APPLIC; Start 03/31/18 at 09:00 Ondansetron HCl (Zofran Inj) 4 mg Q4H PRN IV NAUSEA AND/OR VOMITING Last administered on 04/15/18 15:17; Admin Dose 4 MG; Start 04/02/18 at 16:30 Collagenase (Santyl) 1 applic DAILY TOP Last administered on 04/17/18 09:04; Admin Dose 1 APPLIC; Start 04/08/18 at 02:53 Atorvastatin Calcium (Lipitor) 40 mg QHS PO Last administered on 04/15/18 20:2 8; Admin Dose 40 MG; Start 04/10/18 at 21:00 Multivit/Ca Carb/ B Cmplx/FA/Prenat (Yuridia-Charito) 1 tab DAILY PO Last administered on 04/17/18 09:02; Admin Dose 1 TAB; Start 04/11/18 at 09:00 Cholecalciferol (Vitamin D) 1,000 unit DAILY PO Last administered on 04/17/18 09:02; Admin Dose 1,000 UNIT; Start 04/11/18 at 09:00 Linagliptin (Tradjenta) 5 mg DAILY PO Last administered on 04/17/18 09:02; Admin Dose 5 MG; Start 04/11/18 at 13:00 Triamcinolone Acetonide (Kenalog 0.1% Oint) 1 applic BID TOP Last administered on 04/17/18at 09:06; Admin Dose 1 APPLIC; Start 04/12/18 at 09:00 Capsaicin (Theragen) 1 applic QID TOP Last administered on 04/17/18at 09:06; Admin Dose 1 APPLIC; Start 04/14/18 at 17:00 Nateglinide (Starlix) 60 mg AC MEALS PO Last administered on 04/17/18at 12:52; Admin Dose 60 MG; Start 04/14/18 at 17:25 Daptomycin 335 mg/ Sodium Chloride 100 ml @ 200 mls/hr Q48H IVPB ; Start 04/17/18 at 15:00 KRISHNA BURTON NP Apr 17, 2018 15:31
--- NOTE | 2018-04-17 19:30 | PN ---
Date/Time of Note Date/Time of Note DATE: 04/17/18 TIME: 19:30 Assessment/Plan VTE Prophylaxis Risk score (from Nsg)>0 risk: 4 SCD applied (from Nsg): Yes Pharmacological prophylaxis: heparin Lines/Catheters IV Catheter Type (from Nrsg): Saline Lock Urinary Cath still in place: No Assessment/Plan Hospital Course 62 y/o F with hx of HLD, DM1 with PN, HTN, PAD, CVA, ESRD on HD presents to the floor with chronic left lower extremity ulceration. Patient was seen in wound care clinic and had reported increased swelling and pain to the left lower extremity ulcer sites. There was concern for worsening infection due the symptoms she exhibited during clinic. Patient was amenable for admission for closer monitoring. Assessment/Plan 1) Left heel decubitus ulcer 2) Left heel dry gangrene - improved 3) Left lateral leg diabetic ulcer - resolved 4) Cellulitis LLE 5) Suspicion for osteomyelitis - negative on MRI 6) PAD 7) ESRD on HD 8) DM1 with peripheral neuropathy 9) Hx of CVA Plan: Adipose tissue and fascia still intact to the posterior heel wound and no purulence was expressed with no proximal streaking. X-rays reviewed and showing signs of early osteomyelitis. No sign of soft tissue emphysena. MRI reviewed and stated bone marrow edema more likely instead of active osteomyelitis with no connecting fistula to calcaneus. PAD being followed in outpatient setting with Dr. Valdovinos. Wound cultures showing corynebacterium jekeium and proteus m irabilis on IV abx. Recommend offloading with pillows and heel protectors. Recommend daily irrigation with dakins to wound site, santyl, left heel with 4x4 dakins moistened gauze and kerlix wrap. Pending SNF placement. Medical decisions, treatment, and plan coordinated with Dr. Gomez. Result Diagram: 04/17/189 04/17/18438 Results 24hrs Laboratory Tests Test 04/16/18 21:16 04/17/18 04:39 04/17/18 08:38 04/17/18 17:51 Bedside Glucose 172 166 157 White Blood Count 6.3 Red Blood Count 2.82 L Hemoglobin 10.0 L Hematocrit 31.6 L Mean Corpuscular Volume 112.1 H Mean Corpuscular 35.5 H Hemoglobin Mean Corpuscular 31.6 L Hemoglobin Concent Red Cell Distribution 18.4 H Width Platelet Count 156 Mean Platelet Volume 11.6 H Immature Granulocytes % 0.300 Neutrophils % 74.5 Lymphocytes % 8.8 L Monocytes % 14.7 H Eosinophils % 1.4 Basophils % 0.3 Nucleated Red Blood 0.0 Cells % Immature Granulocytes # 0.020 Neutrophils # 4.7 Lymphocytes # 0.6 L Monocytes # 0.9 Eosinophils # 0.1 Basophils # 0.0 Nucleated Red Blood 0.0 Cells # Sodium Level 142 Potassium Level 4.6 Chloride Level 98 Carbon Dioxide Level 29 Anion Gap 15 H Blood Urea Nitrogen 32 H Creatinine 3.58 H Est Glomerular Filtrat 16 L Rate mL/min Glucose Level 197 # Calcium Level 8.5 Phosphorus Level 4.1 Magnesium Level 2.1 Creatine Kinase 42 Subjective 24 Hr Interval Summary Free Text/Dictation No acute events overnight. Exam/Review of Systems Vital Signs Vitals Vital Signs Date Temp Pulse Resp B/P (MAP) Pulse Ox O2 O2 Flow FiO2 Time Delivery Rate 04/17/18 98.0 88 18 134/75 96 Room Air 14:32 (94) 04/14/18 4.0 21:34 Intake and Output 04/16/18 04/16/18 04/17/18 1515:00 23:00 07:00 IntakeIntake Total 150 ml 200 ml OutputOutput Total 1000 ml BalanceBalance 150 ml -800 ml Exam Non palpable pedal pulses Muscle atrophy to the lower extremity Left heel ulcer 3.1 x 2.8cm x 0.3cm fibrotic wound bed with adipose tissue noted. No probing to bone, no purulence expressed, no proximal streaking. Left lateral leg ulcer showing signs of epithelialization Absent protectives sensations to the feet There is pain to palpation of the heel wound site. Medications Medications Current Medications Acetaminophen (Tylenol Tab) 650 mg Q6H PRN PO PAIN LEVEL 1-5; Start 03/30/18 at 01:30 Clopidogrel Bisulfate (plaVIX) 75 mg DAILY PO Last administered on 04/17/18at 09:02; Admin Dose 75 MG; Start 03/30/18 at 09:00 Dronabinol (Marinol) 2.5 mg DAILY PO Last administered on 04/17/18 09:59; Admin Dose 2.5 MG; Start 03/30/18 at 09:00 Losartan Potassium (Cozaar) 50 mg SuTuThSa@0900,2100 PO Last administered on 04/15/18 20:37; Admin Dose 50 MG; Start 03/31/18 at 09:00 Losartan Potassium (Cozaar) 50 mg MoWeFr@0900 PO Last administered on 04/11/18 09:20; Admin Dose 50 MG; Start 03/30/18 at 09:00 Morphine Sulfate (morphine) 2 mg Q3H PRN PO PAIN LEVEL 6-10 Last administered on 04/13/18 00:29; Admin Dose 2 MG; Start 03/30/18 at 01:30 Ondansetron HCl (Zofran Tab) 4 mg Q6H PRN PO NAUSEA AND/OR VOMITING Last administered on 04/11/18 16:42; Admin Dose 4 MG; Start 03/30/18 at 01:30 Pantoprazole (Protonix Tab) 40 mg AC BREAKFAST PO Last administered on 04/17/18 09:02; Admin Dose 40 MG; Start 03/30/18 at 07:20 Sevelamer Carbonate (Renvela) 1.6 gm WITH MEALS PO Last administered on 04/17/18 12:52; Admin Dose 1.6 GM; Start 03/30/18 at 07:50 Diagnostic Test (Pha) (Accu-Chek) 1 ea 02 XX Last administered on 04/11/18 01:53; Admin Dose 1 EA; Start 03/30/18 at 02:00 Insulin Aspart (Novolog Insulin Pen) NOVOLOG *MILD* ALGORITHM WITH MEALS BEDTIME SC Last administered on 04/17/18 18:16; Admin Dose 1 UNIT; Start 03/30/18 at 07:50 Miscellaneous Information 1 ea NOTE XX ; Start 03/30/18 at 02:00 Glucose (Glutose) 15 gm Q15M PRN PO DECREASED GLUCOSE Last administered on 04/08/18 12:56; Admin Dose 15 GM; Start 03/30/18 at 02:00 Glucose (Glutose) 22.5 gm Q15M PRN PO DECREASED GLUCOSE Last administered on 04/05/18 19:02; Admin Dose 22.5 GM; Start 03/30/18 at 02:00 Dextrose (D50w Syringe) 25 ml Q15M PRN IV DECREASED GLUCOSE Last administered on 04/06/18 09:22; Admin Dose 25 ML; Start 03/30/18 at 02:00 Dextrose (D50w Syringe) 50 ml Q15M PRN IV DECREASED GLUCOSE Last administered on 04/08/18 14:54; Admin Dose 50 ML; Start 03/30/18 at 02:00 Glucagon (Glucagen) 1 mg Q15M PRN IM DECREASED GLUCOSE Last administered on 04/08/18 14:37; Admin Dose 1 MG; Start 03/30/18 at 02:00 Glucose (Glutose) 15 gm Q15M PRN BUCCAL DECREASED GLUCOSE Last administered on 04/04/18 17:57; Admin Dose 15 GM; Start 03/30/18 at 02:00 Metoprolol Succinate (Toprol Xl) 200 mg MoWeFr@0900 PO Last administered on 04/11/18 09:21; Admin Dose 200 MG; Start 03/30/18 at 09:00 Metoprolol Succinate (Toprol Xl) 50 mg SuTuThSa@0900,2100 PO Last administered on 04/17/18 09:59; Admin Dose 50 MG; Start 03/31/18 at 09:00 Diphenhydramine HCl (Benadryl) 50 mg Q4H PRN IV pruritis Last administered on 04/17/18 14:04; Admin Dose 50 MG; Start 03/30/18 at 09:00 Heparin Sodium (Porcine) (Heparin (5000 Units/1ml)) 5,000 unit BID SC Last administered on 04/17/18 09:05; Admin Dose 5,000 UNIT; Start 03/30/18 at 12:00 Levofloxacin (Levaquin) 250 mg Q2D@0600 PO Last administered on 04/15/18 06:09; Admin Dose 250 MG; Start 04/01/18 at 06:00 Sodium Hypochlorite (Dakin'S (Dilute 1/40)) 1 applic DAILY IRR Last administered on 04/17/18 09:04; Admin Dose 1 APPLIC; Start 03/31/18 at 09:00 Ondansetron HCl (Zofran Inj) 4 mg Q4H PRN IV NAUSEA AND/OR VOMITING Last administered on 04/15/18 15:17; Admin Dose 4 MG; Start 04/02/18 at 16:30 Collagenase (Santyl) 1 applic DAILY TOP Last administered on 04/17/18 09:04; Admin Dose 1 APPLIC; Start 04/08/18 at 02:53 Atorvastatin Calcium (Lipitor) 40 mg QHS PO Last administered on 04/15/18 20:28; Admin Dose 40 MG; Start 04/10/18 at 21:00 Multivit/Ca Carb/ B Cmplx/FA/Prenat (Yuridia-Charito) 1 tab DAILY PO Last administered on 04/17/18 09:02; Admin Dose 1 TAB; Start 04/11/18 at 09:00 Cholecalciferol (Vitamin D) 1,000 unit DAILY PO Last administered on 04/17/18 09:02; Admin Dose 1,000 UNIT; Start 04/11/18 at 09:00 Linagliptin (Tradjenta) 5 mg DAILY PO Last administered on 04/17/18 09:02; Admin Dose 5 MG; Start 04/11/18 at 13:00 Triamcinolone Acetonide (Kenalog 0.1% Oint) 1 applic BID TOP Last administered on 04/17/18 09:06; Admin Dose 1 APPLIC; Start 04/12/18 at 09:00 Capsaicin (Theragen) 1 applic QID TOP Last administered on 04/17/18 09:06; Admin Dose 1 APPLIC; Start 04/14/18 at 17:00 Nateglinide (Starlix) 60 mg AC MEALS PO Last administered on 04/17/18 17:57; Admin Dose 60 MG; Start 04/14/18 at 17:25 Daptomycin 335 mg/ Sodium Chloride 100 ml @ 200 mls/hr Q48H IVPB ; Start 04/17/18 at 15:00 FELTON ACOSTA DPM Apr 17, 2018 19:30
[2018-04-17] MEDS ORDERED: COLLAGENASE 5 GM (UD JAR) TOP SCH (20:00)
[2018-04-17 21:04] VITALS: BP 141/67; PULSE 91; RESP 18
[2018-04-17] MEDS: ATORVASTATIN 40 MG TAB PO SCH (22:05)
[2018-04-18] VITALS (17 sets, daily range): BP systolic 95–189; BP diastolic 61–166; PULSE 46–96; RESP 18–20
[2018-04-18] MEDS: ACCU-CHEK XX SCH (02:00)
[2018-04-18] MEDS: morphine LIQ (10 MG/5 ML) CUP PO PRN ×2 (03:42→08:46)
[2018-04-18] MEDS: ONDANSETRON 4 MG INJ IV PRN ×2 (03:42→20:34)
[2018-04-18] MEDS: DIPHENHYDRAMINE 50 MG INJ IV PRN ×3 (05:01→20:34)
[2018-04-18] MEDS: SEVELAMER CARBONATE 0.8 GM PKT PO SCH ×4 (07:50→17:55)
[2018-04-18] MEDS: CALCITRIOL 1 MCG INJ IV ONE ×2 (08:00→17:56)
--- NOTE | 2018-04-18 08:28 | PN ---
DATE: 04/18/2018 SUBJECTIVE: The patient is stable, no events overnight. No fevers, chills, nausea, vomiting. OBJECTIVE: VITAL SIGNS: Blood pressure is 137/73, respirations 18, pulse 64, temperature 98.6. HEENT: Head is normocephalic. NECK: Supple. HEART: Regular rate. LUNGS: Show diminished breath sounds at the base. ABDOMEN: Soft, nontender to palpation without rebound or guarding. EXTREMITIES: Negative for clubbing, cyanosis, no edema. DERMATOLOGIC: No rashes. MUSCULOSKELETAL: The patient has dressing over her left foot, clean, dry and intact. No joint effus ion. NEUROLOGIC: No change in exam. MEDICATIONS: Reviewed. LABORATORY DATA: Reviewed. ASSESSMENT AND PLAN: 1. Left diabetic foot ulcer, osteomyelitis. The patient is status post debridement. Continue medic al management, continue antibiotic therapy. Follow up with podiatry and vascular surgery. Continue wound care. 2. End-stage renal disease. The patient is ready for dialysis today. 3. Diabetes. Continue current diabetic regimen per endocrinology. 4. Anemia. Monitor hemoglobin and hematocrit levels. Continue Epogen. 5. Mineral bone disorder. Continue to monitor calcium and phosphorus levels. Continue vitamin D keene pplementation. 6. Chronic pruritus, improving. Continue medical management. 7. Peptic ulcer disease. Continue proton pump inhibitor. 8. Cerebrovascular accident. Continue current treatment plan. 9. Hypertension. Continue current blood pressure regimen. 10. Coronary artery disease. Continue medical management. 11. Gastrointestinal and deep vein thrombosis prophylaxis. 12. Status post delirium. Continue to monitor. DISPOSITION: The patient is pending placement at detention facility once bed is available. Dictated By: KG FELIX DO NR/NTS Conf#: [id number] DID#: [id number] CC: KG FELIX DO;*EndCC*
[2018-04-18] MEDS: EPOETIN 4000 UNITS/1 ML INJ (ESRD) SC ONE ×2 (08:30→18:00)
[2018-04-18] MEDS: CHOLECALCIFEROL 1,000 UNIT TAB PO SCH (08:38)
[2018-04-18] MEDS: CLOPIDOGREL 75 MG TAB PO SCH (08:38)
[2018-04-18] MEDS: PANTOPRAZOLE (EC) 40 MG TAB PO SCH (08:38)
[2018-04-18] MEDS: LINAGLIPTIN 5 MG TABLET PO SCH (08:39)
[2018-04-18] MEDS: NATEGLINIDE 60 MG TAB PO SCH ×3 (08:39→17:25)
[2018-04-18] MEDS: SODIUM HYPOCHLORITE (1/40) 1 APPLIC BTL IRR SCH (08:40)
[2018-04-18] MEDS: TRIAMCINOLONE ACET 0.1% 15 GM OINT TOP SCH (08:42)
[2018-04-18] MEDS: CAPSAICIN 0.025% 60 GM CR TOP SCH ×3 (08:42→17:00)
[2018-04-18] MEDS: INSULIN ASPART [NOVOLOG] 3 ML PEN SC SCH ×4 (08:45→20:34)
[2018-04-18] MEDS: HEPARIN 5,000 UNIT/1 ML VIAL SC SCH ×2 (08:46→20:35)
[2018-04-18] MEDS: MULTIVIT/CA CARB/B CMPLX/FA TAB PO SCH (08:52)
[2018-04-18] MEDS ORDERED: MULTIVIT/CA CARB/B CMPLX/FA TAB NGT SCH (09:00)
[2018-04-18] MEDS: LOSARTAN 50 MG TAB PO SCH (09:00)
[2018-04-18] MEDS: METOPROLOL (XL) 100 MG TAB PO SCH (09:00)
[2018-04-18] MEDS: DRONABINOL 2.5 MG CAP PO SCH (09:09)
[2018-04-18] MEDS ORDERED: LOPERAMIDE 2 MG CAP PO PRN (10:30)
--- NOTE | 2018-04-18 13:05 | CONS ---
Date/Time of Note Date/Time of Note DATE: 04/18/18 TIME: 13:03 Assessment/Plan Assessment/Plan Hospital Course SUBJECTIVE: Patient refused antibiotics yesterday stated that she had been having diarrhea. Per RN her stools are formed, therefore C. difficile was not sent, she was started on Imodium. INDWELLINGS: AV fistula. Allergy: Vancomycin Wound culture growing Corynebacterium group JK and Proteus mirabilis intermittently sensitive to gentamicin Antimicrobials: Levofloxacin, Daptomycin PHYSICAL EXAMINATION: GENERAL: Chronically ill-appearing, wasted, elderly woman who is awake, in no distress. HEENT: Head is atraumatic, normocephalic. NECK: Supple. CHEST: Rise symmetrical. Breath sounds diminished to bases. HEART: S1, S2. ABDOMEN: Soft. Bowel tones are present. EXTREMITIES: With left lower extremity dressing intact. ASSESSMENT: 1. Left lower extremity nonhealing necrotic wound with suspicion for osteomyelitis per podiatry. 2. Severe peripheral arterial disease, status post balloon angioplasty 02/13/18. 3. End-stage renal disease, hemodialysis dependent. 4. ALLERGIES TO VANCOMYCIN. 5. Diabetes and anemia. PLAN: The patient remains stable, pending discharge arrangements, continue wound care per podiatry, continue antibiotics for 3 more weeks if patient agrees Result Diagram: 04/17/18 0439 04/17/18 0439 Results 24hrs Laboratory Tests Test 04/17/18 17:51 04/17/18 21:57 04/18/18 07:59 Bedside Glucose 157 177 167 Consultation Date/Type/Reason Admit Date/Time Mar 29, 2018 at 17:36 Initial Consult Date Type of Consult ID Requesting Provider: KG FELIX DO Exam/Review of Systems Vital Signs Vitals Vital Signs Date Temp Pulse Resp B/P (MAP) Pulse Ox O2 O2 Flow FiO2 Time Delivery Rate 04/18/18 98.3 96 18 122/63 100 07:40 (82) 04/17/18 Room Air 14:32 04/14/18 4.0 21:34 Intake and Output 04/17/18 04/17/18 04/18/18 1515:00 23:00 07:00 IntakeIntake Total 200 ml 50 ml 190 ml BalanceBalance 200 ml 50 ml 190 ml Medications Medications Current Medications Acetaminophen (Tylenol Tab) 650 mg Q6H PRN PO PAIN LEVEL 1-5; Start 12/21/18 at 01:30 Clopidogrel Bisulfate (plaVIX) 75 mg DAILY PO Last administered on 04/18/18 08:38; Admin Dose 75 MG; Start 03/30/18 at 09:00 Dronabinol (Marinol) 2.5 mg DAILY PO Last administered on 04/18/18 09:09; Admin Dose 2.5 MG; Start 03/30/18 at 09:00 Losartan Potassium (Cozaar) 50 mg SuTuThSa@0900,2100 PO Last administered on 04/17/18 22:11; Admin Dose 50 MG; Start 03/31/18 at 09:00 Losartan Potassium (Cozaar) 50 mg MoWeFr@0900 PO Last administered on 04/11/18 09:20; Admin Dose 50 MG; Start 03/30/18 at 09:00 Morphine Sulfate (morphine) 2 mg Q3H PRN PO PAIN LEVEL 6-10 Last administered on 04/18/18 03:42; Admin Dose 2 MG; Start 03/30/18 at 01:30 Ondansetron HCl (Zofran Tab) 4 mg Q6H PRN PO NAUSEA AND/OR VOMITING Last administered on 04/11/18 16:42; Admin Dose 4 MG; Start 03/30/18 at 01:30 Pantoprazole (Protonix Tab) 40 mg AC BREAKFAST PO Last administered on 04/18/18 08:38; Admin Dose 40 MG; Start 03/30/18 at 07:20 Sevelamer Carbonate (Renvela) 1.6 gm WITH MEALS PO Last administered on 04/17/18 12:52; Admin Dose 1.6 GM; Start 03/30/18 at 07:50 Diagnostic Test (Pha) (Accu-Chek) 1 ea 02 XX Last administered on 04/11/18 01:53; Admin Dose 1 EA; Start 03/30/18 at 02:00 Insulin Aspart (Novolog Insulin Pen) NOVOLOG *MILD* ALGORITHM WITH MEALS BEDTIME SC Last administered on 04/18/18 08:45; Admin Dose 1 UNIT; Start 03/30/18 at 07:50 Miscellaneous Information 1 ea NOTE XX ; Start 03/30/18 at 02:00 Glucose (Glutose) 15 gm Q15M PRN PO DECREASED GLUCOSE Last administered on 04/08/18 12:56; Admin Dose 15 GM; Start 03/30/18 at 02:00 Glucose (Glutose) 22.5 gm Q15M PRN PO DECREASED GLUCOSE Last administered on 04/05/18 19:02; Admin Dose 22.5 GM; Start 03/30/18 at 02:00 Dextrose (D50w Syringe) 25 ml Q15M PRN IV DECREASED GLUCOSE Last administered on 04/06/18 09:22; Admin Dose 25 ML; Start 03/30/18 at 02:00 Dextrose (D50w Syringe) 50 ml Q15M PRN IV DECREASED GLUCOSE Last administered on 04/08/18 14:54; Admin Dose 50 ML; Start 03/30/18 at 02:00 Glucagon (Glucagen) 1 mg Q15M PRN IM DECREASED GLUCOSE Last administered on 04/08/18 14:37; Admin Dose 1 MG; Start 03/30/18 at 02:00 Glucose (Glutose) 15 gm Q15M PRN BUCCAL DECREASED GLUCOSE Last administered on 04/04/18 17:57; Admin Dose 15 GM; Start 03/30/18 at 02:00 Metoprolol Succinate (Toprol Xl) 200 mg MoWeFr@0900 PO Last administered on 04/11/18 09:21; Admin Dose 200 MG; Start 03/30/18 at 09:00 Metoprolol Succinate (Toprol Xl) 50 mg SuTuThSa@0900,2100 PO Last administered on 04/17/18 22:12; Admin Dose 50 MG; Start 03/31/18 at 09:00 Diphenhydramine HCl (Benadryl) 50 mg Q4H PRN IV pruritis Last administered on 04/18/18 11:56; Admin Dose 50 MG; Start 03/30/18 at 09:00 Heparin Sodium (Porcine) (Heparin (5000 Units/1ml)) 5,000 unit BID SC Last administered on 04/18/18 08:46; Admin Dose 5,000 UNIT; Start 03/30/18 at 12:00 Levofloxacin (Levaquin) 250 mg Q2D@0600 PO Last administered on 04/15/18 06:09; Admin Dose 250 MG; Start 04/01/18 at 06:00 Sodium Hypochlorite (Dakin'S (Dilute )) 1 applic DAILY IRR Last administered on 04/18/18 08:40; Admin Dose 1 APPLIC; Start 03/31/18 at 09:00 Ondansetron HCl (Zofran Inj) 4 mg Q4H PRN IV NAUSEA AND/OR VOMITING Last administered on 04/18/18 03:42; Admin Dose 4 MG; Start 04/02/18 at 16:30 Atorvastatin Calcium (Lipitor) 40 mg QHS PO Last administered on 04/17/18 22:05; Admin Dose 40 MG; Start 04/10/18 at 21:00 Multivit/Ca Carb/ B Cmplx/FA/Prenat (Yuridia-Charito) 1 tab DAILY PO Last administered on 04/17/18 09:02; Admin Dose 1 TAB; Start 04/11/18 at 09:00 Cholecalciferol (Vitamin D) 1,000 unit DAILY PO Last administered on 04/18/18 08:38; Admin Dose 1,000 UNIT; Start 04/11/18 at 09:00 Linagliptin (Tradjenta) 5 mg DAILY PO Last administered on 04/18/18 08:39; Admin Dose 5 MG; Start 04/11/18 at 13:00 Triamcinolone Acetonide (Kenalog 0.1% Oint) 1 applic BID TOP Last administered on 04/18/18 08:42; Admin Dose 1 APPLIC; Start 04/12/18 at 09:00 Capsaicin (Theragen) 1 applic QID TOP Last administered on 04/18/18 08:42; Admin Dose 1 APPLIC; Start 04/14/18 at 17:00 Nateglinide (Starlix) 60 mg AC MEALS PO Last administered on 04/18/18 08:39; Admin Dose 60 MG; Start 04/14/18 at 17:25 Daptomycin 335 mg/ Sodium Chloride 100 ml @ 200 mls/hr Q48H IVPB ; Start 04/17/18 at 15:00 Gentamicin Sulfate (Gentamicin 0.1% Oint) 1 applic Q48H TOP Last administered on 04/18/18 08:38; Admin Dose 1 APPLIC; Start 04/17/18 at 09:00 Collagenase (Santyl) 1 applic Q48H TOP ; Start 04/17/18 at 20:00 Multivit/Ca Carb/ B Cmplx/FA/Prenat (Yuridia-Charito) 1 tab DAILY NGT Last administered on 04/18/18at 08:40; Admin Dose 1 TAB; Start 04/18/18 at 09:00 Loperamide HCl (Imodium Cap) 2 mg Q8H PRN PO DIARRHEA; Start 04/18/18 at 10:30 KRISHNA BURTON NP Apr 18, 2018 13:05
--- NOTE | 2018-04-18 13:47 | CONS ---
Date/Time of Note Date/Time of Note DATE: 04/18/18 TIME: 13:45 Assessment/Plan Assessment/Plan Hospital Course Meena 62 year-old -[place] female who I have seen twice before in consultation both of the times as an inpatient. She had moved here from [place] but has a history of complications of diabetes including end-stage renal disease. She has had some skin wound infections that have required hospitalization, and may have osteomyelitis. She is extremely insulin sensitive and requires very small dosages of insulin. In addition she may have delayed gastric emptying which may alter how she absorbs the glucose from a meal. 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 Continue same therapeutics (2) Peripheral vascular disease Status: Chronic Comment: Maximal risk factor modification and control (3) Hyperlipidemia Status: Chronic Comment: Continue statin therapy Qualifiers: Hyperlipidemia type: pure hypercholesterolemia Qualified Codes: E78.00 - Pure hypercholesterolemia, unspecified (4) Essential hypertension Status: Chronic Comment: Treatment especially with an eye toward medicines that would assist with cardiac function (5) Systolic congestive heart failure, NYHA class 2 Status: Chronic Comment: On medical therapy Qualifiers: Congestive heart failure chronicity: chronic Qualified Codes: I50.22 - Chronic systolic (congestive) heart failure (6) Mitral valve regurgitation Status: Chronic Comment: Noted Qualifiers: Cardiac valve disease etiology: nonrheumatic Qualified Codes: I34.0 - Nonrheumatic mitral (valve) insufficiency (7) Secondary hyperparathyroidism (of renal origin) Status: Chronic Comment: Noted Result Diagram: 04/17/18 0439 04/17/18 0439 Results 24hrs Laboratory Tests Test 04/17/18 17:51 04/17/18 21:57 04/18/18 07:59 04/18/18 13:09 Bedside Glucose 157 177 167 197 Consultation Date/Type/Reason Admit Date/Time Mar 29, 2018 at 17:36 Initial Consult Date 04/05/18 Type of Consult Endocrinology Reason for Consultation Diabetes mellitus type II with multiple complications Requesting Provider: KG FELIX DO 24 HR Interval Summary Free Text/Dictation Without a change Constitutional: no complaints Detailed Summary Endocrine: no complaints Exam/Review of Systems Vital Signs Vitals Vital Signs Date Temp Pulse Resp B/P (MAP) Pulse Ox O2 O2 Flow FiO2 Time Delivery Rate 04/18/18 98.3 96 18 122/63 100 07:40 (82) 04/17/18 Room Air 14:32 04/14/18 4.0 21:34 Intake and Output 04/17/18 04/17/18 04/18/18 1414:59 22:59 06:59 IntakeIntake Total 200 ml 50 ml 190 ml BalanceBalance 200 ml 50 ml 190 ml Exam No change in examination Medications Medications Current Medications Acetaminophen (Tylenol Tab) 650 mg Q6H PRN PO PAIN LEVEL 1-5; Start 03/30/18 at 01:30 Clopidogrel Bisulfate (plaVIX) 75 mg DAILY PO Last administered on 04/18/18 08:38; Admin Dose 75 MG; Start 03/30/18 at 09:00 Dronabinol (Marinol) 2.5 mg DAILY PO Last administered on 04/18/18 09:09; Admin Dose 2.5 MG; Start 03/30/18 at 09:00 Losartan Potassium (Cozaar) 50 mg SuTuThSa@0900,2100 PO Last administered on 04/17/18 22:11; Admin Dose 50 MG; Start 03/31/18 at 09:00 Losartan Potassium (Cozaar) 50 mg MoWeFr@0900 PO Last administered on 04/11/18 09:20; Admin Dose 50 MG; Start 03/30/18 at 09:00 Morphine Sulfate (morphine) 2 mg Q3H PRN PO PAIN LEVEL 6-10 Last administered on 04/18/18 03:42; Admin Dose 2 MG; Start 03/30/18 at 01:30 Ondansetron HCl (Zofran Tab) 4 mg Q6H PRN PO NAUSEA AND/OR VOMITING Last administered on 04/11/18 16:42; Admin Dose 4 MG; Start 03/30/18 at 01:30 Pantoprazole (Protonix Tab) 40 mg AC BREAKFAST PO Last administered on 04/18/18 08:38; Admin Dose 40 MG; Start 03/30/18 at 07:20 Sevelamer Carbonate (Renvela) 1.6 gm WITH MEALS PO Last administered on 04/17/18 12:52; Admin Dose 1.6 GM; Start 03/30/18 at 07:50 Diagnostic Test (Pha) (Accu-Chek) 1 ea 02 XX Last administered on 04/11/18 01:53; Admin Dose 1 EA; Start 03/30/18 at 02:00 Insulin Aspart (Novolog Insulin Pen) NOVOLOG *MILD* ALGORITHM WITH MEALS BEDTIME SC Last administered on 04/18/18 13:26; Admin Dose 2 UNIT; Start 03/30/18 at 07:50 Miscellaneous Information 1 ea NOTE XX ; Start 03/30/18 at 02:00 Glucose (Glutose) 15 gm Q15M PRN PO DECREASED GLUCOSE Last administered on 04/08/18 12:56; Admin Dose 15 GM; Start 03/30/18 at 02:00 Glucose (Glutose) 22.5 gm Q15M PRN PO DECREASED GLUCOSE Last administered on 04/05/18 19:02; Admin Dose 22.5 GM; Start 03/30/18 at 02:00 Dextrose (D50w Syringe) 25 ml Q15M PRN IV DECREASED GLUCOSE Last administered on 04/06/18 09:22; Admin Dose 25 ML; Start 03/30/18 at 02:00 Dextrose (D50w Syringe) 50 ml Q15M PRN IV DECREASED GLUCOSE Last administered on 04/08/18 14:54; Admin Dose 50 ML; Start 03/30/18 at 02:00 Glucagon (Glucagen) 1 mg Q15M PRN IM DECREASED GLUCOSE Last administered on 04/08/18 14:37; Admin Dose 1 MG; Start 03/30/18 at 02:00 Glucose (Glutose) 15 gm Q15M PRN BUCCAL DECREASED GLUCOSE Last administered on 04/04/18 17:57; Admin Dose 15 GM; Start 03/30/18 at 02:00 Metoprolol Succinate (Toprol Xl) 200 mg MoWeFr@0900 PO Last administered on 04/11/18 09:21; Admin Dose 200 MG; Start 03/30/18 at 09:00 Metoprolol Succinate (Toprol Xl) 50 mg SuTuThSa@0900,2100 PO Last administered on 04/17/18 22:12; Admin Dose 50 MG; Start 03/31/18 at 09:00 Diphenhydramine HCl (Benadryl) 50 mg Q4H PRN IV pruritis Last administered on 04/18/18 11:56; Admin Dose 50 MG; Start 03/30/18 at 09:00 Heparin Sodium (Porcine) (Heparin (5000 Units/1ml)) 5,000 unit BID SC Last administered on 04/18/18 08:46; Admin Dose 5,000 UNIT; Start 03/30/18 at 12:00 Levofloxacin (Levaquin) 250 mg Q2D@0600 PO Last administered on 04/15/18 06:09; Admin Dose 250 MG; Start 04/01/18 at 06:00 Sodium Hypochlorite (Dakin'S (Dilute )) 1 applic DAILY IRR Last administered on 04/18/18 08:40; Admin Dose 1 APPLIC; Start 03/31/18 at 09:00 Ondansetron HCl (Zofran Inj) 4 mg Q4H PRN IV NAUSEA AND/OR VOMITING Last administered on 04/18/18 03:42; Admin Dose 4 MG; Start 04/02/18 at 16:30 Atorvastatin Calcium (Lipitor) 40 mg QHS PO Last administered on 04/17/18 22:05; Admin Dose 40 MG; Start 04/10/18 at 21:00 Multivit/Ca Carb/ B Cmplx/FA/Prenat (Yuridia-Charito) 1 tab DAILY PO Last ad ministered on 04/17/18 09:02; Admin Dose 1 TAB; Start 04/11/18 at 09:00 Cholecalciferol (Vitamin D) 1,000 unit DAILY PO Last administered on 04/18/18 08:38; Admin Dose 1,000 UNIT; Start 04/11/18 at 09:00 Linagliptin (Tradjenta) 5 mg DAILY PO Last administered on 04/18/18 08:39; Admin Dose 5 MG; Start 04/11/18 at 13:00 Triamcinolone Acetonide (Kenalog 0.1% Oint) 1 applic BID TOP Last administered on 04/18/18 08:42; Admin Dose 1 APPLIC; Start 04/12/18 at 09:00 Capsaicin (Theragen) 1 applic QID TOP Last administered on 04/18/18 13:26; Admin Dose 1 APPLIC; Start 04/14/18 at 17:00 Nateglinide (Starlix) 60 mg AC MEALS PO Last administered on 04/18/18 13:23; Admin Dose 60 MG; Start 04/14/18 at 17:25 Daptomycin 335 mg/ Sodium Chloride 100 ml @ 200 mls/hr Q48H IVPB ; Start 04/17/18 at 15:00 Gentamicin Sulfate (Gentamicin 0.1% Oint) 1 applic Q48H TOP Last administered on 04/18/18at 08:38; Admin Dose 1 APPLIC; Start 04/17/18 at 09:00 Collagenase (Santyl) 1 applic Q48H TOP ; Start 04/17/18 at 20:00 Multivit/Ca Carb/ B Cmplx/FA/Prenat (Yuridia-Charito) 1 tab DAILY NGT Last administered on 04/18/18at 08:40; Admin Dose 1 TAB; Start 04/18/18 at 09:00 Loperamide HCl (Imodium Cap) 2 mg Q8H PRN PO DIARRHEA; Start 04/18/18 at 10:30 LILIAN IBRAHIM MD Apr 18, 2018 13:47
[2018-04-18] MEDS: ATORVASTATIN 40 MG TAB PO SCH (20:35)
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
== END 2018-04-18 21:40 | DRG 623 ==
LOC: E/R 16:20 → MS1 17:36 → EDBEDREQ 19:04 → MS1 04-13 21:36
PROVIDERS: ADMIT Internal Medicine; ATTEND Internal Medicine
PROC: 5A1D70Z Performance of Urinary Filtration, Intermittent, Less than 6 Hours Per Day (ICD-10-PCS; 2018-03-30)
PROC: 0JBR0ZZ Excision of Left Foot Subcutaneous Tissue and Fascia, Open Approach (ICD-10-PCS; principal; 2018-04-02)
DX: E10.621 Type 1 diabetes mellitus with foot ulcer (principal); I96 Gangrene, not elsewhere classified; L03.116 Cellulitis of left lower limb; L97.228 Non-pressure chronic ulcer of left calf with other specified severity; M86.8X7 Other osteomyelitis, ankle and foot; E10.52 Type 1 diabetes mellitus with diabetic peripheral angiopathy with gangrene; R44.3 Hallucinations, unspecified; I13.2 Hypertensive heart and chronic kidney disease with heart failure and with stage 5 chronic kidney disease, or end stage renal disease; I50.22 Chronic systolic (congestive) heart failure; D63.1 Anemia in chronic kidney disease; E78.5 Hyperlipidemia, unspecified; E10.622 Type 1 diabetes mellitus with other skin ulcer; E10.69 Type 1 diabetes mellitus with other specified complication; E10.42 Type 1 diabetes mellitus with diabetic polyneuropathy; E10.22 Type 1 diabetes mellitus with diabetic chronic kidney disease; G89.4 Chronic pain syndrome; I25.10 Atherosclerotic heart disease of native coronary artery without angina pectoris; I34.0 Nonrheumatic mitral (valve) insufficiency; L97.529 Non-pressure chronic ulcer of other part of left foot with unspecified severity; L89.620 Pressure ulcer of left heel, unstageable; L29.8 Other pruritus; N18.6 End stage renal disease; N25.81 Secondary hyperparathyroidism of renal origin; R41.0 Disorientation, unspecified; T42.8X5A Adverse effect of antiparkinsonism drugs and other central muscle-tone depressants, initial encounter; Z99.2 Dependence on renal dialysis; Z86.73 Personal history of transient ischemic attack (TIA), and cerebral infarction without residual deficits; Z87.11 Personal history of peptic ulcer disease; Z79.4 Long term (current) use of insulin
CPT/HCPCS: 71045; 73610; 73718; 73721; 80048; 80053; 80076; 82306; 82533; 82550; 82553; 82652; 82947; 82962; 83036; 83605; 83735; 83970; 84100; 84484; 84681; 85025; 85610; 85651; 85730; 86140; 87040; 87070; 87081; 87340; 90935; 93005; 93922; G0463; J1170; J1200; J1580; J1610; J1644; J1720; J1815; J2270; J2405; J2543; Q4081